=== PATIENT | male | born 1990 | race African-American/Black ===

== ENCOUNTER → 2016-11-13 | Outpatient (CLI) | payer BC ==
[2016-11-13 18:01] LABS: Basophils % (A) 1 %; CH 30.9; CHCM 34.8; Eosinophils # (A) 0.1 k/uL (0-0.7); Eosinophils % (A) 1 %; HCT 47.9 % (39.0-53.0); HGB 16.4 gm/dL (13.0-17.5); Luc # (Auto) 0.19; Luc % (Auto) 2; Lymphocytes # (A) 2.6 k/uL (1.0-4.8); Lymphocytes % (A) 30 %; MCH 30.6 pg (25.0-35.0); MCHC 34.3 g/dL (31.0-37.0); MCV 89.2 fL (80.0-100.0); Mean Platelet Volume 7.1; Monocytes # (A) 0.4 k/uL (0-1.0); Monocytes % (A) 5 %; Neutrophils # (A) 5.1 k/uL (1.3-7.7); Neutrophils % (A) 61 %; RBC 5.36 m/uL (4.30-5.90); RDW 12.5 % (11.5-15.5); WBC 8.5 k/uL (3.8-10.6); WBC (Perox) 8.38
[2016-11-13 18:18] LABS: ALT 34 U/L (21-72); AST 38 U/L (17-59); Alkaline Phosphatase 70 U/L (38-126); Anion Gap 11 mmol/L; Blood Urea Nitrogen 10 mg/dL (9-20); Calcium 9.3 mg/dL (8.4-10.2); Carbon Dioxide 28 mmol/L (22-30); Chloride 101 mmol/L (98-107); Cholesterol 130 mg/dL (<200); Glucose 80 mg/dL (74-99); HDL Cholesterol 38 mg/dL (40-60); Non-African American GFR(MDRD) >60 (>60 ml/min/1.73 sqM); Potassium 3.8 mmol/L (3.5-5.1); Sodium 140 mmol/L (137-145); Total Bilirubin 0.8 mg/dL (0.2-1.3); Total Protein 7.7 g/dL (6.3-8.2); Triglycerides 105 mg/dL (<150)
== END ==
LOC: MMGSC 16:30
PROVIDERS: ATTEND Family Medicine
DX: Z00.00 Encounter for general adult medical examination without abnormal findings (principal)
CPT/HCPCS: 36415; 80053; 80061; 84439; 84443; 85025

== ENCOUNTER → 2017-07-16 | Outpatient (CLI) | payer BC ==
[2017-07-18 14:59] LABS: C. trachomatis,PCR Negative (Neg,Equiv); Chlamydia trachomatis Source Urine; N. gonorrhoeae,PCR Negative (Neg,Equiv); Neisseria Source Urine
== END | disposition home or self-care (01) ==
LOC: MMGSC 16:55
PROVIDERS: ATTEND Family Medicine
DX: Z20.2 Contact with and (suspected) exposure to infections with a predominantly sexual mode of transmission (principal)
CPT/HCPCS: 87491; 87591

== ENCOUNTER 2023-11-05 08:30 | Observation (INO) | payer BC ==
[2023-11-05 09:20] LABS: ALT 22 U/L (4-49); AST 27 U/L (17-59); African American GFR (CKD) >90 (>60 ml/min/1.73 sqM); Albumin 3.4 g/dL (3.5-5.0); Alkaline Phosphatase 76 U/L (38-126); Anion Gap 6 mmol/L; Blood Urea Nitrogen 10 mg/dL (9-20); Calcium 8.7 mg/dL (8.4-10.2); Carbon Dioxide 29 mmol/L (22-30); Chloride 103 mmol/L (98-107); Glucose 96 mg/dL (74-99); Lipase 1704 U/L (23-300); Non-African American GFR(CKD) >90 (>60 ml/min/1.73 sqM); Potassium 3.8 mmol/L (3.5-5.1); Sodium 138 mmol/L (137-145); Total Bilirubin 0.4 mg/dL (0.2-1.3); Total Protein 6.2 g/dL (6.3-8.2)
[2023-11-05 09:26] LABS: Basophils # (A) 0.1 k/uL (0-0.2); Basophils % (A) 1 %; Eosinophils # (A) 1.6 k/uL (0-0.7); Eosinophils % (A) 13 %; HCT 40.2 % (39.0-53.0); HGB 13.3 gm/dL (13.0-17.5); Lymphocytes # (A) 2.2 k/uL (1.0-4.8); Lymphocytes % (A) 17 %; MCH 29.6 pg (25.0-35.0); MCHC 33.2 g/dL (31.0-37.0); MCV 89.1 fL (80.0-100.0); Mean Platelet Volume 7.1; Monocytes # (A) 0.9 k/uL (0-1.0); Monocytes % (A) 7 %; Neutrophils # (A) 7.7 k/uL (1.3-7.7); Neutrophils % (A) 61 %; Platelet Count 351 k/uL (150-450); RBC 4.51 m/uL (4.30-5.90); RDW 13.6 % (11.5-15.5); WBC 12.6 k/uL (3.8-10.6)
[2023-11-05] MEDS: SODIUM CHLORIDE 0.9% 1,000 ML IV STA (09:27)
[2023-11-05 09:50] VITALS: RESP 18; TEMP 98.1
--- NOTE | 2023-11-05 10:01 | US ---
EXAMINATION TYPE: US gallbladder DATE OF EXAM: 11/05/2023 COMPARISON: NONE CLINICAL INDICATION: Male, 33 years old with history of pain; RUQ pain, denies n/v TECHNIQUE: Multiple sonographic images of the right upper quadrant are obtained. FINDINGS: EXAM MEASUREMENTS: Liver Length: 14.8 cm Gallbladder Wall: 0.21 cm CBD: 0.33 cm Right Kidney: 10.2 x 4.8 x 4.4 cm INFUSION RN NOTES: Pancreas: Obscured by bowel gas Liver: wnl Gallbladder: Contracted; no stones seen Evidence for sonographic Rashid's sign: No CBD: wnl Right Kidney: wnl IMPRESSION: Contracted gallbladder without evidence for gallstones. No acute process.
--- NOTE | 2023-11-05 11:28 | CT ---
EXAMINATION TYPE: CT abdomen pelvis w con DATE OF EXAM: 11/05/2023 COMPARISON: None INDICATION: Abdominal pain, new pancreatitis DLP: 1731.80 mGycm, Automated exposure control for dose reduction was used. CONTRAST: 100 ml mL of Isovue 300. Study performed without Oral Contrast TECHNIQUE: Axial images were obtained from above the diaphragm to the pubic rami in the axial plane a t 5 mm thick sections. Reconstructed images are reviewed on the computer in the coronal plane. FINDINGS: Limited CT sections are obtained the lung bases. The lung bases are clear. CT ABDOMEN: Liver: Normal Spleen: Normal Pancreas: There is minimal inflammatory change adjacent to the pancreas. Findings could be compatible with diffuse mild pancreatitis. No pseudocyst formation or abscess formation is identified. Adrenal glands: The adrenal glands are normal. Gallbladder: Normal Kidneys: No masses are evident. No hydronephrosis is present. No cysts are present. Delayed images were obtained through the kidneys, which remain unremarkable. Aorta: Normal Inferior vena cava: Normal. CT PELVIS: Loops of bowel within the abdomen and pelvis are normal. Studies without oral contrast limiting b owel evaluation. Fecal debris is within the distal colon. Appendix: Normal as visualized. Urinary bladder: Normal. Genitourinary structures: Prostate appears normal Osseous structures: No suspicious lytic or sclerotic lesions. IMPRESSION: 1. Mild diffuse pancreatitis.
[2023-11-05] MEDS ORDERED: NALOXONE 0.4 MG/ML 1 ML VIAL IV PRN (11:53)
[2023-11-05] MEDS ORDERED: KETOROLAC 15 MG/ML 1 ML VIAL IVP PRN (11:53)
[2023-11-05] MEDS ORDERED: ONDANSETRON 4 MG/2 ML VIAL IVP PRN (11:53)
[2023-11-05] MEDS ORDERED: HYDROmorphone 0.5 MG/0.5 ML SYRINGE IVP PRN (11:53)
[2023-11-05] MEDS: KETOROLAC 15 MG/ML 1 ML VIAL IVP STA (11:53)
[2023-11-05] MEDS: SODIUM CHLORIDE 0.9% 1,000 ML IV ONE (11:54)
--- NOTE | 2023-11-05 11:54 | ED ---
Abdominal Pain HPI - General Chief Complaint: Abdominal Pain Stated Complaint: Abdominal Pain Time Seen by Provider: 11/05/23 08:37 Source: patient, RN notes reviewed Mode of arrival: ambulatory Limitations: no limitations - History of Present Illness Initial Comments: 33-year-old male presents emergency department chief complaint of abdominal pain. Patient states she has had increased abdominal pain for few days states that symptoms right upper quadrant epigastric region. States it does radiate to his back some. Patient states certain foods make it worse or just eating in general. Patient notes nausea without vomiting denies any change in bowel habits no prior abdominal surgeries no chest pain. - Related Data Home Medications Medication Instructions Recorded Confirmed Baclofen [Lioresal] 10 mg PO DAILY PRN 11/05/23 11/05/23 Dextroamphetamine/Amphetamine 30 mg PO DAILY 11/05/23 11/05/23 [Adderall Xr 30 mg Capsule] Metoprolol Succinate (ER) [Toprol 100 mg PO DAILY@1700 11/05/23 11/05/23 XL] Previous Rx's Medication Instructions Recorded HYDROcodone/APAP 10-325MG [[place] 1 tab PO Q6HR PRN 3 Days #12 tab 11/05/23 10-325] Allergies Allergy/AdvReac Type Severity Reaction Status Date / Time No Known Allergies Allergy Verified 11/05/23 11:56 Review of Systems ROS Statement: Those systems with pertinent positive or pertinent negative responses have been documented in the HPI. ROS Other: All systems not noted in ROS Statement are negative. Past Medical History Past Medical History: Hyperlipidemia, Hypertension History of Any Multi-Drug Resistant Organisms: None Reported Past Surgical History: Adenoidectomy, Ear Surgery, Tonsillectomy Past Psychological History: No Psychological Hx Reported Smoking Status: Never smoker Past Alcohol Use History: Occasional Past Drug Use History: None Reported General Exam Limitations: no limitations General appearance: alert, in no apparent distress Head exam: Present: atraumatic, normocephalic, normal inspection Eye exam: Present: normal appearance, PERRL, EOMI. Absent: scleral icterus, conjunctival injection, periorbital swelling Respiratory exam: Present: normal lung sounds bilaterally. Absent: respiratory distress, wheezes, rales, rhonchi, stridor Cardiovascular Exam: Present: regular rate, normal rhythm, normal heart sounds. Absent: systolic murmur, diastolic murmur, rubs, gallop, clicks GI/Abdominal exam: Present: soft, tenderness, normal bowel sounds. Absent: distended, guarding, rebound, rigid Back exam: Absent: CVA tenderness (R), CVA tenderness (L) Course Vital Signs 11/05/23 11/05/23 11/05/23 08:34 09:28 11:00 Temperature 98.1 F Pulse Rate 93 89 81 Respiratory 20 18 18 Rate Blood Pressure 126/82 134/84 141/82 O2 Sat by Pulse 98 97 95 Oximetry 11/05/23 11/05/23 13:00 14:50 Temperature Pulse Rate 80 82 Respiratory 18 18 Rate Blood Pressure 140/86 137/84 O2 Sat by Pulse 99 97 Oximetry Medical Decision Making - Medical Decision Making Was pt. sent in by a medical professional or institution (, PA, [employer], urgent ca re, hospital, or [place] health care facility...) When possible be specific @ -No Did you speak to anyone other than the patient for history (EMS, parent, family, police, friend...)? What history was obtained from this source @ -No Did you review nursing and triage notes (agree or disagree)? Why? @ -I reviewed and agree with nursing and triage notes Were old charts reviewed (outside hosp., previous admission, EMS record, old EKG, old radiological studies, urgent care reports/EKG's, [place] health care facility records)? Report findings @ -No old charts were reviewed Differential Diagnosis (chest pain, altered mental status, abdominal pain women, abdominal pain men, vaginal bleeding, weakness, fever, dyspnea, syncope, he adache, dizziness, GI bleed, back pain, seizure, CVA, palpatations, mental health, musculoskeletal)? @ -Differential Abdominal Pain Men: Appendicitis, cholecystitis, diverticulosis, ischemic bowel, pancreatitis, hepatitis, UTI, gastroenteritis, AAA, incarcerated hernia, bowel obstruction, constipation, inflammatory bowel, hepatitis, peptic ulcer disease, splenic infarction, perforated viscus, testicular torsion, this is not meant to be an all-inclusive list EKG interpreted by me (3pts min.). @ -None X-rays interpreted by me (1pt min.). @ -None done CT interpreted by me (1pt min.). @ -CT abdomen pelvis showing diffuse pancreatitis U/S interpreted by me (1pt. min.). @ -Ultrasound gall bladder showing no evidence of cholecystitis or gallstones What testing was considered but not performed or refused? (CT, X-rays, U/S, labs)? Why? @ -None What meds were considered but not given or refused? Why? @ -None Did you discuss the management of the patient with other professionals (professionals i.e. , PA, [employer], lab, RT, psych nurse, social media sr strategy manager, air quality manager, teacher, fire information officer, pillowcase folder)? Give summary @ -Discussed with Dr. Bah for admission for acute pancreatitis, GI consult Was smoking cessation discussed for >3mins.? @ -No Was critical care preformed (if so, how long)? @ -No Were there social determinants of health that impacted care today? How? (Homelessness, low income, unemployed, alcoholism, drug addiction, transportation, low edu. Level, literacy, decrease access to med. care, halfway, rehab)? @ -No Was there de-escalation of care discussed even if they declined (Discuss DNR or withdrawal of care, Hospice)? DNR status @ -No What co-morbidities impacted this encounter? (DM, HTN, Smoking, COPD, CAD, Cancer, CVA, ARF, Chemo, Hep., AIDS, mental health diagnosis, sleep apnea, morbid obesity)? @ -None Was patient admitted / discharged? Hospital course, mention meds given and route, prescriptions, significant lab abnormalities, going to OR and other pertinent info. @ -Admitted patient has acute pancreatitis, idiopathic pancreatitis will be admitted for IV fluids, GI Undiagnosed new problem with uncertain prognosis? @ -No Drug Therapy requiring intensive monitoring for toxicity (Heparin, Nitro, Insulin, Cardizem)? @ -No Were any procedures done? @ -No Diagnosis/symptom? @ -Pancreatitis Acute, or Chronic, or Acute on Chronic? @ -Acute Uncomplicated (without systemic symptoms) or Complicated (systemic symptoms)? @ -Complicated Side effects of treatment? @ -No Exacerbation, Progression, or Severe Exacerbation? @ -No Poses a threat to life or bodily function? How? (Chest pain, [place], [place], pneumonia, PE, COPD, DKA, ARF, appy, cholecystitis, CVA, Diverticulitis, Homicidal, Suicidal, threat to staff... and all critical care pts) @ -No - Lab Data Result diagrams: 11/05/23 08:59 11/05/23 08:59 Lab Results 11/05/23 11/05/23 11/05/23 Range/Units 08:59 08:59 08:59 WBC 12.6 H (3.8-10.6) k/uL RBC 4.51 (4.30-5.90) m/uL Hgb 13.3 (13.0-17.5) gm/dL Hct 40.2 (39.0-53.0) % MCV 89.1 (80.0-100.0) fL MCH 29.6 (25.0-35.0) pg MCHC 33.2 (31.0-37.0) g/dL RDW 13.6 (11.5-15.5) % Plt Count 351 (150-450) k/uL MPV 7.1 Neutrophils % 61 % Lymphocytes % 17 % Monocytes % 7 % Eosinophils % 13 % Basophils % 1 % Neutrophils # 7.7 (1.3-7.7) k/uL Lymphocytes # 2.2 (1.0-4.8) k/uL Monocytes # 0.9 (0-1.0) k/uL Eosinophils # 1.6 H (0-0.7) k/uL Basophils # 0.1 (0-0.2) k/uL Sodium 138 (137-145) mmol/L Potassium 3.8 (3.5-5.1) mmol/L Chloride 103 (98-107) mmol/L Carbon Dioxide 29 (22-30) mmol/L Anion Gap 6 mmol/L BUN 10 (9-20) mg/dL Creatinine 0.85 (0.66-1.25) mg/dL Est GFR (CKD-EPI)AfAm >90 (>60 ml/min/1.73 sqM) Est GFR (CKD-EPI)NonAf >90 (>60 ml/min/1.73 sqM) Glucose 96 (74-99) mg/dL Plasma Lactic Acid Allan 0.6 L (0.7-2.0) mmol/L Calcium 8.7 (8.4-10.2) mg/dL Total Bilirubin 0.4 (0.2-1.3) mg/dL AST 27 (17-59) U/L ALT 22 (4-49) U/L Alkaline Phosphatase 76 (38-126) U/L Total Protein 6.2 L (6.3-8.2) g/dL Albumin 3.4 L (3.5-5.0) g/dL Lipase 1704 H (23-300) U/L Disposition Clinical Impression: Acute pancreatitis Disposition: ADMITTED IP TO THIS HOSP Condition: Fair Time of Disposition: 11:53
[2023-11-05] MEDS: SODIUM CHLORIDE 0.9% 1,000 ML IV SCH (11:55)
--- NOTE | 2023-11-05 14:39 | P.HPIM ---
History of Present Illness H&P Date: 11/05/23 This note will serve as the H&P along with discharge summary. 33-year-old male with PMH of ADHD, hypertension presents the ED for abdominal pain. Abdominal pain started on Friday. Pain is located in the right upper quadrant. Patient describes the pain as a stomach ache, cramping in nature. Pain is intermittent and worsened with meals. Pain is 6 out of 10 in severity. He reports no nausea or vomiting. He reports watery diarrhea, 4-5 bowel movements daily since Friday. He reports social drinking. His last drink was on Friday and Friday. He denies any illicit drug use or smoking cigarettes. In the ED, he underwent extensive evaluation. BP 126/82, HR 93, T 98.1F, 98% on RA. CBC and CMP performed significant for WBC 12.6, albumin 3.4, total protein 6.2. Lactic acid 0.6. Lipase 1704. Gallbladder ultrasound negative for gallstones or CBD dilation. CTAP showed minimal inflammatory changes adjacent to the pancreas compatible with diffuse mild pancreatitis. Patient was accepted for admission for treatment of pancreatitis. He received 15 mg of IV Toradol. He is currently tolerating diet. His pain is manageable. He reports feeling like he can manage his pain and symptoms at home. He is encouraged to drink plenty of water. We will prescribe [place] PRN for the patient. Patient verbalized understanding of the plan. General: non toxic, no distress, appears at stated age Derm: warm, dry Head: atraumatic, normocephalic, symmetric Eyes: EOMI, no lid lag, anicteric sclera Mouth: no lip lesion, mucus membranes moist Cardiovascular: S1S2 reg, no murmur Lungs: CTA bilateral, no rhonchi, no rales , no accessory muscle use Abdominal: soft, nontender to palpation, no guarding, no appreciable organomegaly Ext: no gross muscle atrophy, no edema, no contractures Neuro: no focal neuro deficits Psych: Alert, oriented, appropriate affect Discharge Diagnosis: Mild pancreatitis DIarrhea likely related to above SIRS likely related to above Past Medical History Past Medical History: Hyperlipidemia, Hypertension History of Any Multi-Drug Resistant Organisms: None Reported Past Surgical History: Adenoidectomy, Ear Surgery, Tonsillectomy Past Psychological History: No Psychological Hx Reported Smoking Status: Never smoker Past Alcohol Use History: Occasional Past Drug Use History: None Reported Medications and Allergies Home Medications Medication Instructions Recorded Confirmed Type Baclofen [Lioresal] 10 mg PO DAILY PRN 11/05/23 11/05/23 History Dextroamphetamine/Amphetamine 30 mg PO DAILY 11/05/23 11/05/23 History [Adderall Xr 30 mg Capsule] HYDROcodone/APAP 10-325MG [[place] 1 tab PO Q6HR PRN 3 Days #12 tab 11/05/23 Rx 10-325] Metoprolol Succinate (ER) [Toprol 100 mg PO DAILY@1700 11/05/23 11/05/23 History XL] Allergies Allergy/AdvReac Type Severity Reaction Status Date / Time No Known Allergies Allergy Verified 11/05/23 11:56 Physical Exam Vitals: Vital Signs Temp Pulse Resp BP Pulse Ox 11/05/23 13:00 80 18 140/86 99 11/05/23 11:00 81 18 141/82 95 11/05/23 09:28 89 18 134/84 97 11/05/23 08:34 98.1 F 93 20 126/82 98 Intake and Output 11/04/23 11/05/23 11/05/23 22:59 06:59 14:59 Other: Weight 117.934 kg Results CBC & Chem 7: 11/05/23 08:59 11/05/23 08:59 Labs: Abnormal Lab Results - Last 24 Hours (Table) 11/05/23 11/05/23 11/05/23 Range/Units 08:59 08:59 08:59 WBC 12.6 H (3.8-10.6) k/uL Eosinophils # 1.6 H (0-0.7) k/uL Plasma Lactic Acid Allan 0.6 L (0.7-2.0) mmol/L Total Protein 6.2 L (6.3-8.2) g/dL Albumin 3.4 L (3.5-5.0) g/dL Lipase 1704 H (23-300) U/L
[2023-11-05 15:12] VITALS: BP 137/84; PULSE 82
== END 2023-11-05 14:50 | disposition home or self-care (01) ==
LOC: EC 08:30 → 6NMEDSUR 12:10
PROVIDERS: ADMIT Internal Medicine; ATTEND Internal Medicine
DX: K85.00 Idiopathic acute pancreatitis without necrosis or infection (principal); R65.10 Systemic inflammatory response syndrome (SIRS) of non-infectious origin without acute organ dysfunction; I10 Essential (primary) hypertension; F90.9 Attention-deficit hyperactivity disorder, unspecified type; R19.7 Diarrhea, unspecified; Z79.899 Other long term (current) drug therapy
CPT/HCPCS: 96361; 96374; 99285; 36415; 80053; 83605; 83690; 85025; 76705; 74177; G0378; J1885; Q9967

== ENCOUNTER 2023-12-25 19:24 | Inpatient (IN) | payer BC ==
--- NOTE | 2023-12-25 19:38 | ED ---
Abdominal Pain HPI - General Chief Complaint: Abdominal Pain Stated Complaint: Pancreatitis Time Seen by Provider: 12/25/23 19:36 Source: patient, family, RN notes reviewed Mode of arrival: ambulatory Limitations: no limitations - History of Present Illness Initial Comments: 33-year-old male presented to ER with a chief complaint of abdominal pain. [place] ent states he has a past medical history significant of pancreatitis and this feels similar. States he has been experiencing a sharp left-sided abdominal pain since last night. He reports he has had a decreased appetite and has been unable to keep any food or liquids down since then. He denies any fevers, chills, nausea, constipation/diarrhea or urinary complaints. He states he has been trying [id number] Excedrin without relief. Family, at bedside, report patient has lost weight since his last ER visit here in November. Patient denies any chest pain, shortness of breath or peripheral edema. - Related Data Home Medications Medication Instructions Recorded Confirmed Baclofen [Lioresal] 10 mg PO DAILY PRN 11/05/23 11/05/23 Dextroamphetamine/Amphetamine 30 mg PO DAILY 11/05/23 11/05/23 [Adderall Xr 30 mg Capsule] Metoprolol Succinate (ER) [Toprol 100 mg PO DAILY@1700 11/05/23 11/05/23 XL] Previous Rx's Medication Instructions Recorded HYDROcodone/APAP 10-325MG [[place] 1 tab PO Q6HR PRN 3 Days #12 tab 11/05/23 10-325] Allergies Allergy/AdvReac Type Severity Reaction Status Date / Time No Known Allergies Allergy Verified 12/25/23 19:27 Review of Systems ROS Statement: Those systems with pertinent positive or pertinent negative responses have been documented in the HPI. ROS Other: All systems not noted in ROS Statement are negative. Past Medical History Past Medical History: Hyperlipidemia, Hypertension Additional Past Medical History / Comment(s): pancrentitis History of Any Multi-Drug Resistant Organisms: None Reported Past Surgical History: Adenoidectomy, Ear Surgery, Tonsillectomy Past Psychological History: No Psychological Hx Reported Smoking Status: Never smoker Past Alcohol Use History: Occasional Past Drug Use History: None Reported General Exam Limitations: no limitations General appearance: alert, in no apparent distress Respiratory exam: Present: normal lung sounds bilaterally. Absent: respiratory distress, wheezes, rales, rhonchi, stridor Cardiovascular Exam: Present: normal rhythm, tachycardia, normal heart sounds GI/Abdominal exam: Present: soft, tenderness (Left-sided. Left upper quadrant), normal bowel sounds Neurological exam: Present: alert, oriented X3, CN II-XII intact Skin exam: Present: warm, dry, intact, pallor (mild). Absent: rash Course Vital Signs 12/25/23 12/25/23 19:26 21:30 Temperature 98.2 F Pulse Rate 116 H 111 H Respiratory 20 18 Rate Blood Pressure 116/73 125/72 O2 Sat by Pulse 99 99 Oximetry - Reevaluation(s) Reevaluation #1: 12/26/23 01:32 Case discussed with [facility] physician, Dr. Saunders, who accepts medical admission. Medical Decision Making - Medical Decision Making Was pt. sent in by a medical professional or institution (, PA, BULB ASSEMBLER, urgent care, hospital, or group home...) When possible be specific @ -No Did you speak to anyone other than the patient for history (EMS, parent, family, police, friend...)? What history was obtained from this source @ -No Did you review nursing and triage notes (agree or disagree)? Why? @ -I reviewed and agree with nursing and triage notes Were old charts reviewed (outside hosp., previous admission, EMS record, old EKG, old radiological studies, urgent care reports/EKG's, group home records)? Report findings @ -Yes, I reviewed ER visit and hospital admission on 11-05-2023. Patient admitted for pancreatitis. Differential Diagnosis (chest pain, altered mental status, abdominal pain women, abdominal pain men, vaginal bleeding, weakness, fever, dyspnea, syncope, headache, dizziness, GI bleed, back pain, seizure, CVA, palpatations, mental health, musculoskeletal)? @-Differential Abdominal Pain Men: Appendicitis, cholecystitis, diverticulosis, ischemic bowel, pancreatitis, hepatitis, UTI, gastroenteritis, AAA, incarcerated hernia, bowel obstruction, constipation, inflammatory bowel, hepatitis, peptic ulcer disease, splenic infarction, perforated viscus, testicular torsion, this is not meant to be an all-inclusive list EKG interpreted by me (3pts min.). @ -As above X-rays interpreted by me (1pt min.). @ -Chest x-ray interpreted by me negative for acute cardiopulmonary process. CT interpreted by me (1pt min.). @ - CT abdomen pelvis remarkable for moderate wall thickening of the transve rse, descending and sigmoid colon consistent with colitis. Hepatic steatosis. U/S interpreted by me (1pt. min.). @ -None done What testing was considered but not performed or refused? (CT, X-rays, U/S, labs)? Why? @ -None What meds were considered but not given or refused? Why? @ -None Did you discuss the management of the patient with other professionals (professionals i.e. , PA, BULB ASSEMBLER, lab, RT, psych nurse, social media coordinator, landscape architecture teacher, teacher, sba business development officer, registered nurse hh case manager)? Give summary @ -Yes, case discussed with Dr. Saunders, [facility] physicians, who accepts medical admission. Was smoking cessation discussed for >3mins.? @ -No Was critical care preformed (if so, how long)? @ -No Were there social determinants of health that impacted care today? How? (Homelessness, low income, unemployed, alcoholism, drug addiction, transportation, low edu. Level, literacy, decrease access to med. care, senior living, rehab)? @ -No Was there de-escalation of care discussed even if they declined (Discuss DNR or withdrawal of care, Hospice)? DNR status @ -No What co-morbidities impacted this encounter? (DM, HTN, Smoking, COPD, CAD, Cancer, CVA, ARF, Chemo, Hep., AIDS, mental health diagnosis, sleep apnea, mor bid obesity)? @ -None Was patient admitted / discharged? Hospital course, mention meds given and ro brenna, prescriptions, significant lab abnormalities, going to OR and other pertinent info. @ -Admitted. 33-year-old male presented to the ER with a chief complaint of abdominal pain. History and physical exam completed. Vitals upon arrival significant for a temperature 98.2, heart rate 116, respiratory rate 20, blood pressure 116/73, oxygen saturation 99% on room air. No signs of acute distress but does appear mildly pale on exam. Abdominal tenderness to left upper and lower quadrant with normal bowel sounds. No rebound tenderness or guarding. Laboratory studies obtained remarkable for cytosis with WBC 20.7 with a left shift. Normocytic normochromic anemia at 11.7. Hyponatremic at 133, hypokalemic 2.8, chloride 92, carbon dioxide is 36. Urinalysis remarkable for trace protein which is likely related to dehydration. CT abdomen pelvis performed due to leukocytosis and focal abdominal tenderness. CT abdomen pelvis remarkable for moderate wall thickening of the transverse, descending and sigmoid colon consistent with colitis. Patient received 2 L IV fluids, morphine, Zofran for symptom control in the ER, with improvement. Patient did receive IV Zosyn in the ER due to ovidio kocytosis while awaiting CT abdomen pelvis results. Blood cultures obtained prior to antibiotic administration. Due to leukocytosis and CT findings admission was considered. Case discussed with sound physician, Dr. Saunders,who accepts medical admission. GI consulted. Patient started on IV Levaquin and Flagyl for colitis. Results discussed with patient, all questions answered. Patient agreeable for admission. Patient admitted in stable condition. Case discussed with ED attending, Dr. Keller. Undiagnosed new problem with uncertain prognosis? @ -No Drug Therapy requiring intensive monitoring for toxicity (Heparin, Nitro, Insulin, Cardizem)? @ -No Were any procedures done? @ -No Diagnosis/symptom? @ -Colitis/metabolic acidosis Acute, or Chronic, or Acute on Chronic? @ -Acute Uncomplicated (without systemic symptoms) or Complicated (systemic symptoms)? @ -Complicated Side effects of treatment? @ -No Exacerbation, Progression, or Severe Exacerbation? @ -No Poses a threat to life or bodily function? How? (Chest pain, [place], [place], pneumonia, PE, COPD, DKA, ARF, appy, cholecystitis, CVA, Diverticulitis, Homicidal, Suicidal, threat to staff... and all critical care pts) @ -Possibly - Lab Data Result diagrams: 12/25/23 20:10 12/25/23 20:10 Lab Results 12/25/23 12/25/23 12/25/23 Range/Units 20:10 20:10 20:10 WBC 20.7 H (3.8-10.6) k/uL RBC 3.98 L (4.30-5.90) m/uL Hgb 11.7 L (13.0-17.5) gm/dL Hct 36.6 L (39.0-53.0) % MCV 92.0 (80.0-100.0) fL MCH 29.3 (25.0-35.0) pg MCHC 31.9 (31.0-37.0) g/dL RDW 13.6 (11.5-15.5) % Plt Count 572 H (150-450) k/uL MPV 8.1 Neutrophils % 84 % Lymphocytes % 5 % Monocytes % 7 % Eosinophils % 1 % Basophils % 0 % Neutrophils # 17.4 H (1.3-7.7) k/uL Lymphocytes # 1.1 (1.0-4.8) k/uL Monocytes # 1.5 H (0-1.0) k/uL Eosinophils # 0.2 (0-0.7) k/uL Basophils # 0.1 (0-0.2) k/uL Manual Slide Review Performed Sodium 133 L (137-145) mmol/L Potassium 2.8 L (3.5-5.1) mmol/L Chloride 92 L (98-107) mmol/L Carbon Dioxide 36 H (22-30) mmol/L Anion Gap 5 mmol/L BUN 10 (9-20) mg/dL Creatinine 0.82 (0.66-1.25) mg/dL Est GFR (CKD-EPI)AfAm >90 (>60 ml/min/1.73 sqM) Est GFR (CKD-EPI)NonAf >90 (>60 ml/min/1.73 sqM) Glucose 100 H (74-99) mg/dL Plasma Lactic Acid Allan 1.8 (0.7-2.0) mmol/L Calcium 7.7 L (8.4-10.2) mg/dL Total Bilirubin 0.4 (0.2-1.3) mg/dL AST 17 (17-59) U/L ALT 15 (4-49) U/L Alkaline Phosphatase 93 (38-126) U/L Total Protein 5.2 L (6.3-8.2) g/dL Albumin 2.3 L (3.5-5.0) g/dL Amylase 34 (30-110) U/L Lipase 35 (23-300) U/L Urine Color Urine Appearance (Clear) Urine pH (5.0-8.0) Ur Specific [place] (1.001-1.035) Urine Protein (Negative) Urine Glucose (UA) (Negative) Urine Ketones (Negative) Urine Blood (Negative) Urine Nitrite (Negative) Urine Bilirubin (Negative) Urine Urobilinogen (<2.0) mg/dL Ur Leukocyte Esterase (Negative) 12/25/23 Range/Units 22:32 WBC (3.8-10.6) k/uL RBC (4.30-5.90) m/uL Hgb (13.0-17.5) gm/dL Hct (39.0-53.0) % MCV (80.0-100.0) fL MCH (25.0-35.0) pg MCHC (31.0-37.0) g/dL RDW (11.5-15.5) % Plt Count (150-450) k/uL MPV Neutrophils % % Lymphocytes % % Monocytes % % Eosinophils % % Basophils % % Neutrophils # (1.3-7.7) k/uL Lymphocytes # (1.0-4.8) k/uL Monocytes # (0-1.0) k/uL Eosinophils # (0-0.7) k/uL Basophils # (0-0.2) k/uL Manual Slide Review Sodium (137-145) mmol/L Potassium (3.5-5.1) mmol/L Chloride (98-107) mmol/L Carbon Dioxide (22-30) mmol/L Anion Gap mmol/L BUN (9-20) mg/dL Creatinine (0.66-1.25) mg/dL Est GFR (CKD-EPI)AfAm (>60 ml/min/1.73 sqM) Est GFR (CKD-EPI)NonAf (>60 ml/min/1.73 sqM) Glucose (74-99) mg/dL Plasma Lactic Acid Allan (0.7-2.0) mmol/L Calcium (8.4-10.2) mg/dL Total Bilirubin (0.2-1.3) mg/dL AST (17-59) U/L ALT (4-49) U/L Alkaline Phosphatase (38-126) U/L Total Protein (6.3-8.2) g/dL Albumin (3.5-5.0) g/dL Amylase (30-110) U/L Lipase (23-300) U/L Urine Color Colorless Urine Appearance Clear (Clear) Urine pH 7.0 (5.0-8.0) Ur Specific [place] 1.038 H (1.001-1.035) Urine Protein Trace H (Negative) Urine Glucose (UA) Negative (Negative) Urine Ketones Negative (Negative) Urine Blood Negative (Negative) Urine Nitrite Negative (Negative) Urine Bilirubin Negative (Negative) Urine Urobilinogen <2.0 (<2.0) mg/dL Ur Leukocyte Esterase Negative (Negative) - EKG Data -: EKG Interpreted by Me EKG Comments: EKG taken at 21: 47 showing a sinus tachycardia with no acute ST segment or T wave abnormalities. Normal axis. Ventricular rate 103, IN interval 146, QRS duration 102, QT/QTc 284/344. - Radiology Data Radiology results: report reviewed, image reviewed Disposition Clinical Impression: Colitis, Metabolic acidosis Disposition: ADMITTED IP TO THIS HOSP Condition: Stable Time of Disposition: 00:49
[2023-12-25 20:43] LABS: ALT 15 U/L (4-49); AST 17 U/L (17-59); African American GFR (CKD) >90 (>60 ml/min/1.73 sqM); Albumin 2.3 g/dL (3.5-5.0); Alkaline Phosphatase 93 U/L (38-126); Amylase 34 U/L (30-110); Anion Gap 5 mmol/L; Blood Urea Nitrogen 10 mg/dL (9-20); Calcium 7.7 mg/dL (8.4-10.2); Carbon Dioxide 36 mmol/L (22-30); Chloride 92 mmol/L (98-107); Glucose 100 mg/dL (74-99); Lipase 35 U/L (23-300); Non-African American GFR(CKD) >90 (>60 ml/min/1.73 sqM); Potassium 2.8 mmol/L (3.5-5.1); Sodium 133 mmol/L (137-145); Total Bilirubin 0.4 mg/dL (0.2-1.3); Total Protein 5.2 g/dL (6.3-8.2)
[2023-12-25 20:59] LABS: Basophils # (A) 0.1 k/uL (0-0.2); Basophils % (A) 0 %; Eosinophils # (A) 0.2 k/uL (0-0.7); Eosinophils % (A) 1 %; HCT 36.6 % (39.0-53.0); HGB 11.7 gm/dL (13.0-17.5); Lymphocytes # (A) 1.1 k/uL (1.0-4.8); Lymphocytes % (A) 5 %; MCH 29.3 pg (25.0-35.0); MCHC 31.9 g/dL (31.0-37.0); Mean Platelet Volume 8.1; Monocytes # (A) 1.5 k/uL (0-1.0); Monocytes % (A) 7 %; Neutrophils # (A) 17.4 k/uL (1.3-7.7); Neutrophils % (A) 84 %; Platelet Count 572 k/uL (150-450); RBC 3.98 m/uL (4.30-5.90); RDW 13.6 % (11.5-15.5); WBC 20.7 k/uL (3.8-10.6)
[2023-12-25] MEDS: SODIUM CHLORIDE 0.9% 1,000 ML IV STA ×2 (21:37→21:38)
[2023-12-25] MEDS: ONDANSETRON 4 MG/2 ML VIAL IVP STA (21:37)
[2023-12-25] MEDS: KETOROLAC 15 MG/ML 1 ML VIAL IVP STA (21:38)
[2023-12-25] MEDS: MORPHINE SULFATE 2 MG/ML SYRINGE IVP ONE (21:39)
[2023-12-25 22:40] LABS: Appearance,Urine Clear (Clear); Bilirubin,Urine Negative (Negative); Blood,Urine Negative (Negative); Color,Urine Colorless; Glucose,Urine (UA) Negative (Negative); Ketones,Urine Negative (Negative); Leukocyte Esterase,Urine Negative (Negative); Nitrite,Urine Negative (Negative); Protein,Urine Trace (Negative); Specific Gravity,Urine 1.038 (1.001-1.035); Urobilinogen,Urine <2.0 mg/dL (<2.0)
--- NOTE | 2023-12-26 00:08 | CT ---
EXAM: CT Abdomen and Pelvis With Intravenous Contrast CLINICAL HISTORY: ITS.REASON CT Reason: abd pain leukocytosis TECHNIQUE: Axial computed tomography images of the abdomen and pelvis with intravenous contrast. CTDI is 22.0 mGy and DLP is 1122.2 mGy-cm. This CT exam was performed using one or more of the following dose reduction techniques: automated exposure control, adjustment of the mA and/or kV according to patient size, and/or use of iterative reconstruction technique. COMPARISON: No relevant prior studies available. FINDINGS: Lung bases: Unremarkable. No mass. No consolidation. ABDOMEN: Liver: Hepatic steatosis. Gallbladder and bile ducts: Unremarkable. No calcified stones. No ductal dilation. Pancreas: Unremarkable. No mass. No ductal dilation. Spleen: Unremarkable. No splenomegaly. Adrenals: Unremarkable. No mass. Kidneys and ureters: Unremarkable. No solid mass. No hydronephrosis. Stomach and bowel: Moderate wall thickening of the transverse, descending, and sigmoid colon, consistent with colitis. Associated, diarrheal disease. No obstruction. PELVIS: Appendix: No findings to suggest acute appendicitis. Bladder: Unremarkable. No mass. Reproductive: Unremarkable as visualized. ABDOMEN and PELVIS: Intraperitoneal space: Unremarkable. No free air. No significant fluid collection. Bones/joints: No acute fracture. No dislocation. Soft tissues: Unremarkable. Vasculature: Unremarkable. No abdominal aortic aneurysm. Lymph nodes: Unremarkable. No enlarged lymph nodes. IMPRESSION: 1. Moderate wall thickening of the transverse, descending, and sigmoid colon, consistent with colitis. Associated, diarrheal disease. 2. Hepatic steatosis.
[2023-12-26] MEDS ORDERED: NALOXONE 0.4 MG/ML 1 ML VIAL IV PRN (00:39)
--- NOTE | 2023-12-26 00:39 | XR ---
EXAM: XR Chest, 2 Views CLINICAL HISTORY: ITS.REASON XR Reason: fatigue TECHNIQUE: Frontal and lateral views of the chest. COMPARISON: No relevant prior studies available. FINDINGS: Lungs: Unremarkable. No consolidation. Pleural space: Unremarkable. No pneumothorax. Heart: Unremarkable. No cardiomegaly. Mediastinum: Unremarkable. Normal mediastinal contour. Bones/joints: Unremarkable. No acute fracture. IMPRESSION: No pneumonia.
[2023-12-26] MEDS: PIPERACILLIN-TAZOBACTAM 3.375 GM in SODIUM CHLORIDE 0.9% 100 ML IVPB STA (00:41)
[2023-12-26] MEDS ORDERED: ACETAMINOPHEN TAB 325 MG TAB PO PRN (00:58)
[2023-12-26] MEDS: MORPHINE SULFATE 2 MG/ML SYRINGE IV PRN (01:16)
[2023-12-26] MEDS: metroNIDAZOLE-NS PMX 500 MG in SALINE 1 100ML.BAG IVPB STA (04:13)
--- NOTE | 2023-12-26 04:13 | P.HPIM ---
History of Present Illness H&P Date: 12/26/23 Patient is a 33-year-old male with PMH of hypertension and ADHD who presents to the emergency room with complaints of abdominal pain, diarrhea, and weight loss. Patient notes that over the past 2 months since his most recent admission of pancreatitis, he has lost roughly 40 pounds and has had intermittent diffuse abdominal discomfort with associated diarrhea. He has noticed blood in his stools on numerous occasions, bright red, without mucus. Notes that the pain has no clear inciting triggers but often occurs after food consumption. Reports that the pain is usually associated with diarrhea, and lasts for several days at a time. Denies nausea, vomiting, fever, chills, cough. Of note, the patient was admitted on 11/04 for mild acute pancreatitis. He does report having seen a belt line feeder as an outpatient and is currently awaiting the results of his workup and is also scheduled for an EGD. Reports however that his pain had become unbearable which prompted him to come to the emergency room. CT abdomen and pelvis in the emergency room revealed findings of colitis involving the transverse, descending, and sigmoid colon's with hepatic steatosis. Chest x-ray was unremarkable with EKG showing sinus tachycardia at 103 bpm with diffuse T wave flattening as reviewed by me. Laboratory evaluation was remarkable for leukocytosis of 20.7, and hemoglobin 11.7, sodium 133, potassium 2.8, CO2 36, BUN 10, creatinine 0.82, calcium 7.7, with an unremarkable UA. ED documentation reviewed and case discussed with ED provider. Review of systems: Pertinent positives and negatives as discussed in HPI, a complete review of systems was performed and all other systems are negative. Physical examination: Vital signs reviewed General: non toxic, no distress, appears at stated age, normal weight Derm: no unusual rashes/lesions, warm Head: atraumatic, normocephalic, symmetric Eyes: EOMI, no lid lag, anicteric sclera, pupils equal round reactive to light ENT: Nose and ears atraumatic Neck: No cervical lymphadenopathy, trachea midline, supple Mouth: no lip lesion, mucus membranes moist Cardiovascular: S1S2 reg, no murmur, positive dorsalis pedis pulse bilateral, no edema Lungs: CTA bilateral, no rhonchi, no rales, no accessory muscle use Abdominal: soft, mild diffuse tenderness, no guarding Ext: muscle strength 5 out of 5 in all 4 extremities grossly, no gross muscle atrophy, no contractures, Neuro: CN II-XI grossly intact, no gross focal neuro deficits Psych: Alert, oriented, appropriate affect Assessment: Colitis, concerning for autoimmune etiology Hypokalemia, likely secondary to persistent diarrhea Hypochloremic hyponatremia Alkalosis, likely secondary to diarrhea Imaging: CT abdomen and pelvis in the emergency room revealed findings of colitis involving the transverse, descending, and sigmoid colon's with hepatic steatosis. Chest x-ray was unremarkable with EKG showing sinus tachycardia at 103 bpm with diffuse T wave flattening as reviewed by me. Data Review: Laboratory evaluation was remarkable for leukocytosis of 20.7, and hemoglobin 11.7, sodium 133, potassium 2.8, CO2 36, BUN 10, creatinine 0.82, calcium 7.7, with an unremarkable UA. Plan: GI consulted C/w IVFs with normal saline 100 cc/h Continue with antibiotics Levaquin and Flagyl for now Follow-up blood cultures Order CRP and ESR testing along with C diff and Stool Lactoferrin Replace potassium DVT prophylaxis: lovenox subq The patient is admitted with an anticipated less than 2 midnight stay for evaluation of colitis CODE STATUS: Full Code Discussed with: Patient Anticipated discharge place: Home Past Medical History Past Medical History: Hyperlipidemia, Hypertension Additional Past Medical History / Comment(s): pancrentitis History of Any Multi-Drug Resistant Organisms: None Reported Past Surgical History: Adenoidectomy, Ear Surgery, Tonsillectomy Past Psychological History: No Psychological Hx Reported Smoking Status: Never smoker Past Alcohol Use History: Occasional Past Drug Use History: None Reported Medications and Allergies Home Medications Medication Instructions Recorded Confirmed Type Baclofen [Lioresal] 10 mg PO DAILY PRN 11/05/23 11/05/23 History Dextroamphetamine/Amphetamine 30 mg PO DAILY 11/05/23 11/05/23 History [Adderall Xr 30 mg Capsule] HYDROcodone/APAP 10-325MG [[place] 1 tab PO Q6HR PRN 3 Days #12 tab 11/05/23 Rx 10-325] Metoprolol Succinate (ER) [Toprol 100 mg PO DAILY@1700 11/05/23 11/05/23 History XL] Allergies Allergy/AdvReac Type Severity Reaction Status Date / Time No Known Allergies Allergy Verified 12/25/23 19:27 Physical Exam Vitals: Vital Signs Temp Pulse Resp BP Pulse Ox 12/26/23 04:00 97 16 121/67 98 12/25/23 22:00 20 112/76 98 12/25/23 21:30 111 H 18 125/72 99 12/25/23 19:26 98.2 F 116 H 20 116/73 99 Intake and Output 12/25/23 12/25/23 12/26/23 14:59 22:59 06:59 Other: Weight 97.522 kg Results CBC & Chem 7: 12/25/23 20:10 12/25/23 20:10 Labs: Abnormal Lab Results - Last 24 Hours (Table) 12/25/23 12/25/23 12/25/23 Range/Units 20:10 20:10 22:32 WBC 20.7 H (3.8-10.6) k/uL RBC 3.98 L (4.30-5.90) m/uL Hgb 11.7 L (13.0-17.5) gm/dL Hct 36.6 L (39.0-53.0) % Plt Count 572 H (150-450) k/uL Neutrophils # 17.4 H (1.3-7.7) k/uL Monocytes # 1.5 H (0-1.0) k/uL Sodium 133 L (137-145) mmol/L Potassium 2.8 L (3.5-5.1) mmol/L Chloride 92 L (98-107) mmol/L Carbon Dioxide 36 H (22-30) mmol/L Glucose 100 H (74-99) mg/dL Calcium 7.7 L (8.4-10.2) mg/dL Total Protein 5.2 L (6.3-8.2) g/dL Albumin 2.3 L (3.5-5.0) g/dL Ur Specific [place] 1.038 H (1.001-1.035) Urine Protein Trace H (Negative)
[2023-12-26] MEDS: LEVOFLOXACIN 500MG-D5W PMX 500 MG in DEXTROSE/WATER 1 100ML.BAG IVPB STA ×2 (04:14→05:00)
[2023-12-26] MEDS: POTASSIUM CHLORIDE ER 20 MEQ TAB.ER PO SCH (04:45)
[2023-12-26] MEDS: POTASSIUM CHLORIDE 10 MEQ in WATER FOR INJECTION 1 100ML.BAG IVPB SCH (04:46)
[2023-12-26] MEDS: LEVOFLOXACIN 500MG-D5W PMX 500 MG in DEXTROSE/WATER 1 100ML.BAG IVPB SCH (04:47)
[2023-12-26] MEDS: SODIUM CHLORIDE 0.9% 1,000 ML IV SCH (04:47)
[2023-12-26] MEDS: ACETAMINOPHEN TAB 325 MG TAB PO STA (05:00)
[2023-12-26 08:11] LABS: HCT 30.6 % (39.0-53.0); HGB 10.3 gm/dL (13.0-17.5); MCH 30.9 pg (25.0-35.0); MCHC 33.6 g/dL (31.0-37.0); Mean Platelet Volume 8.2; Platelet Count 542 k/uL (150-450); RBC 3.33 m/uL (4.30-5.90); RDW 13.7 % (11.5-15.5); WBC 21.2 k/uL (3.8-10.6)
[2023-12-26 08:20] LABS: ALT 12 U/L (4-49); AST 15 U/L (17-59); African American GFR (CKD) >90 (>60 ml/min/1.73 sqM); Albumin 1.9 g/dL (3.5-5.0); Albumin/Globulin Ratio 0.7; Alkaline Phosphatase 85 U/L (38-126); Anion Gap 3 mmol/L; Blood Urea Nitrogen 10 mg/dL (9-20); Calcium 7.1 mg/dL (8.4-10.2); Carbon Dioxide 32 mmol/L (22-30); Chloride 99 mmol/L (98-107); Globulin 2.6 g/dL; Glucose 73 mg/dL (74-99); Non-African American GFR(CKD) >90 (>60 ml/min/1.73 sqM); Potassium 3.1 mmol/L (3.5-5.1); Sodium 134 mmol/L (137-145); Total Bilirubin 0.4 mg/dL (0.2-1.3); Total Protein 4.5 g/dL (6.3-8.2)
--- NOTE | 2023-12-26 08:45 | P.CONS ---
History of Present Illness - Reason for Consult Consult date: 12/26/23 Colitis Requesting physician: Teresa Handley - Chief Complaint Aminal pain, diarrhea - History of Present Illness This is a pleasant 33-year-old -[place]ong[place] male who presented to the emergency department with complaints of abdominal pain and diarrhea. He states he has a history of pancreatitis and thought the pain was associated to that also has history of hypertension and hyperlipidemia. He had a CT of the abdomen pelvis with moderate wall thickening of the transverse, descending and sigmoid colon consistent with colitis. Associated diarrheal disease. Hepatic steatosis. He states this has been ongoing for the last 2 months with diarrhea. 5-6 episodes a day sometimes with blood in his stool. He denies any fevers or chills. Leukocytosis on admission was started on IV Levaquin and Flagyl. Denies any nausea or vomiting. No reported history of inflammatory bowel disease. Review of Systems REVIEW OF SYSTEMS: CARDIOPULMONARY: No chest pain or shortness of breath. Gastrointestinal: Diffuse abdominal pain. No nausea or vomiting. No hematemesis, coffee-ground emesis. Diarrhea, 5 to 6/day, occasional blood. GENITOURINARY: No dysuria or hematuria. MUSCULOSKELETAL: Reports normal range of motion. SKIN: No rashes. No jaundice. ENDOCRINE: No chills, fevers. No excessive weight gain or loss. No polydipsia or polyuria. PSYCHIATRIC: Unremarkable. NEUROLOGY: No change in mental status. Denies dizziness, headache. ENT: Vision unremarkable. CONSTITUTIONAL: No recent weight loss. No fever, chills, night sweats. Past Medical History Past Medical History: Hyperlipidemia, Hypertension Additional Past Medical History / Comment(s): pancrentitis History of Any Multi-Drug Resistant Organisms: None Reported Past Surgical History: Adenoidectomy, Ear Surgery, Tonsillectomy Past Psychological History: No Psychological Hx Reported Smoking Status: Never smoker Past Alcohol Use History: Occasional Past Drug Use History: None Reported Medications and Allergies Home Medications Medication Instructions Recorded Confirmed Type Dextroamphetamine/Amphetamine 30 mg PO DAILY 11/05/23 12/26/23 History [Adderall Xr 30 mg Capsule] Metoprolol Succinate (ER) [Toprol 100 mg PO DAILY 11/05/23 12/26/23 History XL] Dicyclomine [Bentyl] 10 mg PO AC-TID PRN 12/26/23 12/26/23 History Allergies Allergy/AdvReac Type Severity Reaction Status Date / Time No Known Allergies Allergy Verified 12/26/23 07:50 Physical Exam Vitals: Vital Signs Temp Pulse Resp BP Pulse Ox 12/26/23 06:00 109 H 18 122/81 98 12/26/23 05:00 106 H 16 120/71 97 12/26/23 04:00 97 16 121/67 98 12/25/23 22:00 20 112/76 98 12/25/23 21:30 111 H 18 125/72 99 12/25/23 19:26 98.2 F 116 H 20 116/73 99 Intake and Output 12/25/23 12/26/23 12/26/23 22:59 06:59 14:59 Other: Weight 97.522 kg General appearance: The patient is alert, oriented, appears in no acute distress. HET: Head is normocephalic and atraumatic. Conjunctiva pink. Sclera anicteric. Neck: Supple without lymphadenopathy. Trachea midline. Heart: Regular. Lungs: Equal expansion, normal respiratory effort. Abdomen: Soft, diffuse tenderness to palpation, nondistended. Skin: No rashes. No jaundice. Extremities: Normal skin color and turgor. No pedal edema. Neurological: No focal deficits. Alert and oriented x3. Results CBC & Chem 7: 12/26/23 07:58 12/26/23 07:58 Labs: Abnormal Lab Results - Last 24 Hours (Table) 12/25/23 12/25/23 12/25/23 Range/Units 20:10 20:10 22:32 WBC 20.7 H (3.8-10.6) k/uL RBC 3.98 L (4.30-5.90) m/uL Hgb 11.7 L (13.0-17.5) gm/dL Hct 36.6 L (39.0-53.0) % Plt Count 572 H (150-450) k/uL Neutrophils # 17.4 H (1.3-7.7) k/uL Monocytes # 1.5 H (0-1.0) k/uL Sodium 133 L (137-145) mmol/L Potassium 2.8 L (3.5-5.1) mmol/L Chloride 92 L (98-107) mmol/L Carbon Dioxide 36 H (22-30) mmol/L Glucose 100 H (74-99) mg/dL Calcium 7.7 L (8.4-10.2) mg/dL AST (17-59) U/L Total Protein 5.2 L (6.3-8.2) g/dL Albumin 2.3 L (3.5-5.0) g/dL Ur Specific [place] 1.038 H (1.001-1.035) Urine Protein Trace H (Negative) 12/26/23 12/26/23 Range/Units 07:58 07:58 WBC 21.2 H (3.8-10.6) k/uL RBC 3.33 L (4.30-5.90) m/uL Hgb 10.3 L (13.0-17.5) gm/dL Hct 30.6 L (39.0-53.0) % Plt Count 542 H (150-450) k/uL Neutrophils # (1.3-7.7) k/uL Monocytes # (0-1.0) k/uL Sodium 134 L (137-145) mmol/L Potassium 3.1 L (3.5-5.1) mmol/L Chloride (98-107) mmol/L Carbon Dioxide 32 H (22-30) mmol/L Glucose 73 L (74-99) mg/dL Calcium 7.1 L (8.4-10.2) mg/dL AST 15 L (17-59) U/L Total Protein 4.5 L (6.3-8.2) g/dL Albumin 1.9 L (3.5-5.0) g/dL Ur Specific [place] (1.001-1.035) Urine Protein (Negative) Comments: CT of the abdomen and pelvis with contrast reports moderate wall thickening of the transverse, descending and sigmoid colon consistent with colitis. Associated diarrheal disease. Hepatic steatosis. Assessment and Plan (1) Colitis Narrative/Plan: 33-year-old presents with abdominal pain and diarrhea with CT evidence of moder ate thickening of the colon. Also presenting with leukocytosis. Complaints of diarrhea for the last 2 months duration 5-6 loose bowel movements a day with occasional blood. Likely dealing with infectious colitis. Treat symptomatically with IV antibiotics, pain medication, clear liquid diet and a dvance as tolerated. Patient has no previous history of colonoscopy but would recommend holding off at this time and can do as an outpatient in 4 to 6 weeks. Current Visit: Yes Status: Acute Code(s): K52.9 - NONINFECTIVE GASTROENTERITIS AND COLITIS, UNSPECIFIED SNOMED Code(s): 84467314 (2) Abdominal pain Current Visit: Yes Status: Acute Code(s): R10.9 - UNSPECIFIED ABDOMINAL PAIN SNOMED Code(s): 95034036 Plan: 1. Continue symptomatic and supportive care 2. Clear liquid diet, advance as tolerated 3. Continue Levaquin and Flagyl 4. Daily CBC 5. Continue pain medication as needed 6. Collect stool for C. difficile and stool cultures 7. No plans on endoscopic evaluation at this time. Recommend outpatient colonoscopy with follow-up in 4 to 6 weeks. Thank you for allowing us to participate in the care of the patient, the GI service will sign off, gastroenterology will not be available at the hospital this weekend and through next week. If further evaluation by gastroenterology is required the patient will need transfer as per the primary team's discretion. Dr. Elvira Martínez I agree with the dictator's note, documented as a scribe by Rain Miranda.
[2023-12-26] MEDS: metroNIDAZOLE-NS PMX 500 MG in SALINE 1 100ML.BAG IVPB SCH ×2 (08:46→14:03)
[2023-12-26] MEDS: ENOXAPARIN 40 MG/0.4 ML SYRINGE SQ SCH (08:53)
[2023-12-27] MEDS: SODIUM CHLORIDE 0.9% 1,000 ML IV ONE (05:06)
[2023-12-27] MEDS: LEVOFLOXACIN 500MG-D5W PMX 500 MG in DEXTROSE/WATER 1 100ML.BAG IVPB SCH (08:24)
[2023-12-27 11:37] LABS: HCT 31.9 % (39.0-53.0); Hypochromasia Slight; MCH 29.7 pg (25.0-35.0); MCHC 31.4 g/dL (31.0-37.0); MCV 94.6 fL (80.0-100.0); Mean Platelet Volume 7.6; Platelet Count 573 k/uL (150-450); RBC 3.37 m/uL (4.30-5.90); RDW 13.8 % (11.5-15.5); WBC 18.5 k/uL (3.8-10.6)
[2023-12-27 11:46] LABS: African American GFR (CKD) >90 (>60 ml/min/1.73 sqM); Anion Gap 5 mmol/L; Blood Urea Nitrogen 11 mg/dL (9-20); Calcium 7.4 mg/dL (8.4-10.2); Carbon Dioxide 28 mmol/L (22-30); Chloride 98 mmol/L (98-107); Glucose 128 mg/dL (74-99); Non-African American GFR(CKD) >90 (>60 ml/min/1.73 sqM); Potassium 3.2 mmol/L (3.5-5.1); Sodium 131 mmol/L (137-145)
--- NOTE | 2023-12-27 12:56 | P.PN ---
Subjective Progress Note Date: 12/27/23 33 year old M with PMH of hypertension and ADHD who presents to the emergency room with complaints of abdominal pain, diarrhea, and weight loss. Patient notes that over the past 2 months since his most recent admission of pancreatitis, he has lost roughly 40 pounds and has had intermittent diffuse abdominal discomfort with associated diarrhea. He has noticed blood in his stools on numerous occasions, bright red, without mucus. Notes that the pain has no clear inciting triggers but often occurs after food consumption. Reports that the pain is usually associated with diarrhea, and lasts for several days at a time. Denies nausea, vomiting, fever, chills, cough. Of note, the patient was admitted on 11/04 for mild acute pancreatitis. He does report having seen a ordinary seaman as an outpatient and is currently awaiting the results of his workup and is also scheduled for an EGD. Reports however that his pain had become unbearable which prompted him to come to the emergency room. CT abdomen and pelvis in the emergency room revealed findings of colitis involving the transverse, descending, and sigmoid colon's with hepatic steatosis. Chest x-ray was unremarkable with EKG showing sinus tachycardia at 103 bpm with diffuse T wave flattening. Laboratory evaluation was remarkable for leukocytosis of 20.7, and hemoglobin 11.7, sodium 133, potassium 2.8, CO2 36, BUN 10, creatinine 0.82, calcium 7.7, with an unremarkable UA. Patient was started on Levaquin and Flagyl and admitted for treatment of colitis. GI consulted recommended outpatient C-scope in 4-6 weeks. 12/26 Patient was seen and examined. He reports moderate pain, generalized abdomen, 6/10 severity. Nausea but no vomiting. HR in the 110-120s on telemetry. CBC WBC 18.5, Hg 10, Hct 31.9, Plt 573. BMP Na 131, K 3.2, glu 128, Ca 7.4. General: no distress, appears at stated age Derm: warm, dry Head: atraumatic, normocephalic, symmetric Eyes: EOMI, no lid lag, anicteric sclera Mouth: no lip lesion, mucus membranes moist Cardiovascular: S1S2 tahy, no murmur Lungs: CTA BS bilateral, no rhonchi, no rales , no accessory muscle use Abdominal: distended, TTP in all 4 quadrants without rebound, sluggish BS Ext: no gross muscle atrophy, no edema, no contractures Neuro: generalized tremors with no focal neuro deficits Psych: Alert and oriented Based on my assessment of this patient, this patient meets a high complexity level of care. Sepsis due to colitis: Leukocytosis, tachycardia, + source of infection. C. diff pending. Levaquin 500 mg IV QD and Flagyl 500 mg IV TID. NS at 100 cc/hr. Telemetry monitoring. Blood culture collected. Stool culture ordered. Hypokalemia: KCl 40 meq IV x 1. Normocytic anemia: Stable. No signs of active bleeding. Monitor. Sinus tachycardia: Restart home medication of Metoprolol at a lower dose of 50 mg PO QD. Hypertension: Metoprolol as above. CODE STATUS: FULL CODE DVT Prophylaxis: Lovenox GI Prophylaxis: Designated medical POA if patient is not able to make medical decisions for themselves: I have reviewed the following oracle security consultant notes: GI note. I have reviewed the results of the following tests: CBC, BMP I have ordered the following tests: CBC, BMP I have discussed the care of this patient with the following independent historian: RN regarding tachycardia. I have independently interpreted the following test below: I have discussed the management of this patient with the following physician: Objective - Vital Signs Vital signs: Vital Signs Temp 98.3 F 12/27/23 07:00 Pulse 118 H 12/27/23 08:00 Resp 16 12/27/23 08:00 BP 123/82 12/27/23 07:00 Pulse Ox 96 12/27/23 07:00 FiO2 Intake & Output 12/26/23 12/27/23 12/27/23 18:59 06:59 18:59 Intake Total 1100 860 Output Total 375 Balance 725 860 Weight 97.522 kg Intake: Oral 1100 860 Output: Urine 375 Other: # Voids 1 - Labs CBC & Chem 7: 12/27/23 10:50 12/27/23 10:50 Labs: Abnormal Lab Results - Last 24 Hours (Table) 12/26/23 12/27/23 12/27/23 Range/Units 07:58 10:50 10:50 WBC 18.5 H (3.8-10.6) k/uL RBC 3.37 L (4.30-5.90) m/uL Hgb 10.0 L (13.0-17.5) gm/dL Hct 31.9 L (39.0-53.0) % Plt Count 573 H (150-450) k/uL ESR 54 H (0-15) mm/Hr Sodium 131 L (137-145) mmol/L Potassium 3.2 L (3.5-5.1) mmol/L Glucose 128 H (74-99) mg/dL Calcium 7.4 L (8.4-10.2) mg/dL
[2023-12-27] MEDS: METOPROLOL SUCCINATE (ER) 50 MG TAB.ER.24H PO SCH (14:22)
[2023-12-27] MEDS: POTASSIUM CHLORIDE 10 MEQ in WATER FOR INJECTION 1 100ML.BAG IVPB SCH (15:45)
[2023-12-28 05:04] LABS: HCT 33.6 % (39.0-53.0); HGB 10.5 gm/dL (13.0-17.5); MCH 29.3 pg (25.0-35.0); MCHC 31.2 g/dL (31.0-37.0); MCV 93.9 fL (80.0-100.0); Mean Platelet Volume 6.8; Platelet Count 639 k/uL (150-450); RBC 3.58 m/uL (4.30-5.90); RDW 13.5 % (11.5-15.5); WBC 19.6 k/uL (3.8-10.6)
[2023-12-28 05:22] LABS: African American GFR (CKD) >90 (>60 ml/min/1.73 sqM); Anion Gap 6 mmol/L; Blood Urea Nitrogen 13 mg/dL (9-20); Calcium 7.4 mg/dL (8.4-10.2); Carbon Dioxide 23 mmol/L (22-30); Chloride 98 mmol/L (98-107); Glucose 101 mg/dL (74-99); Non-African American GFR(CKD) >90 (>60 ml/min/1.73 sqM); Potassium 3.5 mmol/L (3.5-5.1); Sodium 127 mmol/L (137-145)
[2023-12-28] MEDS: POTASSIUM CHLORIDE ER 20 MEQ TAB.ER PO STA (09:25)
[2023-12-28] MEDS: ONDANSETRON 4 MG/2 ML VIAL IVP PRN (14:16)
[2023-12-28] MEDS: PIPERACILLIN-TAZOBACTAM 3.375 GM in SODIUM CHLORIDE 0.9% 100 ML IVPB SCH (16:09)
--- NOTE | 2023-12-28 16:16 | P.PN ---
Subjective Progress Note Date: 12/28/23 Principal diagnosis: Colitis Hailee was seen and examined. Abdominal pain and diarrhea unchanged from previous day. Plan of care discussed with him. Objective - Vital Signs Vital signs: Vital Signs Temp 97.5 F L 12/28/23 13:28 Pulse 118 H 12/28/23 14:00 Resp 18 12/28/23 14:00 BP 116/81 12/28/23 13:28 Pulse Ox 98 12/28/23 13:28 FiO2 Intake & Output 12/27/23 12/28/23 12/28/23 18:59 06:59 18:59 Intake Total 860 59 Balance 860 59 Intake: Oral 860 59 Other: # Voids 3 1 2 # Bowel Movements 0 1 - Exam Vitals: Reviewed General: No acute distress Cardiovascular: RRR, S1-S2 Lungs: Breath sounds equal and clear to auscultation bilaterally. No wheezing, rhonchi or rales Extremities: No lower extremity edema - Labs CBC & Chem 7: 12/28/23 04:50 12/28/23 04:50 Labs: Abnormal Lab Results - Last 24 Hours (Table) 12/28/23 12/28/23 Range/Units 04:50 04:50 WBC 19.6 H (3.8-10.6) k/uL RBC 3.58 L (4.30-5.90) m/uL Hgb 10.5 L (13.0-17.5) gm/dL Hct 33.6 L (39.0-53.0) % Plt Count 639 H (150-450) k/uL Sodium 127 L (137-145) mmol/L Glucose 101 H (74-99) mg/dL Calcium 7.4 L (8.4-10.2) mg/dL Microbiology - Last 24 Hours (Table) 12/25/23 23:20 Blood Culture - Preliminary Blood 12/25/23 23:05 Blood Culture - Preliminary Blood Assessment and Plan Plan: # Sepsis # Colitis C. difficile negative. On Levaquin and Flagyl previously but white count and platelets trending up therefore switched to Zosyn. On clear liquid diet, advance as tolerated. If does not improve may add steroids. # Hypertension, sinus tachycardia Resume home metoprolol # Hyponatremia Likely secondary to GI losses. On IV fluids. Repeat BMP next a.m.
[2023-12-28] MEDS ORDERED: CALCIUM CARBONATE 500 MG CHEWABLE PO PRN (23:13)
[2023-12-29] MEDS: FAMOTIDINE 20 MG TAB PO SCH (10:38)
[2023-12-29] MEDS: CALCIUM CARBONATE 500 MG CHEWABLE PO PRN (10:38)
[2023-12-29 10:48] LABS: HCT 34.9 % (39.6-50.0); HGB 10.8 g/dL (13.0-17.0); MCH 28.8 pg (27.0-32.0); MCHC 30.9 g/dL (32.0-37.0); MCV 93.1 FL (80.0-97.0); Mean Platelet Volume 8.9 FL (9.5-12.2); NRBC Per 100 WBC 0 X 10*3/uL (0.00-0.01); Platelet Count 749 X 10*3/uL (140-440); RBC 3.75 X 10*6/uL (4.40-5.60); RDW 13.9 % (11.5-14.5); WBC 26.75 X 10*3/uL (4.50-10.00)
[2023-12-29 11:02] LABS: BUN/Creat Ratio 16.27 Ratio (12.00-20.00); Blood Urea Nitrogen 17.9 mg/dL (9.0-27.0); Calcium 7.9 mg/dL (8.7-10.3); Carbon Dioxide 21.3 mmol/L (21.6-31.8); Chloride 95 mmol/L (96-109); Glucose 104 mg/dL (70-110); Sodium 131 mmol/L (135-145)
[2023-12-29 11:24] LABS: Basophils # (A) 0.08 X 10*3/uL (0.00-0.10); Basophils % (A) 0.3 %; Eosinophils # (A) 0.03 X 10*3/uL (0.04-0.35); Eosinophils % (A) 0.1 %; Lymphocytes % (A) 3.7 %; Monocytes # (A) 2.51 X 10*3/uL (0.20-1.00); Monocytes % (A) 9.4 %; Neutrophils # (A) 22.86 X 10*3/uL (1.80-7.70); Neutrophils % (A) 85.5 %
[2023-12-29 11:32] LABS: Erythrocyte Sedimentation Rate 88 mm/Hr (0-15)
[2023-12-29] MEDS: IOPAMIDOL CONTRAST (ORAL USE) VIAL PO PRN (12:21)
--- NOTE | 2023-12-29 14:48 | CT ---
EXAMINATION TYPE: CT abdomen pelvis wo con DATE OF EXAM: 12/29/2023 COMPARISON: 12/25/2023 HISTORY: 33-year-old male Abdominal pain CT DLP: 1326 mGycm. Automated exposure control for dose reduction was used. TECHNIQUE: Contiguous axial scanning of the abdomen and pelvis without IV contrast. Coronal and sagit elsa reconstructions performed. FINDINGS: Moderate bilateral gynecomastia. Normal heart size. Trace pericardial effusion measuring 5 cm thick. Small left greater than right pleural effusions and adjacent patchy opacity, likely atelectasis. Mild septal lines in the lower lungs. The Generalized anasarca change which has increased in the interval. Hepatomegaly at 20.2 cm with marked diminished attenuation parenchyma. Contrast material collected within the gallbladder suggesting vicarious excretion of contrast. No dilated small bowel. There is moderate which has developed in the interval. Ongoing moderate pancolonic wall thickening. There is no dilatation of the ascending colon up to 10.2 cm and transverse colon up to 8.9 cm. New foci of air along the periphery of the cecum and ascending colon suspicious for colonic wall pneumatosis. Bladder partially distended. No pelvic lymphadenopathy seen. Moderate pelvic ascites. Bones: No osseous destructive process. IMPRESSION: 1. Worsening anasarca and fluid overload state along with developing small pleural effusions. New mo derate pelvic ascites. 2. Worsening moderate to severe pancolitis now with colonic dilatation up to 10.2 cm. Consider devel opment of toxic megacolon. There are findings concerning for colonic wall pneumatosis on the right. C orrelate with lactic acid levels and surgical evaluation for possible ischemic change. 3. Severe hepatic steatosis. Floor staff contacting physician's group MANAGER FRONT OFFICE at 2:40pm. Awaiting call back in order to relay critical findings.
--- NOTE | 2023-12-29 15:36 | P.GSCN ---
History of Present Illness Consult date: 12/29/23 Reason for Consult: colitis History of present illness: this is a 33-year-old male who was admitted to the medical service for treatment of colitis. Patient's colitis has worsened. Patient was seen by the internal medicine service. They felt that his overall condition worsened. CAT scan today shows progression of the colitis to pancolitis. The right colon is dilated with a diameter of 10 cm. The patient does not appear to be toxic. Patient has complaints of some mild general pain. He states his diarrhea has improved. Past Medical History Past Medical History: Hyperlipidemia, Hypertension Additional Past Medical History / Comment(s): pancreatitis History of Any Multi-Drug Resistant Organisms: None Reported Past Surgical History: Adenoidectomy, Ear Surgery, Tonsillectomy Past Psychological History: No Psychological Hx Reported Smoking Status: Never smoker Past Alcohol Use History: Occasional Past Drug Use History: None Reported Medications and Allergies Home Medications Medication Instructions Recorded Confirmed Type Dextroamphetamine/Amphetamine 30 mg PO DAILY 11/05/23 12/26/23 History [Adderall Xr 30 mg Capsule] Metoprolol Succinate (ER) [Toprol 100 mg PO DAILY 11/05/23 12/26/23 History XL] Dicyclomine [Bentyl] 10 mg PO AC-TID PRN 12/26/23 12/26/23 History Allergies Allergy/AdvReac Type Severity Reaction Status Date / Time No Known Allergies Allergy Verified 12/26/23 07:50 Surgical - Exam Vital Signs Temp Pulse Resp BP Pulse Ox 98.2 F 116 H 20 116/73 99 12/25/23 19:26 12/25/23 19:26 12/25/23 19:26 12/25/23 19:26 12/25/23 19:26 - General well developed, well nourished - Eyes PERRL - ENT normal pinna - Neck no masses - Respiratory normal expansion - Cardiovascular Rhythm: regular - Abdomen abdomen is distended. There is some mild tenderness throughout. There is no rebound or guarding. Abdomen: soft Results - Labs 12/29/23 06:26 12/29/23 06:26 Abnormal Lab Results - Last 24 Hours (Table) 12/29/23 12/29/23 Range/Units 06: 06: WBC 26.75 H (4.50-10.00) X 10*3/uL RBC 3.75 L (4.40-5.60) X 10*6/uL Hgb 10.8 L (13.0-17.0) g/dL Hct 34.9 L (39.6-50.0) % MCHC 30.9 L (32.0-37.0) g/dL Plt Count 749 H (140-440) X 10*3/uL MPV 8.9 L (9.5-12.2) FL Immature Gran # 0.27 H (0.00-0.04) X 10*3/uL Neutrophils # 22.86 H (1.80-7.70) X 10*3/uL Monocytes # 2.51 H (0.20-1.00) X 10*3/uL Eosinophils # 0.03 L (0.04-0.35) X 10*3/uL ESR 88 H (0-15) mm/Hr Sodium 131 L (135-145) mmol/L Chloride 95 L (96-109) mmol/L Carbon Dioxide 21.3 L (21.6-31.8) mmol/L Anion Gap 14.70 H (4.00-12.00) mmol/L Calcium 7.9 L (8.7-10.3) mg/dL C-Reactive Protein 10.40 H (0.00-0.80) mg/dL Microbiology - Last 24 Hours (Table) 12/25/23 23:20 Blood Culture - Preliminary Blood 12/25/23 23:05 Blood Culture - Preliminary Blood 12/27/23 12:41 Stool Culture - Preliminary Stool Diabetes panel 12/29/23 Range/Units 06:26 Sodium 131 L (135-145) mmol/L Potassium 4.0 (3.5-5.5) mmol/L Chloride 95 L (96-109) mmol/L Carbon Dioxide 21.3 L (21.6-31.8) mmol/L BUN 17.9 (9.0-27.0) mg/dL Creatinine 1.1 (0.6-1.5) mg/dL Glucose 104 (70-110) mg/dL Calcium 7.9 L (8.7-10.3) mg/dL Calcium panel 12/29/23 Range/Units 06:26 Calcium 7.9 L (8.7-10.3) mg/dL Pituitary panel 12/29/23 Range/Units 06:26 Sodium 131 L (135-145) mmol/L Potassium 4.0 (3.5-5.5) mmol/L Chloride 95 L (96-109) mmol/L Carbon Dioxide 21.3 L (21.6-31.8) mmol/L BUN 17.9 (9.0-27.0) mg/dL Creatinine 1.1 (0.6-1.5) mg/dL Glucose 104 (70-110) mg/dL Calcium 7.9 L (8.7-10.3) mg/dL Adrenal panel 12/29/23 Range/Units 06:26 Sodium 131 L (135-145) mmol/L Potassium 4.0 (3.5-5.5) mmol/L Chloride 95 L (96-109) mmol/L Carbon Dioxide 21.3 L (21.6-31.8) mmol/L BUN 17.9 (9.0-27.0) mg/dL Creatinine 1.1 (0.6-1.5) mg/dL Glucose 104 (70-110) mg/dL Calcium 7.9 L (8.7-10.3) mg/dL - Imaging CT scan - abdomen: report reviewed (there is pancolitis. The right colon was dilated to a diameter of 10.2 cm. There is possibility of some mild pneumat osis.) Assessment and Plan Plan: worsening colitis. The patient may require exposure laparotomy with subtotal colectomy if his colitis does not improve. The patient will be closely observed. Lactic levels are pending.
[2023-12-29] MEDS: SODIUM CHLORIDE 0.9% 1,000 ML IV ONE (15:40)
[2023-12-29] MEDS: ONDANSETRON 4 MG/2 ML VIAL IVP PRN (15:42)
[2023-12-29] MEDS: HYDROmorphone 1 MG/ML 1 ML SYRINGE IVP PRN (15:48)
--- NOTE | 2023-12-29 15:59 | P.PN ---
Subjective Progress Note Date: 12/29/23 Principal diagnosis: Colitis Hailee was seen and examined. Endorses heartburn today. Does have increased abdominal bloating today from yesterday. Says his diarrhea has resolved. CT abdomen/pelvis reordered for distention, now shows pancolitis with pneumatosis in the right side and findings concerning for megacolon. Surgery consulted stat. Lactate ordered and pending. Discussed case with general surgery, they wish to observe for now with potential colectomy if his condition worsens. Objective - Vital Signs Vital signs: Vital Signs Temp 98.1 F 12/29/23 14:00 Pulse 101 H 12/29/23 14:00 Resp 16 12/29/23 14:00 BP 127/88 12/29/23 14:00 Pulse Ox 97 12/29/23 14:00 FiO2 Intake & Output 12/28/23 12/29/23 12/29/23 18:59 06:59 18:59 Intake Total 59 Balance 59 Intake: Oral 59 Other: Voiding Method Toilet # Voids 2 2 # Bowel Movements 1 - Exam Vitals: Reviewed General: No acute distress Cardiovascular: RRR, S1-S2 Lungs: Breath sounds equal and clear to auscultation bilaterally. No wheezing, rhonchi or rales Abdomen: Abdomen distended, mild diffuse tenderness without rebound or guarding Extremities: No lower extremity edema - Labs CBC & Chem 7: 12/29/23 06:26 12/29/23 06:26 Labs: Abnormal Lab Results - Last 24 Hours (Table) 12/29/23 12/29/23 Range/Units 06:26 06:26 WBC 26.75 H (4.50-10.00) X 10*3/uL RBC 3.75 L (4.40-5.60) X 10*6/uL Hgb 10.8 L (13.0-17.0) g/dL Hct 34.9 L (39.6-50.0) % MCHC 30.9 L (32.0-37.0) g/dL Plt Count 749 H (140-440) X 10*3/uL MPV 8.9 L (9.5-12.2) FL Immature Gran # 0.27 H (0.00-0.04) X 10*3/uL Neutrophils # 22.86 H (1.80-7.70) X 10*3/uL Monocytes # 2.51 H (0.20-1.00) X 10*3/uL Eosinophils # 0.03 L (0.04-0.35) X 10*3/uL ESR 88 H (0-15) mm/Hr Sodium 131 L (135-145) mmol/L Chloride 95 L (96-109) mmol/L Carbon Dioxide 21.3 L (21.6-31.8) mmol/L Anion Gap 14.70 H (4.00-12.00) mmol/L Calcium 7.9 L (8.7-10.3) mg/dL C-Reactive Protein 10.40 H (0.00-0.80) mg/dL Microbiology - Last 24 Hours (Table) 12/25/23 23:20 Blood Culture - Preliminary Blood 12/25/23 23:05 Blood Culture - Preliminary Blood 12/27/23 12:41 Stool Culture - Preliminary Stool Assessment and Plan Plan: # Sepsis # Colitis C. difficile negative. On Zosyn, antibiotics changed to cefepime and Flagyl as Flagyl will cover potential C. difficile. Initial C. difficile was negative but will repeat today as he does have findings concerning for C. difficile. Also added oral vancomycin. Repeat C. difficile EIA and PCR. General surgery consulted his repeat CT scan with pancolitis, pneumatosis on the right side and findings concerning for toxic megacolon as he did have colonic dilation. Lactate level pending. # Hypertension, sinus tachycardia Resume home metoprolol # Hyponatremia Likely secondary to GI losses. On IV fluids. Repeat BMP next a.m. Leukocytosis, thrombocytosis Reactive secondary to colitis
[2023-12-29] MEDS: metroNIDAZOLE-NS PMX 500 MG in SALINE 1 100ML.BAG IVPB SCH (16:05)
[2023-12-29] MEDS: VANCOMYCIN 125 MG CAPSULE PO SCH (16:05)
[2023-12-29] MEDS: CEFEPIME 2 GM in SODIUM CHLORIDE 0.9% 100 ML IVPB SCH (17:27)
[2023-12-29] MEDS: MORPHINE SULFATE 2 MG/ML SYRINGE IVP STA (22:19)
--- NOTE | 2023-12-30 10:21 | P.PN ---
Subjective Progress Note Date: 12/30/23 Principal diagnosis: Colitis Hailee was seen and examined. Overall, feels better. He is having some blood in his stool. General surgery was notified of this. Most labs are pending but his CRP is coming down. Lactate levels are normal. Objective - Vital Signs Vital signs: Vital Signs Temp 98.9 F 12/30/23 07:39 Pulse 94 12/30/23 07:39 Resp 16 12/30/23 07:39 BP 121/86 12/30/23 07:39 Pulse Ox 94 L 12/30/23 07:39 FiO2 Intake & Output 12/29/23 12/30/23 12/30/23 18:59 06:59 18:59 Intake Total 120 Balance 120 Intake: Oral 120 Other: Voiding Method Toilet Toilet # Voids 2 - Exam Vitals: Reviewed General: No acute distress Cardiovascular: RRR, S1-S2 Lungs: Breath sounds equal and clear to auscultation bilaterally. No wheezing, rhonchi or rales Abdomen: Abdomen distended, mild diffuse tenderness without rebound or guarding Extremities: 1+ lower extremity edema - Labs CBC & Chem 7: 12/29/23 06:26 12/29/23 06:26 Labs: Abnormal Lab Results - Last 24 Hours (Table) 12/29/23 12/29/23 12/30/23 Range/Units 06:26 06:26 09:12 WBC 26.75 H (4.50-10.00) X 10*3/uL RBC 3.75 L (4.40-5.60) X 10*6/uL Hgb 10.8 L (13.0-17.0) g/dL Hct 34.9 L (39.6-50.0) % MCHC 30.9 L (32.0-37.0) g/dL Plt Count 749 H (140-440) X 10*3/uL MPV 8.9 L (9.5-12.2) FL Immature Gran # 0.27 H (0.00-0.04) X 10*3/uL Neutrophils # 22.86 H (1.80-7.70) X 10*3/uL Monocytes # 2.51 H (0.20-1.00) X 10*3/uL Eosinophils # 0.03 L (0.04-0.35) X 10*3/uL ESR 88 H (0-15) mm/Hr Sodium 131 L (135-145) mmol/L Chloride 95 L (96-109) mmol/L Carbon Dioxide 21.3 L (21.6-31.8) mmol/L Anion Gap 14.70 H (4.00-12.00) mmol/L Calcium 7.9 L (8.7-10.3) mg/dL C-Reactive Protein 10.40 H 7.8 H (0.00-0.80) mg/dL Microbiology - Last 24 Hours (Table) 12/27/23 12:41 Stool Culture - Preliminary Stool 12/25/23 23:20 Blood Culture - Preliminary Blood 12/25/23 23:05 Blood Culture - Preliminary Blood Assessment and Plan Plan: # Sepsis # Colitis C. difficile negative. On Zosyn, antibiotics changed to cefepime and Flagyl as Flagyl will cover potential C. difficile. Initial C. difficile was negative but repeated as he does have findings concerning for C. difficile. Also added oral vancomycin. Repeat C. difficile EIA and PCR. General surgery consulted his repeat CT scan with pancolitis, pneumatosis on the right side and findings concerning for toxic megacolon as he did have colonic dilation. Lactate levels normal. # Hypertension, sinus tachycardia Resume home metoprolol # Hyponatremia Likely secondary to GI losses. On IV fluids. Repeat BMP next a.m. decrease IV fluid rate as he is becoming edematous. Leukocytosis, thrombocytosis Reactive secondary to colitis VTE prophylaxis: Hold Lovenox today as he has some rectal bleeding, SCDs
[2023-12-30 10:45] LABS: BUN/Creat Ratio 19.08 Ratio (12.00-20.00); Blood Urea Nitrogen 22.9 mg/dL (9.0-27.0); Calcium 7.6 mg/dL (8.7-10.3); Carbon Dioxide 17.6 mmol/L (21.6-31.8); Chloride 93 mmol/L (96-109); Glucose 84 mg/dL (70-110); Potassium 3.9 mmol/L (3.5-5.5); Sodium 126 mmol/L (135-145)
[2023-12-30] MEDS: SODIUM CHLORIDE 0.9% 1,000 ML IV SCH (10:47)
[2023-12-30 11:19] LABS: Basophils % (A) 0.3 %; Eosinophils # (A) 0.01 X 10*3/uL (0.04-0.35); Eosinophils % (A) 0 %; HCT 33.6 % (39.6-50.0); HGB 10.1 g/dL (13.0-17.0); Lymphocytes # (A) 0.88 X 10*3/uL (0.90-5.00); MCH 28.3 pg (27.0-32.0); MCHC 30.1 g/dL (32.0-37.0); MCV 94.1 FL (80.0-97.0); Mean Platelet Volume 8.9 FL (9.5-12.2); Monocytes # (A) 2.42 X 10*3/uL (0.20-1.00); Monocytes % (A) 8.3 %; NRBC Per 100 WBC 0 X 10*3/uL (0.00-0.01); Neutrophils # (A) 25.44 X 10*3/uL (1.80-7.70); Platelet Count 775 X 10*3/uL (140-440); RBC 3.57 X 10*6/uL (4.40-5.60); RBC Morphology Normal (Normal); RDW 13.7 % (11.5-14.5); WBC 29.25 X 10*3/uL (4.50-10.00)
--- NOTE | 2023-12-30 14:48 | P.PN ---
Subjective Progress Note Date: 12/30/23 CHIEF COMPLAINT: Colitis HISTORY OF PRESENT ILLNESS: Patient continues to have the same abdominal pain. He is rating his pain about a 5 out of 10. Pain is better controlled today after pain medication adjusted. He is bloated. He feels more distended. He did have a bloody bowel movement early this morning. Denies any nausea or vomiting. Afebrile. WBC is up from 26.7-29.25 sodium 126 stool for C. difficile negative lactic acid 1.2 PHYSICAL EXAM: VITAL SIGNS: Reviewed. GENERAL: Well-developed in no acute distress. ABDOMEN: Soft. Distended. Diffuse tenderness but more tender in the left u pper abdomen NEUROLOGIC: Alert and oriented. Cranial nerves II through XII grossly intact. ASSESSMENT: 1. Colitis. Pancolitis and possibility of mild pneumatosis noted on CT scan 2. Hyponatremia PLAN: -Repeat CT scan abdomen pelvis with oral and IV contrast this evening -Continue to monitor patient closely -Downgrade diet to n.p.o. -The patient may require exploratory laparotomy with subtotal colectomy if he does not show improvement. -Continue medical management of hyponatremia Physician Hotel Service Manager note has been reviewed by physician. Signing provider agrees with the documented findings, assessment, and plan of care. Objective - Vital Signs Vital signs: Vital Signs Temp 98.9 F 12/30/23 07:39 Pulse 94 12/30/23 07:39 Resp 16 12/30/23 07:39 BP 121/86 12/30/23 07:39 Pulse Ox 94 L 12/30/23 07:39 FiO2 Intake & Output 12/29/23 12/30/23 12/30/23 18:59 06:59 18:59 Intake Total 120 Balance 120 Intake: Oral 120 Other: Voiding Method Toilet Toilet # Voids 2 - Labs CBC & Chem 7: 12/30/23 06:24 12/30/23 06:24 Labs: Abnormal Lab Results - Last 24 Hours (Table) 12/30/23 12/30/23 12/30/23 Range/Units 06:24 06:24 09:12 WBC 29.25 H (4.50-10.00) X 10*3/uL RBC 3.57 L (4.40-5.60) X 10*6/uL Hgb 10.1 L (13.0-17.0) g/dL Hct 33.6 L (39.6-50.0) % MCHC 30.1 L (32.0-37.0) g/dL Plt Count 775 H (140-440) X 10*3/uL MPV 8.9 L (9.5-12.2) FL Immature Gran # 0.40 H (0.00-0.04) X 10*3/uL Neutrophils # 25.44 H (1.80-7.70) X 10*3/uL Lymphocytes # 0.88 L (0.90-5.00) X 10*3/uL Monocytes # 2.42 H (0.20-1.00) X 10*3/uL Eosinophils # 0.01 L (0.04-0.35) X 10*3/uL Sodium 126 L (135-145) mmol/L Chloride 93 L (96-109) mmol/L Carbon Dioxide 17.6 L (21.6-31.8) mmol/L Anion Gap 15.40 H (4.00-12.00) mmol/L Calcium 7.6 L (8.7-10.3) mg/dL C-Reactive Protein 7.8 H (<1.0) mg/dL Microbiology - Last 24 Hours (Table) 12/27/23 12:41 Stool Culture - Preliminary Stool 12/25/23 23:20 Blood Culture - Preliminary Blood 12/25/23 23:05 Blood Culture - Preliminary Blood
[2023-12-30] MEDS: IOPAMIDOL CONTRAST (ORAL USE) VIAL PO PRN (15:02)
[2023-12-30 17:22] LABS: African American GFR (CKD) >90 (>60 ml/min/1.73 sqM); Anion Gap 7 mmol/L; Blood Urea Nitrogen 25 mg/dL (9-20); Calcium 7.5 mg/dL (8.4-10.2); Carbon Dioxide 17 mmol/L (22-30); Chloride 100 mmol/L (98-107); Glucose 105 mg/dL (74-99); Non-African American GFR(CKD) 79 (>60 ml/min/1.73 sqM); Potassium 3.6 mmol/L (3.5-5.1); Sodium 124 mmol/L (137-145)
--- NOTE | 2023-12-30 19:21 | CT ---
EXAMINATION TYPE: CT abdomen pelvis w con CT DLP: 1776.1 mGycm, Automated exposure control for dose reduction was used. DATE OF EXAM: 12/30/2023 4:49 PM COMPARISON: 12/29/2023 CLINICAL INDICATION:Male, 33 years old with history of abdominal pain; admitted 5 days ago for abdomi nal pain TECHNIQUE: Axial CT abdomen pelvis w con;Sagittal and coronal reformats were created on a separate w orkstation. Contrast used:100 mL of Isovue 300 with IV Contrast, (none if empty) Oral contrast used: with Oral Contrast (none if empty) FINDINGS: LOWER CHEST: Small bilateral pleural effusions. ABDOMEN LIVER: Diffusely hypoattenuating parenchyma. GALLBLADDER AND BILE DUCTS: Vicarious excretion of contrast within the gallbladder lumen. PANCREAS: Unremarkable. SPLEEN: Unremarkable. ADRENAL GLANDS: 10 mm right adrenal nodule. KIDNEYS AND URETERS: No evidence of hydronephrosis or renal calculus. The ureters are unremarkable. PELVIS BLADDER: Unremarkable REPRODUCTIVE: Unremarkable. ABDOMEN & PELVIS STOMACH AND BOWEL: Sequential wall thickening of the sigmoid colon and rectum with hyperemia of the m ucosa. The large bowel is distended. The small bowel digits multiple dilated loops of bowel with oral contrast measuring up to 4.0 cm. And distention of the terminal ileum however there is no definitive transition point identified. PERITONEUM/RETROPERITONEUM: No evidence of pneumoperitoneum. Trace amount of free fluid in the pelvis . VASCULATURE: No evidence of aortic aneurysm. MUSCULOSKELETAL: No acute osseous abnormalities LYMPH NODES: No gross evidence for lymphadenopathy. SOFT TISSUE/ABDOMINAL WALL: Diffuse anasarca of the soft tissues. IMPRESSION: Hyperemia and wall thickening of the sigmoid colon and rectum as well as areas of the transverse colo n. Likely representing colitis/proctitis. There is upstream dilation of large bowel. Small bowel loop s are dilated with relative nondistention of the terminal ileum. No transition point definitively vis ualized. Correlate for ileus. Attention abdominal radiographs in 12 hours to ensure oral contrast ext ends to the large bowel to exclude obstruction. Gaseous distention is also noted anteriorly along the anterior abdomen throughout the large and small bowel partially contributing to distention. Fluid overload with small bilateral pleural effusions and trace ascites and anasarca.
[2023-12-30] MEDS: FUROSEMIDE 10 MG/ML 2 ML VIAL IV ONE (19:35)
--- NOTE | 2023-12-30 19:40 | XR ---
EXAMINATION TYPE: XR chest 1V confirm line plcmt DATE OF EXAM: 12/30/2023 7:06 PM CLINICAL INDICATION:Male, 33 years old with history of ng tube placement; [facility] COMPARISON: None TECHNIQUE: XR chest 1V confirm line plcmt Frontal view of the chest. FINDINGS: Lungs/Pleura: Elevated left diaphragm with atelectasis. There is no evidence of pleural effusion, foc al consolidation, or pneumothorax. Pulmonary vascularity: Unremarkable. Heart/mediastinum: Cardiomediastinal silhouette is unremarkable. Musculoskeletal: No acute osseous pathology. Other findings: None Lines/Tubes: Nasogastric tube with its distal tip and side-port projecting under the diaphragm. IMPRESSION: 1. Nasogastric tube with its distal tip and side-port projecting under the diaphragm. 2. Elevated left diaphragm with atelectasis changes.
[2023-12-30] MEDS: FAMOTIDINE 20 MG/2 ML VIAL IV SCH (20:51)
--- NOTE | 2023-12-30 22:13 | P.CONS ---
History of Present Illness - Reason for Consult Consult date: 12/30/23 Pancolitis, possibly antibiotics Requesting physician: Chavez Mathis - Chief Complaint Abdominal pain and diarrhea x 1 month - History of Present Illness Patient is a 33-year-old -L[place] male with a past medical history negative for hypertension hyperlipidemia and pancreatitis that was diagnosed about 2 months ago on 11/05/2023 however the patient mention he was not admitted for it patient presented back to [facility] ER 5 days ago on 12/25/2023 for evaluation of abdominal pain patient apparently was complaining of pain that started the night before presentation to the hospital mostly in the epigastric area describing it to be sharp severe in intensity without radiation he did have decreased appetite and was unable to keep food or liquids down since then. Denies having any fever or any chills and apparently was complaining of some diarrhea patient on presentation to the hospital was afebrile and the patient except for a low-grade fever of 99.6 no high-grade fever during this hospital stay patient was not tachycardic hypotensive or hypoxic patient did have a white count of 20,000 on admission patient did have a CT of abdominal pelvis on adm ission that did report moderate wall thickening of the transverse descending and sigmoid colon consistent with colitis associated diarrheal disease patient did have a stool for C. difficile that was reported negative and was seen by GI services since then patient noticed to have worsening of his white count with a white count of 29.25 today and the patient did have a repeat CAT scan yesterday afternoon with evidence of worsening anasarca worsening moderate to severe pancolitis now with colonic dilatation up to 10.2 cm consider development of toxic megacolon patient has already been evaluated by general surgery and infectious disease was consulted this evening for further management of antibi otic therapy patient antibiotics were adjusted to cefepime Flagyl and vancomycin as of yesterday repeat stool for C. difficile PCR has been requested unfortunately not collected, when asked specifically patient denies having any worsening pain compared to yesterday or any worsening stool output and no vomiting Review of Systems Positive point and negatives has been mentioned in the HPI, complete review of systems was performed and all other systems are negative Past Medical History Past Medical History: Hyperlipidemia, Hypertension Additional Past Medical History / Comment(s): pancreatitis History of Any Multi-Drug Resistant Organisms: None Reported Past Surgical History: Adenoidectomy, Ear Surgery, Tonsillectomy Past Psychological History: No Psychological Hx Reported Smoking Status: Never smoker Past Alcohol Use History: Occasional Past Drug Use History: None Reported Medications and Allergies Allergies Allergy/AdvReac Type Severity Reaction Status Date / Time No Known Allergies Allergy Verified 12/26/23 07:50 Physical Exam Vitals: Vital Signs Temp Pulse Resp BP BP Pulse Ox 12/30/23 14:00 97.9 F 121 H 16 127/85 94 L 12/30/23 07:39 98.9 F 94 16 121/86 94 L 12/30/23 02:13 98.5 F 99 15 131/89 98 12/29/23 19:13 98.4 F 76 15 131/85 94 L Intake and Output 12/30/23 12/30/23 12/30/23 06:59 14:59 22:59 Other: # Voids 2 GENERAL DESCRIPTION: Middle-aged male lying in bed, no distress. No tachypnea or accessory muscle of respiration use. HEENT: Shows Pallor , no scleral icterus. Oral mucous membrane is dry. No pharyngeal erythema or thrush NECK: Trachea central, no thyromegaly. LUNGS: Unlabored breathing. Clear to auscultation anteriorly. No wheeze or tobacco scrap sifter ckle. HEART: S1, S2, regular rate and rhythm. No loud murmur ABDOMEN: Mild distention and tenderness no guarding or rigidity EXTREMITIES: No edema of feet. SKIN: No rash, no masses palpable. NEUROLOGICAL: The patient is awake, alert, oriented x3, mood and affect normal. Results CBC & Chem 7: 01/08/24 03:05 01/08/24 17:33 Labs: Abnormal Lab Results - Last 24 Hours (Table) 12/30/23 12/30/23 12/30/23 Range/Units : 06: 09:12 WBC 29.25 H (4.50-10.00) X 10*3/uL RBC 3.57 L (4.40-5.60) X 10*6/uL Hgb 10.1 L (13.0-17.0) g/dL Hct 33.6 L (39.6-50.0) % MCHC 30.1 L (32.0-37.0) g/dL Plt Count 775 H (140-440) X 10*3/uL MPV 8.9 L (9.5-12.2) FL Immature Gran # 0.40 H (0.00-0.04) X 10*3/uL Neutrophils # 25.44 H (1.80-7.70) X 10*3/uL Lymphocytes # 0.88 L (0.90-5.00) X 10*3/uL Monocytes # 2.42 H (0.20-1.00) X 10*3/uL Eosinophils # 0.01 L (0.04-0.35) X 10*3/uL Sodium 126 L (135-145) mmol/L Chloride 93 L (96-109) mmol/L Carbon Dioxide 17.6 L (21.6-31.8) mmol/L Anion Gap 15.40 H (4.00-12.00) mmol/L Calcium 7.6 L (8.7-10.3) mg/dL C-Reactive Protein 7.8 H (<1.0) mg/dL Microbiology - Last 24 Hours (Table) 12/27/23 12:41 Stool Culture - Preliminary Stool 12/25/23 23:20 Blood Culture - Preliminary Blood 12/25/23 23:05 Blood Culture - Preliminary Blood Assessment and Plan (1) Leukocytosis Status: Acute Code(s): D72.829 - ELEVATED WHITE BLOOD CELL COUNT, UNSPECIFIED SNOMED Code(s): 991969078 (2) Pancolitis Status: Acute Code(s): K51.00 - ULCERATIVE (CHRONIC) PANCOLITIS WITHOUT COMPLICATIONS SNOMED Code(s): 465529807 Plan: 1patient with a complicated history with evidence of severe pancolitis on the CT that was completed yesterday and also have worsening of the white count patient apparently was diagnosed with pancreatitis on 11/05/2023 however the patient was not admitted and mention has not received an antibiotic therapy features are highly suspicious for pseudomembranous colitis though initial silvana ting was negative other infectious etiology need to be ruled out as well 2-stool for C. difficile PCR has been requested as that will help clarify underlying etiology stool culture are currently pending 3-we will continue patient on current broad-spectrum therapy to cover with the cefepime Flagyl as well as oral vancomycin 4-need to monitor closely for any worsening symptoms of abdominal distention or pain that may need emergent surgery this has been discussed with the surgeon on the phone keeping in mind patient overall nontoxic and not complaining of any worsening pain comparing to yesterday patient be monitored closely and will wait for the repeat CAT scan to be completed this evening Care has been discussed in detail with the admitting physician as well including option of transfer to tertiary care. We will follow on clinical condition and cultures to further adjust medication if needed Thank you for this consultation we will follow the patient along with you Dictation was produced using [employer] dictation software. please excuse any grammatical, word or spelling errors. Time with Patient: Greater than 30
[2023-12-30] MEDS: LACTATED RINGERS 1,000 ML IV SCH (22:30)
[2023-12-30 23:02] LABS: VBG PH 7.38 (7.31-7.41)
[2023-12-30 23:18] LABS: African American GFR (CKD) >90 (>60 ml/min/1.73 sqM); Anion Gap 11 mmol/L; Blood Urea Nitrogen 27 mg/dL (9-20); Calcium 7.8 mg/dL (8.4-10.2); Carbon Dioxide 16 mmol/L (22-30); Chloride 98 mmol/L (98-107); Glucose 87 mg/dL (74-99); Non-African American GFR(CKD) 82 (>60 ml/min/1.73 sqM); Potassium 3.8 mmol/L (3.5-5.1); Sodium 125 mmol/L (137-145)
[2023-12-31] MEDS: VANCOMYCIN 125 MG CAPSULE PO SCH (00:57)
[2023-12-31] MEDS: VANCOMYCIN RECTAL SCH (01:31)
[2023-12-31] MEDS: LACTATED RINGERS 1,000 ML IV ONE ×6 (04:19→22:10)
--- NOTE | 2023-12-31 06:13 | P.EN ---
per family request , I called warehouse logistics coordinator to initiate a transfer per family request. I also talked to the patient surgeon over the phone to discuss the patient condition I spent 60 minutes in the care of this patient . as family decided at 4:30 in the morning on December 31 2023 that they want to be trasferred to different facility to see a specific GI specialist. patient is Boarded for Exp Lap at 6 am at our facility. I reviewed the case , and discussed the case with patient Surgeon Dr Saleh, who stressed the critical condition of the patient and the importance to proceed with surgery. I went to bedside to have a discussion with the family , patient father and patient significant other were at bedside, the rest of the family were over the phone. family felt they have poor understanding of the plan and puzzled how things escalated quickly to the point of surgery and do not understand their options fully. I did a full chart review at bedside going over the sequence of events from Nov 05 2023 where he had the initial encounter with the ED for abd pain , we reviewed multiple CT scans , blood tests , and reports that were done from Nov 05 2023 till now, and tried to explain to them the findings on each. family seem to be unaware of the results of some of the critical tests that lead to the final decision making regarding surgery , therefore they were requesting a transfer to a facility with GI coverage to get a second opinion as they did not understand how critical the condition is right now. patient will have a final discussion with the Surgery team to make the final decision regarding the planned surgery.
[2023-12-31 06:37] LABS: Glucose,Whole Blood 93 mg/dL (70-110)
[2023-12-31] MEDS: IV FLUID CONTINUATION 1,000 ML IV ONE ×2 (06:43→09:53)
[2023-12-31] MEDS ORDERED: ROCURONIUM 10 MG/ML (5 ML VIAL) IV ONE (07:00)
[2023-12-31] MEDS ORDERED: HYDROmorphone (PF) 1 MG/ML ONE (07:00)
[2023-12-31] MEDS ORDERED: ALBUMIN HUMAN 5% (25gm) 500 ML VIAL IVPB ONE (07:00)
[2023-12-31] MEDS ORDERED: KETAMINE HCL IN 0.9 % NACL 50 MG/5 ML SYRINGE ONE (07:00)
[2023-12-31] MEDS ORDERED: CALCIUM CHLORIDE 100 MG/ML 10 ML SYRINGE ONE (07:00)
[2023-12-31] MEDS ORDERED: PHENYLEPHRINE-0.9% NACL SYG 1,000 MCG/10 ML SYRINGE ONE (07:00)
[2023-12-31] MEDS ORDERED: SUCCINYLCHOLINE CHLORIDE 200 MG/10 ML VIAL IV ONE (07:00)
[2023-12-31] MEDS ORDERED: fentaNYL (PF) 50 MCG/ML 2 ML AMP ONE (07:00)
[2023-12-31] MEDS ORDERED: MIDAZOLAM 2 MG/2 ML VIAL ONE (07:00)
[2023-12-31] MEDS ORDERED: SODIUM BICARB 8.4% 50 ML SYR (1 MEQ/ML) ONE (07:00)
[2023-12-31] MEDS ORDERED: GLYCOPYRROLATE 0.2 MG/ML 2 ML VIAL ONE (07:00)
[2023-12-31] MEDS ORDERED: LIDOCAINE 1% INJ 10MG/ML (20 ML MDV) ONE (07:00)
[2023-12-31] MEDS ORDERED: SUGAMMADEX SODIUM 200 MG/2 ML SDV IV ONE (07:00)
[2023-12-31] MEDS ORDERED: NEOSTIGMINE 1 MG/ML 10 ML VIAL ONE (07:00)
[2023-12-31] MEDS ORDERED: PROPOFOL 10 MG/ML 20 ML VIAL IV ONE (07:00)
--- NOTE | 2023-12-31 07:04 | P.PN ---
Progress Note - Text Progress Note Date: 12/31/23 I was called at approximately 3:30 this morning. The patient had been transferred to [address] [place] [address] due to persistent tachycardia. The patient's nurse stated that he had had for 5 more bloody bowel movements. At this point I discussed with the patient and the nurse I think that he would benefit from a subtotal colectomy due to worsening colitis. The patient was scheduled for emergent laparotomy and subtotal colectomy. However the patient's family winitially wish to transfer him to a GI specialist. The patient's family had discussion with myself and the sound physician. I explained to them that the colon is becoming toxic. And that his best chance for survival would be to perform a subtotal colectomy with ileostomy. The patient agreed to surgery at 7 AM. The patient will be taken to surgery for subtotal colectomy with ileostomy.
[2023-12-31 08:41] LABS: HCT 30.6 % (39.6-50.0); MCH 29.9 pg (27.0-32.0); MCHC 32.7 g/dL (32.0-37.0); MCV 91.3 FL (80.0-97.0); Mean Platelet Volume 8.6 FL (9.5-12.2); NRBC Per 100 WBC 0 X 10*3/uL (0.00-0.01); Platelet Count 744 X 10*3/uL (140-440); RBC 3.35 X 10*6/uL (4.40-5.60); WBC 28.88 X 10*3/uL (4.50-10.00)
[2023-12-31 09:10] LABS: BUN/Creat Ratio 24.18 Ratio (12.00-20.00); Blood Urea Nitrogen 26.6 mg/dL (9.0-27.0); Calcium 7.4 mg/dL (8.7-10.3); Chloride 100 mmol/L (96-109); Glucose 87 mg/dL (70-110); Potassium 3.9 mmol/L (3.5-5.5); Sodium 133 mmol/L (135-145)
[2023-12-31] MEDS: HYDROmorphone 0.5 MG/0.5 ML SYRINGE IVP ONE ×2 (09:35)
[2023-12-31 09:38] LABS: Basophils # (A) 0.17 X 10*3/uL (0.00-0.10); Basophils % (A) 0.6 %; Eosinophils # (A) 0 X 10*3/uL (0.04-0.35); Eosinophils % (A) 0 %; Lymphocytes # (A) 0.84 X 10*3/uL (0.90-5.00); Lymphocytes % (A) 2.9 %; Monocytes # (A) 1.92 X 10*3/uL (0.20-1.00); Monocytes % (A) 6.6 %; RBC Morphology Normal (Normal)
[2023-12-31 09:50] LABS: ABG Base Excess -5.3 mmol/L; ABG HCO3 20 mmol/L (21-25); ABG Oxygen Saturation 99.7 % (94-97); ABG PCO2 37 mmHg (35-45); ABG PH 7.34 (7.35-7.45); ABG PO2 331 mmHg (83-108); ABG TCO2 21 mmol/L (19-24); Allen Test Performed? Yes
--- NOTE | 2023-12-31 09:54 | P.OP ---
Date of Procedure: 12/31/23 Preoperative Diagnosis: pancolitis Postoperative Diagnosis: fulminant pancolitis Procedure(s) Performed: subtotal colectomy with ileostomy Anesthesia: RONALD Surgeon: Hubert Saleh Estimated Blood Loss (ml): 50 Pathology: other (subtotal colectomy) Condition: critical Disposition: ICU Operative Findings: fulminant pancolitis Description of Procedure: the patient's placed on the operative table in the supine position. He received general endotracheal tube anesthesia. His abdomen was prepped and draped in the usual sterile fashion. A standard midline skin incision was made and then using left cautery abdominal wall was divided. And then the Bookwalter retractors placed a wound. The abdomen was explored. There was some ascites. The colon was obviously inflamed. The inflammation was seen in the right transverse descending and sigmoid colon. There appeared to be worsened colitis near the area of the hepatic flexure. At this point the right colon was mobilized by dividing the white line of Toldt's was left cautery. The hepatic flexure was taken down with left cautery. And then the terminal ileum was transected with the JOSELYN stapler. Following this the transverse colon was mobilized by dividing the omentum off the transverse colon. Then the splenic flexure was taken down with sharp and blunt dissection and electrocautery. The left colon was mobilized without by dividing the white line of Toldt with electrocautery. The sigmoid colon was reflected medially. Next using the LigaSure device the mesentery the bowel was divided. The right colic artery was ligated with 0 silk ties. The transverse colon artery was transected and divided and ligated with 0 silk ties. LigaSure device was then used to divide the mesentery down to the level of the rectum. The rectum was then was divided using the JOSELYN stapler. The specimens of pathology. The abdomen was then irrigated with 6 L of normal saline. During the mobilization of the colon. The splenic flexure area of the colon was perforated during dissection. This area was washed out carefully. At this point the ileostomy brought up through the right abdominal wall. The fascia was closed with looped #1 PDS suture. Skin was closed sander. The ileostomy then matured with 3-0 Vicryl suture. Sterile dressing applied. Patient initially was extubated in the operating room. However the patient was reintubated when he arrived to recovery room. Patient was then sent to the ICU.
[2023-12-31] MEDS: SODIUM BICARB 8.4% 50 ML VIAL (1 MEQ/ML) IVPB ONE ×2 (10:00→10:10)
[2023-12-31] MEDS: METOPROLOL TARTRATE 5 MG/5 ML VIAL IVP ONE (10:00)
[2023-12-31] MEDS: ALBUMIN HUMAN 25% (12.5gm) 50 ML VIAL IVPB ONE (10:05)
[2023-12-31] MEDS: LORazepam 2 MG/ML INJ IV ONE (10:10)
--- NOTE | 2023-12-31 10:34 | XR ---
EXAMINATION TYPE: XR chest 1V portable DATE OF EXAM: 12/31/2023 Comparison: 12/30/2023 Clinical History: 33-year-old male POST INTUBATION Findings: ET tube tip along the lower margin of the medial clavicular heads. NG tube courses below the diaphrag m. Heart upper limits of normal in size. Diffuse interstitial density persists possibly with slight w orsening. No sizable pleural effusion. Sliver of air projecting below the right hemidiaphragm. Impression: 1. Possible slight interval worsening in bilateral interstitial changes/mild pulmonary vascular conge stion. 2. There may be trace free air below the right hemidiaphragm. We note anterior skin sander overlying the abdomen indicating recent surgery. Probably postsurgical in etiology. Clinically correlate.
[2023-12-31] MEDS ORDERED: Phosphorus Replacement Protoco 1 EACH MISC MISCELLANE PRN (10:47)
[2023-12-31] MEDS ORDERED: Magnesium Replacement Protocol 1 EACH MISC MISCELLANE PRN ×2 (10:47→16:22)
[2023-12-31] MEDS ORDERED: Potassium Replacement Protocol 1 EACH MISC MISCELLANE PRN (10:47)
[2023-12-31] MEDS: CISATRACURIUM 2 MG/ML 5 ML VIAL IV ONE (10:49)
[2023-12-31] MEDS: LACTATED RINGERS 1,000 ML IV SCH (10:49)
[2023-12-31 10:58] LABS: Glucose,Whole Blood 96 mg/dL (70-110)
--- NOTE | 2023-12-31 11:08 | XR ---
EXAMINATION TYPE: XR chest 1V portable DATE OF EXAM: 12/31/2023 Comparison: 12/31/2023 Clinical History: 33-year-old male central line placement Findings: ET tube tip at the level of the medial clavicular heads. NG tube courses below the diaphragm. Left cevallos bclavian CVC tip in the upper right atrium. Heart normal size. Interstitial densities persist. Some b lunting of the left costophrenic angle suggests a trace effusion. Previous questioned free air below the right hemidiaphragm no longer seen. Impression: 1. Left subclavian CVC tip in the upper right atrium. 2. Consider ongoing mild pulmonary vascular congestion. Trace left effusion suggested.
--- NOTE | 2023-12-31 11:10 | P.CNPUL ---
History of Present Illness Consult date: 12/31/23 Requesting physician: Maya Mendez Reason for consult: other Chief complaint: ICU management. History of present illness: Pulmonary/critical care consult dated December 31, 2023. 33-year-old male who presented to the emergency department, on December 24 with severe abdominal pain. The patient apparently has a history of pancreatitis, and apparently told the ER physician that the pain seemed similar. He had sharp left-sided abdominal pain, from the night before. He had poor appetite, and has been unable to keep any food or liquids down. The patient was admitted to the hospital, for the abdominal pain. He denies any fever, chills, nausea, constipation, or diarrhea. There is no urinary complaints. The patient apparently has a history of hyperlipidemia, hypertension, and pancreatitis. He is a lifelong non-smoker. He only drinks occasionally. It was told to me this morning, both from the charge nurse in the ICU, and the surgeon, but the patient was in the operating room, for fulminant pancolitis, and was having a colectomy. The patient had a subtotal colectomy with ileostomy performed by one of the surgeons, and the patient was extubated initially in the operating room, but was reintubated minutes later. The patient came to the ICU, on the ventilator. I gave Vent settings of volume assist-control, rate 20, tidal volume 450, FiO2 100%, PEEP of 5. Blood gases will be done in about an hour. We also placed a left subclavian triple-lumen catheter. An arterial line was placed by anesthesia. The most recent labs include a white count of 28.9, hemoglobin 10, hematocrit 31, and platelet count which was 744,000. Most recent blood gas showed a pO2 of 331, pCO2 of 37, pH is 7.34. That was on 100%. Repeat blood gas will be done in about 60 minutes. Sodium 133, potassium 3.9, chlorides 100, CO2 17, anion gap 16, BUN 27, creatinine 1.1. Glucose was 96. C-reactive protein was 9.90. Calcium 7.4. Stool and blood cultures have been negative. The postintubation x-ray shows the endotracheal tube to be in good position. In addition, there is a left subclavian triple-lumen catheter in good position. A repeat CT scan of the abdomen and pelvis, yesterday, showed hyperemia and wall thickening of the sigmoid colon and rectum as well as areas of transverse colon. The radiologist thought it was consistent with colitis/proctitis. There was upstream dilatation of the large bowel. Small bowel loops are dilated with relative nondistention. No transition point is noted. Other findings are noted on the CT scan. Review of Systems REVIEW OF SYSTEMS: CONSTITUTIONAL: [Negative.] NEUROLOGIC: [ Negative.] HEENT: [ Negative.] CARDIAC: [Negative.] PULMONARY: [Negative.] GI: Abdominal pain, poor appetite. : [Negative.] RHEUMATOLOGIC: [ Negative.] IMMUNOLOGIC: [ Negative.] ENDOCRINE: [Negative. ] DERMATOLOGIC: [Negative.] Past Medical History Past Medical History: Hyperlipidemia, Hypertension Additional Past Medical History / Comment(s): pancreatitis History of Any Multi-Drug Resistant Organisms: None Reported Past Surgical History: Adenoidectomy, Ear Surgery, Tonsillectomy Past Psychological History: No Psychological Hx Reported Smoking Status: Never smoker Past Alcohol Use History: Occasional Past Drug Use History: None Reported Medications and Allergies Home Medications Medication Instructions Recorded Confirmed Type Dextroamphetamine/Amphetamine 30 mg PO DAILY 11/05/23 12/26/23 History [Adderall Xr 30 mg Capsule] Metoprolol Succinate (ER) [Toprol 100 mg PO DAILY 11/05/23 12/26/23 History XL] Dicyclomine [Bentyl] 10 mg PO AC-TID PRN 12/26/23 12/26/23 History Allergies Allergy/AdvReac Type Severity Reaction Status Date / Time No Known Allergies Allergy Verified 12/26/23 07:50 Physical Exam Osteopathic Statement: *. No significant issues noted on an osteopathic structural exam other than those noted in the History and Physical/Consult. Vitals: Vital Signs Temp Pulse Resp BP BP Pulse Ox FiO2 12/31/23 09:45 100 12/31/23 09:44 100 12/31/23 06:23 98.6 F 126 H 26 H 137/79 95 12/31/23 04:00 98.4 F 124 H 18 129/87 95 12/31/23 02:00 125 H 16 12/31/23 00:00 99.1 F 125 H 16 119/84 95 12/30/23 22:14 122 H 18 12/30/23 22:00 99.6 F 122 H 18 125/86 95 06/25/24 19:13 98.6 F 109 H 16 133/85 96 12/30/23 14:00 97.9 F 121 H 16 127/85 94 L Intake and Output 12/30/23 12/31/23 12/31/23 22:59 06:59 14:59 Intake Total 3200 Output Total 0 1100 400 Balance 0 -1100 2800 Intake: IV 3200 Output: Gastric Drainage 350 Urine 750 350 Straight 500 Post Void Residual 0 Estimated Blood Loss 50 Other: Voiding Method Toilet Toilet # Bowel Movements 1 Weight 97.522 kg No acute distress, sedated and intubated with an NG tube in place. HEENT examination is grossly unremarkable. Neck supple. Full range of motion. No adenopathy thyromegaly or neck vein distention. Cardiovascular examination reveals regular rhythm rate. S1-S2 normal. No S3 or S4. No discernible murmur noted. Heart rate is 126 bpm. Lungs reveal clear breath sounds. Breath sounds are equal bilaterally. No adventitious lung sounds including wheezes rhonchi or crackles. Saturations are 100%. Abdomen soft without bowel sounds. Ileostomy is noted. Extremities are intact. No cyanosis clubbing or edema. Skin is without rash or lesion. Neurologic examination cannot be assessed at this time. Results - Laboratory Findings CBC and BMP: 12/31/23 05:33 12/31/23 05:33 ABG ABG pH 7.34 (7.35-7.45) L 12/31/23 09:43 ABG pCO2 37 mmHg (35-45) 12/31/23 09:43 ABG pO2 331 mmHg (83-108) H 12/31/23 09:43 ABG O2 Saturation 99.7 % (94-97) H 12/31/23 09:43 Abnormal lab findings: Abnormal Labs 12/25/23 12/25/23 12/25/23 20:10 20:10 22:32 WBC 20.7 H RBC 3.98 L Hgb 11.7 L Hct 36.6 L MCHC Plt Count 572 H MPV Immature Gran # Neutrophils # 17.4 H Lymphocytes # Monocytes # 1.5 H Eosinophils # Basophils # ESR ABG pH ABG pO2 ABG HCO3 ABG O2 Saturation VBG pCO2 VBG HCO3 Sodium 133 L Potassium 2.8 L Chloride 92 L Carbon Dioxide 36 H Anion Gap BUN BUN/Creatinine Ratio Glucose 100 H Calcium 7.7 L AST C-Reactive Protein Total Protein 5.2 L Albumin 2.3 L Ur Specific [place] 1.038 H Urine Protein Trace H Urine Osmolality Ur Random Sodium 12/26/23 12/26/23 12/26/23 07:58 07:58 07:58 WBC 21.2 H RBC 3.33 L Hgb 10.3 L Hct 30.6 L MCHC Plt Count 542 H MPV Immature Gran # Neutrophils # Lymphocytes # Monocytes # Eosinophils # Basophils # ESR 54 H ABG pH ABG pO2 ABG HCO3 ABG O2 Saturation VBG pCO2 VBG HCO3 Sodium Potassium Chloride Carbon Dioxide Anion Gap BUN BUN/Creatinine Ratio Glucose Calcium AST C-Reactive Protein 14.0 H Total Protein Albumin Ur Specific [place] Urine Protein Urine Osmolality Ur Random Sodium 12/26/23 12/27/23 12/27/23 07:58 10:50 10:50 WBC 18.5 H RBC 3.37 L Hgb 10.0 L Hct 31.9 L MCHC Plt Count 573 H MPV Immature Gran # Neutrophils # Lymphocytes # Monocytes # Eosinophils # Basophils # ESR ABG pH ABG pO2 ABG HCO3 ABG O2 Saturation VBG pCO2 VBG HCO3 Sodium 134 L 131 L Potassium 3.1 L 3.2 L Chloride Carbon Dioxide 32 H Anion Gap BUN BUN/Creatinine Ratio Glucose 73 L 128 H Calcium 7.1 L 7.4 L AST 15 L C-Reactive Protein Total Protein 4.5 L Albumin 1.9 L Ur Specific [place] Urine Protein Urine Osmolality Ur Random Sodium 12/28/23 12/28/23 12/29/23 04:50 04:50 06:26 WBC 19.6 H 26.75 H RBC 3.58 L 3.75 L Hgb 10.5 L 10.8 L Hct 33.6 L 34.9 L MCHC 30.9 L Plt Count 639 H 749 H MPV 8.9 L Immature Gran # 0.27 H Neutrophils # 22.86 H Lymphocytes # Monocytes # 2.51 H Eosinophils # 0.03 L Basophils # ESR 88 H ABG pH ABG pO2 ABG HCO3 ABG O2 Saturation VBG pCO2 VBG HCO3 Sodium 127 L Potassium Chloride Carbon Dioxide Anion Gap BUN BUN/Creatinine Ratio Glucose 101 H Calcium 7.4 L AST C-Reactive Protein Total Protein Albumin Ur Specific [place] Urine Protein Urine Osmolality Ur Random Sodium 12/29/23 12/30/23 12/30/23 06:26 06:24 06:24 WBC 29.25 H RBC 3.57 L Hgb 10.1 L Hct 33.6 L MCHC 30.1 L Plt Count 775 H MPV 8.9 L Immature Gran # 0.40 H Neutrophils # 25.44 H Lymphocytes # 0.88 L Monocytes # 2.42 H Eosinophils # 0.01 L Basophils # ESR ABG pH ABG pO2 ABG HCO3 ABG O2 Saturation VBG pCO2 VBG HCO3 Sodium 131 L 126 L Potassium Chloride 95 L 93 L Carbon Dioxide 21.3 L 17.6 L Anion Gap 14.70 H 15.40 H BUN BUN/Creatinine Ratio Glucose Calcium 7.9 L 7.6 L AST C-Reactive Protein 10.40 H Total Protein Albumin Ur Specific [place] Urine Protein Urine Osmolality Ur Random Sodium 12/30/23 12/30/23 12/30/23 09:12 09:12 16:58 WBC RBC Hgb Hct MCHC Plt Count MPV Immature Gran # Neutrophils # Lymphocytes # Monocytes # Eosinophils # Basophils # ESR 93 H ABG pH ABG pO2 ABG HCO3 ABG O2 Saturation VBG pCO2 VBG HCO3 Sodium 124 L Potassium Chloride Carbon Dioxide 17 L Anion Gap BUN 25 H BUN/Creatinine Ratio Glucose 105 H Calcium 7.5 L AST C-Reactive Protein 7.8 H Total Protein Albumin Ur Specific [place] Urine Protein Urine Osmolality Ur Random Sodium 12/30/23 12/30/23 12/30/23 22:26 22:26 23:37 WBC RBC Hgb Hct MCHC Plt Count MPV Immature Gran # Neutrophils # Lymphocytes # Monocytes # Eosinophils # Basophils # ESR ABG pH ABG pO2 ABG HCO3 ABG O2 Saturation VBG pCO2 33 L VBG HCO3 20 L Sodium 125 L Potassium Chloride Carbon Dioxide 16 L Anion Gap BUN 27 H BUN/Creatinine Ratio Glucose Calcium 7.8 L AST C-Reactive Protein Total Protein Albumin Ur Specific [place] Urine Protein Urine Osmolality 299 L Ur Random Sodium 12/30/23 12/31/23 12/31/23 23:37 05:33 05:33 WBC 28.88 H RBC 3.35 L Hgb 10.0 L Hct 30.6 L MCHC Plt Count 744 H MPV 8.6 L Immature Gran # 0.25 H Neutrophils # 25.70 H Lymphocytes # 0.84 L Monocytes # 1.92 H Eosinophils # 0 L Basophils # 0.17 H ESR ABG pH ABG pO2 ABG HCO3 ABG O2 Saturation VBG pCO2 VBG HCO3 Sodium 133 L Potassium Chloride Carbon Dioxide 17.0 L Anion Gap 16.00 H BUN BUN/Creatinine Ratio 24.18 H Glucose Calcium 7.4 L AST C-Reactive Protein 9.90 H Total Protein Albumin Ur Specific [place] Urine Protein Urine Osmolality Ur Random Sodium <20 L 12/31/23 09:43 WBC RBC Hgb Hct MCHC Plt Count MPV Immature Gran # Neutrophils # Lymphocytes # Monocytes # Eosinophils # Basophils # ESR ABG pH 7.34 L ABG pO2 331 H ABG HCO3 20 L ABG O2 Saturation 99.7 H VBG pCO2 VBG HCO3 Sodium Potassium Chloride Carbon Dioxide Anion Gap BUN BUN/Creatinine Ratio Glucose Calcium AST C-Reactive Protein Total Protein Albumin Ur Specific [place] Urine Protein Urine Osmolality Ur Random Sodium - Diagnostic Findings Chest x-ray: image reviewed Assessment and Plan Assessment: Postoperative day #1, S/P subtotal colectomy with ileostomy, for fulminant pancolitis. Routine postoperative ventilator management. Anion gap metabolic acidosis. Previous history of pancreatitis. History of hypertension. History of hyperlipidemia. Plan: Plan dated December 30, 2026. The patient is seen today in the intensive care unit, room 264. The patient was extubated in the operating room, and reintubated in minutes, in the recovery area. The patient remains intubated. An arterial line was placed by anesthesia. I placed a left subclavian triple-lumen catheter. The patient is receiving lactated Ringer's at 150 cc an hour. The patient is on propofol at 15 mcg/kg/min. Will add DuoNebs, every 4 [id number]. In addition, the patient will have a repeat blood gas. The patient is running on vancomycin, cefepime, and Flagyl. We will continue to follow make recommendations. Prognosis is guarded. We will use 1 port of the central venous catheter for central venous pressure measurements. Time with Patient: Greater than 30
--- NOTE | 2023-12-31 11:38 | P.PN ---
Subjective Progress Note Date: 12/31/23 Principal diagnosis: Colitis Hailee was seen and examined. Status post subtotal colectomy this morning. He was seen in the ICU. He is intubated. He is vitally stable. Family was seen in the waiting room. Objective - Vital Signs Vital signs: Vital Signs Temp 98.6 F 12/31/23 09:13 Pulse 105 H 12/31/23 10:30 Resp 14 12/31/23 10:30 BP 135/71 12/31/23 10:30 Pulse Ox 100 12/31/23 10:30 FiO2 100 12/31/23 10:00 Intake & Output 12/30/23 12/31/23 12/31/23 18:59 06:59 18:59 Intake Total 3200 Output Total 0 1100 400 Balance 0 -1100 2800 Weight 97.522 kg Intake: IV 3200 Output: Gastric Drainage 350 Urine 750 350 Straight 500 Post Void Residual 0 Estimated Blood Loss 50 Other: Voiding Method Toilet # Bowel Movements 1 - Exam Vitals: Reviewed General: Intubated and vitally stable Cardiovascular: Regular and tachycardic S1-S2 Lungs: Breath sounds equal, transmitted vent sounds Extremities: 1+ lower extremity edema - Labs CBC & Chem 7: 12/31/23 05:33 12/31/23 05:33 Labs: Abnormal Lab Results - Last 24 Hours (Table) 12/30/23 12/30/23 12/30/23 Range/Units 09:12 16:58 22:26 WBC (4.50-10.00) X 10*3/uL RBC (4.40-5.60) X 10*6/uL Hgb (13.0-17.0) g/dL Hct (39.6-50.0) % Plt Count (140-440) X 10*3/uL MPV (9.5-12.2) FL Immature Gran # (0.00-0.04) X 10*3/uL Neutrophils # (1.80-7.70) X 10*3/uL Lymphocytes # (0.90-5.00) X 10*3/uL Monocytes # (0.20-1.00) X 10*3/uL Eosinophils # (0.04-0.35) X 10*3/uL Basophils # (0.00-0.10) X 10*3/uL ESR 93 H (0-15) mm/Hr ABG pH (7.35-7.45) ABG pO2 (83-108) mmHg ABG HCO3 (21-25) mmol/L ABG O2 Saturation (94-97) % VBG pCO2 33 L (37-51) mmHg VBG HCO3 20 L (24-28) mmol/L Sodium 124 L (137-145) mmol/L Carbon Dioxide 17 L (22-30) mmol/L Anion Gap (4.00-12.00) mmol/L BUN 25 H (9-20) mg/dL BUN/Creatinine Ratio (12.00-20.00) Ratio Glucose 105 H (74-99) mg/dL Calcium 7.5 L (8.4-10.2) mg/dL C-Reactive Protein (0.00-0.80) mg/dL Urine Osmolality (400-1100) mOsm/kg Ur Random Sodium (40-220) mmol/L 12/30/23 12/30/23 12/30/23 Range/Units 22:26 23:37 23:37 WBC (4.50-10.00) X 10*3/uL RBC (4.40-5.60) X 10*6/uL Hgb (13.0-17.0) g/dL Hct (39.6-50.0) % Plt Count (140-440) X 10*3/uL MPV (9.5-12.2) FL Immature Gran # (0.00-0.04) X 10*3/uL Neutrophils # (1.80-7.70) X 10*3/uL Lymphocytes # (0.90-5.00) X 10*3/uL Monocytes # (0.20-1.00) X 10*3/uL Eosinophils # (0.04-0.35) X 10*3/uL Basophils # (0.00-0.10) X 10*3/uL ESR (0-15) mm/Hr ABG pH (7.35-7.45) ABG pO2 (83-108) mmHg ABG HCO3 (21-25) mmol/L ABG O2 Saturation (94-97) % VBG pCO2 (37-51) mmHg VBG HCO3 (24-28) mmol/L Sodium 125 L (137-145) mmol/L Carbon Dioxide 16 L (22-30) mmol/L Anion Gap (4.00-12.00) mmol/L BUN 27 H (9-20) mg/dL BUN/Creatinine Ratio (12.00-20.00) Ratio Glucose (74-99) mg/dL Calcium 7.8 L (8.4-10.2) mg/dL C-Reactive Protein (0.00-0.80) mg/dL Urine Osmolality 299 L (400-1100) mOsm/kg Ur Random Sodium <20 L (40-220) mmol/L 12/31/23 12/31/23 12/31/23 Range/Units 05:33 05:33 09:43 WBC 28.88 H (4.50-10.00) X 10*3/uL RBC 3.35 L (4.40-5.60) X 10*6/uL Hgb 10.0 L (13.0-17.0) g/dL Hct 30.6 L (39.6-50.0) % Plt Count 744 H (140-440) X 10*3/uL MPV 8.6 L (9.5-12.2) FL Immature Gran # 0.25 H (0.00-0.04) X 10*3/uL Neutrophils # 25.70 H (1.80-7.70) X 10*3/uL Lymphocytes # 0.84 L (0.90-5.00) X 10*3/uL Monocytes # 1.92 H (0.20-1.00) X 10*3/uL Eosinophils # 0 L (0.04-0.35) X 10*3/uL Basophils # 0.17 H (0.00-0.10) X 10*3/uL ESR (0-15) mm/Hr ABG pH 7.34 L (7.35-7.45) ABG pO2 331 H (83-108) mmHg ABG HCO3 20 L (21-25) mmol/L ABG O2 Saturation 99.7 H (94-97) % VBG pCO2 (37-51) mmHg VBG HCO3 (24-28) mmol/L Sodium 133 L (137-145) mmol/L Carbon Dioxide 17.0 L (22-30) mmol/L Anion Gap 16.00 H (4.00-12.00) mmol/L BUN (9-20) mg/dL BUN/Creatinine Ratio 24.18 H (12.00-20.00) Ratio Glucose (74-99) mg/dL Calcium 7.4 L (8.4-10.2) mg/dL C-Reactive Protein 9.90 H (0.00-0.80) mg/dL Urine Osmolality (400-1100) mOsm/kg Ur Random Sodium (40-220) mmol/L Microbiology - Last 24 Hours (Table) 12/27/23 12:41 Stool Culture - Final Stool Assessment and Plan Plan: # Sepsis # Colitis C. difficile negative. On Zosyn, antibiotics changed to cefepime and Flagyl as Flagyl will cover potential C. difficile. Initial C. difficile was negative but repeated as he does have findings concerning for C. difficile. Also added oral vancomycin. Repeat C. difficile EIA and PCR. General surgery consulted his repeat CT scan with pancolitis, pneumatosis on the right side and findings concerning for toxic megacolon as he did have colonic dilation. Lactate levels normal. Underwent subtotal colectomy today. He will be managed in the ICU postop. # Hypertension, sinus tachycardia home metoprolol # Hyponatremia Likely multifactorial secondary to GI losses and fluid overload. Sodium improving. Avoid correcting more than 8 mEq in 24 hours. Nephrology following. Given Lasix by nephrology. VTE prophylaxis: SCDs
[2023-12-31 11:50] LABS: ABG Base Excess -3.1 mmol/L; ABG HCO3 22 mmol/L (21-25); ABG Oxygen Saturation 99.7 % (94-97); ABG PCO2 38 mmHg (35-45); ABG PH 7.37 (7.35-7.45); ABG PO2 335 mmHg (83-108); ABG TCO2 23 mmol/L (19-24); Allen Test Performed? Yes
[2023-12-31] MEDS: IPRATROPIUM-ALBUTEROL 3 ML NEB INHALATION SCH (11:54)
--- NOTE | 2023-12-31 12:02 | P.NPCON ---
History of Present Illness - Reason for Consult hyponatremia - History of Present Illness patient is a 33-year-old male who was admitted to the hospital with abdominal pain and diarrhea. CT of the abdomen showed significant pancolitis with significant: Distention and patient was eventually taken to the OR today, ex 2023 and is status post subtotal colectomy with ileostomy. Patient has been maintained on IV fluids since admission. Serum sodium had dropped to 127 from 131 and subsequently continue to decrease to 124 yesterday. Patient was also noted to have significant edema and third spacing. IV fluids were discontinued yesterday and patient received a dose of IV Lasix. serum sodium improved to 133 today from 125 last night. Patient is currently maintained on LR at 150 mL an hour since he came out of the OR. Patient is currently intubated. no pressors noted. C. diff toxin is negative. Review of Systems as per HPI Past Medical History Past Medical History: Hyperlipidemia, Hypertension Additional Past Medical History / Comment(s): pancreatitis History of Any Multi-Drug Resistant Organisms: None Reported Past Surgical History: Adenoidectomy, Ear Surgery, Tonsillectomy Past Psychological History: No Psychological Hx Reported Smoking Status: Never smoker Past Alcohol Use History: Occasional Past Drug Use History: None Reported Medications and Allergies Home Medications Medication Instructions Recorded Confirmed Type Dextroamphetamine/Amphetamine 30 mg PO DAILY 11/05/23 12/26/23 History [Adderall Xr 30 mg Capsule] Metoprolol Succinate (ER) [Toprol 100 mg PO DAILY 11/05/23 12/26/23 History XL] Dicyclomine [Bentyl] 10 mg PO AC-TID PRN 12/26/23 12/26/23 History Allergies Allergy/AdvReac Type Severity Reaction Status Date / Time No Known Allergies Allergy Verified 12/26/23 07:50 Physical Exam Vitals: Vital Signs Temp Pulse Resp BP BP Pulse Ox FiO2 12/31/23 10:30 105 H 14 135/71 100 12/31/23 10:15 115 H 14 138/75 100 12/31/23 10:00 120 H 14 146/87 100 100 12/31/23 09:45 100 12/31/23 09:44 100 12/31/23 09:25 130 H 10 L 135/73 100 12/31/23 09:21 126 H 10 L 137/74 75 L 12/31/23 09:18 10 L 85 L 06/26/24 09:13 98.6 F 118 H 10 L 135/73 75 L 12/31/23 06:23 98.6 F 126 H 26 H 137/79 95 12/31/23 04:00 98.4 F 124 H 18 129/87 95 12/31/23 02:00 125 H 16 12/31/23 00:00 99.1 F 125 H 16 119/84 95 12/30/23 22:14 122 H 18 12/30/23 22:00 99.6 F 122 H 18 125/86 95 12/30/23 19:13 98.6 F 109 H 16 133/85 96 12/30/23 14:00 97.9 F 121 H 16 127/85 94 L Intake and Output 12/30/23 12/31/23 12/31/23 22:59 06:59 14:59 Intake Total 3200 Output Total 0 1100 400 Balance 0 -1100 2800 Intake: IV 3200 Output: Gastric Drainage 350 Urine 750 350 Straight 500 Post Void Residual 0 Estimated Blood Loss 50 Other: Voiding Method Toilet Toilet # Bowel Movements 1 Weight 97.522 kg patient is currently sedated and on the vent. Examination of the heart S1 and S2 Examination of the lungs bilateral breath sounds are heard Abdominal incision is dressed, ileostomy noted. Examination of lower extremities shows 2-3+ edema bilaterally [employer] exam cannot be performed Results - Lab Results Most recent lab results ABG pH 7.34 (7.35-7.45) L 12/31/23 09:43 ABG pCO2 37 mmHg (35-45) 12/31/23 09:43 ABG pO2 331 mmHg (83-108) H 12/31/23 09:43 ABG HCO3 20 mmol/L (21-25) L 12/31/23 09:43 ABG O2 Saturation 99.7 % (94-97) H 12/31/23 09:43 Calcium 7.4 mg/dL (8.7-10.3) L 12/31/23 05:33 12/31/23 05:33 12/31/23 05:33 Assessment and Plan Assessment: 1. Hyponatremia associated with significant third spacing and interstitial edema. Serum sodium improved with one dose of IV Lasix. Urine osmolality was 299 and random urine sodium was less than 20. Patient is started back on IV fluids when he came out of the OR. A repeat sodium is ordered for later this afternoon. Patient is currently not hypotensive. He has likely has significant amount of GI fluid loss associated with fulminant pancolitis and colectomy this morning. 2. Fulminant been colitis status post subtotal colectomy and ileostomy on 12/31/2023.. C. diff toxin is negative 3. Metabolic acidosis associated with GI fluid loss Plan: May continue with LR for now. Repeat sodium in 3 hours. Consider switching to IV bicarb based on repeat labs this afternoon.
--- NOTE | 2023-12-31 14:22 | PCN ---
PROCEDURE NOTE PULMONARY/CRITICAL CARE PROCEDURE NOTE: PROCEDURE PERFORMED: Left subclavian triple-lumen catheter. PREOPERATIVE DIAGNOSIS: Administration of fluids and pressors. POSTOPERATIVE DIAGNOSIS: Administration of fluids and pressors. There was informed consent, there was universal timeout. The patient's procedure took place in room #264. We used the left subclavian site. DESCRIPTION OF PROCEDURE: The patient was placed in a dependent position appropriate for triple lumen catheter placement based on the vein to be cannulated. The patient's left shoulder was prepped and draped in sterile fashion. 1% Lidocaine was used to anesthetize the surrounding skin area. A triple lumen 9F Cordis catheter was introduced into the left subclavian vein using Seldinger technique. The catheter was threaded smoothly over the guide wire and appropriate blood return was obtained. Each lumen of the catheter was evacuated of air and flushed with sterile saline. The catheter was then sutured in place to the skin and a sterile dressing applied. Perfusion to the extremity distal to the point of catheter insertion was checked and found to be adequate. There was no immediate complication. There was good blood return from all 3 ports. The catheter was sutured in place. Sterile dressing was applied by the nurse. The tip of the catheter was seen in the junction of the superior vena cava and right atrium. A chest x-ray was ordered. There was no immediate complication. MMODL / IJN: [id number] /
[2023-12-31] MEDS: VANCOMYCIN ORAL SOLUTION 250 MG/5 ML BOTTLE PO SCH (14:43)
[2023-12-31] MEDS: NOREPINEPHRINE 8 MG in SODIUM CHLORIDE 0.9% 250 ML IV SCH (14:58)
[2023-12-31] MEDS: VASOPRESSIN 20 UNIT in SODIUM CHLORIDE 0.9% 50 ML IV SCH (15:15)
[2023-12-31 15:42] LABS: African American GFR (CKD) >90 (>60 ml/min/1.73 sqM); Anion Gap 5 mmol/L; Blood Urea Nitrogen 14 mg/dL (9-20); Chloride 124 mmol/L (98-107); Glucose 52 mg/dL (74-99); Non-African American GFR(CKD) >90 (>60 ml/min/1.73 sqM); Sodium 138 mmol/L (137-145)
[2023-12-31] MEDS: NOREPINEPHRINE 32 MG in SODIUM CHLORIDE 0.9% 218 ML IV SCH (15:48)
[2023-12-31 16:02] LABS: HCT 33.9 % (39.0-53.0); HGB 10.5 gm/dL (13.0-17.5); MCH 29.3 pg (25.0-35.0); MCHC 31.1 g/dL (31.0-37.0); MCV 94.2 fL (80.0-100.0); Mean Platelet Volume 7.1; Platelet Count 765 k/uL (150-450); WBC 26.8 k/uL (3.8-10.6)
[2023-12-31 16:12] LABS: Carbon Dioxide 9 mmol/L (22-30); Potassium 2.1 mmol/L (3.5-5.1)
[2023-12-31 16:13] LABS: Calcium 3.6 mg/dL (8.4-10.2)
[2023-12-31 16:35] LABS: ABG HCO3 20 mmol/L (21-25); ABG Oxygen Saturation 97.7 % (94-97); ABG PCO2 28 mmHg (35-45); ABG PH 7.46 (7.35-7.45); ABG PO2 97 mmHg (83-108); ABG TCO2 21 mmol/L (19-24); Allen Test Performed? Yes
[2023-12-31] MEDS: POTASSIUM CHLORIDE 20 MEQ in WATER FOR INJECTION 1 100ML.BAG IVPB SCH (16:45)
[2023-12-31] MEDS: POTASSIUM BICARBONATE/CIT AC 20 MEQ TABLET.EFF PO SCH (16:51)
--- NOTE | 2023-12-31 17:42 | P.PN ---
Subjective Progress Note Date: 12/31/23 Principal diagnosis: Reason for follow-up is pancolitis and leukocytosis Patient is a 33-year-old -F[place] male with a past medical history negative for hypertension hyperlipidemia and pancreatitis that was diagnosed about 2 months ago on 11/05/2023 however the patient mention he was not admitted for it patient presented back to [facility] ER on 12/25/2023 for дмитрий luation of abdominal pain diarrhea patient did have evidence of worsening pancolitis on the CT prompting this consultation. 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 On today's evaluation that is 12/31/2023 the patient continues to be afebrile patient has received some fluid boluses postsurgery however did not require any pressor support until now patient is on the vent FiO2 is currently stable at 40% no significant purulent secretions through the ET or any other changes reported by the nursing staff. Patient white count is down to 26.8 creatinine 0.53 potassium was low 2.1 nephrology consulted Objective - Vital Signs Vital signs: Vital Signs Temp 98.6 F 12/31/23 09:13 Pulse 115 H 12/31/23 10:15 Resp 14 12/31/23 10:15 BP 138/75 12/31/23 10:15 Pulse Ox 100 12/31/23 10:15 FiO2 100 12/31/23 10:00 Intake & Output 12/30/23 12/31/23 12/31/23 18:59 06:59 18:59 Intake Total 3200 Output Total 0 1100 400 Balance 0 -1100 2800 Weight 97.522 kg Intake: IV 3200 Output: Gastric Drainage 350 Urine 750 350 Straight 500 Post Void Residual 0 Estimated Blood Loss 50 Other: Voiding Method Toilet # Bowel Movements 1 - Exam GENERAL DESCRIPTION: Middle-age male intubated on the vent RESPIRATORY SYSTEM: Unlabored breathing , decreased breath sounds at bases HEART: S1 S2 regular rate and rhythm , ABDOMEN: Soft , no tenderness EXTREMITIES: No edema feet - Labs CBC & Chem 7: 12/31/23 15:52 12/31/23 14:51 Labs: Abnormal Lab Results - Last 24 Hours (Table) 12/30/23 12/30/23 12/30/23 Range/Units : 09:12 16:58 WBC 29.25 H (4.50-10.00) X 10*3/uL RBC 3.57 L (4.40-5.60) X 10*6/uL Hgb 10.1 L (13.0-17.0) g/dL Hct 33.6 L (39.6-50.0) % MCHC 30.1 L (32.0-37.0) g/dL Plt Count 775 H (140-440) X 10*3/uL MPV 8.9 L (9.5-12.2) FL Immature Gran # 0.40 H (0.00-0.04) X 10*3/uL Neutrophils # 25.44 H (1.80-7.70) X 10*3/uL Lymphocytes # 0.88 L (0.90-5.00) X 10*3/uL Monocytes # 2.42 H (0.20-1.00) X 10*3/uL Eosinophils # 0.01 L (0.04-0.35) X 10*3/uL Basophils # (0.00-0.10) X 10*3/uL ESR 93 H (0-15) mm/Hr ABG pH (7.35-7.45) ABG pO2 (83-108) mmHg ABG HCO3 (21-25) mmol/L ABG O2 Saturation (94-97) % VBG pCO2 (37-51) mmHg VBG HCO3 (24-28) mmol/L Sodium 124 L (137-145) mmol/L Carbon Dioxide 17 L (22-30) mmol/L Anion Gap (4.00-12.00) mmol/L BUN 25 H (9-20) mg/dL BUN/Creatinine Ratio (12.00-20.00) Ratio Glucose 105 H (74-99) mg/dL Calcium 7.5 L (8.4-10.2) mg/dL C-Reactive Protein (0.00-0.80) mg/dL Urine Osmolality (400-1100) mOsm/kg Ur Random Sodium (40-220) mmol/L 12/30/23 12/30/23 12/30/23 Range/Units 22:26 22:26 23:37 WBC (4.50-10.00) X 10*3/uL RBC (4.40-5.60) X 10*6/uL Hgb (13.0-17.0) g/dL Hct (39.6-50.0) % MCHC (32.0-37.0) g/dL Plt Count (140-440) X 10*3/uL MPV (9.5-12.2) FL Immature Gran # (0.00-0.04) X 10*3/uL Neutrophils # (1.80-7.70) X 10*3/uL Lymphocytes # (0.90-5.00) X 10*3/uL Monocytes # (0.20-1.00) X 10*3/uL Eosinophils # (0.04-0.35) X 10*3/uL Basophils # (0.00-0.10) X 10*3/uL ESR (0-15) mm/Hr ABG pH (7.35-7.45) ABG pO2 (83-108) mmHg ABG HCO3 (21-25) mmol/L ABG O2 Saturation (94-97) % VBG pCO2 33 L (37-51) mmHg VBG HCO3 20 L (24-28) mmol/L Sodium 125 L (137-145) mmol/L Carbon Dioxide 16 L (22-30) mmol/L Anion Gap (4.00-12.00) mmol/L BUN 27 H (9-20) mg/dL BUN/Creatinine Ratio (12.00-20.00) Ratio Glucose (74-99) mg/dL Calcium 7.8 L (8.4-10.2) mg/dL C-Reactive Protein (0.00-0.80) mg/dL Urine Osmolality 299 L (400-1100) mOsm/kg Ur Random Sodium (40-220) mmol/L 12/30/23 12/31/23 12/31/23 Range/Units 23:37 05:33 05:33 WBC 28.88 H (4.50-10.00) X 10*3/uL RBC 3.35 L (4.40-5.60) X 10*6/uL Hgb 10.0 L (13.0-17.0) g/dL Hct 30.6 L (39.6-50.0) % MCHC (32.0-37.0) g/dL Plt Count 744 H (140-440) X 10*3/uL MPV 8.6 L (9.5-12.2) FL Immature Gran # 0.25 H (0.00-0.04) X 10*3/uL Neutrophils # 25.70 H (1.80-7.70) X 10*3/uL Lymphocytes # 0.84 L (0.90-5.00) X 10*3/uL Monocytes # 1.92 H (0.20-1.00) X 10*3/uL Eosinophils # 0 L (0.04-0.35) X 10*3/uL Basophils # 0.17 H (0.00-0.10) X 10*3/uL ESR (0-15) mm/Hr ABG pH (7.35-7.45) ABG pO2 (83-108) mmHg ABG HCO3 (21-25) mmol/L ABG O2 Saturation (94-97) % VBG pCO2 (37-51) mmHg VBG HCO3 (24-28) mmol/L Sodium 133 L (137-145) mmol/L Carbon Dioxide 17.0 L (22-30) mmol/L Anion Gap 16.00 H (4.00-12.00) mmol/L BUN (9-20) mg/dL BUN/Creatinine Ratio 24.18 H (12.00-20.00) Ratio Glucose (74-99) mg/dL Calcium 7.4 L (8.4-10.2) mg/dL C-Reactive Protein 9.90 H (0.00-0.80) mg/dL Urine Osmolality (400-1100) mOsm/kg Ur Random Sodium <20 L (40-220) mmol/L 12/31/23 Range/Units 09:43 WBC (4.50-10.00) X 10*3/uL RBC (4.40-5.60) X 10*6/uL Hgb (13.0-17.0) g/dL Hct (39.6-50.0) % MCHC (32.0-37.0) g/dL Plt Count (140-440) X 10*3/uL MPV (9.5-12.2) FL Immature Gran # (0.00-0.04) X 10*3/uL Neutrophils # (1.80-7.70) X 10*3/uL Lymphocytes # (0.90-5.00) X 10*3/uL Monocytes # (0.20-1.00) X 10*3/uL Eosinophils # (0.04-0.35) X 10*3/uL Basophils # (0.00-0.10) X 10*3/uL ESR (0-15) mm/Hr ABG pH 7.34 L (7.35-7.45) ABG pO2 331 H (83-108) mmHg ABG HCO3 20 L (21-25) mmol/L ABG O2 Saturation 99.7 H (94-97) % VBG pCO2 (37-51) mmHg VBG HCO3 (24-28) mmol/L Sodium (137-145) mmol/L Carbon Dioxide (22-30) mmol/L Anion Gap (4.00-12.00) mmol/L BUN (9-20) mg/dL BUN/Creatinine Ratio (12.00-20.00) Ratio Glucose (74-99) mg/dL Calcium (8.4-10.2) mg/dL C-Reactive Protein (0.00-0.80) mg/dL Urine Osmolality (400-1100) mOsm/kg Ur Random Sodium (40-220) mmol/L Microbiology - Last 24 Hours (Table) 12/27/23 12:41 Stool Culture - Final Stool Assessment and Plan (1) Leukocytosis Current Visit: Yes Status: Acute Code(s): D72.829 - ELEVATED WHITE BLOOD CELL COUNT, UNSPECIFIED SNOMED Code(s): 028117910 (2) Pancolitis Current Visit: Yes Status: Acute Code(s): K51.00 - ULCERATIVE (CHRONIC) PANCOLITIS WITHOUT COMPLICATIONS SNOMED Code(s): 132722157 Plan: 1patient with a complicated history as for as evidence of severe pancolitis on the CT that was completed 12/29/2023 and also have worsening of the white count patient apparently was diagnosed with pancreatitis on 11/05/2023 however the patient was not admitted and mention has not received an antibiotic therapy features are highly suspicious for pseudomembranous colitis though initial testing was negative other infectious etiology need to be ruled out as well 2-stool for C. difficile PCR has been requested unfortunately not collected and the patient is status post subtotal colectomy completed morning of 12/31/2023 biopsy results will be followed 3-patient to continue with the current broad-spectrum therapy with the cefepime Flagyl as well as oral vancomycin Family at the bedside multiple question concern has been answered Dictation was produced using TYFFONation software. please excuse any grammatical, word or spelling errors. Time with Patient: Greater than 30
[2023-12-31] MEDS: CHLORHEXIDINE GLUCONATE 15 ML CUP MUCOUS MEM SCH (21:38)
[2023-12-31] MEDS ORDERED: LACTATED RINGERS 1,000 ML BAG IV STA (21:44)
[2023-12-31 22:20] LABS: Potassium 4.6 mmol/L (3.5-5.1)
[2023-12-31] MEDS: HYDROCORTISONE SUCCINATE 100 MG/2 ML VIAL IV STA (22:32)
[2024-01-01 00:32] LABS: Glucose,Whole Blood 104 mg/dL (70-110)
[2024-01-01 01:20] LABS: ABG Base Excess -4.8 mmol/L; ABG HCO3 19 mmol/L (21-25); ABG Oxygen Saturation 98.2 % (94-97); ABG PCO2 31 mmHg (35-45); ABG PO2 116 mmHg (83-108); ABG TCO2 20 mmol/L (19-24); Allen Test Performed? Yes
[2024-01-01 02:23] LABS: Ionized Calcium 4.2 mg/dL (4.5-5.3)
[2024-01-01 02:30] LABS: African American GFR (CKD) 60 (>60 ml/min/1.73 sqM); Anion Gap 10 mmol/L; Blood Urea Nitrogen 26 mg/dL (9-20); Carbon Dioxide 16 mmol/L (22-30); Chloride 104 mmol/L (98-107); Glucose 92 mg/dL (74-99); Non-African American GFR(CKD) 52 (>60 ml/min/1.73 sqM); Potassium 4.3 mmol/L (3.5-5.1); Sodium 130 mmol/L (137-145)
[2024-01-01 02:33] LABS: HCT 32.1 % (39.0-53.0); HGB 9.9 gm/dL (13.0-17.5); Hypochromasia Slight; MCH 29.5 pg (25.0-35.0); MCHC 30.9 g/dL (31.0-37.0); MCV 95.5 fL (80.0-100.0); Mean Platelet Volume 8.1; Platelet Count 741 k/uL (150-450); RBC 3.36 m/uL (4.30-5.90); RDW 14.3 % (11.5-15.5); WBC 45.4 k/uL (3.8-10.6)
[2024-01-01 03:50] LABS: Band Neutrophils % 8 %; Basophils # (M) 0.45 k/uL (0-0.2); Lymphocytes # (M) 0.91 k/uL (1.0-4.8); Metamyelocytes # (M) 2.27 k/uL (0); Metamyelocytes % 5 %; Monocytes # (M) 0.45 k/uL (0-1.0); Neutrophils % (M) 85 %; Nucleated Red Blood Cells 0 /100 WBC (0-0); Total Cells Counted 200
[2024-01-01] MEDS: CALCIUM GLUCONATE IN NACL 1 GM in SALINE 1 100ML.BAG IVPB ONE (03:52)
[2024-01-01] MEDS: HYDROCORTISONE SUCCINATE 100 MG/2 ML VIAL IV SCH (04:13)
[2024-01-01 04:22] LABS: Crenated RBC Present; Tear Drop Cells Present
[2024-01-01 06:43] LABS: Glucose,Whole Blood 117 mg/dL (70-110)
--- NOTE | 2024-01-01 07:47 | XR ---
EXAMINATION TYPE: XR chest 1V DATE OF EXAM: 01/01/2024 COMPARISON: 12/31/2023 HISTORY: SOB, Follow Up FINDINGS: Indwelling tubes and catheters are unchanged. No change in left basilar infiltrate and layering effusion. Stable appearance of the cardio-mediastinal structures at this time. IMPRESSION: 1. Stable portable chest. Clinical correlation and follow up until resolution is recommended.
[2024-01-01] MEDS: VANCOMYCIN ORAL SOLUTION 250 MG/5 ML BOTTLE PO SCH (08:37)
[2024-01-01] MEDS ORDERED: VANCOMYCIN 125 MG CAPSULE PO SCH (09:00)
[2024-01-01] MEDS ORDERED: ANIDULAFUNGIN 100 MG in SODIUM CHLORIDE 0.9% 100 ML IVPB SCH (09:00)
--- NOTE | 2024-01-01 10:44 | P.PN ---
Subjective Progress Note Date: 01/01/24 33 year old M with PMH of hypertension and ADHD who presents to the emergency room with complaints of abdominal pain, diarrhea, and weight loss. Patient notes that over the past 2 months since his most recent admission of pancreatitis, he has lost roughly 40 pounds and has had intermittent diffuse abdominal discomfort with associated diarrhea. He has noticed blood in his stools on numerous occasions, bright red, without mucus. Notes that the pain has no clear inciting triggers but often occurs after food consumption. Reports that the pain is usually associated with diarrhea, and lasts for several days at a time. Denies nausea, vomiting, fever, chills, cough. Of note, the patient was admitted on 11/04 for mild acute pancreatitis. He does report having seen a roper operator as an outpatient and is currently awaiting the results of his workup and is also scheduled for an EGD. Reports however that his pain had become unbearable which prompted him to come to the emergency room. CT abdomen and pelvis in the emergency room revealed findings of colitis involving the transverse, descending, and sigmoid colon's with hepatic steatosis. Chest x-ray was unremarkable with EKG showing sinus tachycardia at 103 bpm with diffuse T wave flattening. Laboratory evaluation was remarkable for leukocytosis of 20.7, and hemoglobin 11.7, sodium 133, potassium 2.8, CO2 36, BUN 10, creatinine 0.82, calcium 7.7, with an unremarkable UA. Patient was started on Levaquin and Flagyl and admitted for treatment of colitis. GI consulted recommended outpatient C-scope in 4-6 weeks. His symptoms worsened. CT AP repeated 12/28 showed worsening anasarca, moderate to severe pancolitis with dilation up to 10.2 cm. ID was consulted, C. diff was negative, C. diff PCR ordered, Levaquin replaced with Cefepime and continued of Flagyl and added PO Vancomycin. Surgery consulted, patient underwent subtotal colectomy with ileostomy with Dr. Saleh on 12/30 and transferred to ICU post op. Nephrology consulted for hyponatremia as low as 124, given a dose of Lasix IV, now improving. 12/31 Patient was seen and examined. Intubated. He is on Levophed drip at 0.3 mcg/kg/min, Vasopressin at 0.03 units/min and Solu-Cortef 50 mg IV Q6H. IVF include LR running at 150 cc/hr and NS at 10 cc/hr. Currently on Propofol at 40 mcg/kg/min. Antibiotics include Cefepime 1g IV TID (D4), Vancomycin 500 mg PO QID (D2) and Flagyl 500 mg IV TID (D4). CXR done today shows pulmonary vascular congestion with small effusion. CBC WBC 45.4, Hg 9.9, Hct 32.1, Plt 741. ABG pH 7.4, pCO2 21. BMP Na 130, bicarb 16, BUN 26, Cr 1.71, Ca 7.0. Ionized Ca 4.2. General: Intubated and sedated Derm: warm, dry Head: atraumatic, normocephalic, symmetric Eyes: EOMI, no lid lag, anicteric sclera Mouth: no lip lesion, mucus membranes moist Cardiovascular: S1S2 tachy, no murmur Lungs: Coarse BS bilateral, no rhonchi, no rales , no accessory muscle use Abdominal: distended, ileostomy noted, sluggish BS Ext: no gross muscle atrophy, 2+ pitting edema bilateral LE, no contractures Neuro: Intubated and sedated Psych: Intubated and sedated Based on my assessment of this patient, this patient meets a high complexity level of care. Ventilator dependent respiratory failure: Post operatively. Vent management per [facility]. Septic shock due to colitis: Status post subtotal colectomy with ileostomy with Dr. Saleh on 12/30. Cefepime 1g IV TID (D4), Vancomycin 500 mg PO QID (D2) and Flagyl 500 mg IV TID (D4). LR at 150 cc/hr. Titrate Levophed and Vasopressing to maintain MAP > 65. Telemetry monitoring. Blood and Stool culture negative on admission. C. diff negative on admission. ID on board. Acute on chronic blood loss anemia: Daily CBC. Transfuse if Hg < 7. Hyponatremia: UOsm 299, Maxx < 20. Hypervolemic. Improved with Lasix. Nephrology on board. Acute kidney injury with metabolic acidosis: Likely prerenal from shock. IV hydration as above. Hypocalcemia: Status post Ca gluconate 1g IV 12/31. CODE STATUS: FULL CODE DVT Prophylaxis: SCD GI Prophylaxis: Pepcid 20 mg IV BID. Designated medical POA if patient is not able to make medical decisions for themselves: I have reviewed the following real estate listing consultant notes: I have reviewed the results of the following tests: CBC, BMP, ABG I have ordered the following tests: CBC, BMP I have discussed the care of this patient with the following independent historian: KATHIA. I have independently interpreted the following test below: CXR I have discussed the management of this patient with the following physician: Objective - Vital Signs Vital signs: Vital Signs Temp 100.5 F H 01/01/24 08:00 Pulse 140 H 01/01/24 10:00 Resp 27 H 01/01/24 10:00 BP 121/76 01/01/24 10:00 Pulse Ox 100 01/01/24 10:00 FiO2 40 01/01/24 08:05 Intake & Output 12/31/23 01/01/24 01/01/24 18:59 06:59 18:59 Intake Total 5724.812 3841.854 620.044 Output Total 645 865 230 Balance 5079.812 2976.854 390.044 Weight 97.522 kg 118.6 kg Intake: IV 4550 3243 549 Calcium Gluconate in NaCl 100 1 gm In Saline 1 100ml. bag @ 100 mls/hr IVPB ONCE ONE Rx#:[id number] Cefepime 2 gm In Sodium 100 100 100 Chloride 0.9% 100 ml @ 25 mls/hr IVPB Q8HR [facility] Rx# :[id number] KVO 160 40 Lactated Ringers 1,000 ml 1050 1650 300 @ 150 mls/hr IV .Q6H40M [facility] Rx#:[id number] Lactated Ringers 1,000 ml 1000 @ 999 mls/hr IV .Q1H1M [facility] Rx#:[id number] Potassium Chloride 20 meq 100 100 In Water For Injection 1 100ml.bag @ 50 mls/hr IVPB Q2H [facility] Rx#: [id number] metroNIDAZOLE-NS PMX 500 100 100 100 mg In Saline 1 100ml.bag @ 100 mls/hr IVPB Q8HR [facility] Rx#:[id number] pressure bag 33 9 Intake, IV Titration 1154.812 598.854 71.044 Amount Lactated Ringers 1,000 ml 1000 @ 999 mls/hr IV .Q1H1M ONE Rx#:[id number] Norepinephrine 32 mg In 0 316.201 7.756 Sodium Chloride 0.9% 218 ml @ 0.03 MCG/KG/MIN 1. 371 mls/hr IV .Q24H [facility] Rx#:[id number] Norepinephrine 8 mg In 4.812 Sodium Chloride 0.9% 250 ml @ 0.03 MCG/KG/MIN 5. 661 mls/hr IV .Q24H [facility] Rx#:[id number] Potassium Chloride 20 meq 50 In Water For Injection 1 100ml.bag @ 50 mls/hr IVPB Q2H [facility] Rx#: [id number] Vasopressin 20 unit In 22.568 51 Sodium Chloride 0.9% 50 ml @ 0.04 UNITS/MIN 6.12 mls/hr IV .Q8H20M [facility] Rx# :[id number] propofoL 1,000 mg In 100 260.085 12.288 Empty Bag 1 bag @ 15 MCG/ KG/MIN 8.777 mls/hr IV . [id number] [facility] Rx#:[id number] Oral 20 Output: Gastric Drainage 700 150 Urine 595 165 80 Estimated Blood Loss 50 Other: Voiding Method Indwelling Catheter Indwelling Catheter Indwelling Catheter ABP, PAP, CO, CI - Last Documented Arterial Blood Pressure 103/60 - Labs CBC & Chem 7: 01/01/24 01:30 01/01/24 01:30 Labs: Abnormal Lab Results - Last 24 Hours (Table) 12/31/23 12/31/23 12/31/23 Range/Units 11:40 14:51 15:52 WBC 26.8 H (3.8-10.6) k/uL RBC 3.60 L (4.30-5.90) m/uL Hgb 10.5 L (13.0-17.5) gm/dL Hct 33.9 L (39.0-53.0) % MCHC (31.0-37.0) g/dL Plt Count 765 H (150-450) k/uL Neutrophils # (Manual) (1.3-7.7) k/uL Lymphocytes # (Manual) (1.0-4.8) k/uL Basophils # (Manual) (0-0.2) k/uL Metamyelocytes # (Man) (0) k/uL ABG pH (7.35-7.45) ABG pCO2 (35-45) mmHg ABG pO2 335 H (83-108) mmHg ABG HCO3 (21-25) mmol/L ABG O2 Saturation 99.7 H (94-97) % Sodium (137-145) mmol/L Potassium 2.1 L* (3.5-5.1) mmol/L Chloride 124 H (98-107) mmol/L Carbon Dioxide 9 L* (22-30) mmol/L BUN (9-20) mg/dL Creatinine 0.53 L (0.66-1.25) mg/dL Glucose 52 L (74-99) mg/dL POC Glucose (mg/dL) (70-110) mg/dL Calcium 3.6 L* (8.4-10.2) mg/dL Ionized Calcium Megan (4.5-5.3) mg/dL 12/31/23 01/01/24 01/01/24 Range/Units 16:28 01:15 01:30 WBC 45.4 H (3.8-10.6) k/uL RBC 3.36 L (4.30-5.90) m/uL Hgb 9.9 L (13.0-17.5) gm/dL Hct 32.1 L (39.0-53.0) % MCHC 30.9 L (31.0-37.0) g/dL Plt Count 741 H (150-450) k/uL Neutrophils # (Manual) 42.20 H (1.3-7.7) k/uL Lymphocytes # (Manual) 0.91 L (1.0-4.8) k/uL Basophils # (Manual) 0.45 H (0-0.2) k/uL Metamyelocytes # (Man) 2.27 H (0) k/uL ABG pH 7.46 H (7.35-7.45) ABG pCO2 28 L 31 L (35-45) mmHg ABG pO2 116 H (83-108) mmHg ABG HCO3 20 L 19 L (21-25) mmol/L ABG O2 Saturation 97.7 H 98.2 H (94-97) % Sodium (137-145) mmol/L Potassium (3.5-5.1) mmol/L Chloride (98-107) mmol/L Carbon Dioxide (22-30) mmol/L BUN (9-20) mg/dL Creatinine (0.66-1.25) mg/dL Glucose (74-99) mg/dL POC Glucose (mg/dL) (70-110) mg/dL Calcium (8.4-10.2) mg/dL Ionized Calcium Megan (4.5-5.3) mg/dL 01/01/24 01/01/24 Range/Units 01:30 06:42 WBC (3.8-10.6) k/uL RBC (4.30-5.90) m/uL Hgb (13.0-17.5) gm/dL Hct (39.0-53.0) % MCHC (31.0-37.0) g/dL Plt Count (150-450) k/uL Neutrophils # (Manual) (1.3-7.7) k/uL Lymphocytes # (Manual) (1.0-4.8) k/uL Basophils # (Manual) (0-0.2) k/uL Metamyelocytes # (Man) (0) k/uL ABG pH (7.35-7.45) ABG pCO2 (35-45) mmHg ABG pO2 (83-108) mmHg ABG HCO3 (21-25) mmol/L ABG O2 Saturation (94-97) % Sodium 130 L (137-145) mmol/L Potassium (3.5-5.1) mmol/L Chloride (98-107) mmol/L Carbon Dioxide 16 L (22-30) mmol/L BUN 26 H (9-20) mg/dL Creatinine 1.71 H (0.66-1.25) mg/dL Glucose (74-99) mg/dL POC Glucose (mg/dL) 117 H (70-110) mg/dL Calcium 7.0 L (8.4-10.2) mg/dL Ionized Calcium Megan 4.2 L (4.5-5.3) mg/dL Microbiology - Last 24 Hours (Table) 12/25/23 23:20 Blood Culture - Final Blood 12/25/23 23:05 Blood Culture - Final Blood 12/27/23 12:41 Stool Culture - Final Stool
[2024-01-01] MEDS: LACTATED RINGERS 1,000 ML IV SCH (11:16)
--- NOTE | 2024-01-01 11:31 | P.PN ---
Subjective Progress Note Date: 01/01/24 Principal diagnosis: Colitis. Pulmonary/critical care consult dated December 31, 2023. 33-year-old male who presented to the emergency department, on December 24 with severe abdominal pain. The patient apparently has a history of pancreatitis, and apparently told the ER physician that the pain seemed similar. He had sharp left-sided abdominal pain, from the night before. He had poor appetite, and has been unable to keep any food or liquids down. The patient was admitted to the hospital, for the abdominal pain. He denies any fever, chills, nausea, constipation, or diarrhea. There is no urinary complaints. The patient apparently has a history of hyperlipidemia, hypertension, and pancreatitis. He is a lifelong non-smoker. He only drinks occasionally. It was told to me this morning, both from the charge nurse in the ICU, and the surgeon, but the patient was in the operating room, for fulminant pancolitis, and was having a colectomy. The patient had a subtotal colectomy with ileostomy performed by one of the surgeons, and the patient was extubated initially in the operating room, but was reintubated minutes later. The patient came to the ICU, on the ventilator. I gave Vent settings of volume assist-control, rate 20, tidal volume 450, FiO2 100%, PEEP of 5. Blood gases will be done in about an hour. We also placed a left subclavian triple-lumen catheter. An arterial line was placed by anesthesia. The most recent labs include a white count of 28.9, hemoglobin 10, hematocrit 31, and platelet count which was 744,000. Most recent blood gas showed a pO2 of 331, pCO2 of 37, pH is 7.34. That was on 100%. Repeat blood gas will be done in about 60 minutes. Sodium 133, potassium 3.9, chlorides 100, CO2 17, anion gap 16, BUN 27, creatinine 1.1. Glucose was 96. C-reactive protein was 9.90. Calcium 7.4. Stool and blood cultures have been negative. The postintubation x-ray shows the endotracheal tube to be in good position. In addition, there is a left subclavian triple-lumen catheter in good position. A repeat CT scan of the abdomen and pelvis, yesterday, showed hyperemia and wall thickening of the sigmoid colon and rectum as well as areas of transverse colon. The radiologist thought it was consistent with colitis/proctitis. There was u pstream dilatation of the large bowel. Small bowel loops are dilated with relative nondistention. No transition point is noted. Other findings are noted on the CT scan. Progress note dated January 01, 2024. This is a 33-year-old male seen yesterday in consultation. Please see my extensive note above. The patient remains in the intensive care unit, on the ventilator. He is on volume assist-control, rate 20, tidal volume 450, FiO2 40%, PEEP of 5. Blood gases are excellent with a pO2 116, pCO2 31, and pH of 7.40. Blood gases are consistent with a mixed acid-base disturbance, including a respiratory alkalosis, and mild metabolic acidosis. The patient remains on propofol at 40 mcg/kg/min, norepinephrine at 23 mcg/min, vasopressin at 0.03 units/min, and lactated Ringer's at 150 cc an hour. The patient continues on cefepime, and Flagyl. The patient is also on oral vancomycin. I have asked the nurse, to talk to dietary about a possible TPN preparation. Current labs include a white count 45.4, hemoglobin 9.9, hematocrit 32.1, and a platelet count of 741,000. Sodium 130, potassium 4.3, chlorides 104, CO2 16, anion gap 10, BUN and creatinine were 26 and 1.71. Glucose is 117. Ionized calcium was low at 4.2. Cortisol was 83. Blood cultures, and stool sampling, has thus far been negative. Chest x-ray shows no major changes. There may be some left basilar atelectasis, or infiltrate. Objective - Vital Signs Vital signs: Vital Signs Temp 100.5 F H 01/01/24 08:00 Pulse 140 H 01/01/24 10:00 Resp 27 H 01/01/24 10:00 BP 121/76 01/01/24 10:00 Pulse Ox 100 01/01/24 10:00 FiO2 40 01/01/24 11:15 Intake & Output 12/31/23 01/01/24 01/01/24 18:59 06:59 18:59 Intake Total 5724.812 3841.854 620.044 Output Total 645 865 230 Balance 5079.812 2976.854 390.044 Weight 97.522 kg 118.6 kg 118.6 kg Intake: IV 4550 3243 549 Calcium Gluconate in NaCl 100 1 gm In Saline 1 100ml. bag @ 100 mls/hr IVPB ONCE ONE Rx#:[id number] Cefepime 2 gm In Sodium 100 100 100 Chloride 0.9% 100 ml @ 25 mls/hr IVPB Q8HR [facility] Rx# :[id number] KVO 160 40 Lactated Ringers 1,000 ml 1050 1650 300 @ 150 mls/hr IV .Q6H40M [facility] Rx#:[id number] Lactated Ringers 1,000 ml 1000 @ 999 mls/hr IV .Q1H1M [facility] Rx#:[id number] Potassium Chloride 20 meq 100 100 In Water For Injection 1 100ml.bag @ 50 mls/hr IVPB Q2H [facility] Rx#: [id number] metroNIDAZOLE-NS PMX 500 100 100 100 mg In Saline 1 100ml.bag @ 100 mls/hr IVPB Q8HR [facility] Rx#:[id number] pressure bag 33 9 Intake, IV Titration 1154.812 598.854 71.044 Amount Lactated Ringers 1,000 ml 1000 @ 999 mls/hr IV .Q1H1M [facility] Rx#:[id number] Norepinephrine 32 mg In 0 316.201 7.756 Sodium Chloride 0.9% 218 ml @ 0.03 MCG/KG/MIN 1. 371 mls/hr IV .Q24H [facility] Rx#:[id number] Norepinephrine 8 mg In 4.812 Sodium Chloride 0.9% 250 ml @ 0.03 MCG/KG/MIN 5. 661 mls/hr IV .Q24H [facility] Rx#:[id number] Potassium Chloride 20 meq 50 In Water For Injection 1 100ml.bag @ 50 mls/hr IVPB Q2H [facility] Rx#: [id number] Vasopressin 20 unit In 22.568 51 Sodium Chloride 0.9% 50 ml @ 0.04 UNITS/MIN 6.12 mls/hr IV .Q8H20M [facility] Rx# :[id number] propofoL 1,000 mg In 100 260.085 12.288 Empty Bag 1 bag @ 15 MCG/ KG/MIN 8.777 mls/hr IV . [id number] [facility] Rx#:[id number] Oral 20 Output: Gastric Drainage 700 150 Urine 595 165 80 Estimated Blood Loss 50 Other: Voiding Method Indwelling Catheter Indwelling Catheter Indwelling Catheter ABP, PAP, CO, CI - Last Documented Arterial Blood Pressure 103/60 - Exam No acute distress, sedated and intubated with an NG tube in place. HEENT examination is grossly unremarkable. Neck supple. Full range of motion. No adenopathy thyromegaly or neck vein distention. Cardiovascular examination reveals regular rhythm rate. S1-S2 normal. No S3 or S4. No discernible murmur noted. Heart rate is 130 bpm. Lungs reveal clear breath sounds. Breath sounds are equal bilaterally. No adventitious lung sounds including wheezes rhonchi or crackles. Saturations are 100%. Abdomen soft without bowel sounds. Ileostomy is noted. Extremities are intact. No cyanosis clubbing or edema. Skin is without rash or lesion. Neurologic examination cannot be assessed at this time. - Labs CBC & Chem 7: 01/01/24 01:30 01/01/24 01:30 Labs: Abnormal Lab Results - Last 24 Hours (Table) 12/31/23 12/31/23 12/31/23 Range/Units 11:40 14:51 15:52 WBC 26.8 H (3.8-10.6) k/uL RBC 3.60 L (4.30-5.90) m/uL Hgb 10.5 L (13.0-17.5) gm/dL Hct 33.9 L (39.0-53.0) % MCHC (31.0-37.0) g/dL Plt Count 765 H (150-450) k/uL Neutrophils # (Manual) (1.3-7.7) k/uL Lymphocytes # (Manual) (1.0-4.8) k/uL Basophils # (Manual) (0-0.2) k/uL Metamyelocytes # (Man) (0) k/uL ABG pH (7.35-7.45) ABG pCO2 (35-45) mmHg ABG pO2 335 H (83-108) mmHg ABG HCO3 (21-25) mmol/L ABG O2 Saturation 99.7 H (94-97) % Sodium (137-145) mmol/L Potassium 2.1 L* (3.5-5.1) mmol/L Chloride 124 H (98-107) mmol/L Carbon Dioxide 9 L* (22-30) mmol/L BUN (9-20) mg/dL Creatinine 0.53 L (0.66-1.25) mg/dL Glucose 52 L (74-99) mg/dL POC Glucose (mg/dL) (70-110) mg/dL Calcium 3.6 L* (8.4-10.2) mg/dL Ionized Calcium Megan (4.5-5.3) mg/dL Cortisol (3.1-22.4) UG/DL 12/31/23 12/31/23 01/01/24 Range/Units 16:28 22:00 01:15 WBC (3.8-10.6) k/uL RBC (4.30-5.90) m/uL Hgb (13.0-17.5) gm/dL Hct (39.0-53.0) % MCHC (31.0-37.0) g/dL Plt Count (150-450) k/uL Neutrophils # (Manual) (1.3-7.7) k/uL Lymphocytes # (Manual) (1.0-4.8) k/uL Basophils # (Manual) (0-0.2) k/uL Metamyelocytes # (Man) (0) k/uL ABG pH 7.46 H (7.35-7.45) ABG pCO2 28 L 31 L (35-45) mmHg ABG pO2 116 H (83-108) mmHg ABG HCO3 20 L 19 L (21-25) mmol/L ABG O2 Saturation 97.7 H 98.2 H (94-97) % Sodium (137-145) mmol/L Potassium (3.5-5.1) mmol/L Chloride (98-107) mmol/L Carbon Dioxide (22-30) mmol/L BUN (9-20) mg/dL Creatinine (0.66-1.25) mg/dL Glucose (74-99) mg/dL POC Glucose (mg/dL) (70-110) mg/dL Calcium (8.4-10.2) mg/dL Ionized Calcium Megan (4.5-5.3) mg/dL Cortisol 83.0 H (3.1-22.4) UG/DL 01/01/24 01/01/24 01/01/24 Range/Units 01:30 01:30 06:42 WBC 45.4 H (3.8-10.6) k/uL RBC 3.36 L (4.30-5.90) m/uL Hgb 9.9 L (13.0-17.5) gm/dL Hct 32.1 L (39.0-53.0) % MCHC 30.9 L (31.0-37.0) g/dL Plt Count 741 H (150-450) k/uL Neutrophils # (Manual) 42.20 H (1.3-7.7) k/uL Lymphocytes # (Manual) 0.91 L (1.0-4.8) k/uL Basophils # (Manual) 0.45 H (0-0.2) k/uL Metamyelocytes # (Man) 2.27 H (0) k/uL ABG pH (7.35-7.45) ABG pCO2 (35-45) mmHg ABG pO2 (83-108) mmHg ABG HCO3 (21-25) mmol/L ABG O2 Saturation (94-97) % Sodium 130 L (137-145) mmol/L Potassium (3.5-5.1) mmol/L Chloride (98-107) mmol/L Carbon Dioxide 16 L (22-30) mmol/L BUN 26 H (9-20) mg/dL Creatinine 1.71 H (0.66-1.25) mg/dL Glucose (74-99) mg/dL POC Glucose (mg/dL) 117 H (70-110) mg/dL Calcium 7.0 L (8.4-10.2) mg/dL Ionized Calcium Megan 4.2 L (4.5-5.3) mg/dL Cortisol (3.1-22.4) UG/DL Microbiology - Last 24 Hours (Table) 12/25/23 23:20 Blood Culture - Final Blood 12/25/23 23:05 Blood Culture - Final Blood 12/27/23 12:41 Stool Culture - Final Stool Assessment and Plan Assessment: Postoperative day #2, S/P subtotal colectomy with ileostomy, for fulminant pancolitis. Routine postoperative ventilator management. Possible relative adrenal insufficiency. Non-anion gap metabolic acidosis. Previous history of pancreatitis. History of hypertension. History of hyperlipidemia. Plan: Plan dated December 30, 2026. The patient is seen today in the intensive care unit, room 264. The patient was extubated in the operating room, and reintubated in minutes, in the recovery area. The patient remains intubated. An arterial line was placed by anesthesia. I placed a left subclavian triple-lumen catheter. The patient is receiving lactated Ringer's at 150 cc an hour. The patient is on propofol at 15 mcg/kg/min. Will add DuoNebs, every 4 [id number]. In addition, the patient will have a repeat blood gas. The patient is running on vancomycin, cefepime, and Flagyl. We will continue to follow make recommendations. Prognosis is guarded. We will use 1 port of the central venous catheter for central venous pressure measurements. Plan dated January 01, 2024. The patient is seen again in the intensive care unit, room 264. He remains on the ventilator. Blood gases are adequate, with a pO2 116, pCO2 31, pH is 7.4. The patient remains on propofol at 40 mcg/kg/min, norepinephrine 23 mcg/min, and vasopressin at 0.03 units/min. The patient is also receiving lactated Ringer's at 150 cc an hour. The patient continues on cefepime and Flagyl. Also, the patient is on oral vancomycin. Yesterday, we gave the patient 100 mg of hydrocortisone IV push, and started the patient on hydrocortisone 50 mg every 6 hours. The patient seems to have responded to it, as his pressor requirements have gone down. We will continue to follow make recommendations along the way. Labs, x-rays, and medications are reviewed. Prognosis is guarded. Time with Patient: Greater than 30
--- NOTE | 2024-01-01 11:47 | P.PN ---
Subjective Patient is seen for follow-up for hyponatremia. Patient has now developed acute kidney injury as well. Status post subtotal colectomy end ileostomy for pancolitis on 12/31/2023. C. difficile toxin is negative. Patient remains on the vent. He is currently hypotensive and started on Levophed as well as vasopressin last night. Also maintained on Ringer lactate at 150 cc an hour. Urine output has decreased to about 20 cc an hour. FiO2 at 40%. Serum creatinine increased to 1.7 from 0.53 yesterday. Objective - Vital Signs Vital signs: Vital Signs Temp 100.5 F H 01/01/24 08:00 Pulse 140 H 01/01/24 10:00 Resp 27 H 01/01/24 10:00 BP 121/76 01/01/24 10:00 Pulse Ox 100 01/01/24 10:00 FiO2 40 01/01/24 11:15 Intake & Output 12/31/23 01/01/24 01/01/24 18:59 06:59 18:59 Intake Total 5724.812 3841.854 620.044 Output Total 645 865 230 Balance 5079.812 2976.854 390.044 Weight 97.522 kg 118.6 kg 118.6 kg Intake: IV 4550 3243 549 Calcium Gluconate in NaCl 100 1 gm In Saline 1 100ml. bag @ 100 mls/hr IVPB ONCE ONE Rx#:[id number] Cefepime 2 gm In Sodium 100 100 100 Chloride 0.9% 100 ml @ 25 mls/hr IVPB Q8HR [facility] Rx# :[id number] KVO 160 40 Lactated Ringers 1,000 ml 1050 1650 300 @ 150 mls/hr IV .Q6H40M [facility] Rx#:[id number] Lactated Ringers 1,000 ml 1000 @ 999 mls/hr IV .Q1H1M [facility] Rx#:[id number] Potassium Chloride 20 meq 100 100 In Water For Injection 1 100ml.bag @ 50 mls/hr IVPB Q2H [facility] Rx#: [id number] metroNIDAZOLE-NS PMX 500 100 100 100 mg In Saline 1 100ml.bag @ 100 mls/hr IVPB Q8HR [facility] Rx#:[id number] pressure bag 33 9 Intake, IV Titration 1154.812 598.854 71.044 Amount Lactated Ringers 1,000 ml 1000 @ 999 mls/hr IV .Q1H1M [facility] Rx#:[id number] Norepinephrine 32 mg In 0 316.201 7.756 Sodium Chloride 0.9% 218 ml @ 0.03 MCG/KG/MIN 1. 371 mls/hr IV .Q24H [facility] Rx#:[id number] Norepinephrine 8 mg In 4.812 Sodium Chloride 0.9% 250 ml @ 0.03 MCG/KG/MIN 5. 661 mls/hr IV .Q24H [facility] Rx#:[id number] Potassium Chloride 20 meq 50 In Water For Injection 1 100ml.bag @ 50 mls/hr IVPB Q2H [facility] Rx#: [id number] Vasopressin 20 unit In 22.568 51 Sodium Chloride 0.9% 50 ml @ 0.04 UNITS/MIN 6.12 mls/hr IV .Q8H20M [facility] Rx# :[id number] propofoL 1,000 mg In 100 260.085 12.288 Empty Bag 1 bag @ 15 MCG/ KG/MIN 8.777 mls/hr IV . [id number] [facility] Rx#:[id number] Oral 20 Output: Gastric Drainage 700 150 Urine 595 165 80 Estimated Blood Loss 50 Other: Voiding Method Indwelling Catheter Indwelling Catheter Indwelling Catheter ABP, PAP, CO, CI - Last Documented Arterial Blood Pressure 103/60 - Exam Patient is sedated and on the vent. Examination of the heart S1 and S2 Examination of the lungs bilateral breath sounds are heard Examination of the abdomen reveals it to be distended, incision is dressed Examination of lower extremities shows significant edema bilaterally - Labs CBC & Chem 7: 01/01/24 01:30 01/01/24 01:30 Labs: Abnormal Lab Results - Last 24 Hours (Table) 12/31/23 12/31/23 12/31/23 Range/Units 11:40 14:51 15:52 WBC 26.8 H (3.8-10.6) k/uL RBC 3.60 L (4.30-5.90) m/uL Hgb 10.5 L (13.0-17.5) gm/dL Hct 33.9 L (39.0-53.0) % MCHC (31.0-37.0) g/dL Plt Count 765 H (150-450) k/uL Neutrophils # (Manual) (1.3-7.7) k/uL Lymphocytes # (Manual) (1.0-4.8) k/uL Basophils # (Manual) (0-0.2) k/uL Metamyelocytes # (Man) (0) k/uL ABG pH (7.35-7.45) ABG pCO2 (35-45) mmHg ABG pO2 335 H (83-108) mmHg ABG HCO3 (21-25) mmol/L ABG O2 Saturation 99.7 H (94-97) % Sodium (137-145) mmol/L Potassium 2.1 L* (3.5-5.1) mmol/L Chloride 124 H (98-107) mmol/L Carbon Dioxide 9 L* (22-30) mmol/L BUN (9-20) mg/dL Creatinine 0.53 L (0.66-1.25) mg/dL Glucose 52 L (74-99) mg/dL POC Glucose (mg/dL) (70-110) mg/dL Calcium 3.6 L* (8.4-10.2) mg/dL Ionized Calcium Megan (4.5-5.3) mg/dL Cortisol (3.1-22.4) UG/DL 12/31/23 12/31/23 01/01/24 Range/Units 16:28 22:00 01:15 WBC (3.8-10.6) k/uL RBC (4.30-5.90) m/uL Hgb (13.0-17.5) gm/dL Hct (39.0-53.0) % MCHC (31.0-37.0) g/dL Plt Count (150-450) k/uL Neutrophils # (Manual) (1.3-7.7) k/uL Lymphocytes # (Manual) (1.0-4.8) k/uL Basophils # (Manual) (0-0.2) k/uL Metamyelocytes # (Man) (0) k/uL ABG pH 7.46 H (7.35-7.45) ABG pCO2 28 L 31 L (35-45) mmHg ABG pO2 116 H (83-108) mmHg ABG HCO3 20 L 19 L (21-25) mmol/L ABG O2 Saturation 97.7 H 98.2 H (94-97) % Sodium (137-145) mmol/L Potassium (3.5-5.1) mmol/L Chloride (98-107) mmol/L Carbon Dioxide (22-30) mmol/L BUN (9-20) mg/dL Creatinine (0.66-1.25) mg/dL Glucose (74-99) mg/dL POC Glucose (mg/dL) (70-110) mg/dL Calcium (8.4-10.2) mg/dL Ionized Calcium Megan (4.5-5.3) mg/dL Cortisol 83.0 H (3.1-22.4) UG/DL 01/01/24 01/01/24 01/01/24 Range/Units 01:30 01:30 06:42 WBC 45.4 H (3.8-10.6) k/uL RBC 3.36 L (4.30-5.90) m/uL Hgb 9.9 L (13.0-17.5) gm/dL Hct 32.1 L (39.0-53.0) % MCHC 30.9 L (31.0-37.0) g/dL Plt Count 741 H (150-450) k/uL Neutrophils # (Manual) 42.20 H (1.3-7.7) k/uL Lymphocytes # (Manual) 0.91 L (1.0-4.8) k/uL Basophils # (Manual) 0.45 H (0-0.2) k/uL Metamyelocytes # (Man) 2.27 H (0) k/uL ABG pH (7.35-7.45) ABG pCO2 (35-45) mmHg ABG pO2 (83-108) mmHg ABG HCO3 (21-25) mmol/L ABG O2 Saturation (94-97) % Sodium 130 L (137-145) mmol/L Potassium (3.5-5.1) mmol/L Chloride (98-107) mmol/L Carbon Dioxide 16 L (22-30) mmol/L BUN 26 H (9-20) mg/dL Creatinine 1.71 H (0.66-1.25) mg/dL Glucose (74-99) mg/dL POC Glucose (mg/dL) 117 H (70-110) mg/dL Calcium 7.0 L (8.4-10.2) mg/dL Ionized Calcium Megan 4.2 L (4.5-5.3) mg/dL Cortisol (3.1-22.4) UG/DL Microbiology - Last 24 Hours (Table) 12/25/23 23:20 Blood Culture - Final Blood 12/25/23 23:05 Blood Culture - Final Blood 12/27/23 12:41 Stool Culture - Final Stool Assessment and Plan Assessment: 1. Hyponatremia associated with severe pancolitis along with significant third spacing and interstitial edema. Serum sodium improved with one dose of IV Lasix. Urine osmolality was 299 and random urine sodium was less than 20. Patient is started back on IV fluids postoperatively. Patient is currently hypotensive and maintained on pressors along with IV fluids.. He has likely has significant amount of GI fluid loss associated with fulminant pancolitis and colectomy. 2. Fulminant pancolitis status post subtotal colectomy and ileostomy on 12/31/2023.. C. diff toxin is negative 3. Metabolic acidosis associated with GI fluid loss 4. Acute kidney injury ATN associated with hypotension and sepsis Plan: Switch IV fluids to IV bicarb based in half-normal saline Add one-time dose of IV Lasix if urine output drops further. Repeat sodium this evening Repeat labs in a.m.
[2024-01-01 12:22] LABS: Magnesium 1.7 mg/dL (1.6-2.3); Phosphorus 4.4 mg/dL (2.5-4.5)
[2024-01-01] MEDS: SODIUM CHLORIDE 0.45% 1,000 ML with SODIUM BICARB (1 MEQ/ML) 100 ML IV SCH (12:41)
[2024-01-01 12:52] LABS: Glucose,Whole Blood 140 mg/dL (70-110)
[2024-01-01] MEDS ORDERED: DEXTROSE 50% SYRINGE 50 ML IVP PRN ×2 (12:52)
[2024-01-01] MEDS: INSULIN ASPART (NovoLOG) 100 UNIT/ML VIAL SQ SCH (14:13)
[2024-01-01] MEDS: MVI, ADULT NO.4 WITH VIT K 10 ML, TRACE (CONC-1ML/DOSE) 1 ML, SODIUM ACETATE 40 MEQ, PO... IV ONE (14:21)
[2024-01-01] MEDS: HEPARIN SODIUM,PORCINE 5,000 UNIT/ML 1 ML VIAL SQ SCH (16:11)
--- NOTE | 2024-01-01 16:50 | P.PN ---
Subjective Progress Note Date: 01/01/24 Principal diagnosis: Reason for follow-up is pancolitis and leukocytosis Patient is a 33-year-old -[place]iqu[place] male with a past medical history negative for hypertension hyperlipidemia and pancreatitis that was diagnosed about 2 months ago on 11/05/2023 however the patient mention he was not admitted for it patient presented back to [facility] ER on 12/25/2023 for дмитрий luation of abdominal pain diarrhea patient did have evidence of worsening pancolitis on the CT prompting this consultation. 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 On today's evaluation that is 01/01/2024,the patient continues to be debated on the vent patient FiO2 is stable at 40% no significant purulent secretions through the ET patient requiring low-dose pressor support and nursing staff mention there slowly going down on the amount of pressor support. Patient white count is 45.4 creatinine is 1.71 Objective - Vital Signs Vital signs: Vital Signs Temp 100.0 F H 01/01/24 12:00 Pulse 128 H 01/01/24 15:23 Resp 21 01/01/24 15:00 BP 89/63 01/01/24 15:00 Pulse Ox 100 01/01/24 15:00 FiO2 40 01/01/24 15:09 Intake & Output 12/31/23 01/01/24 01/01/24 18:59 06:59 18:59 Intake Total 5724.812 3841.854 1249.756 Output Total 645 865 395 Balance 5079.812 2976.854 854.756 Weight 97.522 kg 118.6 kg 118.6 kg Intake: IV 4550 3243 1091 Calcium Gluconate in NaCl 100 1 gm In Saline 1 100ml. bag @ 100 mls/hr IVPB ONCE ONE Rx#:[id number] Cefepime 2 gm In Sodium 100 100 100 Chloride 0.9% 100 ml @ 25 mls/hr IVPB Q8HR [facility] Rx# :[id number] KVO 160 80 Lactated Ringers 1,000 ml 1050 1650 690 @ 150 mls/hr IV .Q6H40M [facility] Rx#:[id number] Lactated Ringers 1,000 ml 1000 @ 999 mls/hr IV .Q1H1M ONE Rx#:[id number] Potassium Chloride 20 meq 100 100 In Water For Injection 1 100ml.bag @ 50 mls/hr IVPB Q2H [facility] Rx#: [id number] Sodium Chloride 0.45% 1, 100 000 ml @ 100 mls/hr IV . Q11H DAFNE with Sodium Bicarb (1 Meq/ml) 100 ml Rx#:[id number] metroNIDAZOLE-NS PMX 500 100 100 100 mg In Saline 1 100ml.bag @ 100 mls/hr IVPB Q8HR [facility] Rx#:[id number] pressure bag 33 21 Intake, IV Titration 1154.812 598.854 158.756 Amount Lactated Ringers 1,000 ml 1000 @ 999 mls/hr IV .Q1H1M ONE Rx#:[id number] Norepinephrine 32 mg In 0 316.201 7.756 Sodium Chloride 0.9% 218 ml @ 0.03 MCG/KG/MIN 1. 371 mls/hr IV .Q24H [facility] Rx#:[id number] Norepinephrine 8 mg In 4.812 Sodium Chloride 0.9% 250 ml @ 0.03 MCG/KG/MIN 5. 661 mls/hr IV .Q24H [facility] Rx#:[id number] Potassium Chloride 20 meq 50 In Water For Injection 1 100ml.bag @ 50 mls/hr IVPB Q2H [facility] Rx#: [id number] Vasopressin 20 unit In 22.568 51 Sodium Chloride 0.9% 50 ml @ 0.04 UNITS/MIN 6.12 mls/hr IV .Q8H20M [facility] Rx# :[id number] propofoL 1,000 mg In 100 260.085 100.000 Empty Bag 1 bag @ 15 MCG/ KG/MIN 8.777 mls/hr IV . [id number] [facility] Rx#:[id number] Oral 20 Output: Gastric Drainage 700 225 Urine 595 165 170 Estimated Blood Loss 50 Other: Voiding Method Indwelling Catheter Indwelling Catheter Indwelling Catheter ABP, PAP, CO, CI - Last Documented Arterial Blood Pressure 101/56 - Exam GENERAL DESCRIPTION: Middle-age male intubated on the vent RESPIRATORY SYSTEM: Unlabored breathing , decreased breath sounds at bases HEART: S1 S2 regular rate and rhythm , ABDOMEN: Soft , no tenderness EXTREMITIES: No edema feet - Labs CBC & Chem 7: 01/01/24 01:30 01/01/24 01:30 Labs: Abnormal Lab Results - Last 24 Hours (Table) 12/31/23 12/31/23 12/31/23 Range/Units 14:51 15:52 16:28 WBC 26.8 H (3.8-10.6) k/uL RBC 3.60 L (4.30-5.90) m/uL Hgb 10.5 L (13.0-17.5) gm/dL Hct 33.9 L (39.0-53.0) % MCHC (31.0-37.0) g/dL Plt Count 765 H (150-450) k/uL Neutrophils # (Manual) (1.3-7.7) k/uL Lymphocytes # (Manual) (1.0-4.8) k/uL Basophils # (Manual) (0-0.2) k/uL Metamyelocytes # (Man) (0) k/uL ABG pH 7.46 H (7.35-7.45) ABG pCO2 28 L (35-45) mmHg ABG pO2 (83-108) mmHg ABG HCO3 20 L (21-25) mmol/L ABG O2 Saturation 97.7 H (94-97) % Sodium (137-145) mmol/L Potassium 2.1 L* (3.5-5.1) mmol/L Chloride 124 H (98-107) mmol/L Carbon Dioxide 9 L* (22-30) mmol/L BUN (9-20) mg/dL Creatinine 0.53 L (0.66-1.25) mg/dL Glucose 52 L (74-99) mg/dL POC Glucose (mg/dL) (70-110) mg/dL Calcium 3.6 L* (8.4-10.2) mg/dL Ionized Calcium Megan (4.5-5.3) mg/dL Cortisol (3.1-22.4) UG/DL 12/31/23 01/01/24 01/01/24 Range/Units 22:00 01:15 01:30 WBC 45.4 H (3.8-10.6) k/uL RBC 3.36 L (4.30-5.90) m/uL Hgb 9.9 L (13.0-17.5) gm/dL Hct 32.1 L (39.0-53.0) % MCHC 30.9 L (31.0-37.0) g/dL Plt Count 741 H (150-450) k/uL Neutrophils # (Manual) 42.20 H (1.3-7.7) k/uL Lymphocytes # (Manual) 0.91 L (1.0-4.8) k/uL Basophils # (Manual) 0.45 H (0-0.2) k/uL Metamyelocytes # (Man) 2.27 H (0) k/uL ABG pH (7.35-7.45) ABG pCO2 31 L (35-45) mmHg ABG pO2 116 H (83-108) mmHg ABG HCO3 19 L (21-25) mmol/L ABG O2 Saturation 98.2 H (94-97) % Sodium (137-145) mmol/L Potassium (3.5-5.1) mmol/L Chloride (98-107) mmol/L Carbon Dioxide (22-30) mmol/L BUN (9-20) mg/dL Creatinine (0.66-1.25) mg/dL Glucose (74-99) mg/dL POC Glucose (mg/dL) (70-110) mg/dL Calcium (8.4-10.2) mg/dL Ionized Calcium Megan (4.5-5.3) mg/dL Cortisol 83.0 H (3.1-22.4) UG/DL 01/01/24 01/01/24 01/01/24 Range/Units 01:30 06:42 12:50 WBC (3.8-10.6) k/uL RBC (4.30-5.90) m/uL Hgb (13.0-17.5) gm/dL Hct (39.0-53.0) % MCHC (31.0-37.0) g/dL Plt Count (150-450) k/uL Neutrophils # (Manual) (1.3-7.7) k/uL Lymphocytes # (Manual) (1.0-4.8) k/uL Basophils # (Manual) (0-0.2) k/uL Metamyelocytes # (Man) (0) k/uL ABG pH (7.35-7.45) ABG pCO2 (35-45) mmHg ABG pO2 (83-108) mmHg ABG HCO3 (21-25) mmol/L ABG O2 Saturation (94-97) % Sodium 130 L (137-145) mmol/L Potassium (3.5-5.1) mmol/L Chloride (98-107) mmol/L Carbon Dioxide 16 L (22-30) mmol/L BUN 26 H (9-20) mg/dL Creatinine 1.71 H (0.66-1.25) mg/dL Glucose (74-99) mg/dL POC Glucose (mg/dL) 117 H 140 H (70-110) mg/dL Calcium 7.0 L (8.4-10.2) mg/dL Ionized Calcium Megan 4.2 L (4.5-5.3) mg/dL Cortisol (3.1-22.4) UG/DL Microbiology - Last 24 Hours (Table) 12/25/23 23:20 Blood Culture - Final Blood 12/25/23 23:05 Blood Culture - Final Blood Assessment and Plan (1) Leukocytosis Current Visit: Yes Status: Acute Code(s): D72.829 - ELEVATED WHITE BLOOD CELL COUNT, UNSPECIFIED SNOMED Code(s): 376486283 (2) Pancolitis Current Visit: Yes Status: Acute Code(s): K51.00 - ULCERATIVE (CHRONIC) PANCOLITIS WITHOUT COMPLICATIONS SNOMED Code(s): 086972293 Plan: 1patient with a complicated history as for as evidence of severe pancolitis on the CT that was completed 12/29/2023 and also have worsening of the white count patient apparently was diagnosed with pancreatitis on 11/05/2023 however the patient was not admitted and mention has not received an antibiotic therapy features are highly suspicious for pseudomembranous colitis though initial testing was negative other infectious etiology need to be ruled out as well 2-stool for C. difficile PCR has been requested unfortunately not collected and the patient is status post subtotal colectomy completed morning of 12/31/2023 bio psy results will be followed 3-patient is on hydrocortisone more likely contributing some of the elevated white count patient is broadly covered with the cefepime Flagyl and vancomycin if the patient have any stool output through the rectum nursing staff has been advised to send for stool for C. difficile Family the bedside multiple questions were answered Dictation was produced using [employer] software. please excuse any grammatical, word or spelling errors. Time with Patient: Less than 30
[2024-01-01 18:33] LABS: Glucose,Whole Blood 192 mg/dL (70-110)
[2024-01-01] MEDS: FUROSEMIDE 10 MG/ML 4 ML VIAL IV STA (22:46)
[2024-01-01 22:58] LABS: Glucose,Whole Blood 207 mg/dL (70-110)
[2024-01-01 23:32] LABS: Glucose,Whole Blood 197 mg/dL (70-110)
[2024-01-02] MEDS: INSULIN ASPART (NovoLOG) 100 UNIT/ML VIAL SQ SCH (00:19)
--- NOTE | 2024-01-02 03:37 | PN ---
PROGRESS NOTE DATE OF SERVICE: 01/01/2024 CHIEF COMPLAINT: Fulminant pancolitis. HISTORY OF PRESENT ILLNESS: The patient is postop day #1, status post subtotal colectomy with ileostomy. The patient has been febrile and tachycardic. White count has gone up from 26.8 to 45.4. The patient is intubated and on mechanical ventilation. They have come down on his pressor support, there were concerns for a possible adrenal insufficiency. Critical Care Service did give Solu-Cortef. PHYSICAL EXAMINATION: ABDOMEN: Mildly distended. Surgical dressing intact. Ostomy on the right. Stoma pink. No stool present. ASSESSMENT: Pancolitis, status post subtotal colectomy with ileostomy. PLAN: Continue ICU management. Continue supportive care. Continue antibiotics. TPN started for nutrition support and for severe protein-calorie malnutrition. DVT prophylaxis. Subcu heparin added. MMODL / IJN: [id number] /
[2024-01-02 05:09] LABS: HCT 22.3 % (39.0-53.0); Hypochromasia Slight; MCH 30.9 pg (25.0-35.0); MCHC 32.2 g/dL (31.0-37.0); MCV 95.9 fL (80.0-100.0); Mean Platelet Volume 7.3; Platelet Count 422 k/uL (150-450); RBC 2.33 m/uL (4.30-5.90); WBC 49.4 k/uL (3.8-10.6)
[2024-01-02 05:11] LABS: HGB 7.2 gm/dL (13.0-17.5)
[2024-01-02 05:40] LABS: ALT 13 U/L (4-49); AST 26 U/L (17-59); African American GFR (CKD) 59 (>60 ml/min/1.73 sqM); Albumin 1.7 g/dL (3.5-5.0); Alkaline Phosphatase 87 U/L (38-126); Anion Gap 6 mmol/L; Blood Urea Nitrogen 34 mg/dL (9-20); Calcium 6.8 mg/dL (8.4-10.2); Carbon Dioxide 23 mmol/L (22-30); Chloride 102 mmol/L (98-107); Glucose 171 mg/dL (74-99); Non-African American GFR(CKD) 51 (>60 ml/min/1.73 sqM); Phosphorus 3.3 mg/dL (2.5-4.5); Potassium 3.6 mmol/L (3.5-5.1); Sodium 131 mmol/L (137-145); Total Bilirubin 0.7 mg/dL (0.2-1.3); Total Protein 3.6 g/dL (6.3-8.2)
[2024-01-02 06:12] LABS: Band Neutrophils % 24 %; Lymphocytes # (M) 0.49 k/uL (1.0-4.8); Metamyelocytes # (M) 0.49 k/uL (0); Metamyelocytes % 1 %; Monocytes # (M) 0.49 k/uL (0-1.0); Myelocytes # (M) 0.49 k/uL (0); Myelocytes % 1 %; Neutrophils % (M) 73 %; Nucleated Red Blood Cells 0 /100 WBC (0-0); Total Cells Counted 200
[2024-01-02 06:40] LABS: ABG Base Excess 1.3 mmol/L; ABG HCO3 26 mmol/L (21-25); ABG PCO2 39 mmHg (35-45); ABG PH 7.43 (7.35-7.45); ABG PO2 126 mmHg (83-108); ABG TCO2 27 mmol/L (19-24); Allen Test Performed? Yes
[2024-01-02] MEDS ORDERED: Potassium Replacement Protocol 1 EACH MISC MISCELLANE PRN (06:50)
[2024-01-02 06:54] LABS: Glucose,Whole Blood 205 mg/dL (70-110)
--- NOTE | 2024-01-02 08:45 | XR ---
EXAMINATION TYPE: XR chest 1V DATE OF EXAM: 01/02/2024 COMPARISON: 01/01/2024 HISTORY: 33-year-old male mechanical ventilator TECHNIQUE: Single frontal view of the chest is obtained. FINDINGS: ET tube tip slightly high just above the level of the medial clavicular heads. NG tube cou rses below the diaphragm. Left subclavian CVC tip at the cavoatrial junction. Heart or lungs are mild ly enlarged. Interstitial density. Small left pleural effusion and left basilar opacity persists. IMPRESSION: 1. ET tube tip is slightly high. Advance by 2 cm and reassess at follow-up. 2. Continued small left pleural effusion with adjacent atelectasis and/or consolidation.
[2024-01-02] MEDS ORDERED: HYDROmorphone 1 MG/ML 1 ML SYRINGE IVP SCH (09:15)
[2024-01-02] MEDS: POTASSIUM BICARBONATE/CIT AC 20 MEQ TABLET.EFF NG-TUBE SCH (09:45)
[2024-01-02] MEDS: HYDROmorphone 1 MG/ML 1 ML SYRINGE IVP PRN (09:51)
[2024-01-02] MEDS: METOPROLOL TARTRATE 25 MG TAB PO SCH (10:40)
--- NOTE | 2024-01-02 11:04 | P.PN ---
Subjective Patient is seen for follow-up for hyponatremia. Patient has now developed acute kidney injury as well. Status post subtotal colectomy end ileostomy for pancolitis on 12/31/2023. C. difficile toxin is negative. Patient remains on the vent. He remains hypotensive and is maintained on levo fed and vasopressin. Also maintained on Ringer lactate at 100 cc an hour. Urine output at 30-60 cc an hour. FiO2 at 40%. Serum creatinine staying at 1.7 mg/dL. Patient been started on TPN Objective - Vital Signs Vital signs: Vital Signs Temp 98.1 F 01/02/24 08:00 Pulse 112 H 01/02/24 09:12 Resp 22 01/02/24 08:15 BP 111/60 01/02/24 00:00 Pulse Ox 98 01/02/24 08:15 FiO2 30 01/02/24 09:05 Intake & Output 01/01/24 01/02/24 01/02/24 18:59 06:59 18:59 Intake Total 2426.822 2305.081 318.19 Output Total 1165 1690 155 Balance 1261.822 615.081 163.19 Weight 118.6 kg 121.6 kg Intake: IV 1856 1316 206 Cefepime 2 gm In Sodium 200 Chloride 0.9% 100 ml @ 25 mls/hr IVPB Q8HR [facility] Rx# :[id number] KVO 130 80 Lactated Ringers 1,000 ml 690 @ 150 mls/hr IV .Q6H40M [facility], [facility] Rx#:[id number] Sodium Chloride 0.45% 1, 600 1200 200 000 ml @ 100 mls/hr IV . Q11H DAFNE with Sodium Bicarb (1 Meq/ml) 100 ml Rx#:[id number] metroNIDAZOLE-NS PMX 500 200 mg In Saline 1 100ml.bag @ 100 mls/hr IVPB Q8HR [facility] Rx#:[id number] pressure bag 36 36 6 Intake, IV Titration 420.822 429.081 112.19 Amount Norepinephrine 32 mg In 138.954 102.256 Sodium Chloride 0.9% 218 ml @ 0.03 MCG/KG/MIN 1. 371 mls/hr IV .Q24H [facility] Rx#:[id number] Vasopressin 20 unit In 84.737 51 Sodium Chloride 0.9% 50 ml @ 0.04 UNITS/MIN 6.12 mls/hr IV .Q8H20M [facility] Rx# :[id number] propofoL 1,000 mg In 197.131 275.825 112.19 Empty Bag 1 bag @ 15 MCG/ KG/MIN 8.777 mls/hr IV . [id number] [facility] Rx#:[id number] TPN/PPN 150 560 Cefepime 2 gm In Sodium 100 Chloride 0.9% 100 ml @ 25 mls/hr IVPB Q8HR [facility] Rx# :[id number] Mvi, Adult No.4 with Vit 150 360 K 10 ml Trace (Conc-1Ml/ Dose) 1 ml Sodium Acetate 40 meq Potassium Chloride 20 meq Calcium Gluconate 1 gm Magnesium Sulfate gm 1.5 gm In Amino Acids 5 %/Dextrose 20 % 1,000 ml @ 30 mls/hr IV .Q24H [facility] Rx#: [id number] metroNIDAZOLE-NS PMX 500 100 mg In Saline 1 100ml.bag @ 100 mls/hr IVPB Q8HR [facility] Rx#:[id number] Output: Gastric Drainage 800 Urine 365 1690 155 Other: Voiding Method Indwelling Catheter Indwelling Catheter ABP, PAP, CO, CI - Last Documented Arterial Blood Pressure 106/56 - Exam Patient is sedated and on the vent. Examination of the heart S1 and S2 Examination of the lungs bilateral breath sounds are heard Examination of the abdomen reveals it to be distended, incision is dressed Examination of lower extremities shows significant edema bilaterally - Labs CBC & Chem 7: 01/02/24 04:45 01/02/24 04:45 Labs: Abnormal Lab Results - Last 24 Hours (Table) 12/31/23 01/01/24 01/01/24 Range/Units 22:00 01:30 12:50 WBC (3.8-10.6) k/uL RBC (4.30-5.90) m/uL Hgb (13.0-17.5) gm/dL Hct (39.0-53.0) % Neutrophils # (Manual) (1.3-7.7) k/uL Lymphocytes # (Manual) (1.0-4.8) k/uL Metamyelocytes # (Man) (0) k/uL Myelocytes # (Manual) (0) k/uL ABG pO2 (83-108) mmHg ABG HCO3 (21-25) mmol/L ABG Total CO2 (19-24) mmol/L ABG O2 Saturation (94-97) % Sodium (137-145) mmol/L BUN (9-20) mg/dL Creatinine (0.66-1.25) mg/dL Glucose (74-99) mg/dL POC Glucose (mg/dL) 140 H (70-110) mg/dL Calcium (8.4-10.2) mg/dL Total Protein (6.3-8.2) g/dL Albumin (3.5-5.0) g/dL Triglycerides 209.00 H (0.00-149.00) mg/dL Cortisol 83.0 H (3.1-22.4) UG/DL 01/01/24 01/01/24 01/01/24 Range/Units 17:36 18:30 22:50 WBC (3.8-10.6) k/uL RBC (4.30-5.90) m/uL Hgb (13.0-17.5) gm/dL Hct (39.0-53.0) % Neutrophils # (Manual) (1.3-7.7) k/uL Lymphocytes # (Manual) (1.0-4.8) k/uL Metamyelocytes # (Man) (0) k/uL Myelocytes # (Manual) (0) k/uL ABG pO2 (83-108) mmHg ABG HCO3 (21-25) mmol/L ABG Total CO2 (19-24) mmol/L ABG O2 Saturation (94-97) % Sodium 129 L 130 L (137-145) mmol/L BUN (9-20) mg/dL Creatinine (0.66-1.25) mg/dL Glucose (74-99) mg/dL POC Glucose (mg/dL) 192 H (70-110) mg/dL Calcium (8.4-10.2) mg/dL Total Protein (6.3-8.2) g/dL Albumin (3.5-5.0) g/dL Triglycerides (0.00-149.00) mg/dL Cortisol (3.1-22.4) UG/DL 01/01/24 01/01/24 01/02/24 Range/Units 22:56 23:29 04:45 WBC 49.4 H (3.8-10.6) k/uL RBC 2.33 L (4.30-5.90) m/uL Hgb 7.2 L D (13.0-17.5) gm/dL Hct 22.3 L (39.0-53.0) % Neutrophils # (Manual) 47.90 H (1.3-7.7) k/uL Lymphocytes # (Manual) 0.49 L (1.0-4.8) k/uL Metamyelocytes # (Man) 0.49 H (0) k/uL Myelocytes # (Manual) 0.49 H (0) k/uL ABG pO2 (83-108) mmHg ABG HCO3 (21-25) mmol/L ABG Total CO2 (19-24) mmol/L ABG O2 Saturation (94-97) % Sodium (137-145) mmol/L BUN (9-20) mg/dL Creatinine (0.66-1.25) mg/dL Glucose (74-99) mg/dL POC Glucose (mg/dL) 207 H 197 H (70-110) mg/dL Calcium (8.4-10.2) mg/dL Total Protein (6.3-8.2) g/dL Albumin (3.5-5.0) g/dL Triglycerides (0.00-149.00) mg/dL Cortisol (3.1-22.4) UG/DL 01/02/24 01/02/24 01/02/24 Range/Units 04:45 06:36 06:53 WBC (3.8-10.6) k/uL RBC (4.30-5.90) m/uL Hgb (13.0-17.5) gm/dL Hct (39.0-53.0) % Neutrophils # (Manual) (1.3-7.7) k/uL Lymphocytes # (Manual) (1.0-4.8) k/uL Metamyelocytes # (Man) (0) k/uL Myelocytes # (Manual) (0) k/uL ABG pO2 126 H (83-108) mmHg ABG HCO3 26 H (21-25) mmol/L ABG Total CO2 27 H (19-24) mmol/L ABG O2 Saturation 99.0 H (94-97) % Sodium 131 L (137-145) mmol/L BUN 34 H (9-20) mg/dL Creatinine 1.74 H (0.66-1.25) mg/dL Glucose 171 H (74-99) mg/dL POC Glucose (mg/dL) 205 H (70-110) mg/dL Calcium 6.8 L (8.4-10.2) mg/dL Total Protein 3.6 L (6.3-8.2) g/dL Albumin 1.7 L (3.5-5.0) g/dL Triglycerides (0.00-149.00) mg/dL Cortisol (3.1-22.4) UG/DL Assessment and Plan Assessment: 1. Hyponatremia associated with severe pancolitis along with significant third spacing and interstitial edema. Serum sodium improved with one dose of IV Lasix. Urine osmolality was 299 and random urine sodium was less than 20. Patient is started back on IV fluids postoperatively. Patient is currently hypotensive and maintained on pressors along with IV fluids.. He has likely has significant amount of GI fluid loss associated with fulminant pancolitis and colectomy. 2. Fulminant pancolitis status post subtotal colectomy and ileostomy on 12/31/2023.. C. diff toxin is negative 3. Metabolic acidosis associated with GI fluid loss 4. Acute kidney injury ATN associated with hypotension and sepsis Plan: can discontinue bicarb drip once TPN is further increased. We will continue to use Lasix as needed based on serum sodium levels. Repeat labs in a.m.
--- NOTE | 2024-01-02 11:35 | P.PN ---
Subjective Progress Note Date: 01/02/24 33 year old M with PMH of hypertension and ADHD who presents to the emergency room with complaints of abdominal pain, diarrhea, and weight loss. Patient notes that over the past 2 months since his most recent admission of pancreatitis, he has lost roughly 40 pounds and has had intermittent diffuse abdominal discomfort with associated diarrhea. He has noticed blood in his stools on numerous occasions, bright red, without mucus. Notes that the pain has no clear inciting triggers but often occurs after food consumption. Reports that the pain is usually associated with diarrhea, and lasts for several days at a time. Denies nausea, vomiting, fever, chills, cough. Of note, the patient was admitted on 11/04 for mild acute pancreatitis. He does report having seen a operator control room as an outpatient and is currently awaiting the results of his workup and is also scheduled for an EGD. Reports however that his pain had become unbearable which prompted him to come to the emergency room. CT abdomen and pelvis in the emergency room revealed findings of colitis involving the transverse, descending, and sigmoid colon's with hepatic steatosis. Chest x-ray was unremarkable with EKG showing sinus tachycardia at 103 bpm with diffuse T wave flattening. Laboratory evaluation was remarkable for leukocytosis of 20.7, and hemoglobin 11.7, sodium 133, potassium 2.8, CO2 36, BUN 10, creatinine 0.82, calcium 7.7, with an unremarkable UA. Patient was started on Levaquin and Flagyl and admitted for treatment of colitis. GI consulted recommended outpatient C-scope in 4-6 weeks. His symptoms worsened. CT AP repeated 12/28 showed worsening anasarca, moderate to severe pancolitis with dilation up to 10.2 cm. ID was consulted, C. diff was negative, C. diff PCR ordered, Levaquin replaced with Cefepime and continued of Flagyl and added PO Vancomycin. Surgery consulted, patient underwent subtotal colectomy with ileostomy with Dr. Saleh on 12/30 and transferred to ICU post op. Nephrology consulted for hyponatremia as low as 124, given a dose of Lasix IV, now improving. Started on TPN 12/31. 01/01 Patient was seen and examined. Intubated. Started on TPN yesterday. He is on Levophed drip at 0.11 mcg/kg/min, Vasopressin at 0.03 units/min and Solu- Cortef 50 mg IV Q6H. IVF switched to NS with sodium bicarb at 100 cc/hr. Currently on Propofol at 50 mcg/kg/min. Antibiotics include Cefepime 1g IV TID (D5), Vancomycin 500 mg PO QID (D3) and Flagyl 500 mg IV TID (D5). CXR done today shows pulmonary vascular congestion with small effusion. CBC WBC 49.4, Hg 7.2, Hct 22.3. ABG pH 7.43, pCO2 39. BMP Na 131, BUN 34, Cr 1.74, Ca 6.8, alb 1.7. Mag 2. General: Intubated and sedated Derm: warm, dry Head: atraumatic, normocephalic, symmetric Eyes: EOMI, no lid lag, anicteric sclera Mouth: no lip lesion, mucus membranes moist Cardiovascular: S1S2 tachy, no murmur Lungs: Coarse BS bilateral, no rhonchi, no rales , no accessory muscle use Abdominal: distended, ileostomy noted, sluggish BS Ext: no gross muscle atrophy, 2+ pitting edema bilateral LE, no contractures Neuro: Intubated and sedated Psych: Intubated and sedated Based on my assessment of this patient, this patient meets a high complexity level of care. Ventilator dependent respiratory failure: Post operatively. Vent management per Pulmonary/Gym Attendant. Septic shock due to colitis: Status post subtotal colectomy with ileostomy with Dr. Saleh on 12/30. Cefepime 1g IV TID (D5), Vancomycin 500 mg PO QID (D3) and Flagyl 500 mg IV TID (D5). NS with sodium bicarb at 100 cc/hr. Titrate Levophed and Vasopressin to maintain MAP > 65. Telemetry monitoring. Blood and Stool culture negative on admission. C. diff negative on admission. ID on board. Acute on chronic blood loss anemia: Daily CBC. Repeat CBC at 12 PM. Transfuse if Hg < 7. Hyperglycemia: POC glucose ranging from 117-205 over the past 24H. Started on ISS Q6H. Accuchecks Q6H. Hyponatremia: UOsm 299, Maxx < 20. Hypervolemic. Improved with Lasix. Nephrology on board. Acute kidney injury with metabolic acidosis: Likely prerenal from shock. IV hydration as above. Hypocalcemia: Status post Ca gluconate 1g IV 12/31. CODE STATUS: FULL CODE DVT Prophylaxis: SCD GI Prophylaxis: Pepcid 20 mg IV BID. Designated medical POA if patient is not able to make medical decisions for themselves: I have reviewed the following loans consultant notes: Pulmonary, Surgery, Nephrology. I have reviewed the results of the following tests: CBC, CMP, ABG, Mag I have ordered the following tests: CBC, BMP I have discussed the care of this patient with the following independent historian: I have independently interpreted the following test below: CXR I have discussed the management of this patient with the following physician: Objective - Vital Signs Vital signs: Vital Signs Temp 98.1 F 01/02/24 08:00 Pulse 100 01/02/24 08:15 Resp 22 01/02/24 08:15 BP 111/60 01/02/24 00:00 Pulse Ox 98 01/02/24 08:15 FiO2 40 01/02/24 08:21 Intake & Output 01/01/24 01/02/24 01/02/24 18:59 06:59 18:59 Intake Total 2426.822 2305.081 203 Output Total 1165 1690 125 Balance 1261.822 615.081 78 Weight 118.6 kg 121.6 kg Intake: IV 1856 1316 103 Cefepime 2 gm In Sodium 200 Chloride 0.9% 100 ml @ 25 mls/hr IVPB Q8HR [facility] Rx# :[id number] KVO 130 80 Lactated Ringers 1,000 ml 690 @ 150 mls/hr IV .Q6H40M [facility] Rx#:[id number] Sodium Chloride 0.45% 1, 600 1200 100 000 ml @ 100 mls/hr IV . Q11H [facility] with Sodium Bicarb (1 Meq/ml) 100 ml Rx#:[id number] metroNIDAZOLE-NS PMX 500 200 mg In Saline 1 100ml.bag @ 100 mls/hr IVPB Q8HR [facility] Rx#:[id number] pressure bag 36 36 3 Intake, IV Titration 420.822 429.081 100 Amount Norepinephrine 32 mg In 138.954 102.256 Sodium Chloride 0.9% 218 ml @ 0.03 MCG/KG/MIN 1. 371 mls/hr IV .Q24H [facility] Rx#:[id number] Vasopressin 20 unit In 84.737 51 Sodium Chloride 0.9% 50 ml @ 0.04 UNITS/MIN 6.12 mls/hr IV .Q8H20M [facility] Rx# :[id number] propofoL 1,000 mg In 197.131 275.825 100 Empty Bag 1 bag @ 15 MCG/ KG/MIN 8.777 mls/hr IV . [id number] [facility] Rx#:[id number] TPN/PPN 150 560 Cefepime 2 gm In Sodium 100 Chloride 0.9% 100 ml @ 25 mls/hr IVPB Q8HR [facility] Rx# :[id number] Mvi, Adult No.4 with Vit 150 360 K 10 ml Trace (Conc-1Ml/ Dose) 1 ml Sodium Acetate 40 meq Potassium Chloride 20 meq Calcium Gluconate 1 gm Magnesium Sulfate gm 1.5 gm In Amino Acids 5 %/Dextrose 20 % 1,000 ml @ 30 mls/hr IV .Q24H [facility] Rx#: [id number] metroNIDAZOLE-NS PMX 500 100 mg In Saline 1 100ml.bag @ 100 mls/hr IVPB Q8HR [facility] Rx#:[id number] Output: Gastric Drainage 800 Urine 365 1690 125 Other: Voiding Method Indwelling Catheter Indwelling Catheter ABP, PAP, CO, CI - Last Documented Arterial Blood Pressure 106/56 - Labs CBC & Chem 7: 01/02/24 04:45 01/02/24 04:45 Labs: Abnormal Lab Results - Last 24 Hours (Table) 12/31/23 01/01/24 01/01/24 Range/Units 22:00 01:30 12:50 WBC (3.8-10.6) k/uL RBC (4.30-5.90) m/uL Hgb (13.0-17.5) gm/dL Hct (39.0-53.0) % Neutrophils # (Manual) (1.3-7.7) k/uL Lymphocytes # (Manual) (1.0-4.8) k/uL Metamyelocytes # (Man) (0) k/uL Myelocytes # (Manual) (0) k/uL ABG pO2 (83-108) mmHg ABG HCO3 (21-25) mmol/L ABG Total CO2 (19-24) mmol/L ABG O2 Saturation (94-97) % Sodium (137-145) mmol/L BUN (9-20) mg/dL Creatinine (0.66-1.25) mg/dL Glucose (74-99) mg/dL POC Glucose (mg/dL) 140 H (70-110) mg/dL Calcium (8.4-10.2) mg/dL Total Protein (6.3-8.2) g/dL Albumin (3.5-5.0) g/dL Triglycerides 209.00 H (0.00-149.00) mg/dL Cortisol 83.0 H (3.1-22.4) UG/DL 01/01/24 01/01/24 01/01/24 Range/Units 17:36 18:30 22:50 WBC (3.8-10.6) k/uL RBC (4.30-5.90) m/uL Hgb (13.0-17.5) gm/dL Hct (39.0-53.0) % Neutrophils # (Manual) (1.3-7.7) k/uL Lymphocytes # (Manual) (1.0-4.8) k/uL Metamyelocytes # (Man) (0) k/uL Myelocytes # (Manual) (0) k/uL ABG pO2 (83-108) mmHg ABG HCO3 (21-25) mmol/L ABG Total CO2 (19-24) mmol/L ABG O2 Saturation (94-97) % Sodium 129 L 130 L (137-145) mmol/L BUN (9-20) mg/dL Creatinine (0.66-1.25) mg/dL Glucose (74-99) mg/dL POC Glucose (mg/dL) 192 H (70-110) mg/dL Calcium (8.4-10.2) mg/dL Total Protein (6.3-8.2) g/dL Albumin (3.5-5.0) g/dL Triglycerides (0.00-149.00) mg/dL Cortisol (3.1-22.4) UG/DL 01/01/24 01/01/24 01/02/24 Range/Units 22:56 23:29 04:45 WBC 49.4 H (3.8-10.6) k/uL RBC 2.33 L (4.30-5.90) m/uL Hgb 7.2 L D (13.0-17.5) gm/dL Hct 22.3 L (39.0-53.0) % Neutrophils # (Manual) 47.90 H (1.3-7.7) k/uL Lymphocytes # (Manual) 0.49 L (1.0-4.8) k/uL Metamyelocytes # (Man) 0.49 H (0) k/uL Myelocytes # (Manual) 0.49 H (0) k/uL ABG pO2 (83-108) mmHg ABG HCO3 (21-25) mmol/L ABG Total CO2 (19-24) mmol/L ABG O2 Saturation (94-97) % Sodium (137-145) mmol/L BUN (9-20) mg/dL Creatinine (0.66-1.25) mg/dL Glucose (74-99) mg/dL POC Glucose (mg/dL) 207 H 197 H (70-110) mg/dL Calcium (8.4-10.2) mg/dL Total Protein (6.3-8.2) g/dL Albumin (3.5-5.0) g/dL Triglycerides (0.00-149.00) mg/dL Cortisol (3.1-22.4) UG/DL 01/02/24 01/02/24 01/02/24 Range/Units 04:45 06:36 06:53 WBC (3.8-10.6) k/uL RBC (4.30-5.90) m/uL Hgb (13.0-17.5) gm/dL Hct (39.0-53.0) % Neutrophils # (Manual) (1.3-7.7) k/uL Lymphocytes # (Manual) (1.0-4.8) k/uL Metamyelocytes # (Man) (0) k/uL Myelocytes # (Manual) (0) k/uL ABG pO2 126 H (83-108) mmHg ABG HCO3 26 H (21-25) mmol/L ABG Total CO2 27 H (19-24) mmol/L ABG O2 Saturation 99.0 H (94-97) % Sodium 131 L (137-145) mmol/L BUN 34 H (9-20) mg/dL Creatinine 1.74 H (0.66-1.25) mg/dL Glucose 171 H (74-99) mg/dL POC Glucose (mg/dL) 205 H (70-110) mg/dL Calcium 6.8 L (8.4-10.2) mg/dL Total Protein 3.6 L (6.3-8.2) g/dL Albumin 1.7 L (3.5-5.0) g/dL Triglycerides (0.00-149.00) mg/dL Cortisol (3.1-22.4) UG/DL
[2024-01-02 11:54] LABS: Glucose,Whole Blood 180 mg/dL (70-110)
--- NOTE | 2024-01-02 12:24 | P.PN ---
Subjective Progress Note Date: 01/02/24 Principal diagnosis: Colitis. Pulmonary/critical care consult dated December 31, 2023. 33-year-old male who presented to the emergency department, on December 24 with severe abdominal pain. The patient apparently has a history of pancreatitis, and apparently told the ER physician that the pain seemed similar. He had sharp left-sided abdominal pain, from the night before. He had poor appetite, and has been unable to keep any food or liquids down. The patient was admitted to the hospital, for the abdominal pain. He denies any fever, chills, nausea, constipation, or diarrhea. There is no urinary complaints. The patient apparently has a history of hyperlipidemia, hypertension, and pancreatitis. He is a lifelong non-smoker. He only drinks occasionally. It was told to me this morning, both from the charge nurse in the ICU, and the surgeon, but the patient was in the operating room, for fulminant pancolitis, and was having a colectomy. The patient had a subtotal colectomy with ileostomy performed by one of the surgeons, and the patient was extubated initially in the operating room, but was reintubated minutes later. The patient came to the ICU, on the ventilator. I gave Vent settings of volume assist-control, rate 20, tidal volume 450, FiO2 100%, PEEP of 5. Blood gases will be done in about an hour. We also placed a left subclavian triple-lumen catheter. An arterial line was placed by anesthesia. The most recent labs include a white count of 28.9, hemoglobin 10, hematocrit 31, and platelet count which was 744,000. Most recent blood gas showed a pO2 of 331, pCO2 of 37, pH is 7.34. That was on 100%. Repeat blood gas will be done in about 60 minutes. Sodium 133, potassium 3.9, chlorides 100, CO2 17, anion gap 16, BUN 27, creatinine 1.1. Glucose was 96. C-reactive protein was 9.90. Calcium 7.4. Stool and blood cultures have been negative. The postintubation x-ray shows the endotracheal tube to be in good position. In addition, there is a left subclavian triple-lumen catheter in good position. A repeat CT scan of the abdomen and pelvis, yesterday, showed hyperemia and wall thickening of the sigmoid colon and rectum as well as areas of transverse colon. The radiologist thought it was consistent with colitis/proctitis. There was u pstream dilatation of the large bowel. Small bowel loops are dilated with relative nondistention. No transition point is noted. Other findings are noted on the CT scan. Progress note dated January 01, 2024. This is a 33-year-old male seen yesterday in consultation. Please see my extensive note above. The patient remains in the intensive care unit, on the ventilator. He is on volume assist-control, rate 20, tidal volume 450, FiO2 40%, PEEP of 5. Blood gases are excellent with a pO2 116, pCO2 31, and pH of 7.40. Blood gases are consistent with a mixed acid-base disturbance, including a respiratory alkalosis, and mild metabolic acidosis. The patient remains on propofol at 40 mcg/kg/min, norepinephrine at 23 mcg/min, vasopressin at 0.03 units/min, and lactated Ringer's at 150 cc an hour. The patient continues on cefepime, and Flagyl. The patient is also on oral vancomycin. I have asked the nurse, to talk to dietary about a possible TPN preparation. Current labs include a white count 45.4, hemoglobin 9.9, hematocrit 32.1, and a platelet count of 741,000. Sodium 130, potassium 4.3, chlorides 104, CO2 16, anion gap 10, BUN and creatinine were 26 and 1.71. Glucose is 117. Ionized calcium was low at 4.2. Cortisol was 83. Blood cultures, and stool sampling, has thus far been negative. Chest x-ray shows no major changes. There may be some left basilar atelectasis, or infiltrate. Progress note dated January 02, 2024. 33-year-old male who is seen today in the intensive care unit, room 264. The patient remains on mechanical ventilator. He is on volume assist-control, rate 20, tidal volume 450, FiO2 40%, to be reduced down to 30%, with a PEEP of 5. Blood gases show pO2 126, pCO2 39, and pH is 7.43. The patient is on half- normal saline with 2 ampoules of sodium bicarb and at 100 cc an hour. The patient is also on norepinephrine at 13 mcg/min, and vasopressin at 0.03 units/min. Additionally, the patient is on propofol at 50 mcg/kg/min, and TPN at 30 cc an hour. The patient continues on cefepime, vancomycin, and Flagyl. Current labs include a white count of 49.4, hemoglobin 7.2, hematocrit 22.3, and a platelet count of 422,000. Sodium 131, potassium 3.6, chlorides 102, CO2 23, BUN 34, and creatinine 1.74. Albumin is 1.7. All culture material is negative. Chest x-ray shows the endotracheal tube, high in the trachea. There is also a left-sided pleural effusion, with atelectasis. Objective - Vital Signs Vital signs: Vital Signs Temp 98.1 F 01/02/24 08:00 Pulse 90 01/02/24 11:53 Resp 22 01/02/24 08:15 BP 111/60 01/02/24 00:00 Pulse Ox 98 01/02/24 08:15 FiO2 30 01/02/24 11:10 Intake & Output 01/01/24 01/02/24 01/02/24 18:59 06:59 18:59 Intake Total 2426.822 2305.081 318.19 Output Total 1165 1690 155 Balance 1261.822 615.081 163.19 Weight 118.6 kg 121.6 kg Intake: IV 1856 1316 206 Cefepime 2 gm In Sodium 200 Chloride 0.9% 100 ml @ 25 mls/hr IVPB Q8HR [facility] Rx# :[id number] KVO 130 80 Lactated Ringers 1,000 ml 690 @ 150 mls/hr IV .Q6H40M [facility] Rx#:[id number] Sodium Chloride 0.45% 1, 600 1200 200 000 ml @ 100 mls/hr IV . Q11H [facility] with Sodium Bicarb (1 Meq/ml) 100 ml Rx#:[id number] metroNIDAZOLE-NS PMX 500 200 mg In Saline 1 100ml.bag @ 100 mls/hr IVPB Q8HR [facility] Rx#:[id number] pressure bag 36 36 6 Intake, IV Titration 420.822 429.081 112.19 Amount Norepinephrine 32 mg In 138.954 102.256 Sodium Chloride 0.9% 218 ml @ 0.03 MCG/KG/MIN 1. 371 mls/hr IV .Q24H [facility] Rx#:[id number] Vasopressin 20 unit In 84.737 51 Sodium Chloride 0.9% 50 ml @ 0.04 UNITS/MIN 6.12 mls/hr IV .Q8H20M [facility] Rx# :[id number] propofoL 1,000 mg In 197.131 275.825 112.19 Empty Bag 1 bag @ 15 MCG/ KG/MIN 8.777 mls/hr IV . [id number] [facility] Rx#:[id number] TPN/PPN 150 560 Cefepime 2 gm In Sodium 100 Chloride 0.9% 100 ml @ 25 mls/hr IVPB Q8HR [facility] Rx# :[id number] Mvi, Adult No.4 with Vit 150 360 K 10 ml Trace (Conc-1Ml/ Dose) 1 ml Sodium Acetate 40 meq Potassium Chloride 20 meq Calcium Gluconate 1 gm Magnesium Sulfate gm 1.5 gm In Amino Acids 5 %/Dextrose 20 % 1,000 ml @ 30 mls/hr IV .Q24H [facility] Rx#: [id number] metroNIDAZOLE-NS PMX 500 100 mg In Saline 1 100ml.bag @ 100 mls/hr IVPB Q8HR [facility] Rx#:[id number] Output: Gastric Drainage 800 Urine 365 1690 155 Other: Voiding Method Indwelling Catheter Indwelling Catheter ABP, PAP, CO, CI - Last Documented Arterial Blood Pressure 106/56 - Exam No acute distress, sedated and intubated with an NG tube in place. HEENT examination is grossly unremarkable. Neck supple. Full range of motion. No adenopathy thyromegaly or neck vein distention. Cardiovascular examination reveals regular rhythm rate. S1-S2 normal. No S3 or S4. No discernible murmur noted. Heart rate is 90 bpm. Lungs reveal clear breath sounds. Breath sounds are equal bilaterally. No adventitious lung sounds including wheezes rhonchi or crackles. Saturations are 98 %. Abdomen soft without bowel sounds. Ileostomy is noted. Extremities are intact. No cyanosis clubbing or edema. Skin is without rash or lesion. Neurologic examination cannot be assessed at this time. - Labs CBC & Chem 7: 01/02/24 04:45 01/02/24 04:45 Labs: Abnormal Lab Results - Last 24 Hours (Table) 01/01/24 01/01/24 01/01/24 Range/Units 01:30 12:50 17:36 WBC (3.8-10.6) k/uL RBC (4.30-5.90) m/uL Hgb (13.0-17.5) gm/dL Hct (39.0-53.0) % Neutrophils # (Manual) (1.3-7.7) k/uL Lymphocytes # (Manual) (1.0-4.8) k/uL Metamyelocytes # (Man) (0) k/uL Myelocytes # (Manual) (0) k/uL ABG pO2 (83-108) mmHg ABG HCO3 (21-25) mmol/L ABG Total CO2 (19-24) mmol/L ABG O2 Saturation (94-97) % Sodium 129 L (137-145) mmol/L BUN (9-20) mg/dL Creatinine (0.66-1.25) mg/dL Glucose (74-99) mg/dL POC Glucose (mg/dL) 140 H (70-110) mg/dL Calcium (8.4-10.2) mg/dL Total Protein (6.3-8.2) g/dL Albumin (3.5-5.0) g/dL Triglycerides 209.00 H (0.00-149.00) mg/dL 01/01/24 01/01/24 01/01/24 Range/Units 18:30 22:50 22:56 WBC (3.8-10.6) k/uL RBC (4.30-5.90) m/uL Hgb (13.0-17.5) gm/dL Hct (39.0-53.0) % Neutrophils # (Manual) (1.3-7.7) k/uL Lymphocytes # (Manual) (1.0-4.8) k/uL Metamyelocytes # (Man) (0) k/uL Myelocytes # (Manual) (0) k/uL ABG pO2 (83-108) mmHg ABG HCO3 (21-25) mmol/L ABG Total CO2 (19-24) mmol/L ABG O2 Saturation (94-97) % Sodium 130 L (137-145) mmol/L BUN (9-20) mg/dL Creatinine (0.66-1.25) mg/dL Glucose (74-99) mg/dL POC Glucose (mg/dL) 192 H 207 H (70-110) mg/dL Calcium (8.4-10.2) mg/dL Total Protein (6.3-8.2) g/dL Albumin (3.5-5.0) g/dL Triglycerides (0.00-149.00) mg/dL 01/01/24 01/02/24 01/02/24 Range/Units 23:29 04:45 04:45 WBC 49.4 H (3.8-10.6) k/uL RBC 2.33 L (4.30-5.90) m/uL Hgb 7.2 L D (13.0-17.5) gm/dL Hct 22.3 L (39.0-53.0) % Neutrophils # (Manual) 47.90 H (1.3-7.7) k/uL Lymphocytes # (Manual) 0.49 L (1.0-4.8) k/uL Metamyelocytes # (Man) 0.49 H (0) k/uL Myelocytes # (Manual) 0.49 H (0) k/uL ABG pO2 (83-108) mmHg ABG HCO3 (21-25) mmol/L ABG Total CO2 (19-24) mmol/L ABG O2 Saturation (94-97) % Sodium 131 L (137-145) mmol/L BUN 34 H (9-20) mg/dL Creatinine 1.74 H (0.66-1.25) mg/dL Glucose 171 H (74-99) mg/dL POC Glucose (mg/dL) 197 H (70-110) mg/dL Calcium 6.8 L (8.4-10.2) mg/dL Total Protein 3.6 L (6.3-8.2) g/dL Albumin 1.7 L (3.5-5.0) g/dL Triglycerides (0.00-149.00) mg/dL 01/02/24 01/02/24 01/02/24 Range/Units 06:36 06:53 11:51 WBC (3.8-10.6) k/uL RBC (4.30-5.90) m/uL Hgb (13.0-17.5) gm/dL Hct (39.0-53.0) % Neutrophils # (Manual) (1.3-7.7) k/uL Lymphocytes # (Manual) (1.0-4.8) k/uL Metamyelocytes # (Man) (0) k/uL Myelocytes # (Manual) (0) k/uL ABG pO2 126 H (83-108) mmHg ABG HCO3 26 H (21-25) mmol/L ABG Total CO2 27 H (19-24) mmol/L ABG O2 Saturation 99.0 H (94-97) % Sodium (137-145) mmol/L BUN (9-20) mg/dL Creatinine (0.66-1.25) mg/dL Glucose (74-99) mg/dL POC Glucose (mg/dL) 205 H 180 H (70-110) mg/dL Calcium (8.4-10.2) mg/dL Total Protein (6.3-8.2) g/dL Albumin (3.5-5.0) g/dL Triglycerides (0.00-149.00) mg/dL Microbiology - Last 24 Hours (Table) 12/31/23 15:53 Gram Stain - Preliminary Sputum Assessment and Plan Assessment: Postoperative day #3, S/P subtotal colectomy with ileostomy, for fulminant pancolitis. Routine postoperative ventilator management. Possible relative adrenal insufficiency. Non-anion gap metabolic acidosis. Previous history of pancreatitis. History of hypertension. History of hyperlipidemia. Plan: Plan dated December 30, 2026. The patient is seen today in the intensive care unit, room 264. The patient was extubated in the operating room, and reintubated in minutes, in the recovery area. The patient remains intubated. An arterial line was placed by anesthesia. I placed a left subclavian triple-lumen catheter. The patient is receiving lactated Ringer's at 150 cc an hour. The patient is on propofol at 15 mcg/kg/min. Will add DuoNebs, every 4 [id number]. In addition, the patient will have a repeat blood gas. The patient is running on vancomycin, cefepime, and Flagyl. We will continue to follow make recommendations. Prognosis is guarded. We will use 1 port of the central venous catheter for central venous pressure measurements. Plan dated January 01, 2024. The patient is seen again in the intensive care unit, room 264. He remains on the ventilator. Blood gases are adequate, with a pO2 116, pCO2 31, pH is 7.4. The patient remains on propofol at 40 mcg/kg/min, norepinephrine 23 mcg/min, and vasopressin at 0.03 units/min. The patient is also receiving lactated Ringer's at 150 cc an hour. The patient continues on cefepime and Flagyl. Also, the patient is on oral vancomycin. Yesterday, we gave the patient 100 mg of hydrocortisone IV push, and started the patient on hydrocortisone 50 mg every 6 hours. The patient seems to have responded to it, as his pressor requirements have gone down. We will continue to follow make recommendations along the way. Labs, x-rays, and medications are reviewed. Prognosis is guarded. Plan dated January 02, 2024. The patient is critically ill but stable. He remains on norepinephrine at 13 mcg/min, and vasopressin at 0.03 units/min. The patient is getting TPN at 30 cc an hour. He continues on cefepime, vancomycin, and Flagyl. For sedation he is getting propofol at 50 mcg/kg/min. Blood gases show pO2 126, pCO2 of 39, pH of 7.43. We will continue to follow the patient, make recommendations along the way. The patient's overall prognosis remains very guarded. All culture data is thus far negative. Time with Patient: Greater than 30
[2024-01-02] MEDS ORDERED: 1: MVI, ADULT NO.4 WITH VIT K 10 ML, TRACE (CONC-1ML/DOSE) 1 ML, SODIUM ACETATE 30 MEQ, IV SCH (14:00)
--- NOTE | 2024-01-02 14:42 | P.PN ---
Subjective Progress Note Date: 01/02/24 Principal diagnosis: patient remains on the ventilator in the ICU. He has decreased his pressor support. He is still intubated. There is been no significant output through the cileostomy. Objective - Vital Signs Vital signs: Vital Signs Temp 97.9 F 01/02/24 12:00 Pulse 86 01/02/24 14:15 Resp 1 L 01/02/24 14:15 BP 111/60 01/02/24 00:00 Pulse Ox 97 01/02/24 14:15 FiO2 30 01/02/24 12:00 Intake & Output 01/01/24 01/02/24 01/02/24 18:59 06:59 18:59 Intake Total 2426.822 2305.081 1069.234 Output Total 1165 1690 402 Balance 1261.822 615.081 667.234 Weight 118.6 kg 121.6 kg 121.6 kg Intake: IV 1856 1316 571 Cefepime 2 gm In Sodium 200 100 Chloride 0.9% 100 ml @ 25 mls/hr IVPB Q8HR [facility] Rx# :[id number] KVO 130 80 Lactated Ringers 1,000 ml 690 @ 150 mls/hr IV .Q6H40M [facility] Rx#:[id number] Mvi, Adult No.4 with Vit 150 K 10 ml Trace (Conc-1Ml/ Dose) 1 ml Sodium Acetate 40 meq Potassium Chloride 20 meq Calcium Gluconate 1 gm Magnesium Sulfate gm 1.5 gm In Amino Acids 5 %/Dextrose 20 % 1,000 ml @ 30 mls/hr IV .Q24H [facility] Rx#: [id number] Sodium Chloride 0.45% 1, 600 1200 200 000 ml @ 100 mls/hr IV . Q11H [facility] with Sodium Bicarb (1 Meq/ml) 100 ml Rx#:[id number] metroNIDAZOLE-NS PMX 500 200 100 mg In Saline 1 100ml.bag @ 100 mls/hr IVPB Q8HR [facility] Rx#:[id number] pressure bag 36 36 21 Intake, IV Titration 420.822 429.081 498.234 Amount Norepinephrine 32 mg In 138.954 102.256 Sodium Chloride 0.9% 218 ml @ 0.03 MCG/KG/MIN 1. 371 mls/hr IV .Q24H [facility] Rx#:[id number] Sodium Chloride 0.45% 1, 250 000 ml @ 100 mls/hr IV . Q11H [facility] with Sodium Bicarb (1 Meq/ml) 100 ml Rx#:[id number] Vasopressin 20 unit In 84.737 51 Sodium Chloride 0.9% 50 ml @ 0.04 UNITS/MIN 6.12 mls/hr IV .Q8H20M [facility] Rx# :[id number] propofoL 1,000 mg In 197.131 275.825 248.234 Empty Bag 1 bag @ 15 MCG/ KG/MIN 8.777 mls/hr IV . [id number] [facility] Rx#:[id number] TPN/PPN 150 560 Cefepime 2 gm In Sodium 100 Chloride 0.9% 100 ml @ 25 mls/hr IVPB Q8HR [facility] Rx# :[id number] Mvi, Adult No.4 with Vit 150 360 K 10 ml Trace (Conc-1Ml/ Dose) 1 ml Sodium Acetate 40 meq Potassium Chloride 20 meq Calcium Gluconate 1 gm Magnesium Sulfate gm 1.5 gm In Amino Acids 5 %/Dextrose 20 % 1,000 ml @ 30 mls/hr IV .Q24H [facility] Rx#: [id number] metroNIDAZOLE-NS PMX 500 100 mg In Saline 1 100ml.bag @ 100 mls/hr IVPB Q8HR [facility] Rx#:[id number] Output: Gastric Drainage 800 Urine 365 1690 402 Other: Voiding Method Indwelling Catheter Indwelling Catheter Indwelling Catheter ABP, PAP, CO, CI - Last Documented Arterial Blood Pressure 97/62 - Gastrointestinal Gastrointestinal Comment(s): abdomen soft. Incision is clean dry intact. Ileostomy is pink. - Labs CBC & Chem 7: 01/02/24 04:45 01/02/24 04:45 Labs: Abnormal Lab Results - Last 24 Hours (Table) 01/01/24 01/01/24 01/01/24 Range/Units 01:30 17:36 18:30 WBC (3.8-10.6) k/uL RBC (4.30-5.90) m/uL Hgb (13.0-17.5) gm/dL Hct (39.0-53.0) % Neutrophils # (Manual) (1.3-7.7) k/uL Lymphocytes # (Manual) (1.0-4.8) k/uL Metamyelocytes # (Man) (0) k/uL Myelocytes # (Manual) (0) k/uL ABG pO2 (83-108) mmHg ABG HCO3 (21-25) mmol/L ABG Total CO2 (19-24) mmol/L ABG O2 Saturation (94-97) % Sodium 129 L (137-145) mmol/L BUN (9-20) mg/dL Creatinine (0.66-1.25) mg/dL Glucose (74-99) mg/dL POC Glucose (mg/dL) 192 H (70-110) mg/dL Calcium (8.4-10.2) mg/dL Total Protein (6.3-8.2) g/dL Albumin (3.5-5.0) g/dL Triglycerides 209.00 H (0.00-149.00) mg/dL 01/01/24 01/01/24 01/01/24 Range/Units 22:50 22:56 23:29 WBC (3.8-10.6) k/uL RBC (4.30-5.90) m/uL Hgb (13.0-17.5) gm/dL Hct (39.0-53.0) % Neutrophils # (Manual) (1.3-7.7) k/uL Lymphocytes # (Manual) (1.0-4.8) k/uL Metamyelocytes # (Man) (0) k/uL Myelocytes # (Manual) (0) k/uL ABG pO2 (83-108) mmHg ABG HCO3 (21-25) mmol/L ABG Total CO2 (19-24) mmol/L ABG O2 Saturation (94-97) % Sodium 130 L (137-145) mmol/L BUN (9-20) mg/dL Creatinine (0.66-1.25) mg/dL Glucose (74-99) mg/dL POC Glucose (mg/dL) 207 H 197 H (70-110) mg/dL Calcium (8.4-10.2) mg/dL Total Protein (6.3-8.2) g/dL Albumin (3.5-5.0) g/dL Triglycerides (0.00-149.00) mg/dL 01/02/24 01/02/24 01/02/24 Range/Units 04:45 04:45 06:36 WBC 49.4 H (3.8-10.6) k/uL RBC 2.33 L (4.30-5.90) m/uL Hgb 7.2 L D (13.0-17.5) gm/dL Hct 22.3 L (39.0-53.0) % Neutrophils # (Manual) 47.90 H (1.3-7.7) k/uL Lymphocytes # (Manual) 0.49 L (1.0-4.8) k/uL Metamyelocytes # (Man) 0.49 H (0) k/uL Myelocytes # (Manual) 0.49 H (0) k/uL ABG pO2 126 H (83-108) mmHg ABG HCO3 26 H (21-25) mmol/L ABG Total CO2 27 H (19-24) mmol/L ABG O2 Saturation 99.0 H (94-97) % Sodium 131 L (137-145) mmol/L BUN 34 H (9-20) mg/dL Creatinine 1.74 H (0.66-1.25) mg/dL Glucose 171 H (74-99) mg/dL POC Glucose (mg/dL) (70-110) mg/dL Calcium 6.8 L (8.4-10.2) mg/dL Total Protein 3.6 L (6.3-8.2) g/dL Albumin 1.7 L (3.5-5.0) g/dL Triglycerides (0.00-149.00) mg/dL 01/02/24 01/02/24 Range/Units 06:53 11:51 WBC (3.8-10.6) k/uL RBC (4.30-5.90) m/uL Hgb (13.0-17.5) gm/dL Hct (39.0-53.0) % Neutrophils # (Manual) (1.3-7.7) k/uL Lymphocytes # (Manual) (1.0-4.8) k/uL Metamyelocytes # (Man) (0) k/uL Myelocytes # (Manual) (0) k/uL ABG pO2 (83-108) mmHg ABG HCO3 (21-25) mmol/L ABG Total CO2 (19-24) mmol/L ABG O2 Saturation (94-97) % Sodium (137-145) mmol/L BUN (9-20) mg/dL Creatinine (0.66-1.25) mg/dL Glucose (74-99) mg/dL POC Glucose (mg/dL) 205 H 180 H (70-110) mg/dL Calcium (8.4-10.2) mg/dL Total Protein (6.3-8.2) g/dL Albumin (3.5-5.0) g/dL Triglycerides (0.00-149.00) mg/dL Microbiology - Last 24 Hours (Table) 12/31/23 15:53 Gram Stain - Preliminary Sputum Assessment and Plan Assessment: status post subtotal colectomy for fulminant pancolitis. Patient is still extremely sick. He'll K receive supportive care.
[2024-01-02 15:32] LABS: HCT 21.2 % (39.0-53.0); Hypochromasia Slight; MCH 30.1 pg (25.0-35.0); MCHC 31.3 g/dL (31.0-37.0); MCV 96.2 fL (80.0-100.0); Mean Platelet Volume 7.7; Platelet Count 375 k/uL (150-450); RDW 14.3 % (11.5-15.5)
[2024-01-02 15:36] LABS: HGB 6.6 gm/dL (13.0-17.5)
--- NOTE | 2024-01-02 15:57 | P.PN ---
Subjective Progress Note Date: 01/02/24 Principal diagnosis: Reason for follow-up is pancolitis and leukocytosis Patient is a 33-year-old -Turkish male with a past medical history negative for hypertension hyperlipidemia and pancreatitis that was diagnosed about 2 months ago on 11/05/2023 however the patient mention he was not admitted for it patient presented back to [facility] ER on 12/25/2023 for дмитрий luation of abdominal pain diarrhea patient did have evidence of worsening pancolitis on the CT prompting this consultation. 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 On today's evaluation that is 01/02/2024,the patient remains to be afebrile, patient is on ventilator FiO2 is down to 30% patient requiring less pressor support compared to yesterday no output in the ileostomy or through the rectum while the change reported by the nursing staff. Patient white count is 49.4 creatinine is 1.74 blood culture has been negative Objective - Vital Signs Vital signs: Vital Signs Temp 98.1 F 01/02/24 08:00 Pulse 90 01/02/24 11:53 Resp 22 01/02/24 08:15 BP 111/60 01/02/24 00:00 Pulse Ox 98 01/02/24 08:15 FiO2 30 01/02/24 12:00 Intake & Output 01/01/24 01/02/24 01/02/24 18:59 06:59 18:59 Intake Total 2426.822 2305.081 404.205 Output Total 1165 1690 155 Balance 1261.822 615.081 249.205 Weight 118.6 kg 121.6 kg 121.6 kg Intake: IV 1856 1316 206 Cefepime 2 gm In Sodium 200 Chloride 0.9% 100 ml @ 25 mls/hr IVPB Q8HR [facility] Rx# :[id number] KVO 130 80 Lactated Ringers 1,000 ml 690 @ 150 mls/hr IV .Q6H40M [facility] Rx#:[id number] Sodium Chloride 0.45% 1, 600 1200 200 000 ml @ 100 mls/hr IV . Q11H [facility] with Sodium Bicarb (1 Meq/ml) 100 ml Rx#:[id number] metroNIDAZOLE-NS PMX 500 200 mg In Saline 1 100ml.bag @ 100 mls/hr IVPB Q8HR [facility] Rx#:[id number] pressure bag 36 36 6 Intake, IV Titration 420.822 429.081 198.205 Amount Norepinephrine 32 mg In 138.954 102.256 Sodium Chloride 0.9% 218 ml @ 0.03 MCG/KG/MIN 1. 371 mls/hr IV .Q24H [facility] Rx#:[id number] Vasopressin 20 unit In 84.737 51 Sodium Chloride 0.9% 50 ml @ 0.04 UNITS/MIN 6.12 mls/hr IV .Q8H20M [facility] Rx# :[id number] propofoL 1,000 mg In 197.131 275.825 198.205 Empty Bag 1 bag @ 15 MCG/ KG/MIN 8.777 mls/hr IV . [id number] [facility] Rx#:[id number] TPN/PPN 150 560 Cefepime 2 gm In Sodium 100 Chloride 0.9% 100 ml @ 25 mls/hr IVPB Q8HR [facility] Rx# :[id number] Mvi, Adult No.4 with Vit 150 360 K 10 ml Trace (Conc-1Ml/ Dose) 1 ml Sodium Acetate 40 meq Potassium Chloride 20 meq Calcium Gluconate 1 gm Magnesium Sulfate gm 1.5 gm In Amino Acids 5 %/Dextrose 20 % 1,000 ml @ 30 mls/hr IV .Q24H [facility] Rx#: [id number] metroNIDAZOLE-NS PMX 500 100 mg In Saline 1 100ml.bag @ 100 mls/hr IVPB Q8HR [facility] Rx#:[id number] Output: Gastric Drainage 800 Urine 365 1690 155 Other: Voiding Method Indwelling Catheter Indwelling Catheter ABP, PAP, CO, CI - Last Documented Arterial Blood Pressure 106/56 - Exam GENERAL DESCRIPTION: Middle-age male intubated on the vent RESPIRATORY SYSTEM: Unlabored breathing , decreased breath sounds at bases HEART: S1 S2 regular rate and rhythm , ABDOMEN: Soft , no tenderness EXTREMITIES: No edema feet - Labs CBC & Chem 7: 01/02/24 15:15 01/02/24 04:45 Labs: Abnormal Lab Results - Last 24 Hours (Table) 01/01/24 01/01/24 01/01/24 Range/Units 01:30 17:36 18:30 WBC (3.8-10.6) k/uL RBC (4.30-5.90) m/uL Hgb (13.0-17.5) gm/dL Hct (39.0-53.0) % Neutrophils # (Manual) (1.3-7.7) k/uL Lymphocytes # (Manual) (1.0-4.8) k/uL Metamyelocytes # (Man) (0) k/uL Myelocytes # (Manual) (0) k/uL ABG pO2 (83-108) mmHg ABG HCO3 (21-25) mmol/L ABG Total CO2 (19-24) mmol/L ABG O2 Saturation (94-97) % Sodium 129 L (137-145) mmol/L BUN (9-20) mg/dL Creatinine (0.66-1.25) mg/dL Glucose (74-99) mg/dL POC Glucose (mg/dL) 192 H (70-110) mg/dL Calcium (8.4-10.2) mg/dL Total Protein (6.3-8.2) g/dL Albumin (3.5-5.0) g/dL Triglycerides 209.00 H (0.00-149.00) mg/dL 01/01/24 01/01/24 01/01/24 Range/Units 22:50 22:56 23:29 WBC (3.8-10.6) k/uL RBC (4.30-5.90) m/uL Hgb (13.0-17.5) gm/dL Hct (39.0-53.0) % Neutrophils # (Manual) (1.3-7.7) k/uL Lymphocytes # (Manual) (1.0-4.8) k/uL Metamyelocytes # (Man) (0) k/uL Myelocytes # (Manual) (0) k/uL ABG pO2 (83-108) mmHg ABG HCO3 (21-25) mmol/L ABG Total CO2 (19-24) mmol/L ABG O2 Saturation (94-97) % Sodium 130 L (137-145) mmol/L BUN (9-20) mg/dL Creatinine (0.66-1.25) mg/dL Glucose (74-99) mg/dL POC Glucose (mg/dL) 207 H 197 H (70-110) mg/dL Calcium (8.4-10.2) mg/dL Total Protein (6.3-8.2) g/dL Albumin (3.5-5.0) g/dL Triglycerides (0.00-149.00) mg/dL 01/02/24 01/02/24 01/02/24 Range/Units 04:45 04:45 06:36 WBC 49.4 H (3.8-10.6) k/uL RBC 2.33 L (4.30-5.90) m/uL Hgb 7.2 L D (13.0-17.5) gm/dL Hct 22.3 L (39.0-53.0) % Neutrophils # (Manual) 47.90 H (1.3-7.7) k/uL Lymphocytes # (Manual) 0.49 L (1.0-4.8) k/uL Metamyelocytes # (Man) 0.49 H (0) k/uL Myelocytes # (Manual) 0.49 H (0) k/uL ABG pO2 126 H (83-108) mmHg ABG HCO3 26 H (21-25) mmol/L ABG Total CO2 27 H (19-24) mmol/L ABG O2 Saturation 99.0 H (94-97) % Sodium 131 L (137-145) mmol/L BUN 34 H (9-20) mg/dL Creatinine 1.74 H (0.66-1.25) mg/dL Glucose 171 H (74-99) mg/dL POC Glucose (mg/dL) (70-110) mg/dL Calcium 6.8 L (8.4-10.2) mg/dL Total Protein 3.6 L (6.3-8.2) g/dL Albumin 1.7 L (3.5-5.0) g/dL Triglycerides (0.00-149.00) mg/dL 01/02/24 01/02/24 Range/Units 06:53 11:51 WBC (3.8-10.6) k/uL RBC (4.30-5.90) m/uL Hgb (13.0-17.5) gm/dL Hct (39.0-53.0) % Neutrophils # (Manual) (1.3-7.7) k/uL Lymphocytes # (Manual) (1.0-4.8) k/uL Metamyelocytes # (Man) (0) k/uL Myelocytes # (Manual) (0) k/uL ABG pO2 (83-108) mmHg ABG HCO3 (21-25) mmol/L ABG Total CO2 (19-24) mmol/L ABG O2 Saturation (94-97) % Sodium (137-145) mmol/L BUN (9-20) mg/dL Creatinine (0.66-1.25) mg/dL Glucose (74-99) mg/dL POC Glucose (mg/dL) 205 H 180 H (70-110) mg/dL Calcium (8.4-10.2) mg/dL Total Protein (6.3-8.2) g/dL Albumin (3.5-5.0) g/dL Triglycerides (0.00-149.00) mg/dL Microbiology - Last 24 Hours (Table) 12/31/23 15:53 Gram Stain - Preliminary Sputum Assessment and Plan (1) Leukocytosis Current Visit: Yes Status: Acute Code(s): D72.829 - ELEVATED WHITE BLOOD CELL COUNT, UNSPECIFIED SNOMED Code(s): 226816088 (2) Pancolitis Current Visit: Yes Status: Acute Code(s): K51.00 - ULCERATIVE (CHRONIC) PANCOLITIS WITHOUT COMPLICATIONS SNOMED Code(s): 364157469 Plan: 1patient with a complicated history as for as evidence of severe pancolitis on the CT that was completed 12/29/2023 and also have worsening of the white count patient apparently was diagnosed with pancreatitis on 11/05/2023 however the patient was not admitted and mention has not received an antibiotic therapy f eatures are highly suspicious for pseudomembranous colitis though initial testing was negative other infectious etiology need to be ruled out as well 2-stool for C. difficile PCR has been requested unfortunately not collected and the patient is status post subtotal colectomy completed morning of 12/31/2023 biopsy results currently pending 3-patient did have worsening leukocytosis, hydrocortisone more likely contributing some of the elevated white count patient is requiring less pressor support and is afebrile we will continue patient on cefepime Flagyl and vancomycin Care discussed with the surgeon as well as the family at the bedside Dictation was produced using [employer] software. please excuse any grammatical, word or spelling errors. Time with Patient: Greater than 30
[2024-01-02] MEDS: MVI, ADULT NO.4 WITH VIT K 10 ML, TRACE (CONC-1ML/DOSE) 1 ML, SODIUM ACETATE 30 MEQ, PO... IV SCH (16:11)
[2024-01-02 18:00] LABS: Glucose,Whole Blood 183 mg/dL (70-110)
[2024-01-02 20:07] LABS: Glucose,Whole Blood 180 mg/dL (70-110)
[2024-01-03 00:49] LABS: Glucose,Whole Blood 196 mg/dL (70-110)
[2024-01-03 05:18] LABS: Glucose,Whole Blood 197 mg/dL (70-110)
[2024-01-03 05:42] LABS: ALT 12 U/L (4-49); AST 25 U/L (17-59); African American GFR (CKD) >90 (>60 ml/min/1.73 sqM); Albumin 1.9 g/dL (3.5-5.0); Alkaline Phosphatase 111 U/L (38-126); Anion Gap 6 mmol/L; Blood Urea Nitrogen 36 mg/dL (9-20); Calcium 7.1 mg/dL (8.4-10.2); Carbon Dioxide 23 mmol/L (22-30); Chloride 103 mmol/L (98-107); Glucose 164 mg/dL (74-99); Magnesium 2.2 mg/dL (1.6-2.3); Non-African American GFR(CKD) 88 (>60 ml/min/1.73 sqM); Phosphorus 2.1 mg/dL (2.5-4.5); Potassium 3.7 mmol/L (3.5-5.1); Sodium 132 mmol/L (137-145); Total Bilirubin 0.8 mg/dL (0.2-1.3); Total Protein 4.1 g/dL (6.3-8.2)
[2024-01-03] MEDS ORDERED: Potassium Replacement Protocol 1 EACH MISC MISCELLANE PRN (05:48)
[2024-01-03 06:08] LABS: HCT 22.9 % (39.0-53.0); HGB 7.5 gm/dL (13.0-17.5); Hypochromasia Moderate; MCH 30.7 pg (25.0-35.0); MCHC 32.6 g/dL (31.0-37.0); MCV 94.2 fL (80.0-100.0); Mean Platelet Volume 8.3; Platelet Count 344 k/uL (150-450); Poikilocytosis Slight; RBC 2.43 m/uL (4.30-5.90); RDW 15.3 % (11.5-15.5)
[2024-01-03 06:20] LABS: ABG Base Excess 2.5 mmol/L; ABG HCO3 27 mmol/L (21-25); ABG Oxygen Saturation 98.5 % (94-97); ABG PCO2 39 mmHg (35-45); ABG PH 7.44 (7.35-7.45); ABG PO2 100 mmHg (83-108); ABG TCO2 28 mmol/L (19-24); Allen Test Performed? Yes
[2024-01-03] MEDS: POTASSIUM CHLORIDE 20 MEQ in WATER FOR INJECTION 1 100ML.BAG IVPB ONE (06:23)
[2024-01-03 07:34] LABS: Band Neutrophils % 4 %; Metamyelocytes % 3 %; Monocytes # (M) 0.44 k/uL (0-1.0); Myelocytes # (M) 0.44 k/uL (0); Myelocytes % 1 %; Neutrophils % (M) 85 %; Nucleated Red Blood Cells 1 /100 WBC (0-0); Total Cells Counted 200
[2024-01-03 07:35] LABS: Metamyelocytes # (M) 1.31 k/uL (0); WBC 43.7 k/uL (3.8-10.6)
[2024-01-03] MEDS: SODIUM PHOSPHATE 15 MMOL in DEXTROSE 5% IN WATER 250 ML IVPB ONE (08:16)
--- NOTE | 2024-01-03 09:08 | P.PN ---
Subjective Patient is seen in follow-up for acute kidney injury. Renal function better today. Intubated. On Levophed and vasopressin. Receiving TPN. Also received a unit of blood yesterday. Hemoglobin better today. Vital signs are stable. On vasopressor support. General: Resting in bed. HEENT: Head exam is unremarkable. Intubated. NG tube noted. LUNGS: Scattered rhonchi. HEART: Rate and Rhythm are regular. ABDOMEN: No distention. EXTREMITITES: 2+ edema. Objective - Vital Signs Vital signs: Vital Signs Temp 97.6 F 01/03/24 08:00 Pulse 90 01/03/24 08:40 Resp 26 H 01/03/24 08:00 BP 135/68 01/02/24 20:00 Pulse Ox 97 01/03/24 08:00 FiO2 30 01/03/24 08:28 Intake & Output 01/02/24 01/03/24 01/03/24 18:59 06:59 18:59 Intake Total 1685.411 901.020 71 Output Total 595 757 75 Balance 1090.411 144.020 -4 Weight 121.6 kg 122.2 kg Intake: IV 813 36 71 Cefepime 2 gm In Sodium 200 Chloride 0.9% 100 ml @ 25 mls/hr IVPB Q8HR [facility] Rx# :[id number] KVO 10 Mvi, Adult No.4 with Vit 180 55 K 10 ml Trace (Conc-1Ml/ Dose) 1 ml Sodium Acetate 40 meq Potassium Chloride 20 meq Calcium Gluconate 1 gm Magnesium Sulfate gm 1.5 gm In Amino Acids 5 %/Dextrose 20 % 1,000 ml @ 30 mls/hr IV .Q24H [facility] Rx#: [id number] Sodium Chloride 0.45% 1, 200 000 ml @ 100 mls/hr IV . Q11H [facility] with Sodium Bicarb (1 Meq/ml) 100 ml Rx#:[id number] metroNIDAZOLE-NS PMX 500 200 mg In Saline 1 100ml.bag @ 100 mls/hr IVPB Q8HR [facility] Rx#:[id number] pressure bag 33 36 6 Intake, IV Titration 762.411 580.020 Amount Mvi, Adult No.4 with Vit 110 385 K 10 ml Trace (Conc-1Ml/ Dose) 1 ml Sodium Acetate 30 meq Potassium Chloride 20 meq Calcium Gluconate 1 gm Magnesium Sulfate gm 1 gm In Amino Acid 5%-D15w 1,000 ml @ 55 mls/hr IV .Q19H4M [facility] Rx#:[id number] Norepinephrine 32 mg In 56.733 44.020 Sodium Chloride 0.9% 218 ml @ 0.03 MCG/KG/MIN 1. 371 mls/hr IV .Q24H [facility] Rx#:[id number] Sodium Chloride 0.45% 1, 300 000 ml @ 100 mls/hr IV . Q11H [facility] with Sodium Bicarb (1 Meq/ml) 100 ml Rx#:[id number] Vasopressin 20 unit In 51 Sodium Chloride 0.9% 50 ml @ 0.04 UNITS/MIN 6.12 mls/hr IV .Q8H20M [facility] Rx# :[id number] propofoL 1,000 mg In 295.678 100 Empty Bag 1 bag @ 15 MCG/ KG/MIN 8.777 mls/hr IV . [id number] [facility] Rx#:[id number] Blood Product 0 285 Rc Pheresis 2 As3 Unit 0 285 [id number] Other 110 Output: Gastric Drainage 200 Urine 595 557 75 Other: Voiding Method Indwelling Catheter Indwelling Catheter Indwelling Catheter ABP, PAP, CO, CI - Last Documented Arterial Blood Pressure 156/86 - Labs CBC & Chem 7: 01/03/24 05:15 01/03/24 05:15 Labs: Abnormal Lab Results - Last 24 Hours (Table) 12/31/23 01/02/24 01/02/24 Range/Units 05:38 11:51 15:15 WBC 53.0 H* (3.8-10.6) k/uL RBC 2.20 L (4.30-5.90) m/uL Hgb 6.6 L* (13.0-17.5) gm/dL Hct 21.2 L (39.0-53.0) % Neutrophils # (Manual) (1.3-7.7) k/uL Metamyelocytes # (Man) (0) k/uL Myelocytes # (Manual) (0) k/uL Nucleated RBCs (0-0) /100 WBC ABG HCO3 (21-25) mmol/L ABG Total CO2 (19-24) mmol/L ABG O2 Saturation (94-97) % Sodium (137-145) mmol/L BUN (9-20) mg/dL Glucose (74-99) mg/dL POC Glucose (mg/dL) 180 H (70-110) mg/dL Calcium (8.4-10.2) mg/dL Phosphorus (2.5-4.5) mg/dL Total Protein (6.3-8.2) g/dL Albumin (3.5-5.0) g/dL Crossmatch See Detail 01/02/24 01/02/24 01/03/24 Range/Units 17:59 20:05 00:47 WBC (3.8-10.6) k/uL RBC (4.30-5.90) m/uL Hgb (13.0-17.5) gm/dL Hct (39.0-53.0) % Neutrophils # (Manual) (1.3-7.7) k/uL Metamyelocytes # (Man) (0) k/uL Myelocytes # (Manual) (0) k/uL Nucleated RBCs (0-0) /100 WBC ABG HCO3 (21-25) mmol/L ABG Total CO2 (19-24) mmol/L ABG O2 Saturation (94-97) % Sodium (137-145) mmol/L BUN (9-20) mg/dL Glucose (74-99) mg/dL POC Glucose (mg/dL) 183 H 180 H 196 H (70-110) mg/dL Calcium (8.4-10.2) mg/dL Phosphorus (2.5-4.5) mg/dL Total Protein (6.3-8.2) g/dL Albumin (3.5-5.0) g/dL Crossmatch 01/03/24 01/03/24 01/03/24 Range/Units 05:15 05:15 05:16 WBC 43.7 H (3.8-10.6) k/uL RBC 2.43 L (4.30-5.90) m/uL Hgb 7.5 L (13.0-17.5) gm/dL Hct 22.9 L (39.0-53.0) % Neutrophils # (Manual) 38.80 H (1.3-7.7) k/uL Metamyelocytes # (Man) 1.31 H (0) k/uL Myelocytes # (Manual) 0.44 H (0) k/uL Nucleated RBCs 1 H (0-0) /100 WBC ABG HCO3 (21-25) mmol/L ABG Total CO2 (19-24) mmol/L ABG O2 Saturation (94-97) % Sodium 132 L (137-145) mmol/L BUN 36 H (9-20) mg/dL Glucose 164 H (74-99) mg/dL POC Glucose (mg/dL) 197 H (70-110) mg/dL Calcium 7.1 L (8.4-10.2) mg/dL Phosphorus 2.1 L (2.5-4.5) mg/dL Total Protein 4.1 L (6.3-8.2) g/dL Albumin 1.9 L (3.5-5.0) g/dL Crossmatch 01/03/24 Range/Units 06:04 WBC (3.8-10.6) k/uL RBC (4.30-5.90) m/uL Hgb (13.0-17.5) gm/dL Hct (39.0-53.0) % Neutrophils # (Manual) (1.3-7.7) k/uL Metamyelocytes # (Man) (0) k/uL Myelocytes # (Manual) (0) k/uL Nucleated RBCs (0-0) /100 WBC ABG HCO3 27 H (21-25) mmol/L ABG Total CO2 28 H (19-24) mmol/L ABG O2 Saturation 98.5 H (94-97) % Sodium (137-145) mmol/L BUN (9-20) mg/dL Glucose (74-99) mg/dL POC Glucose (mg/dL) (70-110) mg/dL Calcium (8.4-10.2) mg/dL Phosphorus (2.5-4.5) mg/dL Total Protein (6.3-8.2) g/dL Albumin (3.5-5.0) g/dL Crossmatch Microbiology - Last 24 Hours (Table) 12/31/23 15:53 Gram Stain - Preliminary Sputum Sputum Culture - Preliminary Zeina lusitaniae Assessment and Plan Plan: Assessment: 1. Acute kidney injury secondary to ATN secondary to septic shock. Also received IV contrast on December 24 and December 30, 2023. Renal function better. Creatinine 1.11 today. No hydronephrosis noted on CAT scan. 2. 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 3. Volume overload. 4. Acute blood loss anemia status post blood transfusion December 25, 2023. Hemoglobin improved. 5. Hyponatremia secondary to acute kidney injury. Hypervolemic. Plan: Maintain TPN per surgery. Lasix 40 mg IV once today. Continue to monitor renal function and urine output. Wean FiO2 and vasopressors. Avoid nephrotoxins.
--- NOTE | 2024-01-03 09:52 | XR ---
EXAMINATION TYPE: XR chest 1V DATE OF EXAM: 01/03/2024 CLINICAL HISTORY: Hypoxemia. TECHNIQUE: Single AP portable frontal view of the chest is obtained. COMPARISON: Chest x-ray from one day earlier FINDINGS: Stable endotracheal and orogastric tubes. Stable left-sided subclavian central venous cath eter. Persistent low lung volumes with small left pleural effusion. Persistent mild cardiomegaly and mild c entral vascular congestion. Osseous structures are intact. IMPRESSION: Low lung volumes and mild cardiomegaly with small left pleural effusion mild central vasc ular congestion are all redemonstrated. No significant change from most recent prior.
--- NOTE | 2024-01-03 10:03 | P.PN ---
Subjective Progress Note Date: 01/03/24 33 year old M with PMH of hypertension and ADHD who presents to the emergency room with complaints of abdominal pain, diarrhea, and weight loss. Patient notes that over the past 2 months since his most recent admission of pancreatitis, he has lost roughly 40 pounds and has had intermittent diffuse abdominal discomfort with associated diarrhea. He has noticed blood in his stools on numerous occasions, bright red, without mucus. Notes that the pain has no clear inciting triggers but often occurs after food consumption. Reports that the pain is usually associated with diarrhea, and lasts for several days at a time. Denies nausea, vomiting, fever, chills, cough. Of note, the patient was admitted on 11/04 for mild acute pancreatitis. He does report having seen a conveyor belt operator as an outpatient and is currently awaiting the results of his workup and is also scheduled for an EGD. Reports however that his pain had become unbearable which prompted him to come to the emergency room. CT abdomen and pelvis in the emergency room revealed findings of colitis involving the transverse, descending, and sigmoid colon's with hepatic steatosis. Chest x-ray was unremarkable with EKG showing sinus tachycardia at 103 bpm with diffuse T wave flattening. Laboratory evaluation was remarkable for leukocytosis of 20.7, and hemoglobin 11.7, sodium 133, potassium 2.8, CO2 36, BUN 10, creatinine 0.82, calcium 7.7, with an unremarkable UA. Patient was started on Levaquin and Flagyl and admitted for treatment of colitis. GI consulted recommended outpatient C-scope in 4-6 weeks. His symptoms worsened. CT AP repeated 12/28 showed worsening anasarca, moderate to severe pancolitis with dilation up to 10.2 cm. ID was consulted, C. diff was negative, C. diff PCR ordered, Levaquin replaced with Cefepime and continued of Flagyl and added PO Vancomycin. Surgery consulted, patient underwent subtotal colectomy with ileostomy with Dr. Saleh on 12/30 and transferred to ICU post op. He has required multiple pressors since his ICU transfer including Levophed, Vasopressin and Solu-Cortef. Nephrology consulted for hyponatremia and metabolic acidosis, sodium as low as 124, given intermittent Lasix IV and bicarb infusion, now improving. Started on TPN 12/31. Required 1 unit PRBC on 01/01. 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 01/02 Patient was seen and examined. Intubated. He is on Levophed drip at 0.05 mcg/kg/min, Vasopressin at 0.03 units/min and Solu-Cortef 50 mg IV Q6H. Currently on Propofol at 50 mcg/kg/min. Antibiotics include Cefepime 1g IV TID (D6), Vancomycin 500 mg PO QID (D4) and Flagyl 500 mg IV TID (D6). CBC done yesterday afternoon showed WBC 53, Hg 6.6 Hct 21.2 and 1 unit PRBC was ordered and transfused. Case was discussed with Dr. Saleh yesterday, likely inflammatory response, unlikely to be peritonitis, no need to OR for washout. Nephrology has ordered one dose of Lasix 40 mg IV today. CBC WBC 43.7, Hg 7.5, Hct 22.9. ABG pH 7.44, pCO2 39, HCO3 23, O2 sat 98.5 on FiO2 30%. CMP Na 132, BUN 36, glu 164, Ca 7.1, alb 1.9. Mag 2.2. POC glucose 180-205 over the past 24H requiring 12 units Novolog over the sliding scale. CXR done today shows pulmonary vascular congestion with small pleural effusion. General: Intubated and sedated Derm: warm, dry, anasarca Head: atraumatic, normocephalic, symmetric Eyes: EOMI, no lid lag, anicteric sclera Mouth: no lip lesion, mucus membranes moist Cardiovascular: S1S2 tachy, no murmur Lungs: Coarse BS bilateral, no rhonchi, no rales , no accessory muscle use Abdominal: distended, ileostomy noted, sluggish BS Ext: no gross muscle atrophy, 2+ pitting edema bilateral LE, no contractures Neuro: Intubated and sedated Psych: Intubated and sedated Based on my assessment of this patient, this patient meets a high complexity level of care. Ventilator dependent respiratory failure: Post operatively. Vent management per Pulmonary/Stationary Plant Operators. Septic shock due to colitis: Status post subtotal colectomy with ileostomy with Dr. Saleh on 12/30. Cefepime 1g IV TID (D6), Vancomycin 500 mg PO QID (D4) and Flagyl 500 mg IV TID (D6). Titrate Levophed and Vasopressin to maintain MAP > 65. Telemetry monitoring. Blood and Stool culture negative on admission. C. diff negative on admission. ID on board. Acute on chronic blood loss anemia: Status post 1 unit PRBC 01/01. Daily CBC. Transfuse if Hg < 7. Check iron studies. Hyperglycemia: POC glucose ranging from 180-205 over the past 24H. Started on ISS Q6H. Accuchecks Q6H. Check A1c. Hyponatremia: UOsm 299, Maxx < 20. Hypervolemic. Improved with Lasix. Lasix 40 mg IV per Nephrology today. Nephrology on board. Acute kidney injury: Likely prerenal from shock. IV hydration as above. Anasarca due to hypoalbuminemia: Albumin 25g x 1 ordered today prior to Lasix. Hypocalcemia: Status post Ca gluconate 1g IV 12/31. Severe protein calorie malnutrition: TPA managed by Dietary. Daily CMP, Mag and Phos. Resolved: Metabolic acidosis CODE STATUS: FULL CODE DVT Prophylaxis: SCD GI Prophylaxis: Pepcid 20 mg IV BID. Designated medical POA if patient is not able to make medical decisions for themselves: I have reviewed the following [facility]sm consultant notes: Pulmonary, Surgery, Nephrology. I have reviewed the results of the following tests: CBC, CMP, ABG, Mag, POC glucose I have ordered the following tests: CBC, CMP, A1c, Iron studies I have discussed the care of this patient with the following independent historian: KATHIA. I have independently interpreted the following test below: CXR I have discussed the management of this patient with the following physician: Dr. Saleh 01/01 Objective - Vital Signs Vital signs: Vital Signs Temp 97.8 F 01/03/24 04:00 Pulse 75 01/03/24 06:00 Resp 21 01/03/24 06:00 BP 135/68 01/02/24 20:00 Pulse Ox 96 01/03/24 06:00 FiO2 30 01/03/24 06:00 Intake & Output 01/02/24 01/03/24 01/03/24 18:59 06:59 18:59 Intake Total 1685.411 801.020 Output Total 595 757 Balance 1090.411 44.020 Weight 121.6 kg Intake: IV 813 36 Cefepime 2 gm In Sodium 200 Chloride 0.9% 100 ml @ 25 mls/hr IVPB Q8HR [facility] Rx# :[id number] Mvi, Adult No.4 with Vit 180 K 10 ml Trace (Conc-1Ml/ Dose) 1 ml Sodium Acetate 40 meq Potassium Chloride 20 meq Calcium Gluconate 1 gm Magnesium Sulfate gm 1.5 gm In Amino Acids 5 %/Dextrose 20 % 1,000 ml @ 30 mls/hr IV .Q24H [facility] Rx#: [id number] Sodium Chloride 0.45% 1, 200 000 ml @ 100 mls/hr IV . Q11H [facility] with Sodium Bicarb (1 Meq/ml) 100 ml Rx#:[id number] metroNIDAZOLE-NS PMX 500 200 mg In Saline 1 100ml.bag @ 100 mls/hr IVPB Q8HR [facility] Rx#:[id number] pressure bag 33 36 Intake, IV Titration 762.411 480.020 Amount Mvi, Adult No.4 with Vit 110 385 K 10 ml Trace (Conc-1Ml/ Dose) 1 ml Sodium Acetate 30 meq Potassium Chloride 20 meq Calcium Gluconate 1 gm Magnesium Sulfate gm 1 gm In Amino Acid 5%-D15w 1,000 ml @ 55 mls/hr IV .Q19H4M [facility] Rx#:[id number] Norepinephrine 32 mg In 56.733 44.020 Sodium Chloride 0.9% 218 ml @ 0.03 MCG/KG/MIN 1. 371 mls/hr IV .Q24H [facility] Rx#:[id number] Sodium Chloride 0.45% 1, 300 000 ml @ 100 mls/hr IV . Q11H [facility]AF[facility] with Sodium Bicarb (1 Meq/ml) 100 ml Rx#:[id number] Vasopressin 20 unit In 51 Sodium Chloride 0.9% 50 ml @ 0.04 UNITS/MIN 6.12 mls/hr IV .Q8H20M [facility] Rx# :[id number] propofoL 1,000 mg In 295.678 Empty Bag 1 bag @ 15 MCG/ KG/MIN 8.777 mls/hr IV . [id number] [facility] Rx#:[id number] Blood Product 0 285 Rc Pheresis 2 As3 Unit 0 285 [id number] Other 110 Output: Gastric Drainage 200 Urine 595 557 Other: Voiding Method Indwelling Catheter Indwelling Catheter ABP, PAP, CO, CI - Last Documented Arterial Blood Pressure 130/73 - Labs CBC & Chem 7: 01/03/24 05:15 01/03/24 05:15 Labs: Abnormal Lab Results - Last 24 Hours (Table) 12/31/23 01/02/24 01/02/24 Range/Units 05:38 11:51 15:15 WBC 53.0 H* (3.8-10.6) k/uL RBC 2.20 L (4.30-5.90) m/uL Hgb 6.6 L* (13.0-17.5) gm/dL Hct 21.2 L (39.0-53.0) % ABG HCO3 (21-25) mmol/L ABG Total CO2 (19-24) mmol/L ABG O2 Saturation (94-97) % Sodium (137-145) mmol/L BUN (9-20) mg/dL Glucose (74-99) mg/dL POC Glucose (mg/dL) 180 H (70-110) mg/dL Calcium (8.4-10.2) mg/dL Phosphorus (2.5-4.5) mg/dL Total Protein (6.3-8.2) g/dL Albumin (3.5-5.0) g/dL Crossmatch See Detail 01/02/24 01/02/24 01/03/24 Range/Units 17:59 20:05 00:47 WBC (3.8-10.6) k/uL RBC (4.30-5.90) m/uL Hgb (13.0-17.5) gm/dL Hct (39.0-53.0) % ABG HCO3 (21-25) mmol/L ABG Total CO2 (19-24) mmol/L ABG O2 Saturation (94-97) % Sodium (137-145) mmol/L BUN (9-20) mg/dL Glucose (74-99) mg/dL POC Glucose (mg/dL) 183 H 180 H 196 H (70-110) mg/dL Calcium (8.4-10.2) mg/dL Phosphorus (2.5-4.5) mg/dL Total Protein (6.3-8.2) g/dL Albumin (3.5-5.0) g/dL Crossmatch 01/03/24 01/03/24 01/03/24 Range/Units 05:15 05:15 05:16 WBC 44.1 H (3.8-10.6) k/uL RBC 2.43 L (4.30-5.90) m/uL Hgb 7.5 L (13.0-17.5) gm/dL Hct 22.9 L (39.0-53.0) % ABG HCO3 (21-25) mmol/L ABG Total CO2 (19-24) mmol/L ABG O2 Saturation (94-97) % Sodium 132 L (137-145) mmol/L BUN 36 H (9-20) mg/dL Glucose 164 H (74-99) mg/dL POC Glucose (mg/dL) 197 H (70-110) mg/dL Calcium 7.1 L (8.4-10.2) mg/dL Phosphorus 2.1 L (2.5-4.5) mg/dL Total Protein 4.1 L (6.3-8.2) g/dL Albumin 1.9 L (3.5-5.0) g/dL Crossmatch 01/03/24 Range/Units 06:04 WBC (3.8-10.6) k/uL RBC (4.30-5.90) m/uL Hgb (13.0-17.5) gm/dL Hct (39.0-53.0) % ABG HCO3 27 H (21-25) mmol/L ABG Total CO2 28 H (19-24) mmol/L ABG O2 Saturation 98.5 H (94-97) % Sodium (137-145) mmol/L BUN (9-20) mg/dL Glucose (74-99) mg/dL POC Glucose (mg/dL) (70-110) mg/dL Calcium (8.4-10.2) mg/dL Phosphorus (2.5-4.5) mg/dL Total Protein (6.3-8.2) g/dL Albumin (3.5-5.0) g/dL Crossmatch Microbiology - Last 24 Hours (Table) 12/31/23 15:53 Gram Stain - Preliminary Sputum Sputum Culture - Preliminary Zeina lusitaniae
[2024-01-03] MEDS: FUROSEMIDE 10 MG/ML 4 ML VIAL IV STA (10:48)
[2024-01-03] MEDS ORDERED: ALBUMIN HUMAN 25% 50 ML in EMPTY BAG 1 BAG IVPB SCH (11:00)
[2024-01-03] MEDS: MVI, ADULT NO.4 WITH VIT K 10 ML, TRACE (CONC-1ML/DOSE) 1 ML, POTASSIUM CHLORIDE 20 MEQ... IV SCH (11:17)
--- NOTE | 2024-01-03 11:24 | P.PN ---
Subjective Progress Note Date: 01/03/24 Principal diagnosis: Colitis. Pulmonary/critical care consult dated December 31, 2023. 33-year-old male who presented to the emergency department, on December 24 with severe abdominal pain. The patient apparently has a history of pancreatitis, and apparently told the ER physician that the pain seemed similar. He had sharp left-sided abdominal pain, from the night before. He had poor appetite, and has been unable to keep any food or liquids down. The patient was admitted to the hospital, for the abdominal pain. He denies any fever, chills, nausea, constipation, or diarrhea. There is no urinary complaints. The patient apparently has a history of hyperlipidemia, hypertension, and pancreatitis. He is a lifelong non-smoker. He only drinks occasionally. It was told to me this morning, both from the charge nurse in the ICU, and the surgeon, but the patient was in the operating room, for fulminant pancolitis, and was having a colectomy. The patient had a subtotal colectomy with ileostomy performed by one of the surgeons, and the patient was extubated initially in the operating room, but was reintubated minutes later. The patient came to the ICU, on the ventilator. I gave Vent settings of volume assist-control, rate 20, tidal volume 450, FiO2 100%, PEEP of 5. Blood gases will be done in about an hour. We also placed a left subclavian triple-lumen catheter. An arterial line was placed by anesthesia. The most recent labs include a white count of 28.9, hemoglobin 10, hematocrit 31, and platelet count which was 744,000. Most recent blood gas showed a pO2 of 331, pCO2 of 37, pH is 7.34. That was on 100%. Repeat blood gas will be done in about 60 minutes. Sodium 133, potassium 3.9, chlorides 100, CO2 17, anion gap 16, BUN 27, creatinine 1.1. Glucose was 96. C-reactive protein was 9.90. Calcium 7.4. Stool and blood cultures have been negative. The postintubation x-ray shows the endotracheal tube to be in good position. In addition, there is a left subclavian triple-lumen catheter in good position. A repeat CT scan of the abdomen and pelvis, yesterday, showed hyperemia and wall thickening of the sigmoid colon and rectum as well as areas of transverse colon. The radiologist thought it was consistent with colitis/proctitis. There was u pstream dilatation of the large bowel. Small bowel loops are dilated with relative nondistention. No transition point is noted. Other findings are noted on the CT scan. Progress note dated January 01, 2024. This is a 33-year-old male seen yesterday in consultation. Please see my extensive note above. The patient remains in the intensive care unit, on the ventilator. He is on volume assist-control, rate 20, tidal volume 450, FiO2 40%, PEEP of 5. Blood gases are excellent with a pO2 116, pCO2 31, and pH of 7.40. Blood gases are consistent with a mixed acid-base disturbance, including a respiratory alkalosis, and mild metabolic acidosis. The patient remains on propofol at 40 mcg/kg/min, norepinephrine at 23 mcg/min, vasopressin at 0.03 units/min, and lactated Ringer's at 150 cc an hour. The patient continues on cefepime, and Flagyl. The patient is also on oral vancomycin. I have asked the nurse, to talk to dietary about a possible TPN preparation. Current labs include a white count 45.4, hemoglobin 9.9, hematocrit 32.1, and a platelet count of 741,000. Sodium 130, potassium 4.3, chlorides 104, CO2 16, anion gap 10, BUN and creatinine were 26 and 1.71. Glucose is 117. Ionized calcium was low at 4.2. Cortisol was 83. Blood cultures, and stool sampling, has thus far been negative. Chest x-ray shows no major changes. There may be some left basilar atelectasis, or infiltrate. Progress note dated January 02, 2024. 33-year-old male who is seen today in the intensive care unit, room 264. The patient remains on mechanical ventilator. He is on volume assist-control, rate 20, tidal volume 450, FiO2 40%, to be reduced down to 30%, with a PEEP of 5. Blood gases show pO2 126, pCO2 39, and pH is 7.43. The patient is on half- normal saline with 2 ampoules of sodium bicarb and at 100 cc an hour. The patient is also on norepinephrine at 13 mcg/min, and vasopressin at 0.03 units/min. Additionally, the patient is on propofol at 50 mcg/kg/min, and TPN at 30 cc an hour. The patient continues on cefepime, vancomycin, and Flagyl. Current labs include a white count of 49.4, hemoglobin 7.2, hematocrit 22.3, and a platelet count of 422,000. Sodium 131, potassium 3.6, chlorides 102, CO2 23, BUN 34, and creatinine 1.74. Albumin is 1.7. All culture material is negative. Chest x-ray shows the endotracheal tube, high in the trachea. There is also a left-sided pleural effusion, with atelectasis. Progress note dated January 03, 2024. 33-year-old male seen in the intensive care unit, room 264. The patient remains on mechanical ventilator. He is on volume assist-control, rate 20, tidal volume 450, FiO2 30%, PEEP of 5. Blood gases show pO2 100, pCO2 39, pH is 7.44. The patient remains on propofol at 50 mics per kilogram per minute, norepinephrine at 4 mcg/min, vasopressin at 0.03 units/min, and the patient is getting TPN at 55 cc an hour. The patient continues on cefepime and Flagyl. We will check a procalcitonin level. The patient had an uneventful night according to the nurses. Vasopressor requirements have been coming down. White count is 43.7, hemoglobin 7.5, hematocrit 22.9, with a normal platelet count. Sodium 132, potassium 3.7, chloride 103, CO2 23, BUN 36, and creatinine 1.11. Glucose is 164. Calcium 7.1, magnesium 2.2, and phosphorus 2.1. Albumin is 1.9. Cultures thus far are negative. Chest x-ray shows low lung volumes, cardiomegaly, and the left-sided effusion, which is small. Objective - Vital Signs Vital signs: Vital Signs Temp 97.6 F 01/03/24 08:00 Pulse 91 01/03/24 11:00 Resp 21 01/03/24 11:00 BP 135/68 01/02/24 20:00 Pulse Ox 98 01/03/24 11:00 FiO2 30 01/03/24 08:28 Intake & Output 01/02/24 01/03/24 01/03/24 18:59 06:59 18:59 Intake Total 1685.411 901.020 778.926 Output Total 595 757 250 Balance 1090.411 144.020 528.926 Weight 121.6 kg 122.2 kg Intake: IV 813 36 657 Cefepime 2 gm In Sodium 200 100 Chloride 0.9% 100 ml @ 25 mls/hr IVPB Q8HR [facility] Rx# :[id number] KVO 30 Mvi, Adult No.4 with Vit 180 165 K 10 ml Trace (Conc-1Ml/ Dose) 1 ml Sodium Acetate 40 meq Potassium Chloride 20 meq Calcium Gluconate 1 gm Magnesium Sulfate gm 1.5 gm In Amino Acids 5 %/Dextrose 20 % 1,000 ml @ 30 mls/hr IV .Q24H ONE Rx#: [id number] Sodium Chloride 0.45% 1, 200 000 ml @ 100 mls/hr IV . Q11H [facility] with Sodium Bicarb (1 Meq/ml) 100 ml Rx#:[id number] Sodium Phosphate 15 mmol 250 In Dextrose 5% in Water 250 ml @ 127.5 mls/hr IVPB ONCE ONE Rx#: [id number] metroNIDAZOLE-NS PMX 500 200 100 mg In Saline 1 100ml.bag @ 100 mls/hr IVPB Q8HR [facility] Rx#:[id number] pressure bag 33 36 12 Intake, IV Titration 762.411 580.020 121.926 Amount Mvi, Adult No.4 with Vit 110 385 K 10 ml Trace (Conc-1Ml/ Dose) 1 ml Sodium Acetate 30 meq Potassium Chloride 20 meq Calcium Gluconate 1 gm Magnesium Sulfate gm 1 gm In Amino Acid 5%-D15w 1,000 ml @ 55 mls/hr IV .Q19H4M [facility] Rx#:[id number] Norepinephrine 32 mg In 56.733 44.020 Sodium Chloride 0.9% 218 ml @ 0.03 MCG/KG/MIN 1. 371 mls/hr IV .Q24H [facility] Rx#:[id number] Sodium Chloride 0.45% 1, 300 000 ml @ 100 mls/hr IV . Q11H [facility] with Sodium Bicarb (1 Meq/ml) 100 ml Rx#:[id number] Vasopressin 20 unit In 51 41.616 Sodium Chloride 0.9% 50 ml @ 0.04 UNITS/MIN 6.12 mls/hr IV .Q8H20M [facility] Rx# :[id number] propofoL 1,000 mg In 295.678 100 80.31 Empty Bag 1 bag @ 15 MCG/ KG/MIN 8.777 mls/hr IV . [id number] [facility] Rx#:[id number] Blood Product 0 285 Rc Pheresis 2 As3 Unit 0 285 [id number] Other 110 Output: Gastric Drainage 200 Urine 595 557 250 Other: Voiding Method Indwelling Catheter Indwelling Catheter Indwelling Catheter ABP, PAP, CO, CI - Last Documented Arterial Blood Pressure 119/75 - Exam No acute distress, sedated and intubated with an NG tube in place. HEENT examination is grossly unremarkable. Neck supple. Full range of motion. No adenopathy thyromegaly or neck vein distention. Cardiovascular examination reveals regular rhythm rate. S1-S2 normal. No S3 or S4. No discernible murmur noted. Heart rate is 87 bpm. Lungs reveal clear breath sounds. Breath sounds are equal bilaterally. No adventitious lung sounds including wheezes rhonchi or crackles. Saturations are 98 %. Abdomen soft without bowel sounds. Ileostomy is noted. Extremities are intact. No cyanosis clubbing or edema. Skin is without rash or lesion. Neurologic examination cannot be assessed at this time. - Labs CBC & Chem 7: 01/03/24 05:15 01/03/24 05:15 Labs: Abnormal Lab Results - Last 24 Hours (Table) 12/31/23 01/02/24 01/02/24 Range/Units 05:38 11:51 15:15 WBC 53.0 H* (3.8-10.6) k/uL RBC 2.20 L (4.30-5.90) m/uL Hgb 6.6 L* (13.0-17.5) gm/dL Hct 21.2 L (39.0-53.0) % Neutrophils # (Manual) (1.3-7.7) k/uL Metamyelocytes # (Man) (0) k/uL Myelocytes # (Manual) (0) k/uL Nucleated RBCs (0-0) /100 WBC ABG HCO3 (21-25) mmol/L ABG Total CO2 (19-24) mmol/L ABG O2 Saturation (94-97) % Sodium (137-145) mmol/L BUN (9-20) mg/dL Glucose (74-99) mg/dL POC Glucose (mg/dL) 180 H (70-110) mg/dL Calcium (8.4-10.2) mg/dL Phosphorus (2.5-4.5) mg/dL Total Protein (6.3-8.2) g/dL Albumin (3.5-5.0) g/dL Crossmatch See Detail 01/02/24 01/02/24 01/03/24 Range/Units 17:59 20:05 00:47 WBC (3.8-10.6) k/uL RBC (4.30-5.90) m/uL Hgb (13.0-17.5) gm/dL Hct (39.0-53.0) % Neutrophils # (Manual) (1.3-7.7) k/uL Metamyelocytes # (Man) (0) k/uL Myelocytes # (Manual) (0) k/uL Nucleated RBCs (0-0) /100 WBC ABG HCO3 (21-25) mmol/L ABG Total CO2 (19-24) mmol/L ABG O2 Saturation (94-97) % Sodium (137-145) mmol/L BUN (9-20) mg/dL Glucose (74-99) mg/dL POC Glucose (mg/dL) 183 H 180 H 196 H (70-110) mg/dL Calcium (8.4-10.2) mg/dL Phosphorus (2.5-4.5) mg/dL Total Protein (6.3-8.2) g/dL Albumin (3.5-5.0) g/dL Crossmatch 01/03/24 01/03/24 01/03/24 Range/Units 05:15 05:15 05:16 WBC 43.7 H (3.8-10.6) k/uL RBC 2.43 L (4.30-5.90) m/uL Hgb 7.5 L (13.0-17.5) gm/dL Hct 22.9 L (39.0-53.0) % Neutrophils # (Manual) 38.80 H (1.3-7.7) k/uL Metamyelocytes # (Man) 1.31 H (0) k/uL Myelocytes # (Manual) 0.44 H (0) k/uL Nucleated RBCs 1 H (0-0) /100 WBC ABG HCO3 (21-25) mmol/L ABG Total CO2 (19-24) mmol/L ABG O2 Saturation (94-97) % Sodium 132 L (137-145) mmol/L BUN 36 H (9-20) mg/dL Glucose 164 H (74-99) mg/dL POC Glucose (mg/dL) 197 H (70-110) mg/dL Calcium 7.1 L (8.4-10.2) mg/dL Phosphorus 2.1 L (2.5-4.5) mg/dL Total Protein 4.1 L (6.3-8.2) g/dL Albumin 1.9 L (3.5-5.0) g/dL Crossmatch 01/03/24 Range/Units 06:04 WBC (3.8-10.6) k/uL RBC (4.30-5.90) m/uL Hgb (13.0-17.5) gm/dL Hct (39.0-53.0) % Neutrophils # (Manual) (1.3-7.7) k/uL Metamyelocytes # (Man) (0) k/uL Myelocytes # (Manual) (0) k/uL Nucleated RBCs (0-0) /100 WBC ABG HCO3 27 H (21-25) mmol/L ABG Total CO2 28 H (19-24) mmol/L ABG O2 Saturation 98.5 H (94-97) % Sodium (137-145) mmol/L BUN (9-20) mg/dL Glucose (74-99) mg/dL POC Glucose (mg/dL) (70-110) mg/dL Calcium (8.4-10.2) mg/dL Phosphorus (2.5-4.5) mg/dL Total Protein (6.3-8.2) g/dL Albumin (3.5-5.0) g/dL Crossmatch Microbiology - Last 24 Hours (Table) 12/31/23 15:53 Gram Stain - Preliminary Sputum Sputum Culture - Preliminary Zeina lusitaniae Assessment and Plan Assessment: Postoperative day #4, S/P subtotal colectomy with ileostomy, for fulminant pancolitis. Routine postoperative ventilator management. Possible relative adrenal insufficiency. Non-anion gap metabolic acidosis. Previous history of pancreatitis. History of hypertension. History of hyperlipidemia. Plan: Plan dated December 30, 2026. The patient is seen today in the intensive care unit, room 264. The patient was extubated in the operating room, and reintubated in minutes, in the recovery area. The patient remains intubated. An arterial line was placed by anesthesia. I placed a left subclavian triple-lumen catheter. The patient is receiving lactated Ringer's at 150 cc an hour. The patient is on propofol at 15 mcg/kg/min. Will add DuoNebs, every 4 [id number]. In addition, the [facility] ient will have a repeat blood gas. The patient is running on vancomycin, cefepime, and Flagyl. We will continue to follow make recommendations. Prognosis is guarded. We will use 1 port of the central venous catheter for central venous pressure measurements. Plan dated January 01, 2024. The patient is seen again in the intensive care unit, room 264. He remains on the ventilator. Blood gases are adequate, with a pO2 116, pCO2 31, pH is 7.4. The patient remains on propofol at 40 mcg/kg/min, norepinephrine 23 mcg/min, and vasopressin at 0.03 units/min. The patient is also receiving lactated Ringer's at 150 cc an hour. The patient continues on cefepime and Flagyl. Also, the patient is on oral vancomycin. Yesterday, we gave the patient 100 mg of hydrocortisone IV push, and started the patient on hydrocortisone 50 mg every 6 hours. The patient seems to have responded to it, as his pressor requirements have gone down. We will continue to follow make recommendations along the way. Labs, x-rays, and medications are reviewed. Prognosis is guarded. Plan dated January 02, 2024. The patient is critically ill but stable. He remains on norepinephrine at 13 mcg/min, and vasopressin at 0.03 units/min. The patient is getting TPN at 30 cc an hour. He continues on cefepime, vancomycin, and Flagyl. For sedation he is getting propofol at 50 mcg/kg/min. Blood gases show pO2 126, pCO2 of 39, pH of 7.43. We will continue to follow the patient, make recommendations along the way. The patient's overall prognosis remains very guarded. All culture data is thus far negative. Plan dated January 03, 2024. The patient is critically ill but relatively stable, and as mentioned above, vas opressor requirements have come down. Labs, x-rays, and medications are reviewed. The patient remains on propofol, norepinephrine, and vasopressin. I have asked the nurse to see if he can reduce the vasopressors to 1 medication rather than 2. The patient continues on TPN at 55 cc an hour. The patient also continues on cefepime and Flagyl. We will check a procalcitonin level. Labs, x-rays, and medications are reviewed. Prognosis is guarded. We will continue to follow the patient, make recommendations along the way. Time with Patient: Greater than 30
[2024-01-03 12:13] LABS: Glucose,Whole Blood 171 mg/dL (70-110)
--- NOTE | 2024-01-03 15:31 | P.PN ---
Subjective Progress Note Date: 01/03/24 Principal diagnosis: Reason for follow-up is pancolitis and leukocytosis Patient is a 33-year-old -English male with a past medical history negative for hypertension hyperlipidemia and pancreatitis that was diagnosed about 2 months ago on 11/05/2023 however the patient mention he was not admitted for it patient presented back to [facility] ER on 12/25/2023 for дмитрий luation of abdominal pain diarrhea patient did have evidence of worsening pancolitis on the CT prompting this consultation. 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 On today's evaluation that is 01/03/2024, the patient continues to be afebrile, the patient is on ventilator FiO2 is down to 30% no significant purulent secretions through the ET no diarrhea has been reported currently on a low-dose of vasopressin to maintain his blood pressure overall pressor support has decreased per the nursing staff. Patient white count is down to 43.7 creatinine is 1.11 blood culture negative stool culture negative Objective - Vital Signs Vital signs: Vital Signs Temp 98.2 F 01/03/24 12:00 Pulse 95 01/03/24 12:30 Resp 23 01/03/24 12:15 BP 121/75 01/03/24 11:29 Pulse Ox 99 01/03/24 12:15 FiO2 30 01/03/24 12:30 Intake & Output 01/02/24 01/03/24 01/03/24 18:59 06:59 18:59 Intake Total 1685.411 901.020 812.430 Output Total 595 757 750 Balance 1090.411 144.020 62.430 Weight 121.6 kg 122.2 kg Intake: IV 813 36 670 Cefepime 2 gm In Sodium 200 100 Chloride 0.9% 100 ml @ 25 mls/hr IVPB Q8HR [facility] Rx# :[id number] KVO 40 Mvi, Adult No.4 with Vit 180 165 K 10 ml Trace (Conc-1Ml/ Dose) 1 ml Sodium Acetate 40 meq Potassium Chloride 20 meq Calcium Gluconate 1 gm Magnesium Sulfate gm 1.5 gm In Amino Acids 5 %/Dextrose 20 % 1,000 ml @ 30 mls/hr IV .Q24H ONE Rx#: [id number] Sodium Chloride 0.45% 1, 200 000 ml @ 100 mls/hr IV . Q11H [facility] with Sodium Bicarb (1 Meq/ml) 100 ml Rx#:[id number] Sodium Phosphate 15 mmol 250 In Dextrose 5% in Water 250 ml @ 127.5 mls/hr IVPB ONCE [facility] Rx#: [id number] metroNIDAZOLE-NS PMX 500 200 100 mg In Saline 1 100ml.bag @ 100 mls/hr IVPB Q8HR [facility] Rx#:[id number] pressure bag 33 36 15 Intake, IV Titration 762.411 580.020 142.430 Amount Mvi, Adult No.4 with Vit 110 385 K 10 ml Trace (Conc-1Ml/ Dose) 1 ml Sodium Acetate 30 meq Potassium Chloride 20 meq Calcium Gluconate 1 gm Magnesium Sulfate gm 1 gm In Amino Acid 5%-D15w 1,000 ml @ 55 mls/hr IV .Q19H4M [facility] Rx#:[id number] Norepinephrine 32 mg In 56.733 44.020 20.504 Sodium Chloride 0.9% 218 ml @ 0.03 MCG/KG/MIN 1. 371 mls/hr IV .Q24H [facility] Rx#:[id number] Sodium Chloride 0.45% 1, 300 000 ml @ 100 mls/hr IV . Q11H [facility] with Sodium Bicarb (1 Meq/ml) 100 ml Rx#:[id number] Vasopressin 20 unit In 51 41.616 Sodium Chloride 0.9% 50 ml @ 0.04 UNITS/MIN 6.12 mls/hr IV .Q8H20M [facility] Rx# :[id number] propofoL 1,000 mg In 295.678 100 80.31 Empty Bag 1 bag @ 15 MCG/ KG/MIN 8.777 mls/hr IV . [id number] [facility] Rx#:[id number] Blood Product 0 285 Rc Pheresis 2 As3 Unit 0 285 [id number] Other 110 Output: Gastric Drainage 200 Urine 595 557 750 Other: Voiding Method Indwelling Catheter Indwelling Catheter Indwelling Catheter ABP, PAP, CO, CI - Last Documented Arterial Blood Pressure 123/77 - Exam GENERAL DESCRIPTION: Middle-age male intubated on the vent RESPIRATORY SYSTEM: Unlabored breathing , decreased breath sounds at bases HEART: S1 S2 regular rate and rhythm , ABDOMEN: Soft , no tenderness EXTREMITIES: No edema feet - Labs CBC & Chem 7: 01/03/24 05:15 01/03/24 05:15 Labs: Abnormal Lab Results - Last 24 Hours (Table) 12/31/23 01/02/24 01/02/24 Range/Units 05:38 15:15 17:59 WBC 53.0 H* (3.8-10.6) k/uL RBC 2.20 L (4.30-5.90) m/uL Hgb 6.6 L* (13.0-17.5) gm/dL Hct 21.2 L (39.0-53.0) % Neutrophils # (Manual) (1.3-7.7) k/uL Metamyelocytes # (Man) (0) k/uL Myelocytes # (Manual) (0) k/uL Nucleated RBCs (0-0) /100 WBC ABG HCO3 (21-25) mmol/L ABG Total CO2 (19-24) mmol/L ABG O2 Saturation (94-97) % Sodium (137-145) mmol/L BUN (9-20) mg/dL Glucose (74-99) mg/dL POC Glucose (mg/dL) 183 H (70-110) mg/dL Calcium (8.4-10.2) mg/dL Phosphorus (2.5-4.5) mg/dL Total Protein (6.3-8.2) g/dL Albumin (3.5-5.0) g/dL Crossmatch See Detail 01/02/24 01/03/24 01/03/24 Range/Units 20:05 00:47 05:15 WBC (3.8-10.6) k/uL RBC (4.30-5.90) m/uL Hgb (13.0-17.5) gm/dL Hct (39.0-53.0) % Neutrophils # (Manual) (1.3-7.7) k/uL Metamyelocytes # (Man) (0) k/uL Myelocytes # (Manual) (0) k/uL Nucleated RBCs (0-0) /100 WBC ABG HCO3 (21-25) mmol/L ABG Total CO2 (19-24) mmol/L ABG O2 Saturation (94-97) % Sodium 132 L (137-145) mmol/L BUN 36 H (9-20) mg/dL Glucose 164 H (74-99) mg/dL POC Glucose (mg/dL) 180 H 196 H (70-110) mg/dL Calcium 7.1 L (8.4-10.2) mg/dL Phosphorus 2.1 L (2.5-4.5) mg/dL Total Protein 4.1 L (6.3-8.2) g/dL Albumin 1.9 L (3.5-5.0) g/dL Crossmatch 01/03/24 01/03/24 01/03/24 Range/Units 05:15 05:16 06:04 WBC 43.7 H (3.8-10.6) k/uL RBC 2.43 L (4.30-5.90) m/uL Hgb 7.5 L (13.0-17.5) gm/dL Hct 22.9 L (39.0-53.0) % Neutrophils # (Manual) 38.80 H (1.3-7.7) k/uL Metamyelocytes # (Man) 1.31 H (0) k/uL Myelocytes # (Manual) 0.44 H (0) k/uL Nucleated RBCs 1 H (0-0) /100 WBC ABG HCO3 27 H (21-25) mmol/L ABG Total CO2 28 H (19-24) mmol/L ABG O2 Saturation 98.5 H (94-97) % Sodium (137-145) mmol/L BUN (9-20) mg/dL Glucose (74-99) mg/dL POC Glucose (mg/dL) 197 H (70-110) mg/dL Calcium (8.4-10.2) mg/dL Phosphorus (2.5-4.5) mg/dL Total Protein (6.3-8.2) g/dL Albumin (3.5-5.0) g/dL Crossmatch 01/03/24 Range/Units 12:11 WBC (3.8-10.6) k/uL RBC (4.30-5.90) m/uL Hgb (13.0-17.5) gm/dL Hct (39.0-53.0) % Neutrophils # (Manual) (1.3-7.7) k/uL Metamyelocytes # (Man) (0) k/uL Myelocytes # (Manual) (0) k/uL Nucleated RBCs (0-0) /100 WBC ABG HCO3 (21-25) mmol/L ABG Total CO2 (19-24) mmol/L ABG O2 Saturation (94-97) % Sodium (137-145) mmol/L BUN (9-20) mg/dL Glucose (74-99) mg/dL POC Glucose (mg/dL) 171 H (70-110) mg/dL Calcium (8.4-10.2) mg/dL Phosphorus (2.5-4.5) mg/dL Total Protein (6.3-8.2) g/dL Albumin (3.5-5.0) g/dL Crossmatch Microbiology - Last 24 Hours (Table) 12/31/23 15:53 Gram Stain - Preliminary Sputum Sputum Culture - Preliminary Zeina lusitaniae Assessment and Plan (1) Leukocytosis Current Visit: Yes Status: Acute Code(s): D72.829 - ELEVATED WHITE BLOOD CELL COUNT, UNSPECIFIED SNOMED Code(s): 262731029 (2) Pancolitis Current Visit: Yes Status: Acute Code(s): K51.00 - ULCERATIVE (CHRONIC) PANCOLITIS WITHOUT COMPLICATIONS SNOMED Code(s): 032827184 Plan: 1patient with a complicated history as for as evidence of severe pancolitis on the CT that was completed 12/29/2023 and also have worsening of the white count patient apparently was diagnosed with pancreatitis on 11/05/2023 however the patient was not admitted and mention has not received an antibiotic therapy features are highly suspicious for pseudomembranous colitis though initial testing was negative other infectious etiology need to be ruled out as well 2-stool for C. difficile PCR has been requested unfortunately not collected and the patient is status post subtotal colectomy completed morning of 12/31/2023 biopsy results currently pending 3-patient did have worsening leukocytosis, hydrocortisone more likely contributing some of the elevated white count patient is requiring less pressor support and is afebrile and the white count is slowly trending down, patient to continue with the current treatment of cefepime Flagyl and vancomycin, monitor clinical course closely family at the bedside they were updated about his care Dictation was produced using [employer] dictation software. please excuse any grammatical, word or spelling errors. Time with Patient: Less than 30
[2024-01-03 18:16] LABS: Glucose,Whole Blood 169 mg/dL (70-110)
--- NOTE | 2024-01-03 21:00 | P.PN ---
Subjective Patient seen and evaluated at bedside. no acute events overnight, decreasing levo requirements. had extensive discussion w/ family regarding prognosis and expected recovery. gen: nad cv: rrr pul: on ventilator abd; soft, min distention, ostomy pink patent, bowel sweat. Objective - Vital Signs Vital signs: Vital Signs Temp 98.2 F 01/03/24 12:00 Pulse 100 01/03/24 20:44 Resp 22 01/03/24 19:00 BP 121/75 01/03/24 11:29 Pulse Ox 97 01/03/24 19:00 FiO2 30 01/03/24 20:43 Intake & Output 01/03/24 01/03/24 01/04/24 06:59 18:59 06:59 Intake Total 749.245 1768.161 Output Total 757 2995 Balance 144.020 -1943.839 Weight 122.2 kg Intake: IV 36 774 Cefepime 2 gm In Sodium 100 Chloride 0.9% 100 ml @ 25 mls/hr IVPB Q8HR [facility] Rx# :[id number] KVO 120 Mvi, Adult No.4 with Vit 165 K 10 ml Trace (Conc-1Ml/ Dose) 1 ml Sodium Acetate 40 meq Potassium Chloride 20 meq Calcium Gluconate 1 gm Magnesium Sulfate gm 1.5 gm In Amino Acids 5 %/Dextrose 20 % 1,000 ml @ 30 mls/hr IV .Q24H [facility] Rx#: [id number] Sodium Phosphate 15 mmol 250 In Dextrose 5% in Water 250 ml @ 127.5 mls/hr IVPB ONCE ONE Rx#: [id number] metroNIDAZOLE-NS PMX 500 100 mg In Saline 1 100ml.bag @ 100 mls/hr IVPB Q8HR [facility] Rx#:[id number] pressure bag 36 39 Intake, IV Titration 580.020 277.161 Amount Mvi, Adult No.4 with Vit 385 K 10 ml Trace (Conc-1Ml/ Dose) 1 ml Sodium Acetate 30 meq Potassium Chloride 20 meq Calcium Gluconate 1 gm Magnesium Sulfate gm 1 gm In Amino Acid 5%-D15w 1,000 ml @ 55 mls/hr IV .Q19H4M [facility] Rx#:[id number] Norepinephrine 32 mg In 44.020 20.504 Sodium Chloride 0.9% 218 ml @ 0.03 MCG/KG/MIN 1. 371 mls/hr IV .Q24H [facility] Rx#:[id number] Vasopressin 20 unit In 51 76.347 Sodium Chloride 0.9% 50 ml @ 0.04 UNITS/MIN 6.12 mls/hr IV .Q8H20M [facility] Rx# :[id number] propofoL 1,000 mg In 100 180.31 Empty Bag 1 bag @ 15 MCG/ KG/MIN 8.777 mls/hr IV . [id number] [facility] Rx#:[id number] Blood Product 285 Rc Pheresis 2 As3 Unit 285 [id number] Output: Gastric Drainage 200 Urine 557 2995 Other: Voiding Method Indwelling Catheter Indwelling Catheter Indwelling Catheter ABP, PAP, CO, CI - Last Documented Arterial Blood Pressure 122/76 - Labs CBC & Chem 7: 01/03/24 05:15 01/03/24 05:15 Labs: Abnormal Lab Results - Last 24 Hours (Table) 12/31/23 01/03/24 01/03/24 Range/Units 05:38 00:47 05:15 WBC (3.8-10.6) k/uL RBC (4.30-5.90) m/uL Hgb (13.0-17.5) gm/dL Hct (39.0-53.0) % Neutrophils # (Manual) (1.3-7.7) k/uL Metamyelocytes # (Man) (0) k/uL Myelocytes # (Manual) (0) k/uL Nucleated RBCs (0-0) /100 WBC ABG HCO3 (21-25) mmol/L ABG Total CO2 (19-24) mmol/L ABG O2 Saturation (94-97) % Sodium 132 L (137-145) mmol/L BUN 36 H (9-20) mg/dL Glucose 164 H (74-99) mg/dL POC Glucose (mg/dL) 196 H (70-110) mg/dL Calcium 7.1 L (8.4-10.2) mg/dL Phosphorus 2.1 L (2.5-4.5) mg/dL Total Protein 4.1 L (6.3-8.2) g/dL Albumin 1.9 L (3.5-5.0) g/dL Crossmatch See Detail 01/03/24 01/03/24 01/03/24 Range/Units 05:15 05:16 06:04 WBC 43.7 H (3.8-10.6) k/uL RBC 2.43 L (4.30-5.90) m/uL Hgb 7.5 L (13.0-17.5) gm/dL Hct 22.9 L (39.0-53.0) % Neutrophils # (Manual) 38.80 H (1.3-7.7) k/uL Metamyelocytes # (Man) 1.31 H (0) k/uL Myelocytes # (Manual) 0.44 H (0) k/uL Nucleated RBCs 1 H (0-0) /100 WBC ABG HCO3 27 H (21-25) mmol/L ABG Total CO2 28 H (19-24) mmol/L ABG O2 Saturation 98.5 H (94-97) % Sodium (137-145) mmol/L BUN (9-20) mg/dL Glucose (74-99) mg/dL POC Glucose (mg/dL) 197 H (70-110) mg/dL Calcium (8.4-10.2) mg/dL Phosphorus (2.5-4.5) mg/dL Total Protein (6.3-8.2) g/dL Albumin (3.5-5.0) g/dL Crossmatch 01/03/24 01/03/24 Range/Units 12:11 18:14 WBC (3.8-10.6) k/uL RBC (4.30-5.90) m/uL Hgb (13.0-17.5) gm/dL Hct (39.0-53.0) % Neutrophils # (Manual) (1.3-7.7) k/uL Metamyelocytes # (Man) (0) k/uL Myelocytes # (Manual) (0) k/uL Nucleated RBCs (0-0) /100 WBC ABG HCO3 (21-25) mmol/L ABG Total CO2 (19-24) mmol/L ABG O2 Saturation (94-97) % Sodium (137-145) mmol/L BUN (9-20) mg/dL Glucose (74-99) mg/dL POC Glucose (mg/dL) 171 H 169 H (70-110) mg/dL Calcium (8.4-10.2) mg/dL Phosphorus (2.5-4.5) mg/dL Total Protein (6.3-8.2) g/dL Albumin (3.5-5.0) g/dL Crossmatch Microbiology - Last 24 Hours (Table) 12/31/23 15:53 Gram Stain - Final Sputum Sputum Culture - Final Zeina lusitaniae Assessment and Plan Assessment: 33 yo male s/p subtotal colectomy w/ diverting ileostomy -levo requirements decreasing -adequate urine output s/p lasix -continue care per icu -extubate when able Time with Patient: Greater than 30
[2024-01-03 23:47] LABS: Glucose,Whole Blood 163 mg/dL (70-110)
[2024-01-04 05:50] LABS: ALT 14 U/L (4-49); AST 28 U/L (17-59); African American GFR (CKD) >90 (>60 ml/min/1.73 sqM); Alkaline Phosphatase 110 U/L (38-126); Anion Gap 5 mmol/L; Blood Urea Nitrogen 37 mg/dL (9-20); Calcium 7.1 mg/dL (8.4-10.2); Carbon Dioxide 25 mmol/L (22-30); Chloride 101 mmol/L (98-107); Glucose 135 mg/dL (74-99); Non-African American GFR(CKD) >90 (>60 ml/min/1.73 sqM); Phosphorus 2.3 mg/dL (2.5-4.5); Potassium 3.8 mmol/L (3.5-5.1); Sodium 131 mmol/L (137-145); Total Bilirubin 0.9 mg/dL (0.2-1.3); Total Protein 4.3 g/dL (6.3-8.2)
[2024-01-04 06:52] LABS: ABG Base Excess 4.9 mmol/L; ABG HCO3 28 mmol/L (21-25); ABG Oxygen Saturation 98.5 % (94-97); ABG PCO2 36 mmHg (35-45); ABG PH 7.51 (7.35-7.45); ABG PO2 105 mmHg (83-108); ABG TCO2 29 mmol/L (19-24); Allen Test Performed? Yes
[2024-01-04] MEDS ORDERED: Potassium Replacement Protocol 1 EACH MISC MISCELLANE PRN (07:34)
[2024-01-04] MEDS: SODIUM PHOSPHATE 15 MMOL in DEXTROSE 5% IN WATER 250 ML IVPB ONE (08:53)
[2024-01-04] MEDS: POTASSIUM CHLORIDE 10 MEQ in WATER FOR INJECTION 1 100ML.BAG IVPB SCH (08:53)
[2024-01-04 09:00] LABS: Basophils # (A) 0.1 k/uL (0-0.2); Basophils % (A) 0 %; Eosinophils # (A) 0.2 k/uL (0-0.7); Eosinophils % (A) 0 %; HCT 24.7 % (39.0-53.0); HGB 7.7 gm/dL (13.0-17.5); Lymphocytes # (A) 0.6 k/uL (1.0-4.8); Lymphocytes % (A) 2 %; MCH 29.3 pg (25.0-35.0); MCHC 31.1 g/dL (31.0-37.0); MCV 94.2 fL (80.0-100.0); Mean Platelet Volume 7.9; Monocytes # (A) 0.9 k/uL (0-1.0); Monocytes % (A) 3 %; Neutrophils # (A) 33.8 k/uL (1.3-7.7); Neutrophils % (A) 94 %; Platelet Count 383 k/uL (150-450); RBC 2.62 m/uL (4.30-5.90)
--- NOTE | 2024-01-04 09:23 | P.PN ---
Subjective Progress Note Date: 01/04/24 Principal diagnosis: Colitis. Pulmonary/critical care consult dated December 31, 2023. 33-year-old male who presented to the emergency department, on December 24 with severe abdominal pain. The patient apparently has a history of pancreatitis, and apparently told the ER physician that the pain seemed similar. He had sharp left-sided abdominal pain, from the night before. He had poor appetite, and has been unable to keep any food or liquids down. The patient was admitted to the hospital, for the abdominal pain. He denies any fever, chills, nausea, constipation, or diarrhea. There is no urinary complaints. The patient apparently has a history of hyperlipidemia, hypertension, and pancreatitis. He is a lifelong non-smoker. He only drinks occasionally. It was told to me this morning, both from the charge nurse in the ICU, and the surgeon, but the patient was in the operating room, for fulminant pancolitis, and was having a colectomy. The patient had a subtotal colectomy with ileostomy performed by one of the surgeons, and the patient was extubated initially in the operating room, but was reintubated minutes later. The patient came to the ICU, on the ventilator. I gave Vent settings of volume assist-control, rate 20, tidal volume 450, FiO2 100%, PEEP of 5. Blood gases will be done in about an hour. We also placed a left subclavian triple-lumen catheter. An arterial line was placed by anesthesia. The most recent labs include a white count of 28.9, hemoglobin 10, hematocrit 31, and platelet count which was 744,000. Most recent blood gas showed a pO2 of 331, pCO2 of 37, pH is 7.34. That was on 100%. Repeat blood gas will be done in about 60 minutes. Sodium 133, potassium 3.9, chlorides 100, CO2 17, anion gap 16, BUN 27, creatinine 1.1. Glucose was 96. C-reactive protein was 9.90. Calcium 7.4. Stool and blood cultures have been negative. The postintubation x-ray shows the endotracheal tube to be in good position. In addition, there is a left subclavian triple-lumen catheter in good position. A repeat CT scan of the abdomen and pelvis, yesterday, showed hyperemia and wall thickening of the sigmoid colon and rectum as well as areas of transverse colon. The radiologist thought it was consistent with colitis/proctitis. There was u pstream dilatation of the large bowel. Small bowel loops are dilated with relative nondistention. No transition point is noted. Other findings are noted on the CT scan. Progress note dated January 01, 2024. This is a 33-year-old male seen yesterday in consultation. Please see my extensive note above. The patient remains in the intensive care unit, on the ventilator. He is on volume assist-control, rate 20, tidal volume 450, FiO2 40%, PEEP of 5. Blood gases are excellent with a pO2 116, pCO2 31, and pH of 7.40. Blood gases are consistent with a mixed acid-base disturbance, including a respiratory alkalosis, and mild metabolic acidosis. The patient remains on propofol at 40 mcg/kg/min, norepinephrine at 23 mcg/min, vasopressin at 0.03 units/min, and lactated Ringer's at 150 cc an hour. The patient continues on cefepime, and Flagyl. The patient is also on oral vancomycin. I have asked the nurse, to talk to dietary about a possible TPN preparation. Current labs include a white count 45.4, hemoglobin 9.9, hematocrit 32.1, and a platelet count of 741,000. Sodium 130, potassium 4.3, chlorides 104, CO2 16, anion gap 10, BUN and creatinine were 26 and 1.71. Glucose is 117. Ionized calcium was low at 4.2. Cortisol was 83. Blood cultures, and stool sampling, has thus far been negative. Chest x-ray shows no major changes. There may be some left basilar atelectasis, or infiltrate. Progress note dated January 02, 2024. 33-year-old male who is seen today in the intensive care unit, room 264. The patient remains on mechanical ventilator. He is on volume assist-control, rate 20, tidal volume 450, FiO2 40%, to be reduced down to 30%, with a PEEP of 5. Blood gases show pO2 126, pCO2 39, and pH is 7.43. The patient is on half- normal saline with 2 ampoules of sodium bicarb and at 100 cc an hour. The patient is also on norepinephrine at 13 mcg/min, and vasopressin at 0.03 units/min. Additionally, the patient is on propofol at 50 mcg/kg/min, and TPN at 30 cc an hour. The patient continues on cefepime, vancomycin, and Flagyl. Current labs include a white count of 49.4, hemoglobin 7.2, hematocrit 22.3, and a platelet count of 422,000. Sodium 131, potassium 3.6, chlorides 102, CO2 23, BUN 34, and creatinine 1.74. Albumin is 1.7. All culture material is negative. Chest x-ray shows the endotracheal tube, high in the trachea. There is also a left-sided pleural effusion, with atelectasis. Progress note dated January 03, 2024. 33-year-old male seen in the intensive care unit, room 264. The patient remains on mechanical ventilator. He is on volume assist-control, rate 20, tidal volume 450, FiO2 30%, PEEP of 5. Blood gases show pO2 100, pCO2 39, pH is 7.44. The patient remains on propofol at 50 mics per kilogram per minute, norepinephrine at 4 mcg/min, vasopressin at 0.03 units/min, and the patient is getting TPN at 55 cc an hour. The patient continues on cefepime and Flagyl. We will check a procalcitonin level. The patient had an uneventful night according to the nurses. Vasopressor requirements have been coming down. White count is 43.7, hemoglobin 7.5, hematocrit 22.9, with a normal platelet count. Sodium 132, potassium 3.7, chloride 103, CO2 23, BUN 36, and creatinine 1.11. Glucose is 164. Calcium 7.1, magnesium 2.2, and phosphorus 2.1. Albumin is 1.9. Cultures thus far are negative. Chest x-ray shows low lung volumes, cardiomegaly, and the left-sided effusion, which is small. Progress note dated January 04, 2024. 33-year-old male seen today in room 264. The patient remains on the mechanical ventilator. He is on volume assist-control, rate 20, tidal volume 450, FiO2 30%, PEEP of 5. Blood gases show pO2 105, CO2 36, and pH 7.51. This blood gases consistent with a mild metabolic alkalosis. In addition, the patient remains on propofol at 50 mcg/kg/min, TPN at 55 cc an hour, and saline at KVO. The patient is currently weaned off of norepinephrine, and vasopressin. He continues on cefepime, Flagyl, and oral vancomycin. Today, since he is off pressors, we will attempt a daily interruption of sedation, and spontaneous breathing trial. Currently, white count is 36,000, hemoglobin 7.7, hematocrit 24.7, and platelet count 383,000. Sodium 131, potassium 3.8, chlorides 101, CO2 25, BUN 37, creatinine 0.82. Glucose is 135. Calcium 7.1, phosphorus 2.3. Albumin is 2.0. Blood cultures are currently all negative still. Chest x-ray shows cardiomegaly, and small lung volumes. There may be infiltrate or a telectasis at the left lung base. Objective - Vital Signs Vital signs: Vital Signs Temp 97.6 F 01/04/24 04:00 Pulse 107 H 01/04/24 08:30 Resp 5 L 01/04/24 07:00 BP 121/75 01/03/24 11:29 Pulse Ox 100 01/04/24 07:00 FiO2 30 01/04/24 08:20 Intake & Output 01/03/24 01/04/24 01/04/24 18:59 06:59 18:59 Intake Total 7387.350 7708.748 13 Output Total 2995 600 50 Balance -1642.874 8672.748 -37 Weight 124.6 kg Intake: IV 774 143 13 Cefepime 2 gm In Sodium 100 Chloride 0.9% 100 ml @ 25 mls/hr IVPB Q8HR [facility] Rx# :[id number] KVO 120 110 10 Mvi, Adult No.4 with Vit 165 K 10 ml Trace (Conc-1Ml/ Dose) 1 ml Sodium Acetate 40 meq Potassium Chloride 20 meq Calcium Gluconate 1 gm Magnesium Sulfate gm 1.5 gm In Amino Acids 5 %/Dextrose 20 % 1,000 ml @ 30 mls/hr IV .Q24H [facility] Rx#: [id number] Sodium Phosphate 15 mmol 250 In Dextrose 5% in Water 250 ml @ 127.5 mls/hr IVPB ONCE [facility] Rx#: [id number] metroNIDAZOLE-NS PMX 500 100 mg In Saline 1 100ml.bag @ 100 mls/hr IVPB Q8HR [facility] Rx#:[id number] pressure bag 39 33 3 Intake, IV Titration 721.653 3574.748 Amount Mvi, Adult No.4 with Vit 1516 K 10 ml Trace (Conc-1Ml/ Dose) 1 ml Potassium Chloride 20 meq In Amino Acid 5%-D15w+Lytes*E* 1, 000 ml @ 55 mls/hr IV . [id number] [facility] Rx#:[id number] Norepinephrine 32 mg In 20.504 Sodium Chloride 0.9% 218 ml @ 0.03 MCG/KG/MIN 1. 371 mls/hr IV .Q24H [facility] Rx#:[id number] Vasopressin 20 unit In 76.347 49.878 Sodium Chloride 0.9% 50 ml @ 0.04 UNITS/MIN 6.12 mls/hr IV .Q8H20M [facility] Rx# :[id number] propofoL 1,000 mg In 180.31 183.87 Empty Bag 1 bag @ 15 MCG/ KG/MIN 8.777 mls/hr IV . [id number] [facility] Rx#:[id number] Output: Urine 2995 600 50 Other: Voiding Method Indwelling Catheter Indwelling Catheter ABP, PAP, CO, CI - Last Documented Arterial Blood Pressure 125/80 - Exam No acute distress, sedated and intubated with an NG tube in place. HEENT examination is grossly unremarkable. Neck supple. Full range of motion. No adenopathy thyromegaly or neck vein distention. Cardiovascular examination reveals regular rhythm rate. S1-S2 normal. No S3 or S4. No discernible murmur noted. Heart rate is 92 bpm. Lungs reveal clear breath sounds. Breath sounds are equal bilaterally. No adventitious lung sounds including wheezes rhonchi or crackles. Saturations are 98 %. Abdomen soft without bowel sounds. Ileostomy is noted. Extremities are intact. No cyanosis clubbing or edema. Skin is without rash or lesion. Neurologic examination cannot be assessed at this time. - Labs CBC & Chem 7: 01/04/24 08:55 01/04/24 05:00 Labs: Abnormal Lab Results - Last 24 Hours (Table) 01/03/24 01/03/24 01/03/24 Range/Units 12:11 18:14 23:46 WBC (3.8-10.6) k/uL RBC (4.30-5.90) m/uL Hgb (13.0-17.5) gm/dL Hct (39.0-53.0) % ABG pH (7.35-7.45) ABG HCO3 (21-25) mmol/L ABG Total CO2 (19-24) mmol/L ABG O2 Saturation (94-97) % Sodium (137-145) mmol/L BUN (9-20) mg/dL Glucose (74-99) mg/dL POC Glucose (mg/dL) 171 H 169 H 163 H (70-110) mg/dL Calcium (8.4-10.2) mg/dL Phosphorus (2.5-4.5) mg/dL Total Protein (6.3-8.2) g/dL Albumin (3.5-5.0) g/dL 01/04/24 01/04/24 01/04/24 Range/Units 05:00 06:49 08:55 WBC 36.0 H (3.8-10.6) k/uL RBC 2.62 L (4.30-5.90) m/uL Hgb 7.7 L (13.0-17.5) gm/dL Hct 24.7 L (39.0-53.0) % ABG pH 7.51 H (7.35-7.45) ABG HCO3 28 H (21-25) mmol/L ABG Total CO2 29 H (19-24) mmol/L ABG O2 Saturation 98.5 H (94-97) % Sodium 131 L (137-145) mmol/L BUN 37 H (9-20) mg/dL Glucose 135 H (74-99) mg/dL POC Glucose (mg/dL) (70-110) mg/dL Calcium 7.1 L (8.4-10.2) mg/dL Phosphorus 2.3 L (2.5-4.5) mg/dL Total Protein 4.3 L (6.3-8.2) g/dL Albumin 2.0 L (3.5-5.0) g/dL Microbiology - Last 24 Hours (Table) 12/31/23 15:53 Gram Stain - Final Sputum Sputum Culture - Final Zeina lusitaniae Assessment and Plan Assessment: Postoperative day #5, S/P subtotal colectomy with ileostomy, for fulminant pancolitis. Routine postoperative ventilator management. Possible relative adrenal insufficiency. Non-anion gap metabolic acidosis. Previous history of pancreatitis. History of hypertension. History of hyperlipidemia. Plan: Plan dated December 30, 2026. The patient is seen today in the intensive care unit, room 264. The patient was extubated in the operating room, and reintubated in minutes, in the recovery area. The patient remains intubated. An arterial line was placed by anesthesia. I placed a left subclavian triple-lumen catheter. The patient is receiving lactated Ringer's at 150 cc an hour. The patient is on propofol at 15 mcg/kg/min. Will add DuoNebs, every 4 [id number]. In addition, the patient will have a repeat blood gas. The patient is running on vancomycin, cefepime, and Flagyl. We will continue to follow make recommendations. Prognosis is guarded. We will use 1 port of the central venous catheter for ce ntral venous pressure measurements. Plan dated January 01, 2024. The patient is seen again in the intensive care unit, room 264. He remains on the ventilator. Blood gases are adequate, with a pO2 116, pCO2 31, pH is 7.4. The patient remains on propofol at 40 mcg/kg/min, norepinephrine 23 mcg/min, and vasopressin at 0.03 units/min. The patient is also receiving lactated Ringer's at 150 cc an hour. The patient continues on cefepime and Flagyl. Also, the patient is on oral vancomycin. Yesterday, we gave the patient 100 mg of hydrocortisone IV push, and started the patient on hydrocortisone 50 mg every 6 hours. The patient seems to have responded to it, as his pressor requirements have gone down. We will continue to follow make recommendations along the way. Labs, x-rays, and medications are reviewed. Prognosis is guarded. Plan dated January 02, 2024. The patient is critically ill but stable. He remains on norepinephrine at 13 mcg/min, and vasopressin at 0.03 units/min. The patient is getting TPN at 30 cc an hour. He continues on cefepime, vancomycin, and Flagyl. For sedation he is getting propofol at 50 mcg/kg/min. Blood gases show pO2 126, pCO2 of 39, pH of 7.43. We will continue to follow the patient, make recommendations along the way. The patient's overall prognosis remains very guarded. All culture data is thus far negative. Plan dated January 03, 2024. The patient is critically ill but relatively stable, and as mentioned above, vasopressor requirements have come down. Labs, x-rays, and medications are reviewed. The patient remains on propofol, norepinephrine, and vasopressin. I have asked the nurse to see if he can reduce the vasopressors to 1 medication rather than 2. The patient continues on TPN at 55 cc an hour. The patient also continues on cefepime and Flagyl. We will check a procalcitonin level. Labs, x-rays, and medications are reviewed. Prognosis is guarded. We will continue to follow the patient, make recommendations along the way. Plan dated January 04, 2024. I am happy to report, the patient has been weaned off of both norepinephrine, and vasopressin. This is a very positive thing. Labs, x-rays, and medications are reviewed. Blood gases show pO2 of 105, pCO2 36, pH is 7.51. He continues on TPN at 55 cc an hour, and propofol at 50 mcg/kg/min. In addition, he continues on cefepime, Flagyl, and oral vancomycin. Sometime this morning, we will attempt a daily interruption of sedation, spontaneous breathing trial. The patient can be placed on press with 4-5, CPAP of 5. Labs, x-rays, and medications are reviewed. We will continue to follow. Prognosis is guarded. Time with Patient: Greater than 30
[2024-01-04] MEDS: FUROSEMIDE 10 MG/ML 4 ML VIAL IV SCH (09:40)
--- NOTE | 2024-01-04 10:11 | P.PN ---
Subjective Patient is seen in follow-up for acute kidney injury. Renal function better today. Intubated. Off vasopressors. Receiving TPN. Vital signs are stable. General: Resting in bed. HEENT: Head exam is unremarkable. Intubated. LUNGS: Scattered rhonchi. HEART: Rate and Rhythm are regular. ABDOMEN: No distention. EXTREMITITES: 2+ edema. Objective - Vital Signs Vital signs: Vital Signs Temp 97.6 F 01/04/24 08:00 Pulse 101 H 01/04/24 09:30 Resp 21 01/04/24 09:30 BP 121/75 01/03/24 11:29 Pulse Ox 98 01/04/24 09:30 FiO2 30 01/04/24 08:20 Intake & Output 01/03/24 01/04/24 01/04/24 18:59 06:59 18:59 Intake Total 9715.284 0290.748 809 Output Total 2995 600 1305 Balance -5242.881 1938.748 -496 Weight 124.6 kg Intake: IV 774 143 709 Cefepime 2 gm In Sodium 100 100 Chloride 0.9% 100 ml @ 25 mls/hr IVPB Q8HR [facility] Rx# :[id number] KVO 120 110 50 Mvi, Adult No.4 with Vit 165 K 10 ml Trace (Conc-1Ml/ Dose) 1 ml Sodium Acetate 40 meq Potassium Chloride 20 meq Calcium Gluconate 1 gm Magnesium Sulfate gm 1.5 gm In Amino Acids 5 %/Dextrose 20 % 1,000 ml @ 30 mls/hr IV .Q24H [facility] Rx#: [id number] Potassium Chloride 20 meq 200 In Water For Injection 1 100ml.bag @ 50 mls/hr IVPB Q2H [facility] Rx#: [id number] Sodium Phosphate 15 mmol 250 250 In Dextrose 5% in Water 250 ml @ 127.5 mls/hr IVPB ONCE [facility] Rx#: [id number] metroNIDAZOLE-NS PMX 500 100 100 mg In Saline 1 100ml.bag @ 100 mls/hr IVPB Q8HR [facility] Rx#:[id number] pressure bag 39 33 9 Intake, IV Titration 202.960 4365.748 100 Amount Mvi, Adult No.4 with Vit 1516 K 10 ml Trace (Conc-1Ml/ Dose) 1 ml Potassium Chloride 20 meq In Amino Acid 5%-D15w+Lytes*E* 1, 000 ml @ 55 mls/hr IV . [id number] [facility] Rx#:[id number] Norepinephrine 32 mg In 20.504 Sodium Chloride 0.9% 218 ml @ 0.03 MCG/KG/MIN 1. 371 mls/hr IV .Q24H [facility] Rx#:[id number] Vasopressin 20 unit In 76.347 49.878 Sodium Chloride 0.9% 50 ml @ 0.04 UNITS/MIN 6.12 mls/hr IV .Q8H20M [facility] Rx# :[id number] propofoL 1,000 mg In 180.31 183.87 100 Empty Bag 1 bag @ 15 MCG/ KG/MIN 8.777 mls/hr IV . [id number] [facility] Rx#:[id number] Output: Gastric Drainage 350 Urine 2995 600 955 Other: Voiding Method Indwelling Catheter Indwelling Catheter ABP, PAP, CO, CI - Last Documented Arterial Blood Pressure 151/77 - Labs CBC & Chem 7: 01/04/24 08:55 01/04/24 05:00 Labs: Abnormal Lab Results - Last 24 Hours (Table) 01/03/24 01/03/24 01/03/24 Range/Units 12:11 18:14 23:46 WBC (3.8-10.6) k/uL RBC (4.30-5.90) m/uL Hgb (13.0-17.5) gm/dL Hct (39.0-53.0) % ABG pH (7.35-7.45) ABG HCO3 (21-25) mmol/L ABG Total CO2 (19-24) mmol/L ABG O2 Saturation (94-97) % Sodium (137-145) mmol/L BUN (9-20) mg/dL Glucose (74-99) mg/dL POC Glucose (mg/dL) 171 H 169 H 163 H (70-110) mg/dL Calcium (8.4-10.2) mg/dL Phosphorus (2.5-4.5) mg/dL Total Protein (6.3-8.2) g/dL Albumin (3.5-5.0) g/dL 01/04/24 01/04/24 01/04/24 Range/Units 05:00 06:49 08:55 WBC 36.0 H (3.8-10.6) k/uL RBC 2.62 L (4.30-5.90) m/uL Hgb 7.7 L (13.0-17.5) gm/dL Hct 24.7 L (39.0-53.0) % ABG pH 7.51 H (7.35-7.45) ABG HCO3 28 H (21-25) mmol/L ABG Total CO2 29 H (19-24) mmol/L ABG O2 Saturation 98.5 H (94-97) % Sodium 131 L (137-145) mmol/L BUN 37 H (9-20) mg/dL Glucose 135 H (74-99) mg/dL POC Glucose (mg/dL) (70-110) mg/dL Calcium 7.1 L (8.4-10.2) mg/dL Phosphorus 2.3 L (2.5-4.5) mg/dL Total Protein 4.3 L (6.3-8.2) g/dL Albumin 2.0 L (3.5-5.0) g/dL Microbiology - Last 24 Hours (Table) 12/31/23 15:53 Gram Stain - Final Sputum Sputum Culture - Final Zeina lusitaniae Assessment and Plan Plan: Assessment: 1. Acute kidney injury secondary to ATN secondary to septic shock. Also received IV contrast on December 24 and December 30, 2023. Renal function better. Creatinine 0.82 today. No hydronephrosis noted on CAT scan. 2. 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 3. Volume overload. 4. Acute blood loss anemia status post blood transfusion December 25, 2023. Hemoglobin improved. 5. Hyponatremia secondary to acute kidney injury. Hypervolemic. Plan: Maintain TPN per surgery. Add IV Lasix 40 mg once daily. Continue to monitor renal function and urine output. Wean FiO2. Avoid nephrotoxins.
--- NOTE | 2024-01-04 10:23 | P.PN ---
Subjective Progress Note Date: 01/04/24 33 year old M with PMH of hypertension and ADHD who presents to the emergency room with complaints of abdominal pain, diarrhea, and weight loss. Patient notes that over the past 2 months since his most recent admission of pancreatitis, he has lost roughly 40 pounds and has had intermittent diffuse abdominal discomfort with associated diarrhea. He has noticed blood in his stools on numerous occasions, bright red, without mucus. Notes that the pain has no clear inciting triggers but often occurs after food consumption. Reports that the pain is usually associated with diarrhea, and lasts for several days at a time. Denies nausea, vomiting, fever, chills, cough. Of note, the patient was admitted on 11/04 for mild acute pancreatitis. He does report having seen a technical sme as an outpatient and is currently awaiting the results of his workup and is also scheduled for an EGD. Reports however that his pain had become unbearable which prompted him to come to the emergency room. CT abdomen and pelvis in the emergency room revealed findings of colitis involving the transverse, descending, and sigmoid colon's with hepatic steatosis. Chest x-ray was unremarkable with EKG showing sinus tachycardia at 103 bpm with diffuse T wave flattening. Laboratory evaluation was remarkable for leukocytosis of 20.7, and hemoglobin 11.7, sodium 133, potassium 2.8, CO2 36, BUN 10, creatinine 0.82, calcium 7.7, with an unremarkable UA. Patient was started on Levaquin and Flagyl and admitted for treatment of colitis. GI consulted recommended outpatient C-scope in 4-6 weeks. His symptoms worsened. CT AP repeated 12/28 showed worsening anasarca, moderate to severe pancolitis with dilation up to 10.2 cm. ID was consulted, C. diff was negative, C. diff PCR ordered, Levaquin replaced with Cefepime and continued of Flagyl and added PO Vancomycin. Surgery consulted, patient underwent subtotal colectomy with ileostomy with Dr. Saleh on 12/30 and transferred to ICU post op. He has required multiple pressors since his ICU transfer including Levophed, Vasopressin and Solu-Cortef. Nephrology consulted for hyponatremia and metabolic acidosis, sodium as low as 124, given intermittent Lasix IV and bicarb infusion, now improving. Started on TPN 12/31. Required 1 unit PRBC on 01/01. 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 01/03 Patient was seen and examined. Intubated. He is on Levophed drip at 0.02 mcg/kg/min and Solu-Cortef 50 mg IV Q6H. Vasopressin has been weaned off. Currently on Propofol at 50 mcg/kg/min. Antibiotics include Cefepime 1g IV TID (D7), Vancomycin 500 mg PO QID (D5) and Flagyl 500 mg IV TID (D7). ABG pH 7.51, pCO2 36, HCO3 28, O2 sat 98.5 on FiO2 30%. CMP Na 131, BUN 37, glu 135, Ca 7.1, alb 2. Mag 2. Phos 2.3. POC glucose 163-171 over the past 24H requiring 6 units Novolog over the sliding scale. CXR done today shows pulmonary vascular congestion with small pleural effusion. Nephrology recommends Lasix 40 mg IV QD. General: Intubated and sedated Derm: warm, dry, anasarca Head: atraumatic, normocephalic, symmetric Eyes: EOMI, no lid lag, anicteric sclera Mouth: no lip lesion, mucus membranes moist Cardiovascular: S1S2 tachy, no murmur Lungs: Coarse BS bilateral, no rhonchi, no rales , no accessory muscle use Abdominal: distended, ileostomy noted, sluggish BS Ext: no gross muscle atrophy, 2+ pitting edema bilateral LE, no contractures Neuro: Intubated and sedated Psych: Intubated and sedated Based on my assessment of this patient, this patient meets a high complexity level of care. Ventilator dependent respiratory failure: Post operatively. 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 Septic shock due to colitis: Status post subtotal colectomy with ileostomy with Dr. Saleh on 12/30. Cefepime 1g IV TID (D7), Vancomycin 500 mg PO QID (D5) and Flagyl 500 mg IV TID (D7). Titrate Levophed to maintain MAP > 65. Telemetry monitoring. Blood and Stool culture negative on admission. C. diff negative on admission. ID on board. Acute on chronic blood loss anemia: Status post 1 unit PRBC 01/01. Daily CBC. Transfuse if Hg < 7. Check iron studies. Hyperglycemia: POC glucose ranging from 180-205 over the past 24H. Started on ISS Q6H. Accuchecks Q6H. Check A1c. Hypophosphatemia: Replaced 01/02 and 01/03 with sodium phosphate in D5 15 mmol IV. Hyponatremia: UOsm 299, Maxx < 20. Hypervolemic. Improved with Lasix. Lasix 40 mg IV QD. Nephrology on board. Acute kidney injury: Likely prerenal from shock. IV hydration as above. Monitor electrolytes and renal function while on lasix. Anasarca due to hypoalbuminemia Hypocalcemia: Status post Ca gluconate 1g IV 12/31. Corrected Ca is 8.7 today. Severe protein calorie malnutrition: TPA managed by Dietary. Daily CMP, Mag and Phos. Resolved: Metabolic acidosis CODE STATUS: FULL CODE DVT Prophylaxis: SCD GI Prophylaxis: Pepcid 20 mg IV BID. Designated medical POA if patient is not able to make medical decisions for themselves: I have reviewed the following behavioral health consultant notes: Pulmonary, Surgery, Nephrology. I have reviewed the results of the following tests: CBC, CMP, ABG, Mag, Phos, POC glucose I have ordered the following tests: CBC, CMP. A1c, Iron studies pending. I have discussed the care of this patient with the following independent historian: KATHIA. I have independently interpreted the following test below: CXR I have discussed the management of this patient with the following physician: Objective - Vital Signs Vital signs: Vital Signs Temp 97.6 F 01/04/24 04:00 Pulse 105 H 01/04/24 07:00 Resp 5 L 01/04/24 07:00 BP 121/75 01/03/24 11:29 Pulse Ox 100 01/04/24 07:00 FiO2 30 01/04/24 04:00 Intake & Output 01/03/24 01/04/24 01/04/24 18:59 06:59 18:59 Intake Total 2430.715 5232.748 13 Output Total 2995 600 50 Balance -2095.737 7620.748 -37 Weight 124.6 kg Intake: IV 774 143 13 Cefepime 2 gm In Sodium 100 Chloride 0.9% 100 ml @ 25 mls/hr IVPB Q8HR [facility] Rx# :[id number] KVO 120 110 10 Mvi, Adult No.4 with Vit 165 K 10 ml Trace (Conc-1Ml/ Dose) 1 ml Sodium Acetate 40 meq Potassium Chloride 20 meq Calcium Gluconate 1 gm Magnesium Sulfate gm 1.5 gm In Amino Acids 5 %/Dextrose 20 % 1,000 ml @ 30 mls/hr IV .Q24H [facility] Rx#: [id number] Sodium Phosphate 15 mmol 250 In Dextrose 5% in Water 250 ml @ 127.5 mls/hr IVPB ONCE [facility] Rx#: [id number] metroNIDAZOLE-NS PMX 500 100 mg In Saline 1 100ml.bag @ 100 mls/hr IVPB Q8HR [facility] Rx#:[id number] pressure bag 39 33 3 Intake, IV Titration 080.695 2187.748 Amount Mvi, Adult No.4 with Vit 1516 K 10 ml Trace (Conc-1Ml/ Dose) 1 ml Potassium Chloride 20 meq In Amino Acid 5%-D15w+Lytes*E* 1, 000 ml @ 55 mls/hr IV . [id number] [facility] Rx#:[id number] Norepinephrine 32 mg In 20.504 Sodium Chloride 0.9% 218 ml @ 0.03 MCG/KG/MIN 1. 371 mls/hr IV .Q24H [facility] Rx#:[id number] Vasopressin 20 unit In 76.347 49.878 Sodium Chloride 0.9% 50 ml @ 0.04 UNITS/MIN 6.12 mls/hr IV .Q8H20M [facility] Rx# :[id number] propofoL 1,000 mg In 180.31 183.87 Empty Bag 1 bag @ 15 MCG/ KG/MIN 8.777 mls/hr IV . [id number] [facility] Rx#:[id number] Output: Urine 2995 600 50 Other: Voiding Method Indwelling Catheter Indwelling Catheter ABP, PAP, CO, CI - Last Documented Arterial Blood Pressure 125/80 - Labs CBC & Chem 7: 01/04/24 08:55 01/04/24 05:00 Labs: Abnormal Lab Results - Last 24 Hours (Table) 01/03/24 01/03/24 01/03/24 Range/Units 12:11 18:14 23:46 ABG pH (7.35-7.45) ABG HCO3 (21-25) mmol/L ABG Total CO2 (19-24) mmol/L ABG O2 Saturation (94-97) % Sodium (137-145) mmol/L BUN (9-20) mg/dL Glucose (74-99) mg/dL POC Glucose (mg/dL) 171 H 169 H 163 H (70-110) mg/dL Calcium (8.4-10.2) mg/dL Phosphorus (2.5-4.5) mg/dL Total Protein (6.3-8.2) g/dL Albumin (3.5-5.0) g/dL 01/04/24 01/04/24 Range/Units 05:00 06:49 ABG pH 7.51 H (7.35-7.45) ABG HCO3 28 H (21-25) mmol/L ABG Total CO2 29 H (19-24) mmol/L ABG O2 Saturation 98.5 H (94-97) % Sodium 131 L (137-145) mmol/L BUN 37 H (9-20) mg/dL Glucose 135 H (74-99) mg/dL POC Glucose (mg/dL) (70-110) mg/dL Calcium 7.1 L (8.4-10.2) mg/dL Phosphorus 2.3 L (2.5-4.5) mg/dL Total Protein 4.3 L (6.3-8.2) g/dL Albumin 2.0 L (3.5-5.0) g/dL Microbiology - Last 24 Hours (Table) 12/31/23 15:53 Gram Stain - Final Sputum Sputum Culture - Final Zeina lusitaniae
[2024-01-04 10:41] LABS: RBC Morphology Normal
[2024-01-04 10:59] LABS: % Iron Saturation 14.47 (15.00-50.00); Iron 11 UG/DL (65-175); Total Iron Binding Capacity 76 UG/DL (228-460)
[2024-01-04 11:43] LABS: Glucose,Whole Blood 174 mg/dL (70-110)
--- NOTE | 2024-01-04 13:54 | P.PN ---
Subjective Progress Note Date: 01/04/24 Principal diagnosis: Toxic megacolon Patient remains on the ventilator. Mildly tachycardic. Much improved urine output. No pressors. White blood cell count improved at 36. Hemoglobin 7.7. Objective - Vital Signs Vital signs: Vital Signs Temp 98.0 F 01/04/24 12:00 Pulse 101 H 01/04/24 13:00 Resp 21 01/04/24 13:00 BP 121/75 01/03/24 11:29 Pulse Ox 99 01/04/24 13:00 FiO2 30 01/04/24 12:02 Intake & Output 01/03/24 01/04/24 01/04/24 18:59 06:59 18:59 Intake Total 2457.433 3463.748 1026.453 Output Total 2995 600 4130 Balance -7032.557 8406.748 -3103.547 Weight 124.6 kg Intake: IV 774 143 801 Cefepime 2 gm In Sodium 100 100 Chloride 0.9% 100 ml @ 25 mls/hr IVPB Q8HR [facility] Rx# :[id number] KVO 120 110 130 Mvi, Adult No.4 with Vit 165 K 10 ml Trace (Conc-1Ml/ Dose) 1 ml Sodium Acetate 40 meq Potassium Chloride 20 meq Calcium Gluconate 1 gm Magnesium Sulfate gm 1.5 gm In Amino Acids 5 %/Dextrose 20 % 1,000 ml @ 30 mls/hr IV .Q24H [facility] Rx#: [id number] Potassium Chloride 20 meq 200 In Water For Injection 1 100ml.bag @ 50 mls/hr IVPB Q2H [facility] Rx#: [id number] Sodium Phosphate 15 mmol 250 250 In Dextrose 5% in Water 250 ml @ 127.5 mls/hr IVPB ONCE [facility] Rx#: [id number] metroNIDAZOLE-NS PMX 500 100 100 mg In Saline 1 100ml.bag @ 100 mls/hr IVPB Q8HR [facility] Rx#:[id number] pressure bag 39 33 21 Intake, IV Titration 439.129 0114.748 225.453 Amount Mvi, Adult No.4 with Vit 1516 K 10 ml Trace (Conc-1Ml/ Dose) 1 ml Potassium Chloride 20 meq In Amino Acid 5%-D15w+Lytes*E* 1, 000 ml @ 55 mls/hr IV . [id number] [facility] Rx#:[id number] Norepinephrine 32 mg In 20.504 Sodium Chloride 0.9% 218 ml @ 0.03 MCG/KG/MIN 1. 371 mls/hr IV .Q24H [facility] Rx#:[id number] Potassium Chloride 10 meq 100 In Water For Injection 1 100ml.bag @ 100 mls/hr IVPB Q1H [facility] Rx#: [id number] Vasopressin 20 unit In 76.347 49.878 Sodium Chloride 0.9% 50 ml @ 0.04 UNITS/MIN 6.12 mls/hr IV .Q8H20M [facility] Rx# :[id number] propofoL 1,000 mg In 180.31 183.87 125.453 Empty Bag 1 bag @ 15 MCG/ KG/MIN 8.777 mls/hr IV . [id number] [facility] Rx#:[id number] Output: Gastric Drainage 650 Urine 2995 600 3480 Other: Voiding Method Indwelling Catheter Indwelling Catheter Indwelling Catheter ABP, PAP, CO, CI - Last Documented Arterial Blood Pressure 136/63 - Exam Abdomen: Soft, distended, edematous, ostomy pink, no function - Labs CBC & Chem 7: 01/04/24 08:55 01/04/24 05:00 Labs: Abnormal Lab Results - Last 24 Hours (Table) 01/03/24 01/03/24 01/04/24 Range/Units 18:14 23:46 05:00 WBC (3.8-10.6) k/uL RBC (4.30-5.90) m/uL Hgb (13.0-17.5) gm/dL Hct (39.0-53.0) % Neutrophils # (1.3-7.7) k/uL Lymphocytes # (1.0-4.8) k/uL ABG pH (7.35-7.45) ABG HCO3 (21-25) mmol/L ABG Total CO2 (19-24) mmol/L ABG O2 Saturation (94-97) % Sodium 131 L (137-145) mmol/L BUN 37 H (9-20) mg/dL Glucose 135 H (74-99) mg/dL POC Glucose (mg/dL) 169 H 163 H (70-110) mg/dL Calcium 7.1 L (8.4-10.2) mg/dL Phosphorus 2.3 L (2.5-4.5) mg/dL Iron 11 L (65-175) UG/DL TIBC 76 L (228-460) UG/DL % Saturation 14.47 L (15.00-50.00) Transferrin 54.0 L (204.0-354.0) mg/dL Ferritin 1486.0 H (22.0-322.0) ng/mL Total Protein 4.3 L (6.3-8.2) g/dL Albumin 2.0 L (3.5-5.0) g/dL Procalcitonin (0.02-0.09) ng/mL 01/04/24 01/04/24 01/04/24 Range/Units 05:00 06:49 08:55 WBC 36.0 H (3.8-10.6) k/uL RBC 2.62 L (4.30-5.90) m/uL Hgb 7.7 L (13.0-17.5) gm/dL Hct 24.7 L (39.0-53.0) % Neutrophils # 33.8 H (1.3-7.7) k/uL Lymphocytes # 0.6 L (1.0-4.8) k/uL ABG pH 7.51 H (7.35-7.45) ABG HCO3 28 H (21-25) mmol/L ABG Total CO2 29 H (19-24) mmol/L ABG O2 Saturation 98.5 H (94-97) % Sodium (137-145) mmol/L BUN (9-20) mg/dL Glucose (74-99) mg/dL POC Glucose (mg/dL) (70-110) mg/dL Calcium (8.4-10.2) mg/dL Phosphorus (2.5-4.5) mg/dL Iron (65-175) UG/DL TIBC (228-460) UG/DL % Saturation (15.00-50.00) Transferrin (204.0-354.0) mg/dL Ferritin (22.0-322.0) ng/mL Total Protein (6.3-8.2) g/dL Albumin (3.5-5.0) g/dL Procalcitonin 11.80 H (0.02-0.09) ng/mL 01/04/24 Range/Units 11:42 WBC (3.8-10.6) k/uL RBC (4.30-5.90) m/uL Hgb (13.0-17.5) gm/dL Hct (39.0-53.0) % Neutrophils # (1.3-7.7) k/uL Lymphocytes # (1.0-4.8) k/uL ABG pH (7.35-7.45) ABG HCO3 (21-25) mmol/L ABG Total CO2 (19-24) mmol/L ABG O2 Saturation (94-97) % Sodium (137-145) mmol/L BUN (9-20) mg/dL Glucose (74-99) mg/dL POC Glucose (mg/dL) 174 H (70-110) mg/dL Calcium (8.4-10.2) mg/dL Phosphorus (2.5-4.5) mg/dL Iron (65-175) UG/DL TIBC (228-460) UG/DL % Saturation (15.00-50.00) Transferrin (204.0-354.0) mg/dL Ferritin (22.0-322.0) ng/mL Total Protein (6.3-8.2) g/dL Albumin (3.5-5.0) g/dL Procalcitonin (0.02-0.09) ng/mL Microbiology - Last 24 Hours (Table) 12/31/23 15:53 Gram Stain - Final Sputum Sputum Culture - Final Zeina lusitaniae Assessment and Plan (1) Colitis Narrative/Plan: 33-year-old male improving in the ICU after emergent subtotal colectomy. Continue diuresis. Continue antibiotics. Monitor incision and ostomy function. Current Visit: Yes Status: Acute Code(s): K52.9 - NONINFECTIVE GASTROENTERITIS AND COLITIS, UNSPECIFIED SNOMED Code(s): 74278043
--- NOTE | 2024-01-04 15:35 | P.PN ---
Subjective Progress Note Date: 01/04/24 Principal diagnosis: Reason for follow-up is pancolitis and leukocytosis Patient is a 33-year-old -Burm[place] male with a past medical history negative for hypertension hyperlipidemia and pancreatitis that was diagnosed about 2 months ago on 11/05/2023 however the patient mention he was not admitted for it patient presented back to [facility] ER on 12/25/2023 for дмитрий luation of abdominal pain diarrhea patient did have evidence of worsening pancolitis on the CT prompting this consultation. 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 On today's evaluation that is 01/04/2024, Patient is afebrile patient is currently on ventilator FiO2 stable at 30% no significant purulent secretions through the ET or any change reported by the nursing staff and to hemodynamically more stable. Patient medical disorder 36,000, creatinine 0.82 sputum with Zeina Objective - Vital Signs Vital signs: Vital Signs Temp 97.6 F 01/04/24 08:00 Pulse 104 H 01/04/24 12:15 Resp 22 01/04/24 11:30 BP 121/75 01/03/24 11:29 Pulse Ox 98 01/04/24 11:30 FiO2 30 01/04/24 12:02 Intake & Output 01/03/24 01/04/24 01/04/24 18:59 06:59 18:59 Intake Total 4860.878 3558.748 933.17 Output Total 2995 600 2155 Balance -3022.554 8796.748 -1221.83 Weight 124.6 kg Intake: IV 774 143 732 Cefepime 2 gm In Sodium 100 100 Chloride 0.9% 100 ml @ 25 mls/hr IVPB Q8HR [facility] Rx# :[id number] KVO 120 110 70 Mvi, Adult No.4 with Vit 165 K 10 ml Trace (Conc-1Ml/ Dose) 1 ml Sodium Acetate 40 meq Potassium Chloride 20 meq Calcium Gluconate 1 gm Magnesium Sulfate gm 1.5 gm In Amino Acids 5 %/Dextrose 20 % 1,000 ml @ 30 mls/hr IV .Q24H [facility] Rx#: [id number] Potassium Chloride 20 meq 200 In Water For Injection 1 100ml.bag @ 50 mls/hr IVPB Q2H [facility] Rx#: [id number] Sodium Phosphate 15 mmol 250 250 In Dextrose 5% in Water 250 ml @ 127.5 mls/hr IVPB ONCE [facility] Rx#: [id number] metroNIDAZOLE-NS PMX 500 100 100 mg In Saline 1 100ml.bag @ 100 mls/hr IVPB Q8HR [facility] Rx#:[id number] pressure bag 39 33 12 Intake, IV Titration 058.076 3161.748 201.17 Amount Mvi, Adult No.4 with Vit 1516 K 10 ml Trace (Conc-1Ml/ Dose) 1 ml Potassium Chloride 20 meq In Amino Acid 5%-D15w+Lytes*E* 1, 000 ml @ 55 mls/hr IV . [id number] [facility] Rx#:[id number] Norepinephrine 32 mg In 20.504 Sodium Chloride 0.9% 218 ml @ 0.03 MCG/KG/MIN 1. 371 mls/hr IV .Q24H [facility] Rx#:[id number] Potassium Chloride 10 meq 100 In Water For Injection 1 100ml.bag @ 100 mls/hr IVPB Q1H [facility] Rx#: [id number] Vasopressin 20 unit In 76.347 49.878 Sodium Chloride 0.9% 50 ml @ 0.04 UNITS/MIN 6.12 mls/hr IV .Q8H20M [facility] Rx# :[id number] propofoL 1,000 mg In 180.31 183.87 101.17 Empty Bag 1 bag @ 15 MCG/ KG/MIN 8.777 mls/hr IV . [id number] [facility] Rx#:[id number] Output: Gastric Drainage 350 Urine 2995 600 1805 Other: Voiding Method Indwelling Catheter Indwelling Catheter Indwelling Catheter ABP, PAP, CO, CI - Last Documented Arterial Blood Pressure 120/62 - Exam GENERAL DESCRIPTION: Middle-age male intubated on the vent RESPIRATORY SYSTEM: Unlabored breathing , decreased breath sounds at bases HEART: S1 S2 regular rate and rhythm , ABDOMEN: Soft , no tenderness EXTREMITIES: No edema feet - Labs CBC & Chem 7: 01/04/24 08:55 01/04/24 05:00 Labs: Abnormal Lab Results - Last 24 Hours (Table) 01/03/24 01/03/24 01/04/24 Range/Units 18:14 23:46 05:00 WBC (3.8-10.6) k/uL RBC (4.30-5.90) m/uL Hgb (13.0-17.5) gm/dL Hct (39.0-53.0) % Neutrophils # (1.3-7.7) k/uL Lymphocytes # (1.0-4.8) k/uL ABG pH (7.35-7.45) ABG HCO3 (21-25) mmol/L ABG Total CO2 (19-24) mmol/L ABG O2 Saturation (94-97) % Sodium 131 L (137-145) mmol/L BUN 37 H (9-20) mg/dL Glucose 135 H (74-99) mg/dL POC Glucose (mg/dL) 169 H 163 H (70-110) mg/dL Calcium 7.1 L (8.4-10.2) mg/dL Phosphorus 2.3 L (2.5-4.5) mg/dL Iron 11 L (65-175) UG/DL TIBC 76 L (228-460) UG/DL % Saturation 14.47 L (15.00-50.00) Transferrin 54.0 L (204.0-354.0) mg/dL Ferritin 1486.0 H (22.0-322.0) ng/mL Total Protein 4.3 L (6.3-8.2) g/dL Albumin 2.0 L (3.5-5.0) g/dL Procalcitonin (0.02-0.09) ng/mL 01/04/24 01/04/24 01/04/24 Range/Units 05:00 06:49 08:55 WBC 36.0 H (3.8-10.6) k/uL RBC 2.62 L (4.30-5.90) m/uL Hgb 7.7 L (13.0-17.5) gm/dL Hct 24.7 L (39.0-53.0) % Neutrophils # 33.8 H (1.3-7.7) k/uL Lymphocytes # 0.6 L (1.0-4.8) k/uL ABG pH 7.51 H (7.35-7.45) ABG HCO3 28 H (21-25) mmol/L ABG Total CO2 29 H (19-24) mmol/L ABG O2 Saturation 98.5 H (94-97) % Sodium (137-145) mmol/L BUN (9-20) mg/dL Glucose (74-99) mg/dL POC Glucose (mg/dL) (70-110) mg/dL Calcium (8.4-10.2) mg/dL Phosphorus (2.5-4.5) mg/dL Iron (65-175) UG/DL TIBC (228-460) UG/DL % Saturation (15.00-50.00) Transferrin (204.0-354.0) mg/dL Ferritin (22.0-322.0) ng/mL Total Protein (6.3-8.2) g/dL Albumin (3.5-5.0) g/dL Procalcitonin 11.80 H (0.02-0.09) ng/mL 01/04/24 Range/Units 11:42 WBC (3.8-10.6) k/uL RBC (4.30-5.90) m/uL Hgb (13.0-17.5) gm/dL Hct (39.0-53.0) % Neutrophils # (1.3-7.7) k/uL Lymphocytes # (1.0-4.8) k/uL ABG pH (7.35-7.45) ABG HCO3 (21-25) mmol/L ABG Total CO2 (19-24) mmol/L ABG O2 Saturation (94-97) % Sodium (137-145) mmol/L BUN (9-20) mg/dL Glucose (74-99) mg/dL POC Glucose (mg/dL) 174 H (70-110) mg/dL Calcium (8.4-10.2) mg/dL Phosphorus (2.5-4.5) mg/dL Iron (65-175) UG/DL TIBC (228-460) UG/DL % Saturation (15.00-50.00) Transferrin (204.0-354.0) mg/dL Ferritin (22.0-322.0) ng/mL Total Protein (6.3-8.2) g/dL Albumin (3.5-5.0) g/dL Procalcitonin (0.02-0.09) ng/mL Microbiology - Last 24 Hours (Table) 12/31/23 15:53 Gram Stain - Final Sputum Sputum Culture - Final Zeina lusitaniae Assessment and Plan (1) Leukocytosis Current Visit: Yes Status: Acute Code(s): D72.829 - ELEVATED WHITE BLOOD CELL COUNT, UNSPECIFIED SNOMED Code(s): 760613429 (2) Pancolitis Current Visit: Yes Status: Acute Code(s): K51.00 - ULCERATIVE (CHRONIC) PANCOLITIS WITHOUT COMPLICATIONS SNOMED Code(s): 469285065 Plan: 1patient with a complicated history as for as evidence of severe pancolitis on the CT that was completed 12/29/2023 and also have worsening of the white count patient apparently was diagnosed with pancreatitis on 11/05/2023 however the patient was not admitted and mention has not received an antibiotic therapy features are highly suspicious for pseudomembranous colitis though initial testing was negative other infectious etiology need to be ruled out as well 2-stool for C. difficile PCR has been requested unfortunately not collected and the patient is status post subtotal colectomy completed morning of 12/31/2023 biopsy results currently pending 3-patient white count is trending down and the patient wanted expressive support remains to be afebrile we will give the patient cefepime Flagyl and vancomycin while waiting for the workup to be completed Dictation was produced using [employer] dictation software. please excuse any grammatical, word or spelling errors. Time with Patient: Less than 30
[2024-01-04 17:29] LABS: Glucose,Whole Blood 152 mg/dL (70-110)
--- NOTE | 2024-01-04 18:53 | XR ---
EXAMINATION TYPE: XR chest 1V portable DATE OF EXAM: 01/04/2024 7:07 AM CLINICAL INDICATION:Male, 33 years old with history of intubation follow up; [facility] COMPARISON: Chest radiographs from 01/03/2024 TECHNIQUE: XR chest 1V portable Frontal view of the chest. FINDINGS: Lungs/Pleura: Small blunting of left costophrenic angle versus prominent epicardial fat pad. There is no evidence of right pleural effusion, focal consolidation, or pneumothorax. Pulmonary vascularity: Unremarkable. Heart/mediastinum: Cardiomediastinal silhouette is unremarkable. Musculoskeletal: No acute osseous pathology. Other findings: None Lines/Tubes: Endotracheal tube with distal tip 4.9 cm above the dhiraj. Nasogastric tube with its distal tip and side-port projecting under the diaphragm. Left internal jugular central venous catheter with distal tip at the cavoatrial junction. IMPRESSION: 1. Support lines and tubes in appropriate position. 2. Low lung volumes possible left pleural effusion.
[2024-01-04 23:38] LABS: Glucose,Whole Blood 146 mg/dL (70-110)
[2024-01-05 05:24] LABS: ABG Base Excess 6.4 mmol/L; ABG HCO3 30 mmol/L (21-25); ABG Oxygen Saturation 99.5 % (94-97); ABG PCO2 40 mmHg (35-45); ABG PH 7.49 (7.35-7.45); ABG PO2 124 mmHg (83-108); ABG TCO2 32 mmol/L (19-24); Allen Test Performed? Yes
[2024-01-05 05:26] LABS: ALT 18 U/L (4-49); AST 31 U/L (17-59); African American GFR (CKD) >90 (>60 ml/min/1.73 sqM); Alkaline Phosphatase 111 U/L (38-126); Anion Gap 2 mmol/L; Blood Urea Nitrogen 33 mg/dL (9-20); Calcium 7.2 mg/dL (8.4-10.2); Carbon Dioxide 30 mmol/L (22-30); Chloride 107 mmol/L (98-107); Glucose 141 mg/dL (74-99); Magnesium 2.1 mg/dL (1.6-2.3); Non-African American GFR(CKD) >90 (>60 ml/min/1.73 sqM); Phosphorus 2.4 mg/dL (2.5-4.5); Potassium 3.9 mmol/L (3.5-5.1); Sodium 139 mmol/L (137-145); Total Bilirubin 0.7 mg/dL (0.2-1.3); Total Protein 4.3 g/dL (6.3-8.2)
[2024-01-05 05:29] LABS: HCT 23.3 % (39.0-53.0); HGB 7.2 gm/dL (13.0-17.5); Hypochromasia Slight; MCH 29.3 pg (25.0-35.0); MCHC 30.7 g/dL (31.0-37.0); MCV 95.5 fL (80.0-100.0); Mean Platelet Volume 7.7; Platelet Count 369 k/uL (150-450); RBC 2.44 m/uL (4.30-5.90); RDW 14.8 % (11.5-15.5); WBC 40.8 k/uL (3.8-10.6)
[2024-01-05 06:25] LABS: Lymphocytes # (M) 1.22 k/uL (1.0-4.8); Monocytes # (M) 0.41 k/uL (0-1.0); Neutrophils # (M) 39.17 k/uL (1.3-7.7); Neutrophils % (M) 96 %; Nucleated Red Blood Cells 0 /100 WBC (0-0); Total Cells Counted 100
--- NOTE | 2024-01-05 07:40 | XR ---
EXAMINATION TYPE: XR chest 1V portable DATE OF EXAM: 01/05/2024 Comparison: 01/04/2024 Clinical History: 33-year-old male tube placement, Findings: ET tube tip remains at the medial clavicular heads. NG tube courses below the diaphragm. Left subclav elena CVC tip cavoatrial junction. Heart upper limits of normal in size. Mild interstitial density gaby ins. Ongoing small left pleural effusion with left basilar opacity. Impression: Consider CHF with mild pulmonary vascular congestion. Ongoing small left pleural effusion with adjace nt atelectasis and/or consolidation.
[2024-01-05] MEDS: POTASSIUM BICARBONATE/CIT AC 20 MEQ TABLET.EFF NG-TUBE SCH (08:16)
[2024-01-05] MEDS: SODIUM PHOSPHATE 15 MMOL in DEXTROSE 5% IN WATER 250 ML IVPB ONE (08:21)
--- NOTE | 2024-01-05 09:38 | P.PN ---
Subjective Progress Note Date: 01/05/24 33 year old M with PMH of hypertension and ADHD who presents to the emergency room with complaints of abdominal pain, diarrhea, and weight loss. Patient notes that over the past 2 months since his most recent admission of pancreatitis, he has lost roughly 40 pounds and has had intermittent diffuse abdominal discomfort with associated diarrhea. He has noticed blood in his stools on numerous occasions, bright red, without mucus. Notes that the pain has no clear inciting triggers but often occurs after food consumption. Reports that the pain is usually associated with diarrhea, and lasts for several days at a time. Denies nausea, vomiting, fever, chills, cough. Of note, the patient was admitted on 11/04 for mild acute pancreatitis. He does report having seen a machine turner as an outpatient and is currently awaiting the results of his workup and is also scheduled for an EGD. Reports however that his pain had become unbearable which prompted him to come to the emergency room. CT abdomen and pelvis in the emergency room revealed findings of colitis involving the transverse, descending, and sigmoid colon's with hepatic steatosis. Chest x-ray was unremarkable with EKG showing sinus tachycardia at 103 bpm with diffuse T wave flattening. Laboratory evaluation was remarkable for leukocytosis of 20.7, and hemoglobin 11.7, sodium 133, potassium 2.8, CO2 36, BUN 10, creatinine 0.82, calcium 7.7, with an unremarkable UA. Patient was started on Levaquin and Flagyl and admitted for treatment of colitis. GI consulted recommended outpatient C-scope in 4-6 weeks. His symptoms worsened. CT AP repeated 12/28 showed worsening anasarca, moderate to severe pancolitis with dilation up to 10.2 cm. ID was consulted, C. diff was negative, C. diff PCR ordered, Levaquin replaced with Cefepime and continued of Flagyl and added PO Vancomycin. Surgery consulted, patient underwent subtotal colectomy with ileostomy with Dr. Saleh on 12/30 and transferred to ICU post op. He has required multiple pressors since his ICU transfer including Levophed, Vasopressin and Solu-Cortef. Nephrology consulted for hyponatremia and metabolic acidosis, sodium as low as 124, given intermittent Lasix IV and bicarb infusion, now improving. Started on TPN 12/31. Required 1 unit PRBC on 01/01. 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 Vasopressin weaned off 01/03. Levophed weaned off 01/04. 01/04 Patient was seen and examined. Intubated. Levophed drip weaned off this morning. Continued on Solu-Cortef 50 mg IV Q6H. Currently on Propofol at 20 mcg/kg/min. Antibiotics include Cefepime 2g IV TID (D8), Vancomycin 500 mg PO QID (D6) and Flagyl 500 mg IV TID (D8). Started on Lasix 40 mg IV QD yesterday by Nephrology, negative 4623 cc fluid balance over the past 24H. ABG pH 7.49, pCO2 40, HCO3 30, O2 sat 99.5 on FiO2 30%. CBC WBC 40.8, RBC 2.44, Hg 7.2, Hct 23.3. CMP BUN 33, glu 141, Ca 7.2, alb 2. Mag 2.1. Phos 2.4. Iron studies show F e 11, % sat 14.47 and Ferritin 1486. POC glucose 146-174 over the past 24H requiring 4 units Novolog over the sliding scale. CXR done today shows pulmonary vascular congestion with small pleural effusion. General: Intubated and sedated Derm: warm, dry, anasarca Head: atraumatic, normocephalic, symmetric Eyes: EOMI, no lid lag, anicteric sclera Mouth: no lip lesion, mucus membranes moist Cardiovascular: S1S2 tachy, no murmur Lungs: Coarse BS bilateral, no rhonchi, no rales , no accessory muscle use Abdominal: distended, ileostomy noted, no BS Ext: no gross muscle atrophy, 2+ pitting edema bilateral LE, no contractures, bilateral upper restraints Neuro: Intubated and sedated Psych: Intubated and sedated Based on my assessment of this patient, this patient meets a high complexity level of care. Ventilator dependent respiratory failure: Post operatively. Vent management per Pulmonary/Coal Pulverizer Operator. Septic shock due to colitis: Status post subtotal colectomy with ileostomy with Dr. Saleh on 12/30. Cefepime 1g IV TID (D8), Vancomycin 500 mg PO QID (D6) and Flagyl 500 mg IV TID (D8). Titrate Levophed to maintain MAP > 65. Telemetry monitoring. Blood and Stool culture negative on admission. C. diff negative on admission. ID on board. Acute on chronic blood loss anemia: Status post 1 unit PRBC 01/01. Iron studies showing anemia of chronic disease. Daily CBC. Transfuse if Hg < 7. Hyperglycemia: A1c 5.6. POC glucose ranging from 146-174 over the past 24H. Continue ISS Q6H. Accuchecks Q6H. Hypophosphatemia: Replaced 01/02 and 01/03 with sodium phosphate in D5 15 mmol IV. Acute kidney injury: Likely prerenal from shock. Improving. Monitor electrolytes and renal function while on Lasix IV. Nephrology on board. Anasarca due to hypoalbuminemia: Lasix 40 mg IV QD. Hypocalcemia: Status post Ca gluconate 1g IV 12/31. Corrected Ca is 8.7. Severe protein calorie malnutrition: TPA managed by Dietary. Daily CMP, Mag and Phos. Resolved: Metabolic acidosis, Hyponatremia CODE STATUS: FULL CODE DVT Prophylaxis: SCD GI Prophylaxis: Pepcid 20 mg IV BID. Designated medical POA if patient is not able to make medical decisions for themselves: I have reviewed the following siebel consultant notes: Pulmonary, Surgery, Nephrology. I have reviewed the results of the following tests: CBC, CMP, ABG, Mag, Phos, POC glucose, A1c, Iron studies I have ordered the following tests: CBC, CMP, CXR. I have discussed the care of this patient with the following independent historian: KATHIA. I have independently interpreted the following test below: CXR I have discussed the management of this patient with the following physician: Objective - Vital Signs Vital signs: Vital Signs Temp 97.7 F 01/05/24 08:00 Pulse 98 01/05/24 08:46 Resp 21 01/05/24 08:30 BP 121/75 01/03/24 11:29 Pulse Ox 98 01/05/24 08:30 FiO2 30 01/05/24 08:33 Intake & Output 01/04/24 01/05/24 01/05/24 18:59 06:59 18:59 Intake Total 0883.425 2625.317 246 Output Total 5765 1520 520 Balance -4553.089 -70.683 -274 Weight 120 kg Intake: IV 916 276 246 Cefepime 2 gm In Sodium 100 100 Chloride 0.9% 100 ml @ 25 mls/hr IVPB Q8HR [facility] Rx# :[id number] KVO 230 240 40 Potassium Chloride 20 meq 200 In Water For Injection 1 100ml.bag @ 50 mls/hr IVPB Q2H [facility] Rx#: [id number] Sodium Phosphate 15 mmol 250 In Dextrose 5% in Water 250 ml @ 127.5 mls/hr IVPB ONCE ONE Rx#: [id number] metroNIDAZOLE-NS PMX 500 100 100 mg In Saline 1 100ml.bag @ 100 mls/hr IVPB Q8HR [facility] Rx#:[id number] pressure bag 36 36 6 Intake, IV Titration 732.853 5187.317 Amount Mvi, Adult No.4 with Vit 945.083 K 10 ml Trace (Conc-1Ml/ Dose) 1 ml Potassium Chloride 20 meq In Amino Acid 5%-D15w+Lytes*E* 1, 000 ml @ 55 mls/hr IV . [id number] [facility] Rx#:[id number] Norepinephrine 32 mg In 29.781 Sodium Chloride 0.9% 218 ml @ 0.03 MCG/KG/MIN 1. 371 mls/hr IV .Q24H [facility] Rx#:[id number] Potassium Chloride 10 meq 100 In Water For Injection 1 100ml.bag @ 100 mls/hr IVPB Q1H [facility] Rx#: [id number] propofoL 1,000 mg In 195.911 198.453 Empty Bag 1 bag @ 15 MCG/ KG/MIN 8.777 mls/hr IV . [id number] [facility] Rx#:[id number] Output: Gastric Drainage 950 400 Urine 4815 1520 120 Other: Voiding Method Indwelling Catheter Indwelling Catheter ABP, PAP, CO, CI - Last Documented Arterial Blood Pressure 127/65 - Labs CBC & Chem 7: 01/05/24 04:57 01/05/24 04:57 Labs: Abnormal Lab Results - Last 24 Hours (Table) 01/04/24 01/04/24 01/04/24 Range/Units 05:00 05:00 08:55 WBC (3.8-10.6) k/uL RBC (4.30-5.90) m/uL Hgb (13.0-17.5) gm/dL Hct (39.0-53.0) % MCHC (31.0-37.0) g/dL Neutrophils # 33.8 H (1.3-7.7) k/uL Neutrophils # (Manual) (1.3-7.7) k/uL Lymphocytes # 0.6 L (1.0-4.8) k/uL ABG pH (7.35-7.45) ABG pO2 (83-108) mmHg ABG HCO3 (21-25) mmol/L ABG Total CO2 (19-24) mmol/L ABG O2 Saturation (94-97) % BUN (9-20) mg/dL Glucose (74-99) mg/dL POC Glucose (mg/dL) (70-110) mg/dL Calcium (8.4-10.2) mg/dL Phosphorus (2.5-4.5) mg/dL Iron 11 L (65-175) UG/DL TIBC 76 L (228-460) UG/DL % Saturation 14.47 L (15.00-50.00) Transferrin 54.0 L (204.0-354.0) mg/dL Ferritin 1486.0 H (22.0-322.0) ng/mL Total Protein (6.3-8.2) g/dL Albumin (3.5-5.0) g/dL Procalcitonin 11.80 H (0.02-0.09) ng/mL 01/04/24 01/04/24 01/04/24 Range/Units 11:42 17:28 23:37 WBC (3.8-10.6) k/uL RBC (4.30-5.90) m/uL Hgb (13.0-17.5) gm/dL Hct (39.0-53.0) % MCHC (31.0-37.0) g/dL Neutrophils # (1.3-7.7) k/uL Neutrophils # (Manual) (1.3-7.7) k/uL Lymphocytes # (1.0-4.8) k/uL ABG pH (7.35-7.45) ABG pO2 (83-108) mmHg ABG HCO3 (21-25) mmol/L ABG Total CO2 (19-24) mmol/L ABG O2 Saturation (94-97) % BUN (9-20) mg/dL Glucose (74-99) mg/dL POC Glucose (mg/dL) 174 H 152 H 146 H (70-110) mg/dL Calcium (8.4-10.2) mg/dL Phosphorus (2.5-4.5) mg/dL Iron (65-175) UG/DL TIBC (228-460) UG/DL % Saturation (15.00-50.00) Transferrin (204.0-354.0) mg/dL Ferritin (22.0-322.0) ng/mL Total Protein (6.3-8.2) g/dL Albumin (3.5-5.0) g/dL Procalcitonin (0.02-0.09) ng/mL 01/05/24 01/05/24 01/05/24 Range/Units 04:57 04:57 05:27 WBC 40.8 H (3.8-10.6) k/uL RBC 2.44 L (4.30-5.90) m/uL Hgb 7.2 L (13.0-17.5) gm/dL Hct 23.3 L (39.0-53.0) % MCHC 30.7 L (31.0-37.0) g/dL Neutrophils # (1.3-7.7) k/uL Neutrophils # (Manual) 39.17 H (1.3-7.7) k/uL Lymphocytes # (1.0-4.8) k/uL ABG pH 7.49 H (7.35-7.45) ABG pO2 124 H (83-108) mmHg ABG HCO3 30 H (21-25) mmol/L ABG Total CO2 32 H (19-24) mmol/L ABG O2 Saturation 99.5 H (94-97) % BUN 33 H (9-20) mg/dL Glucose 141 H (74-99) mg/dL POC Glucose (mg/dL) (70-110) mg/dL Calcium 7.2 L (8.4-10.2) mg/dL Phosphorus 2.4 L (2.5-4.5) mg/dL Iron (65-175) UG/DL TIBC (228-460) UG/DL % Saturation (15.00-50.00) Transferrin (204.0-354.0) mg/dL Ferritin (22.0-322.0) ng/mL Total Protein 4.3 L (6.3-8.2) g/dL Albumin 2.0 L (3.5-5.0) g/dL Procalcitonin (0.02-0.09) ng/mL
--- NOTE | 2024-01-05 10:25 | P.PN ---
Subjective Patient is seen in follow-up for acute kidney injury. Renal function at baseline. Intubated. Off vasopressors. Receiving TPN. On IV Lasix. Vital signs are stable. General: Resting in bed. HEENT: Head exam is unremarkable. Intubated. LUNGS: Scattered rhonchi. HEART: Rate and Rhythm are regular. ABDOMEN: No distention. EXTREMITITES: 2+ edema. Objective - Vital Signs Vital signs: Vital Signs Temp 97.7 F 01/05/24 08:00 Pulse 105 H 01/05/24 10:00 Resp 23 01/05/24 10:00 BP 121/75 01/03/24 11:29 Pulse Ox 98 01/05/24 10:00 FiO2 30 01/05/24 08:33 Intake & Output 01/04/24 01/05/24 01/05/24 18:59 06:59 18:59 Intake Total 0118.134 8611.317 330.425 Output Total 5765 1520 2370 Balance -4553.089 -70.683 -2039.575 Weight 120 kg Intake: IV 916 276 292 Cefepime 2 gm In Sodium 100 100 Chloride 0.9% 100 ml @ 25 mls/hr IVPB Q8HR [facility] Rx# :[id number] KVO 230 240 80 Potassium Chloride 20 meq 200 In Water For Injection 1 100ml.bag @ 50 mls/hr IVPB Q2H [facility] Rx#: [id number] Sodium Phosphate 15 mmol 250 In Dextrose 5% in Water 250 ml @ 127.5 mls/hr IVPB ONCE ONE Rx#: [id number] metroNIDAZOLE-NS PMX 500 100 100 mg In Saline 1 100ml.bag @ 100 mls/hr IVPB Q8HR [facility] Rx#:[id number] pressure bag 36 36 12 Intake, IV Titration 934.414 9972.317 38.425 Amount Mvi, Adult No.4 with Vit 945.083 K 10 ml Trace (Conc-1Ml/ Dose) 1 ml Potassium Chloride 20 meq In Amino Acid 5%-D15w+Lytes*E* 1, 000 ml @ 55 mls/hr IV . [id number] [facility] Rx#:[id number] Norepinephrine 32 mg In 29.781 Sodium Chloride 0.9% 218 ml @ 0.03 MCG/KG/MIN 1. 371 mls/hr IV .Q24H [facility] Rx#:[id number] Potassium Chloride 10 meq 100 In Water For Injection 1 100ml.bag @ 100 mls/hr IVPB Q1H [facility] Rx#: [id number] propofoL 1,000 mg In 195.911 198.453 38.425 Empty Bag 1 bag @ 15 MCG/ KG/MIN 8.777 mls/hr IV . [id number] [facility] Rx#:[id number] Output: Gastric Drainage 950 400 Urine 4815 1520 1970 Other: Voiding Method Indwelling Catheter Indwelling Catheter Indwelling Catheter ABP, PAP, CO, CI - Last Documented Arterial Blood Pressure 133/68 - Labs CBC & Chem 7: 01/05/24 04:57 01/05/24 04:57 Labs: Abnormal Lab Results - Last 24 Hours (Table) 01/04/24 01/04/24 01/04/24 Range/Units 05:00 05:00 08:55 WBC (3.8-10.6) k/uL RBC (4.30-5.90) m/uL Hgb (13.0-17.5) gm/dL Hct (39.0-53.0) % MCHC (31.0-37.0) g/dL Neutrophils # 33.8 H (1.3-7.7) k/uL Neutrophils # (Manual) (1.3-7.7) k/uL Lymphocytes # 0.6 L (1.0-4.8) k/uL ABG pH (7.35-7.45) ABG pO2 (83-108) mmHg ABG HCO3 (21-25) mmol/L ABG Total CO2 (19-24) mmol/L ABG O2 Saturation (94-97) % BUN (9-20) mg/dL Glucose (74-99) mg/dL POC Glucose (mg/dL) (70-110) mg/dL Calcium (8.4-10.2) mg/dL Phosphorus (2.5-4.5) mg/dL Iron 11 L (65-175) UG/DL TIBC 76 L (228-460) UG/DL % Saturation 14.47 L (15.00-50.00) Transferrin 54.0 L (204.0-354.0) mg/dL Ferritin 1486.0 H (22.0-322.0) ng/mL Total Protein (6.3-8.2) g/dL Albumin (3.5-5.0) g/dL Procalcitonin 11.80 H (0.02-0.09) ng/mL 01/04/24 01/04/24 01/04/24 Range/Units 11:42 17:28 23:37 WBC (3.8-10.6) k/uL RBC (4.30-5.90) m/uL Hgb (13.0-17.5) gm/dL Hct (39.0-53.0) % MCHC (31.0-37.0) g/dL Neutrophils # (1.3-7.7) k/uL Neutrophils # (Manual) (1.3-7.7) k/uL Lymphocytes # (1.0-4.8) k/uL ABG pH (7.35-7.45) ABG pO2 (83-108) mmHg ABG HCO3 (21-25) mmol/L ABG Total CO2 (19-24) mmol/L ABG O2 Saturation (94-97) % BUN (9-20) mg/dL Glucose (74-99) mg/dL POC Glucose (mg/dL) 174 H 152 H 146 H (70-110) mg/dL Calcium (8.4-10.2) mg/dL Phosphorus (2.5-4.5) mg/dL Iron (65-175) UG/DL TIBC (228-460) UG/DL % Saturation (15.00-50.00) Transferrin (204.0-354.0) mg/dL Ferritin (22.0-322.0) ng/mL Total Protein (6.3-8.2) g/dL Albumin (3.5-5.0) g/dL Procalcitonin (0.02-0.09) ng/mL 01/05/24 01/05/24 01/05/24 Range/Units 04:57 04:57 05:27 WBC 40.8 H (3.8-10.6) k/uL RBC 2.44 L (4.30-5.90) m/uL Hgb 7.2 L (13.0-17.5) gm/dL Hct 23.3 L (39.0-53.0) % MCHC 30.7 L (31.0-37.0) g/dL Neutrophils # (1.3-7.7) k/uL Neutrophils # (Manual) 39.17 H (1.3-7.7) k/uL Lymphocytes # (1.0-4.8) k/uL ABG pH 7.49 H (7.35-7.45) ABG pO2 124 H (83-108) mmHg ABG HCO3 30 H (21-25) mmol/L ABG Total CO2 32 H (19-24) mmol/L ABG O2 Saturation 99.5 H (94-97) % BUN 33 H (9-20) mg/dL Glucose 141 H (74-99) mg/dL POC Glucose (mg/dL) (70-110) mg/dL Calcium 7.2 L (8.4-10.2) mg/dL Phosphorus 2.4 L (2.5-4.5) mg/dL Iron (65-175) UG/DL TIBC (228-460) UG/DL % Saturation (15.00-50.00) Transferrin (204.0-354.0) mg/dL Ferritin (22.0-322.0) ng/mL Total Protein 4.3 L (6.3-8.2) g/dL Albumin 2.0 L (3.5-5.0) g/dL Procalcitonin (0.02-0.09) ng/mL Assessment and Plan Plan: Assessment: 1. Acute kidney injury secondary to ATN secondary to septic shock. Also received IV contrast on December 24 and December 30, 2023. PRESTON resolved. No hydronephrosis noted on CAT scan. 2. 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 3. Volume overload. Improving with diuresis. 4. Acute blood loss anemia status post blood transfusion December 25, 2023. Hemoglobin improved. 5. Hyponatremia secondary to acute kidney injury. Hypervolemic. Improved. Plan: Maintain TPN per surgery. Maintain IV Lasix. Continue to monitor renal function and urine output. Wean FiO2. Avoid nephrotoxins.
[2024-01-05 11:52] LABS: ABG HCO3 32 mmol/L (21-25); ABG PCO2 43 mmHg (35-45); ABG PH 7.47 (7.35-7.45); ABG PO2 140 mmHg (83-108); Allen Test Performed? no
[2024-01-05 12:03] LABS: Glucose,Whole Blood 172 mg/dL (70-110)
--- NOTE | 2024-01-05 12:48 | P.PN ---
Subjective Progress Note Date: 01/05/24 Pulmonary/critical care consult dated December 31, 2023. 33-year-old male who presented to the emergency department, on December 24 with severe abdominal pain. The patient apparently has a history of pancreatitis, and apparently told the ER physician that the pain seemed similar. He had sharp left-sided abdominal pain, from the night before. He had poor appetite, and has been unable to keep any food or liquids down. The patient was admitted to the hospital, for the abdominal pain. He denies any fever, chills, nausea, constipation, or diarrhea. There is no urinary complaints. The patient apparently has a history of hyperlipidemia, hypertension, and pancreatitis. He is a lifelong non-smoker. He only drinks occasionally. It was told to me this morning, both from the charge nurse in the ICU, and the surgeon, but the patient was in the operating room, for fulminant pancolitis, and was having a colectomy. The patient had a subtotal colectomy with ileostomy performed by one of the surgeons, and the patient was extubated initially in the operating room, but was reintubated minutes later. The patient came to the ICU, on the ventilator. I gave Vent settings of volume assist-control, rate 20, tidal volume 450, FiO2 100%, PEEP of 5. Blood gases will be done in about an hour. We also placed a left subclavian triple-lumen catheter. An arterial line was placed by anesthesia. The most recent labs include a white count of 28.9, hemoglobin 10, hematocrit 31, and platelet count which was 744,000. Most recent blood gas showed a pO2 of 331, pCO2 of 37, pH is 7.34. That was on 100%. Repeat blood gas will be done in about 60 minutes. Sodium 133, potassium 3.9, chlorides 100, CO2 17, anion gap 16, BUN 27, creatinine 1.1. Glucose was 96. C-reactive protein was 9.90. Calcium 7.4. Stool and blood cultures have been negative. The postintubation x-ray shows the endotracheal tube to be in good position. In addition, there is a left subclavian triple-lumen catheter in good position. A repeat CT scan of the abdomen and pelvis, yesterday, showed hyperemia and wall thickening of the sigmoid colon and rectum as well as areas of transverse colon. The radiologist thought it was consistent with colitis/proctitis. There was upstream dilatation of the large bowel. Small bowel loops are dilated with relative nondistention. No transition point is noted. Other findings are noted on the CT scan. Progress note dated January 01, 2024. This is a 33-year-old male seen yesterday in consultation. Please see my extensive note above. The patient remains in the intensive care unit, on the ventilator. He is on volume assist-control, rate 20, tidal volume 450, FiO2 40%, PEEP of 5. Blood gases are excellent with a pO2 116, pCO2 31, and pH of 7.40. Blood gases are consistent with a mixed acid-base disturbance, including a respiratory alkalosis, and mild metabolic acidosis. The patient remains on propofol at 40 mcg/kg/min, norepinephrine at 23 mcg/min, vasopressin at 0.03 units/min, and lactated Ringer's at 150 cc an hour. The patient continues on cefepime, and Flagyl. The patient is also on oral vancomycin. I have asked the nurse, to talk to dietary about a possible TPN preparation. Current labs include a white count 45.4, hemoglobin 9.9, hematocrit 32.1, and a platelet count of 741,000. Sodium 130, potassium 4.3, chlorides 104, CO2 16, anion gap 10, BUN and creatinine were 26 and 1.71. Glucose is 117. Ionized calcium was low at 4.2. Cortisol was 83. Blood cultures, and stool sampling, has thus far been negative. Chest x-ray shows no major changes. There may be some left basilar atelectasis, or infiltrate. Progress note dated January 02, 2024. 33-year-old male who is seen today in the intensive care unit, room 264. The patient remains on mechanical ventilator. He is on volume assist-control, rate 20, tidal volume 450, FiO2 40%, to be reduced down to 30%, with a PEEP of 5. Blood gases show pO2 126, pCO2 39, and pH is 7.43. The patient is on half- normal saline with 2 ampoules of sodium bicarb and at 100 cc an hour. The patient is also on norepinephrine at 13 mcg/min, and vasopressin at 0.03 units/min. Additionally, the patient is on propofol at 50 mcg/kg/min, and TPN at 30 cc an hour. The patient continues on cefepime, vancomycin, and Flagyl. Current labs include a white count of 49.4, hemoglobin 7.2, hematocrit 22.3, and a platelet count of 422,000. Sodium 131, potassium 3.6, chlorides 102, CO2 23, BUN 34, and creatinine 1.74. Albumin is 1.7. All culture material is negative. Chest x-ray shows the endotracheal tube, high in the trachea. There is also a left-sided pleural effusion, with atelectasis. Progress note dated January 03, 2024. 33-year-old male seen in the intensive care unit, room 264. The patient remains on mechanical ventilator. He is on volume assist-control, rate 20, tidal volume 450, FiO2 30%, PEEP of 5. Blood gases show pO2 100, pCO2 39, pH is 7.44. The patient remains on propofol at 50 mics per kilogram per minute, norepinephrine at 4 mcg/min, vasopressin at 0.03 units/min, and the patient is getting TPN at 55 cc an hour. The patient continues on cefepime and Flagyl. We will check a procalcitonin level. The patient had an uneventful night according to the nurses. Vasopressor requirements have been coming down. White count is 43.7, hemoglobin 7.5, hematocrit 22.9, with a normal platelet count. Sodium 132, potassium 3.7, chloride 103, CO2 23, BUN 36, and creatinine 1.11. Glucose is 164. Calcium 7.1, magnesium 2.2, and phosphorus 2.1. Albumin is 1.9. Cultures thus far are negative. Chest x-ray shows low lung volumes, cardiomegaly, and the left-sided effusion, which is small. Progress note dated January 04, 2024. 33-year-old male seen today in room 264. The patient remains on the mechanical ventilator. He is on volume assist-control, rate 20, tidal volume 450, FiO2 30%, PEEP of 5. Blood gases show pO2 105, CO2 36, and pH 7.51. This blood gases consistent with a mild metabolic alkalosis. In addition, the patient remains on propofol at 50 mcg/kg/min, TPN at 55 cc an hour, and saline at KVO. The patient is currently weaned off of norepinephrine, and vasopressin. He continues on cefepime, Flagyl, and oral vancomycin. Today, since he is off pressors, we will attempt a daily interruption of sedation, and spontaneous breathing trial. Currently, white count is 36,000, hemoglobin 7.7, hematocrit 24.7, and platelet count 383,000. Sodium 131, potassium 3.8, chlorides 101, CO2 25, BUN 37, creatinine 0.82. Glucose is 135. Calcium 7.1, phosphorus 2.3. Albumin is 2.0. Blood cultures are currently all negative still. Chest x-ray shows cardiomegaly, and small lung volumes. There may be infiltrate or atelectasis at the left lung base. 01/05/2024, I am seeing the patient for a follow-up in the intensive care unit. This patient has undergone a subtotal colectomy and robotic ileostomy for fulfillment pancolitis. The patient was septic, and had severe leukocytosis and the patient is currently postop day #6. Remains intubated on mechanical ventilator. On today's evaluation, the patient is off Precedex and the patient is being assessed for further weaning and I will assess the patient's potential for further weaning and extubation today. The surgical wound is dry clean and intact. The white cell count down to 40 with a hemoglobin 7.2 and a platelet count of 369. While being on mechanical ventilator, the patient has a blood gas showing a pH of 7.47 with a pCO2 of 43 and pO2 140. The ventilator setting is currently on assist-control mode with rate of 20, tidal volume of 450, FiO2 30% with a PEEP of 5. The patient's fluid balance is negative and the patient is being diuresed with IV Lasix. Overall fluid balance is -4.6 L over the past 24 hours the patient remains on TPN for nutritional support. The patient is afebrile. The patient is hemodynamically stable. No other significant events overnight. Remains on TPN. Objective - Vital Signs Vital signs: Vital Signs Temp 97.7 F 01/05/24 08:00 Pulse 105 H 01/05/24 10:00 Resp 23 01/05/24 10:00 BP 121/75 01/03/24 11:29 Pulse Ox 98 01/05/24 10:00 FiO2 30 01/05/24 08:33 Intake & Output 01/04/24 01/05/24 01/05/24 18:59 06:59 18:59 Intake Total 0258.799 1031.317 330.425 Output Total 5765 1520 2370 Balance -4553.089 -70.683 -2039.575 Weight 120 kg Intake: IV 916 276 292 Cefepime 2 gm In Sodium 100 100 Chloride 0.9% 100 ml @ 25 mls/hr IVPB Q8HR [facility] Rx# :[id number] KVO 230 240 80 Potassium Chloride 20 meq 200 In Water For Injection 1 100ml.bag @ 50 mls/hr IVPB Q2H [facility] Rx#: [id number] Sodium Phosphate 15 mmol 250 In Dextrose 5% in Water 250 ml @ 127.5 mls/hr IVPB ONCE ONE Rx#: [id number] metroNIDAZOLE-NS PMX 500 100 100 mg In Saline 1 100ml.bag @ 100 mls/hr IVPB Q8HR [facility] Rx#:[id number] pressure bag 36 36 12 Intake, IV Titration 999.878 6479.317 38.425 Amount Mvi, Adult No.4 with Vit 945.083 K 10 ml Trace (Conc-1Ml/ Dose) 1 ml Potassium Chloride 20 meq In Amino Acid 5%-D15w+Lytes*E* 1, 000 ml @ 55 mls/hr IV . [id number] [facility] Rx#:[id number] Norepinephrine 32 mg In 29.781 Sodium Chloride 0.9% 218 ml @ 0.03 MCG/KG/MIN 1. 371 mls/hr IV .Q24H [facility] Rx#:[id number] Potassium Chloride 10 meq 100 In Water For Injection 1 100ml.bag @ 100 mls/hr IVPB Q1H [facility] Rx#: [id number] propofoL 1,000 mg In 195.911 198.453 38.425 Empty Bag 1 bag @ 15 MCG/ KG/MIN 8.777 mls/hr IV . [id number] [facility] Rx#:[id number] Output: Gastric Drainage 950 400 Urine 4815 1520 1970 Other: Voiding Method Indwelling Catheter Indwelling Catheter Indwelling Catheter ABP, PAP, CO, CI - Last Documented Arterial Blood Pressure 133/68 - Exam No acute distress, calm and comfortable, off sedatives, following simple commands HEENT examination is grossly unremarkable. Neck supple. Full range of motion. No adenopathy thyromegaly or neck vein distention. Cardiovascular examination reveals regular rhythm rate. S1-S2 normal. No S3 or S4. No discernible murmur noted. Lungs reveal clear breath sounds. Breath sounds are equal bilaterally. No adventitious lung sounds including wheezes rhonchi or crackles. Abdomen soft without bowel sounds. Ileostomy is noted. The ileostomy site is functional and the patient has no significant abdominal distention. No direct tenderness. No rebound tenderness. No guarding. Bowel sounds are present. Extremities are intact. No cyanosis clubbing extensive edema in all 4 extremities. Skin is without rash or lesion. Neurologic examination reveals that the patient has no focal neurological deficits while being off the sedatives. - Labs CBC & Chem 7: 01/05/24 04:57 01/05/24 04:57 Labs: Abnormal Lab Results - Last 24 Hours (Table) 01/04/24 01/04/24 01/04/24 Range/Units 11:42 17:28 23:37 WBC (3.8-10.6) k/uL RBC (4.30-5.90) m/uL Hgb (13.0-17.5) gm/dL Hct (39.0-53.0) % MCHC (31.0-37.0) g/dL Neutrophils # (Manual) (1.3-7.7) k/uL ABG pH (7.35-7.45) ABG pO2 (83-108) mmHg ABG HCO3 (21-25) mmol/L ABG Total CO2 (19-24) mmol/L ABG O2 Saturation (94-97) % BUN (9-20) mg/dL Glucose (74-99) mg/dL POC Glucose (mg/dL) 174 H 152 H 146 H (70-110) mg/dL Calcium (8.4-10.2) mg/dL Phosphorus (2.5-4.5) mg/dL Total Protein (6.3-8.2) g/dL Albumin (3.5-5.0) g/dL 01/05/24 01/05/24 01/05/24 Range/Units 04:57 04:57 05:27 WBC 40.8 H (3.8-10.6) k/uL RBC 2.44 L (4.30-5.90) m/uL Hgb 7.2 L (13.0-17.5) gm/dL Hct 23.3 L (39.0-53.0) % MCHC 30.7 L (31.0-37.0) g/dL Neutrophils # (Manual) 39.17 H (1.3-7.7) k/uL ABG pH 7.49 H (7.35-7.45) ABG pO2 124 H (83-108) mmHg ABG HCO3 30 H (21-25) mmol/L ABG Total CO2 32 H (19-24) mmol/L ABG O2 Saturation 99.5 H (94-97) % BUN 33 H (9-20) mg/dL Glucose 141 H (74-99) mg/dL POC Glucose (mg/dL) (70-110) mg/dL Calcium 7.2 L (8.4-10.2) mg/dL Phosphorus 2.4 L (2.5-4.5) mg/dL Total Protein 4.3 L (6.3-8.2) g/dL Albumin 2.0 L (3.5-5.0) g/dL Assessment and Plan Plan: Acute abdominal sepsis secondary to pancolitis the patient remains NPO. Acute leukocytosis secondary to above Acute abdomen and the patient is supposed subtotal colectomy. The patient is postoperative day # 6, S/P subtotal colectomy with ileostomy, for fulminant pancolitis. Ileostomy site is functional. Surgical wound is dry clean and intact. The patient is currently on IV cefepime and Flagyl. The patient remains on TPN for nutritional support. Acute hypoxic respiratory failure secondary to above, remains intubated on mechanical ventilator Possible relative adrenal insufficiency. The patient is currently on IV hydrocortisone Non-anion gap metabolic acidosis, recovered Previous history of pancreatitis. History of hypertension. History of hyperlipidemia. Extensive edema in all 4 extremities, currently negative fluid balance while being on IV Lasix Plan: Continue ventilator support Keep the patient off sedatives and check weaning parameters and give the patient a spontaneous breathing trial accordingly Possible extubation today Continue TPN for nutritional support Continue IV cefepime and Flagyl Monitor the white cell count Monitor procalcitonin level Continue IV Lasix Will continue to follow make further recommendations based on the progress. Condition is still critical. Possible extubation today based on his progress. Critical care evaluation was done more than 40 minutes. Time with Patient: Greater than 30
--- NOTE | 2024-01-05 14:14 | P.PN ---
Subjective Progress Note Date: 01/05/24 CHIEF COMPLAINT: Colitis HISTORY OF PRESENT ILLNESS: Patient is postop day #5 status post subtotal colect tacos with ileostomy fulminant pancolitis. Pathology reporting ulcerative colitis and appendicitis. Patient was undergoing CPAP trial this morning. He has had successful extubation this afternoon. He is being diuresed. Patient did have abdominal distention yesterday and had over 600 mL output through NG tube. Patient is on TPN for nutrition support. Afebrile. Mildly tachycardic. Off of pressors. WBC is up from 36-40.8 Hgb 7.2 creatinine 0.79 PHYSICAL EXAM: VITAL SIGNS: Reviewed. GENERAL: Well-developed in no acute distress. ABDOMEN: Soft. Distended. Palpation incisional dressing mild saturation distally. Ostomy with air noted in the bag and small amount of stool. Stoma pink NEUROLOGIC: Awake ASSESSMENT: 1. Fulminant pancolitis PLAN: -Patient extubated today -Keep patient n.p.o. for now -Continue TPN for nutrition support -Continue pain management -Continue antibiotics -DVT prophylaxis subcu heparin GI prophylaxis [employer] note has been reviewed by physician. Signing provider agrees with the documented findings, assessment, and plan of care. Objective - Vital Signs Vital signs: Vital Signs Temp 98.8 F 01/05/24 12:00 Pulse 104 H 01/05/24 13:00 Resp 15 01/05/24 13:00 BP 121/75 01/03/24 11:29 Pulse Ox 98 01/05/24 13:00 FiO2 30 01/05/24 08:33 Intake & Output 01/04/24 01/05/24 01/05/24 18:59 06:59 18:59 Intake Total 9220.456 6522.317 408.202 Output Total 5765 1520 2695 Balance -4553.089 -70.683 -2286.798 Weight 120 kg 120 kg Intake: IV 916 276 361 Cefepime 2 gm In Sodium 100 100 Chloride 0.9% 100 ml @ 25 mls/hr IVPB Q8HR [facility] Rx# :[id number] KVO 230 240 140 Potassium Chloride 20 meq 200 In Water For Injection 1 100ml.bag @ 50 mls/hr IVPB Q2H [facility] Rx#: [id number] Sodium Phosphate 15 mmol 250 In Dextrose 5% in Water 250 ml @ 127.5 mls/hr IVPB ONCE ONE Rx#: [id number] metroNIDAZOLE-NS PMX 500 100 100 mg In Saline 1 100ml.bag @ 100 mls/hr IVPB Q8HR [facility] Rx#:[id number] pressure bag 36 36 21 Intake, IV Titration 141.325 0574.317 47.202 Amount Mvi, Adult No.4 with Vit 945.083 K 10 ml Trace (Conc-1Ml/ Dose) 1 ml Potassium Chloride 20 meq In Amino Acid 5%-D15w+Lytes*E* 1, 000 ml @ 55 mls/hr IV . [id number] [facility] Rx#:[id number] Norepinephrine 32 mg In 29.781 Sodium Chloride 0.9% 218 ml @ 0.03 MCG/KG/MIN 1. 371 mls/hr IV .Q24H [facility] Rx#:[id number] Potassium Chloride 10 meq 100 In Water For Injection 1 100ml.bag @ 100 mls/hr IVPB Q1H [facility] Rx#: [id number] propofoL 1,000 mg In 195.911 198.453 47.202 Empty Bag 1 bag @ 15 MCG/ KG/MIN 8.777 mls/hr IV . [id number] [facility] Rx#:[id number] Output: Gastric Drainage 950 400 Urine 4815 1520 2295 Other: Voiding Method Indwelling Catheter Indwelling Catheter Indwelling Catheter ABP, PAP, CO, CI - Last Documented Arterial Blood Pressure 134/69 - Labs CBC & Chem 7: 01/05/24 04:57 01/05/24 04:57 Labs: Abnormal Lab Results - Last 24 Hours (Table) 01/04/24 01/04/24 01/05/24 Range/Units 17:28 23:37 04:57 WBC (3.8-10.6) k/uL RBC (4.30-5.90) m/uL Hgb (13.0-17.5) gm/dL Hct (39.0-53.0) % MCHC (31.0-37.0) g/dL Neutrophils # (Manual) (1.3-7.7) k/uL ABG pH (7.35-7.45) ABG pO2 (83-108) mmHg ABG HCO3 (21-25) mmol/L ABG Total CO2 (19-24) mmol/L ABG O2 Saturation (94-97) % BUN 33 H (9-20) mg/dL Glucose 141 H (74-99) mg/dL POC Glucose (mg/dL) 152 H 146 H (70-110) mg/dL Calcium 7.2 L (8.4-10.2) mg/dL Phosphorus 2.4 L (2.5-4.5) mg/dL Total Protein 4.3 L (6.3-8.2) g/dL Albumin 2.0 L (3.5-5.0) g/dL 01/05/24 01/05/24 01/05/24 Range/Units 04:57 05:27 11:20 WBC 40.8 H (3.8-10.6) k/uL RBC 2.44 L (4.30-5.90) m/uL Hgb 7.2 L (13.0-17.5) gm/dL Hct 23.3 L (39.0-53.0) % MCHC 30.7 L (31.0-37.0) g/dL Neutrophils # (Manual) 39.17 H (1.3-7.7) k/uL ABG pH 7.49 H 7.47 H (7.35-7.45) ABG pO2 124 H 140 H (83-108) mmHg ABG HCO3 30 H 32 H (21-25) mmol/L ABG Total CO2 32 H (19-24) mmol/L ABG O2 Saturation 99.5 H 99.0 H (94-97) % BUN (9-20) mg/dL Glucose (74-99) mg/dL POC Glucose (mg/dL) (70-110) mg/dL Calcium (8.4-10.2) mg/dL Phosphorus (2.5-4.5) mg/dL Total Protein (6.3-8.2) g/dL Albumin (3.5-5.0) g/dL 01/05/24 Range/Units 12:02 WBC (3.8-10.6) k/uL RBC (4.30-5.90) m/uL Hgb (13.0-17.5) gm/dL Hct (39.0-53.0) % MCHC (31.0-37.0) g/dL Neutrophils # (Manual) (1.3-7.7) k/uL ABG pH (7.35-7.45) ABG pO2 (83-108) mmHg ABG HCO3 (21-25) mmol/L ABG Total CO2 (19-24) mmol/L ABG O2 Saturation (94-97) % BUN (9-20) mg/dL Glucose (74-99) mg/dL POC Glucose (mg/dL) 172 H (70-110) mg/dL Calcium (8.4-10.2) mg/dL Phosphorus (2.5-4.5) mg/dL Total Protein (6.3-8.2) g/dL Albumin (3.5-5.0) g/dL
[2024-01-05 18:06] LABS: Glucose,Whole Blood 145 mg/dL (70-110)
[2024-01-05] MEDS: MVI, ADULT NO.4 WITH VIT K 10 ML, TRACE (CONC-1ML/DOSE) 1 ML, POTASSIUM CHLORIDE 20 MEQ... IV SCH (18:14)
[2024-01-06 00:02] LABS: Glucose,Whole Blood 146 mg/dL (70-110)
[2024-01-06] MEDS ORDERED: IPRATROPIUM-ALBUTEROL 3 ML NEB INHALATION PRN (00:02)
[2024-01-06 04:28] LABS: ALT 21 U/L (4-49); AST 27 U/L (17-59); African American GFR (CKD) >90 (>60 ml/min/1.73 sqM); Alkaline Phosphatase 129 U/L (38-126); Anion Gap 2 mmol/L; Blood Urea Nitrogen 33 mg/dL (9-20); Calcium 7.3 mg/dL (8.4-10.2); Carbon Dioxide 30 mmol/L (22-30); Chloride 107 mmol/L (98-107); Glucose 125 mg/dL (74-99); Non-African American GFR(CKD) >90 (>60 ml/min/1.73 sqM); Phosphorus 2.6 mg/dL (2.5-4.5); Sodium 139 mmol/L (137-145); Total Bilirubin 0.6 mg/dL (0.2-1.3); Total Protein 4.5 g/dL (6.3-8.2)
[2024-01-06 04:37] LABS: HCT 24.7 % (39.0-53.0); HGB 7.6 gm/dL (13.0-17.5); Hypochromasia Moderate; MCH 29.4 pg (25.0-35.0); MCHC 30.6 g/dL (31.0-37.0); MCV 96.1 fL (80.0-100.0); Mean Platelet Volume 8.2; Platelet Count 419 k/uL (150-450); RBC 2.57 m/uL (4.30-5.90); RDW 14.8 % (11.5-15.5); WBC 49.8 k/uL (3.8-10.6)
[2024-01-06 06:26] LABS: Glucose,Whole Blood 125 mg/dL (70-110)
--- NOTE | 2024-01-06 09:56 | P.PN ---
Subjective Patient is seen in follow-up for acute kidney injury. Renal function at baseline. Extubated January 05, 2024. Sitting up in chair. On room air. Non oliguric. Vital signs are stable. General: Resting in bed. HEENT: Head exam is unremarkable. LUNGS: Scattered rhonchi. HEART: Rate and Rhythm are regular. ABDOMEN: No distention. EXTREMITITES: 2+ edema. Objective - Vital Signs Vital signs: Vital Signs Temp 97.6 F 01/06/24 08:00 Pulse 97 01/06/24 09:00 Resp 26 H 01/06/24 09:00 BP 121/75 01/03/24 11:29 Pulse Ox 95 01/06/24 09:00 FiO2 30 01/05/24 08:33 Intake & Output 01/05/24 01/06/24 01/06/24 18:59 06:59 18:59 Intake Total 843.202 959 23 Output Total 2990 890 50 Balance -2146.798 69 -27 Weight 120 kg 123 kg Intake: IV 676 959 23 Cefepime 2 gm In Sodium 200 Chloride 0.9% 100 ml @ 25 mls/hr IVPB Q8HR [facility] Rx# :[id number] KVO 240 260 20 Mvi, Adult No.4 with Vit 660 K 10 ml Trace (Conc-1Ml/ Dose) 1 ml Sodium Acetate 40 meq Potassium Chloride 20 meq Calcium Gluconate 1 gm Magnesium Sulfate gm 1.5 gm In Amino Acids 5 %/Dextrose 20 % 1,000 ml @ 30 mls/hr IV .Q24H [facility] Rx#: [id number] metroNIDAZOLE-NS PMX 500 200 mg In Saline 1 100ml.bag @ 100 mls/hr IVPB Q8HR [facility] Rx#:[id number] pressure bag 36 39 3 Intake, IV Titration 47.202 Amount propofoL 1,000 mg In 47.202 Empty Bag 1 bag @ 15 MCG/ KG/MIN 8.777 mls/hr IV . [id number] [facility] Rx#:[id number] Oral 120 Output: Gastric Drainage 400 Urine 2590 825 50 Stool 65 Other: Voiding Method Indwelling Catheter Indwelling Catheter Indwelling Catheter ABP, PAP, CO, CI - Last Documented Arterial Blood Pressure 130/74 - Labs CBC & Chem 7: 01/06/24 04:05 01/06/24 04:05 Labs: Abnormal Lab Results - Last 24 Hours (Table) 01/05/24 01/05/24 01/05/24 Range/Units 11:20 12:02 18:04 WBC (3.8-10.6) k/uL RBC (4.30-5.90) m/uL Hgb (13.0-17.5) gm/dL Hct (39.0-53.0) % MCHC (31.0-37.0) g/dL ABG pH 7.47 H (7.35-7.45) ABG pO2 140 H (83-108) mmHg ABG HCO3 32 H (21-25) mmol/L ABG O2 Saturation 99.0 H (94-97) % BUN (9-20) mg/dL Creatinine (0.66-1.25) mg/dL Glucose (74-99) mg/dL POC Glucose (mg/dL) 172 H 145 H (70-110) mg/dL Calcium (8.4-10.2) mg/dL Alkaline Phosphatase (38-126) U/L Total Protein (6.3-8.2) g/dL Albumin (3.5-5.0) g/dL 01/06/24 01/06/24 01/06/24 Range/Units 00:01 04:05 04:05 WBC 49.8 H (3.8-10.6) k/uL RBC 2.57 L (4.30-5.90) m/uL Hgb 7.6 L (13.0-17.5) gm/dL Hct 24.7 L (39.0-53.0) % MCHC 30.6 L (31.0-37.0) g/dL ABG pH (7.35-7.45) ABG pO2 (83-108) mmHg ABG HCO3 (21-25) mmol/L ABG O2 Saturation (94-97) % BUN 33 H (9-20) mg/dL Creatinine 0.64 L (0.66-1.25) mg/dL Glucose 125 H (74-99) mg/dL POC Glucose (mg/dL) 146 H (70-110) mg/dL Calcium 7.3 L (8.4-10.2) mg/dL Alkaline Phosphatase 129 H (38-126) U/L Total Protein 4.5 L (6.3-8.2) g/dL Albumin 2.0 L (3.5-5.0) g/dL 01/06/24 Range/Units 06:24 WBC (3.8-10.6) k/uL RBC (4.30-5.90) m/uL Hgb (13.0-17.5) gm/dL Hct (39.0-53.0) % MCHC (31.0-37.0) g/dL ABG pH (7.35-7.45) ABG pO2 (83-108) mmHg ABG HCO3 (21-25) mmol/L ABG O2 Saturation (94-97) % BUN (9-20) mg/dL Creatinine (0.66-1.25) mg/dL Glucose (74-99) mg/dL POC Glucose (mg/dL) 125 H (70-110) mg/dL Calcium (8.4-10.2) mg/dL Alkaline Phosphatase (38-126) U/L Total Protein (6.3-8.2) g/dL Albumin (3.5-5.0) g/dL Assessment and Plan Plan: Assessment: 1. Acute kidney injury secondary to ATN secondary to septic shock. Also received IV contrast on December 24 and December 30, 2023. PRESTON resolved. No hydronephrosis noted on CAT scan. 2. 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 3. Volume overload. Improving with diuresis. 4. Acute blood loss anemia status post blood transfusion December 25, 2023. Hemoglobin improved. 5. Hyponatremia secondary to acute kidney injury. Hypervolemic. Improved. Plan: Maintain TPN per surgery. Maintain IV Lasix. Continue to monitor renal function and urine output. Avoid nephrotoxins.
[2024-01-06] MEDS: HYDROcodone/APAP 5-325MG 1 EACH TAB PO PRN (10:17)
--- NOTE | 2024-01-06 10:28 | P.PN ---
Subjective Progress Note Date: 01/06/24 Principal diagnosis: 33 year old M with PMH of hypertension and ADHD who presents to the emergency room with complaints of abdominal pain, diarrhea, and weight loss. Patient notes that over the past 2 months since his most recent admission of pancreatitis, he has lost roughly 40 pounds and has had intermittent diffuse abdominal discomfort with associated diarrhea. He has noticed blood in his stools on numerous occasions, bright red, without mucus. Notes that the pain has no clear inciting triggers but often occurs after food consumption. Reports that the pain is usually associated with diarrhea, and lasts for several days at a time. Denies nausea, vomiting, fever, chills, cough. Of note, the patient was admitted on 11/04 for mild acute pancreatitis. He does report having seen a food sanitarian as an outpatient and is currently awaiting the results of his workup and is also scheduled for an EGD. Reports however that his pain had become unbearable which prompted him to come to the emergency room. CT abdomen and pelvis in the emergency room revealed findings of colitis involving the transverse, descending, and sigmoid colon's with hepatic steatosis. Chest x-ray was unremarkable with EKG showing sinus tachycardia at 103 bpm with diffuse T wave flattening. Laboratory evaluation was remarkable for leukocytosis of 20.7, and hemoglobin 11.7, sodium 133, potassium 2.8, CO2 36, BUN 10, creatinine 0.82, calcium 7.7, with an unremarkable UA. Patient was started on Levaquin and Flagyl and admitted for treatment of colitis. GI consulted recommended outpatient C-scope in 4-6 weeks. His symptoms worsened. CT AP repeated 12/28 showed worsening anasarca, moderate to severe pancolitis with dilation up to 10.2 cm. ID was consulted, C. diff was negative, C. diff PCR ordered, Levaquin replaced with Cefepime and continued of Flagyl and added PO Vancomycin. Surgery consulted, patient underwent subtotal colectomy with ileostomy with Dr. Saleh on 12/30 and transferred to ICU post op. He has required multiple pressors since his ICU transfer including Levophed, Vasopressin and Solu-Cortef. Nephrology consulted for hyponatremia and metabolic acidosis, sodium as low as 124, given intermittent Lasix IV and bicarb infusion, now improving. Started on TPN 12/31. Required 1 unit PRBC on 01/01. 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 Vasopressin weaned off 01/03. Levophed weaned off 01/04. Patient was extubated yesterday January 04 neck sent currently up in chair, still lethargic but does not appear to be in distress. Objective - Vital Signs Vital signs: Vital Signs Temp 97.6 F 01/06/24 08:00 Pulse 101 H 01/06/24 10:00 Resp 26 H 01/06/24 10:00 BP 121/75 01/03/24 11:29 Pulse Ox 95 01/06/24 10:00 FiO2 30 01/05/24 08:33 Intake & Output 01/05/24 01/06/24 01/06/24 18:59 06:59 18:59 Intake Total 843.202 959 69 Output Total 2990 890 1250 Balance -2146.798 69 -1181 Weight 120 kg 123 kg Intake: IV 676 959 69 Cefepime 2 gm In Sodium 200 Chloride 0.9% 100 ml @ 25 mls/hr IVPB Q8HR [facility] Rx# :[id number] KVO 240 260 60 Mvi, Adult No.4 with Vit 660 K 10 ml Trace (Conc-1Ml/ Dose) 1 ml Sodium Acetate 40 meq Potassium Chloride 20 meq Calcium Gluconate 1 gm Magnesium Sulfate gm 1.5 gm In Amino Acids 5 %/Dextrose 20 % 1,000 ml @ 30 mls/hr IV .Q24H ONE Rx#: [id number] metroNIDAZOLE-NS PMX 500 200 mg In Saline 1 100ml.bag @ 100 mls/hr IVPB Q8HR [facility] Rx#:[id number] pressure bag 36 39 9 Intake, IV Titration 47.202 Amount propofoL 1,000 mg In 47.202 Empty Bag 1 bag @ 15 MCG/ KG/MIN 8.777 mls/hr IV . [id number] [facility] Rx#:[id number] Oral 120 Output: Gastric Drainage 400 Urine 2590 825 1250 Stool 65 Other: Voiding Method Indwelling Catheter Indwelling Catheter Indwelling Catheter ABP, PAP, CO, CI - Last Documented Arterial Blood Pressure 142/88 - Exam General:Extubated, lethargic. Derm: warm, dry, anasarca Head: atraumatic, normocephalic, symmetric Eyes: EOMI, no lid lag, anicteric sclera Mouth: no lip lesion, mucus membranes moist Cardiovascular: S1S2 n, no murmur Lungs: Coarse BS bilateral, no rhonchi, no rales , no accessory muscle use Abdominal: mildly distended, ileostomy noted, no BS Ext: no gross muscle atrophy, 2+ pitting edema bilateral LE, no contractures, bilateral upper restraints Neuro: Lethargic - Labs CBC & Chem 7: 01/06/24 04:05 01/06/24 04:05 Labs: Abnormal Lab Results - Last 24 Hours (Table) 01/05/24 01/05/24 01/05/24 Range/Units 11:20 12:02 18:04 WBC (3.8-10.6) k/uL RBC (4.30-5.90) m/uL Hgb (13.0-17.5) gm/dL Hct (39.0-53.0) % MCHC (31.0-37.0) g/dL ABG pH 7.47 H (7.35-7.45) ABG pO2 140 H (83-108) mmHg ABG HCO3 32 H (21-25) mmol/L ABG O2 Saturation 99.0 H (94-97) % BUN (9-20) mg/dL Creatinine (0.66-1.25) mg/dL Glucose (74-99) mg/dL POC Glucose (mg/dL) 172 H 145 H (70-110) mg/dL Calcium (8.4-10.2) mg/dL Alkaline Phosphatase (38-126) U/L Total Protein (6.3-8.2) g/dL Albumin (3.5-5.0) g/dL 01/06/24 01/06/24 01/06/24 Range/Units 00:01 04:05 04:05 WBC 49.8 H (3.8-10.6) k/uL RBC 2.57 L (4.30-5.90) m/uL Hgb 7.6 L (13.0-17.5) gm/dL Hct 24.7 L (39.0-53.0) % MCHC 30.6 L (31.0-37.0) g/dL ABG pH (7.35-7.45) ABG pO2 (83-108) mmHg ABG HCO3 (21-25) mmol/L ABG O2 Saturation (94-97) % BUN 33 H (9-20) mg/dL Creatinine 0.64 L (0.66-1.25) mg/dL Glucose 125 H (74-99) mg/dL POC Glucose (mg/dL) 146 H (70-110) mg/dL Calcium 7.3 L (8.4-10.2) mg/dL Alkaline Phosphatase 129 H (38-126) U/L Total Protein 4.5 L (6.3-8.2) g/dL Albumin 2.0 L (3.5-5.0) g/dL 01/06/24 Range/Units 06:24 WBC (3.8-10.6) k/uL RBC (4.30-5.90) m/uL Hgb (13.0-17.5) gm/dL Hct (39.0-53.0) % MCHC (31.0-37.0) g/dL ABG pH (7.35-7.45) ABG pO2 (83-108) mmHg ABG HCO3 (21-25) mmol/L ABG O2 Saturation (94-97) % BUN (9-20) mg/dL Creatinine (0.66-1.25) mg/dL Glucose (74-99) mg/dL POC Glucose (mg/dL) 125 H (70-110) mg/dL Calcium (8.4-10.2) mg/dL Alkaline Phosphatase (38-126) U/L Total Protein (6.3-8.2) g/dL Albumin (3.5-5.0) g/dL Assessment and Plan Plan: Ventilator dependent respiratory failure: Post operatively. Vent management per Pulmonary/Management Trainer.Extubated, pulmonology following, continue supportive care Septic shock due to colitis: Status post subtotal colectomy with ileostomy with Dr. Saleh on 12/30. Cefepime 1g IV TID (D8), Vancomycin 500 mg PO QID (D6) and Flagyl 500 mg IV TID (D8). Titrate Levophed to maintain MAP > 65. Telemetry monitoring. Blood and Stool culture negative on admission. C. diff negative on admission. ID on board.Infectious disease following, currently on vancomycin Acute on chronic blood loss anemia: Status post 1 unit PRBC 01/01. Iron studies showing anemia of chronic disease. Daily CBC. Transfuse if Hg < 7. Hemoglobin 7.6 today 01/06/2024 Hyperglycemia: A1c 5.6. POC glucose ranging from 146-174 over the past 24H. Continue ISS Q6H. Accuchecks Q6H. Hypophosphatemia: Replaced 01/02 and 01/03 with sodium phosphate in D5 15 mmol IV. Acute kidney injury: Likely prerenal from shock. Improving. Monitor electrolytes and renal function while on Lasix IV. Nephrology on board. Anasarca due to hypoalbuminemia: Lasix 40 mg IV QD. Hypocalcemia: Status post Ca gluconate 1g IV 12/31. Corrected Ca is 8.7. Severe protein calorie malnutrition: TPA managed by Dietary. Daily CMP, Mag and Phos. Resolved: Metabolic acidosis, HyponatremiaTreatment and disposition: In ICU.
[2024-01-06] MEDS: metroNIDAZOLE-NS PMX 500 MG in SALINE 1 100ML.BAG IVPB SCH (11:34)
[2024-01-06] MEDS: CEFEPIME 2 GM in SODIUM CHLORIDE 0.9% 100 ML IVPB SCH (11:34)
[2024-01-06 11:46] LABS: Glucose,Whole Blood 121 mg/dL (70-110)
--- NOTE | 2024-01-06 12:21 | P.PN ---
Subjective Progress Note Date: 01/06/24 CHIEF COMPLAINT: Colitis HISTORY OF PRESENT ILLNESS: Patient is postop day #6 status post subtotal colect tacos with ileostomy fulminant pancolitis. Pathology reporting ulcerative colitis and appendicitis. Patient was extubated yesterday. He is sitting at bedside chair. His ostomy is functioning. Denies any nausea or vomiting. He is on TPN for nutrition support. Afebrile. WBC is up from 40-49 Hgb 7.6 PLT 419 creatinine 0.64 PHYSICAL EXAM: VITAL SIGNS: Reviewed. GENERAL: Well-developed in no acute distress. ABDOMEN: Soft. Distended. Minimal drainage noted at distal aspect of incision site. Small area of saturation on distal incision dressing. Ostomy with stool and air present. Stoma pink. NEUROLOGIC: Awake ASSESSMENT: 1. Fulminant pancolitis 2. Severe protein calorie malnutrition PLAN: -Advance diet to full liquids -Continue TPN until oral intake increases -Continue antibiotics -Add oral Jerome for pain management -Change abdominal dressing to ABD. Clean incision daily with chlorhexidine wipe -DVT prophylaxis subcu heparin GI prophylaxis Pepcid Physician Assistant Vice President note has been reviewed by physician. Signing provider agrees with the documented findings, assessment, and plan of care. Objective - Vital Signs Vital signs: Vital Signs Temp 98.2 F 01/06/24 12:00 Pulse 99 01/06/24 12:00 Resp 24 01/06/24 12:00 BP 121/75 01/03/24 11:29 Pulse Ox 97 01/06/24 12:00 FiO2 30 01/05/24 08:33 Intake & Output 01/05/24 01/06/24 01/06/24 18:59 06:59 18:59 Intake Total 843.202 959 315 Output Total 2990 890 1600 Balance -2146.798 69 -1285 Weight 120 kg 123 kg Intake: IV 676 959 115 Cefepime 2 gm In Sodium 200 Chloride 0.9% 100 ml @ 25 mls/hr IVPB Q8HR [facility] Rx# :[id number] KVO 240 260 100 Mvi, Adult No.4 with Vit 660 K 10 ml Trace (Conc-1Ml/ Dose) 1 ml Sodium Acetate 40 meq Potassium Chloride 20 meq Calcium Gluconate 1 gm Magnesium Sulfate gm 1.5 gm In Amino Acids 5 %/Dextrose 20 % 1,000 ml @ 30 mls/hr IV .Q24H ONE Rx#: [id number] metroNIDAZOLE-NS PMX 500 200 mg In Saline 1 100ml.bag @ 100 mls/hr IVPB Q8HR [facility] Rx#:[id number] pressure bag 36 39 15 Intake, IV Titration 47.202 Amount propofoL 1,000 mg In 47.202 Empty Bag 1 bag @ 15 MCG/ KG/MIN 8.777 mls/hr IV . [id number] [facility] Rx#:[id number] Oral 120 200 Output: Gastric Drainage 400 Urine 2590 825 1500 Stool 65 100 Other: Voiding Method Indwelling Catheter Indwelling Catheter Indwelling Catheter ABP, PAP, CO, CI - Last Documented Arterial Blood Pressure 147/78 - Labs CBC & Chem 7: 01/06/24 04:05 01/06/24 04:05 Labs: Abnormal Lab Results - Last 24 Hours (Table) 01/05/24 01/06/24 01/06/24 Range/Units 18:04 00:01 04:05 WBC 49.8 H (3.8-10.6) k/uL RBC 2.57 L (4.30-5.90) m/uL Hgb 7.6 L (13.0-17.5) gm/dL Hct 24.7 L (39.0-53.0) % MCHC 30.6 L (31.0-37.0) g/dL BUN (9-20) mg/dL Creatinine (0.66-1.25) mg/dL Glucose (74-99) mg/dL POC Glucose (mg/dL) 145 H 146 H (70-110) mg/dL Calcium (8.4-10.2) mg/dL Alkaline Phosphatase (38-126) U/L Total Protein (6.3-8.2) g/dL Albumin (3.5-5.0) g/dL 01/06/24 01/06/24 01/06/24 Range/Units 04:05 06:24 11:44 WBC (3.8-10.6) k/uL RBC (4.30-5.90) m/uL Hgb (13.0-17.5) gm/dL Hct (39.0-53.0) % MCHC (31.0-37.0) g/dL BUN 33 H (9-20) mg/dL Creatinine 0.64 L (0.66-1.25) mg/dL Glucose 125 H (74-99) mg/dL POC Glucose (mg/dL) 125 H 121 H (70-110) mg/dL Calcium 7.3 L (8.4-10.2) mg/dL Alkaline Phosphatase 129 H (38-126) U/L Total Protein 4.5 L (6.3-8.2) g/dL Albumin 2.0 L (3.5-5.0) g/dL
[2024-01-06] MEDS: ANIDULAFUNGIN 200 MG in SODIUM CHLORIDE 0.9% 200 ML IVPB ONE (12:23)
--- NOTE | 2024-01-06 12:32 | P.PN ---
Subjective Progress Note Date: 01/06/24 Pulmonary/critical care consult dated December 31, 2023. 33-year-old male who presented to the emergency department, on December 24 with severe abdominal pain. The patient apparently has a history of pancreatitis, and apparently told the ER physician that the pain seemed similar. He had sharp left-sided abdominal pain, from the night before. He had poor appetite, and has been unable to keep any food or liquids down. The patient was admitted to the hospital, for the abdominal pain. He denies any fever, chills, nausea, constipation, or diarrhea. There is no urinary complaints. The patient apparently has a history of hyperlipidemia, hypertension, and pancreatitis. He is a lifelong non-smoker. He only drinks occasionally. It was told to me this morning, both from the charge nurse in the ICU, and the surgeon, but the patient was in the operating room, for fulminant pancolitis, and was having a colectomy. The patient had a subtotal colectomy with ileostomy performed by one of the surgeons, and the patient was extubated initially in the operating room, but was reintubated minutes later. The patient came to the ICU, on the ventilator. I gave Vent settings of volume assist-control, rate 20, tidal volume 450, FiO2 100%, PEEP of 5. Blood gases will be done in about an hour. We also placed a left subclavian triple-lumen catheter. An arterial line was placed by anesthesia. The most recent labs include a white count of 28.9, hemoglobin 10, hematocrit 31, and platelet count which was 744,000. Most recent blood gas showed a pO2 of 331, pCO2 of 37, pH is 7.34. That was on 100%. Repeat blood gas will be done in about 60 minutes. Sodium 133, potassium 3.9, chlorides 100, CO2 17, anion gap 16, BUN 27, creatinine 1.1. Glucose was 96. C-reactive protein was 9.90. Calcium 7.4. Stool and blood cultures have been negative. The postintubation x-ray shows the endotracheal tube to be in good position. In addition, there is a left subclavian triple-lumen catheter in good position. A repeat CT scan of the abdomen and pelvis, yesterday, showed hyperemia and wall thickening of the sigmoid colon and rectum as well as areas of transverse colon. The radiologist thought it was consistent with colitis/proctitis. There was upstream dilatation of the large bowel. Small bowel loops are dilated with relative nondistention. No transition point is noted. Other findings are noted on the CT scan. Progress note dated January 01, 2024. This is a 33-year-old male seen yesterday in consultation. Please see my extensive note above. The patient remains in the intensive care unit, on the ventilator. He is on volume assist-control, rate 20, tidal volume 450, FiO2 40%, PEEP of 5. Blood gases are excellent with a pO2 116, pCO2 31, and pH of 7.40. Blood gases are consistent with a mixed acid-base disturbance, including a respiratory alkalosis, and mild metabolic acidosis. The patient remains on propofol at 40 mcg/kg/min, norepinephrine at 23 mcg/min, vasopressin at 0.03 units/min, and lactated Ringer's at 150 cc an hour. The patient continues on cefepime, and Flagyl. The patient is also on oral vancomycin. I have asked the nurse, to talk to dietary about a possible TPN preparation. Current labs include a white count 45.4, hemoglobin 9.9, hematocrit 32.1, and a platelet count of 741,000. Sodium 130, potassium 4.3, chlorides 104, CO2 16, anion gap 10, BUN and creatinine were 26 and 1.71. Glucose is 117. Ionized calcium was low at 4.2. Cortisol was 83. Blood cultures, and stool sampling, has thus far been negative. Chest x-ray shows no major changes. There may be some left basilar atelectasis, or infiltrate. Progress note dated January 02, 2024. 33-year-old male who is seen today in the intensive care unit, room 264. The patient remains on mechanical ventilator. He is on volume assist-control, rate 20, tidal volume 450, FiO2 40%, to be reduced down to 30%, with a PEEP of 5. Blood gases show pO2 126, pCO2 39, and pH is 7.43. The patient is on half- normal saline with 2 ampoules of sodium bicarb and at 100 cc an hour. The patient is also on norepinephrine at 13 mcg/min, and vasopressin at 0.03 units/min. Additionally, the patient is on propofol at 50 mcg/kg/min, and TPN at 30 cc an hour. The patient continues on cefepime, vancomycin, and Flagyl. Current labs include a white count of 49.4, hemoglobin 7.2, hematocrit 22.3, and a platelet count of 422,000. Sodium 131, potassium 3.6, chlorides 102, CO2 23, BUN 34, and creatinine 1.74. Albumin is 1.7. All culture material is negative. Chest x-ray shows the endotracheal tube, high in the trachea. There is also a left-sided pleural effusion, with atelectasis. Progress note dated January 03, 2024. 33-year-old male seen in the intensive care unit, room 264. The patient remains on mechanical ventilator. He is on volume assist-control, rate 20, tidal volume 450, FiO2 30%, PEEP of 5. Blood gases show pO2 100, pCO2 39, pH is 7.44. The patient remains on propofol at 50 mics per kilogram per minute, norepinephrine at 4 mcg/min, vasopressin at 0.03 units/min, and the patient is getting TPN at 55 cc an hour. The patient continues on cefepime and Flagyl. We will check a procalcitonin level. The patient had an uneventful night according to the nurses. Vasopressor requirements have been coming down. White count is 43.7, hemoglobin 7.5, hematocrit 22.9, with a normal platelet count. Sodium 132, potassium 3.7, chloride 103, CO2 23, BUN 36, and creatinine 1.11. Glucose is 164. Calcium 7.1, magnesium 2.2, and phosphorus 2.1. Albumin is 1.9. Cultures thus far are negative. Chest x-ray shows low lung volumes, cardiomegaly, and the left-sided effusion, which is small. Progress note dated January 04, 2024. 33-year-old male seen today in room 264. The patient remains on the mechanical ventilator. He is on volume assist-control, rate 20, tidal volume 450, FiO2 30%, PEEP of 5. Blood gases show pO2 105, CO2 36, and pH 7.51. This blood gases consistent with a mild metabolic alkalosis. In addition, the patient remains on propofol at 50 mcg/kg/min, TPN at 55 cc an hour, and saline at KVO. The patient is currently weaned off of norepinephrine, and vasopressin. He continues on cefepime, Flagyl, and oral vancomycin. Today, since he is off pressors, we will attempt a daily interruption of sedation, and spontaneous breathing trial. Currently, white count is 36,000, hemoglobin 7.7, hematocrit 24.7, and platelet count 383,000. Sodium 131, potassium 3.8, chlorides 101, CO2 25, BUN 37, creatinine 0.82. Glucose is 135. Calcium 7.1, phosphorus 2.3. Albumin is 2.0. Blood cultures are currently all negative still. Chest x-ray shows cardiomegaly, and small lung volumes. There may be infiltrate or atelectasis at the left lung base. 01/05/2024, I am seeing the patient for a follow-up in the intensive care unit. This patient has undergone a subtotal colectomy and robotic ileostomy for fulfillment pancolitis. The patient was septic, and had severe leukocytosis and the patient is currently postop day #6. Remains intubated on mechanical ventilator. On today's evaluation, the patient is off Precedex and the patient is being assessed for further weaning and I will assess the patient's potential for further weaning and extubation today. The surgical wound is dry clean and intact. The white cell count down to 40 with a hemoglobin 7.2 and a platelet count of 369. While being on mechanical ventilator, the patient has a blood gas showing a pH of 7.47 with a pCO2 of 43 and pO2 140. The ventilator setting is currently on assist-control mode with rate of 20, tidal volume of 450, FiO2 30% with a PEEP of 5. The patient's fluid balance is negative and the patient is being diuresed with IV Lasix. Overall fluid balance is -4.6 L over the past 24 hours the patient remains on TPN for nutritional support. The patient is afebrile. The patient is hemodynamically stable. No other significant events overnight. Remains on TPN. 01/06/2024, patient is being seen for a follow-up. The patient is currently postop day #7. The patient is post subtotal colectomy. The patient's white cell count remains elevated. Noted the patient was weaned off the mechanical ventilator and the patient was extubated yesterday without any major difficulties and the patient is currently on room air oxygen. The patient is hemodynamically stable. The patient is afebrile. The ostomy site is functional. The patient remains on TPN for nutritional support. The patient is a negative fluid balance and the patient is being diuresed with IV Lasix 40 mg on a daily basis. Fluid balance is negative. The patient remains on Eraxis and cefepime. He is profoundly weak in all 4 extremities. He continues to have edema which is essentially improving. Will continue to follow. Objective - Vital Signs Vital signs: Vital Signs Temp 97.6 F 01/06/24 08:00 Pulse 97 01/06/24 09:00 Resp 26 H 01/06/24 09:00 BP 121/75 01/03/24 11:29 Pulse Ox 95 01/06/24 09:00 FiO2 30 01/05/24 08:33 Intake & Output 01/05/24 01/06/24 01/06/24 18:59 06:59 18:59 Intake Total 843.202 959 23 Output Total 2990 890 50 Balance -2146.798 69 -27 Weight 120 kg 123 kg Intake: IV 676 959 23 Cefepime 2 gm In Sodium 200 Chloride 0.9% 100 ml @ 25 mls/hr IVPB Q8HR [facility] Rx# :[id number] KVO 240 260 20 Mvi, Adult No.4 with Vit 660 K 10 ml Trace (Conc-1Ml/ Dose) 1 ml Sodium Acetate 40 meq Potassium Chloride 20 meq Calcium Gluconate 1 gm Magnesium Sulfate gm 1.5 gm In Amino Acids 5 %/Dextrose 20 % 1,000 ml @ 30 mls/hr IV .Q24H [facility] Rx#: [id number] metroNIDAZOLE-NS PMX 500 200 mg In Saline 1 100ml.bag @ 100 mls/hr IVPB Q8HR [facility] Rx#:[id number] pressure bag 36 39 3 Intake, IV Titration 47.202 Amount propofoL 1,000 mg In 47.202 Empty Bag 1 bag @ 15 MCG/ KG/MIN 8.777 mls/hr IV . [id number] [facility] Rx#:[id number] Oral 120 Output: Gastric Drainage 400 Urine 2590 825 50 Stool 65 Other: Voiding Method Indwelling Catheter Indwelling Catheter Indwelling Catheter ABP, PAP, CO, CI - Last Documented Arterial Blood Pressure 130/74 - Exam No acute distress, calm and comfortable, extubated and the patient is currently on room air oxygen. Sitting up on the chair. HEENT examination is grossly unremarkable. Neck supple. Full range of motion. No adenopathy thyromegaly or neck vein distention. Cardiovascular examination reveals regular rhythm rate. S1-S2 normal. No S3 or S4. No discernible murmur noted. Lungs reveal clear breath sounds. Breath sounds are equal bilaterally. No adventitious lung sounds including wheezes rhonchi or crackles. Abdomen soft without bowel sounds. Ileostomy is noted. The ileostomy site is functional and the patient has no significant abdominal distention. No direct tenderness. No rebound tenderness. No guarding. Bowel sounds are present. Extremities are intact. No cyanosis clubbing extensive edema in all 4 extremities. Skin is without rash or lesion. Neurologic examination reveals that the patient has no focal neurological deficits while being off the sedatives. - Labs CBC & Chem 7: 01/06/24 04:05 01/06/24 04:05 Labs: Abnormal Lab Results - Last 24 Hours (Table) 01/05/24 01/05/24 01/05/24 Range/Units 11:20 12:02 18:04 WBC (3.8-10.6) k/uL RBC (4.30-5.90) m/uL Hgb (13.0-17.5) gm/dL Hct (39.0-53.0) % MCHC (31.0-37.0) g/dL ABG pH 7.47 H (7.35-7.45) ABG pO2 140 H (83-108) mmHg ABG HCO3 32 H (21-25) mmol/L ABG O2 Saturation 99.0 H (94-97) % BUN (9-20) mg/dL Creatinine (0.66-1.25) mg/dL Glucose (74-99) mg/dL POC Glucose (mg/dL) 172 H 145 H (70-110) mg/dL Calcium (8.4-10.2) mg/dL Alkaline Phosphatase (38-126) U/L Total Protein (6.3-8.2) g/dL Albumin (3.5-5.0) g/dL 01/06/24 01/06/24 01/06/24 Range/Units 00:01 04:05 04:05 WBC 49.8 H (3.8-10.6) k/uL RBC 2.57 L (4.30-5.90) m/uL Hgb 7.6 L (13.0-17.5) gm/dL Hct 24.7 L (39.0-53.0) % MCHC 30.6 L (31.0-37.0) g/dL ABG pH (7.35-7.45) ABG pO2 (83-108) mmHg ABG HCO3 (21-25) mmol/L ABG O2 Saturation (94-97) % BUN 33 H (9-20) mg/dL Creatinine 0.64 L (0.66-1.25) mg/dL Glucose 125 H (74-99) mg/dL POC Glucose (mg/dL) 146 H (70-110) mg/dL Calcium 7.3 L (8.4-10.2) mg/dL Alkaline Phosphatase 129 H (38-126) U/L Total Protein 4.5 L (6.3-8.2) g/dL Albumin 2.0 L (3.5-5.0) g/dL 01/06/24 Range/Units 06:24 WBC (3.8-10.6) k/uL RBC (4.30-5.90) m/uL Hgb (13.0-17.5) gm/dL Hct (39.0-53.0) % MCHC (31.0-37.0) g/dL ABG pH (7.35-7.45) ABG pO2 (83-108) mmHg ABG HCO3 (21-25) mmol/L ABG O2 Saturation (94-97) % BUN (9-20) mg/dL Creatinine (0.66-1.25) mg/dL Glucose (74-99) mg/dL POC Glucose (mg/dL) 125 H (70-110) mg/dL Calcium (8.4-10.2) mg/dL Alkaline Phosphatase (38-126) U/L Total Protein (6.3-8.2) g/dL Albumin (3.5-5.0) g/dL Assessment and Plan Plan: Acute abdominal sepsis secondary to pancolitis the patient remains on TPN. Will consider clear liquid diet today. Acute leukocytosis secondary to above, white cell count is slightly improved yet still elevated. Acute abdomen and the patient is supposed subtotal colectomy. The patient is postoperative day # 7, S/P subtotal colectomy with ileostomy, for fulminant p ancolitis. Ileostomy site is functional. Surgical wound is dry clean and intact. The patient is currently on IV cefepime and Eraxis and Flagyl. The patient remains on TPN for nutritional support. Acute hypoxic respiratory failure secondary to above, extubated on 01/05/2024 Possible relative adrenal insufficiency. The patient is currently on IV hydrocortisone Non-anion gap metabolic acidosis, recovered Previous history of pancreatitis. History of hypertension. History of hyperlipidemia. Extensive edema in all 4 extremities, currently negative fluid balance while being on IV Lasix Plan: Patient was extubated without any major difficulties Patient is currently on room air oxygen Continue TPN for nutritional support Continue IV cefepime and Flagyl and Eraxis Monitor the white cell count Monitor procalcitonin level levels are still pending Continue IV Lasix, negative fluid balance Will continue to follow make further recommendations based on the progress. Condition is still critical. . Critical care evaluation was done more than 30 minutes. Time with Patient: Greater than 30
[2024-01-06 12:37] LABS: ABG Base Excess 7.2 mmol/L; ABG TCO2 33 mmol/L (19-24)
[2024-01-06 15:01] VITALS: BMI 38.9
--- NOTE | 2024-01-06 15:02 | P.PN ---
Subjective Progress Note Date: 01/05/24 Principal diagnosis: Reason for follow-up is pancolitis and leukocytosis Patient is a 33-year-old -[place] male with a past medical history negative for hypertension hyperlipidemia and pancreatitis that was diagnosed about 2 months ago on 11/05/2023 however the patient mention he was not admitted for it patient presented back to [facility] ER on 12/25/2023 for дмитрий luation of abdominal pain diarrhea patient did have evidence of worsening pancolitis on the CT prompting this consultation. 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 On today's evaluation that is 01/05/2024, patient has been afebrile, patient has been extubated and is breathing comfortably on 3 L current oxygen patient is slightly lethargic but denies any chest pain or any worsening of worsening abdominal pain minimal output in the ileostomy. Patient white count slightly up to 40.8 creatinine 0.79 Objective - Vital Signs Vital signs: Vital Signs Temp 97.8 F 01/05/24 16:00 Pulse 99 01/05/24 17:00 Resp 20 01/05/24 17:00 BP 121/75 01/03/24 11:29 Pulse Ox 98 01/05/24 17:00 FiO2 30 01/05/24 08:33 Intake & Output 01/04/24 01/05/24 01/05/24 18:59 06:59 18:59 Intake Total 8910.697 8520.317 700.202 Output Total 5765 1520 2910 Balance -4553.089 -70.683 -2209.798 Weight 120 kg 120 kg Intake: IV 916 639 653 Cefepime 2 gm In Sodium 100 200 Chloride 0.9% 100 ml @ 25 mls/hr IVPB Q8HR [facility] Rx# :[id number] KVO 230 240 220 Potassium Chloride 20 meq 200 In Water For Injection 1 100ml.bag @ 50 mls/hr IVPB Q2H [facility] Rx#: [id number] Sodium Phosphate 15 mmol 250 In Dextrose 5% in Water 250 ml @ 127.5 mls/hr IVPB ONCE [facility] Rx#: [id number] metroNIDAZOLE-NS PMX 500 100 200 mg In Saline 1 100ml.bag @ 100 mls/hr IVPB Q8HR [facility] Rx#:[id number] pressure bag 36 36 33 Intake, IV Titration 050.301 5864.317 47.202 Amount Mvi, Adult No.4 with Vit 945.083 K 10 ml Trace (Conc-1Ml/ Dose) 1 ml Potassium Chloride 20 meq In Amino Acid 5%-D15w+Lytes*E* 1, 000 ml @ 55 mls/hr IV . [id number] [facility] Rx#:[id number] Norepinephrine 32 mg In 29.781 Sodium Chloride 0.9% 218 ml @ 0.03 MCG/KG/MIN 1. 371 mls/hr IV .Q24H [facility] Rx#:[id number] Potassium Chloride 10 meq 100 In Water For Injection 1 100ml.bag @ 100 mls/hr IVPB Q1H [facility] Rx#: [id number] propofoL 1,000 mg In 195.911 198.453 47.202 Empty Bag 1 bag @ 15 MCG/ KG/MIN 8.777 mls/hr IV . [id number] [facility] Rx#:[id number] Output: Gastric Drainage 950 400 Urine 4815 1520 2510 Other: Voiding Method Indwelling Catheter Indwelling Catheter Indwelling Catheter ABP, PAP, CO, CI - Last Documented Arterial Blood Pressure 150/82 - Exam GENERAL DESCRIPTION: Middle-age male lying in bed in no distress RESPIRATORY SYSTEM: Unlabored breathing , decreased breath sounds at bases HEART: S1 S2 regular rate and rhythm , ABDOMEN: Soft , no tenderness EXTREMITIES: No edema feet - Labs CBC & Chem 7: 01/06/24 04:05 01/06/24 04:05 Labs: Abnormal Lab Results - Last 24 Hours (Table) 01/04/24 01/05/24 01/05/24 Range/Units 23:37 04:57 04:57 WBC 40.8 H (3.8-10.6) k/uL RBC 2.44 L (4.30-5.90) m/uL Hgb 7.2 L (13.0-17.5) gm/dL Hct 23.3 L (39.0-53.0) % MCHC 30.7 L (31.0-37.0) g/dL Neutrophils # (Manual) 39.17 H (1.3-7.7) k/uL ABG pH (7.35-7.45) ABG pO2 (83-108) mmHg ABG HCO3 (21-25) mmol/L ABG Total CO2 (19-24) mmol/L ABG O2 Saturation (94-97) % BUN 33 H (9-20) mg/dL Glucose 141 H (74-99) mg/dL POC Glucose (mg/dL) 146 H (70-110) mg/dL Calcium 7.2 L (8.4-10.2) mg/dL Phosphorus 2.4 L (2.5-4.5) mg/dL Total Protein 4.3 L (6.3-8.2) g/dL Albumin 2.0 L (3.5-5.0) g/dL 01/05/24 01/05/24 01/05/24 Range/Units 05:27 11:20 12:02 WBC (3.8-10.6) k/uL RBC (4.30-5.90) m/uL Hgb (13.0-17.5) gm/dL Hct (39.0-53.0) % MCHC (31.0-37.0) g/dL Neutrophils # (Manual) (1.3-7.7) k/uL ABG pH 7.49 H 7.47 H (7.35-7.45) ABG pO2 124 H 140 H (83-108) mmHg ABG HCO3 30 H 32 H (21-25) mmol/L ABG Total CO2 32 H (19-24) mmol/L ABG O2 Saturation 99.5 H 99.0 H (94-97) % BUN (9-20) mg/dL Glucose (74-99) mg/dL POC Glucose (mg/dL) 172 H (70-110) mg/dL Calcium (8.4-10.2) mg/dL Phosphorus (2.5-4.5) mg/dL Total Protein (6.3-8.2) g/dL Albumin (3.5-5.0) g/dL 01/05/24 Range/Units 18:04 WBC (3.8-10.6) k/uL RBC (4.30-5.90) m/uL Hgb (13.0-17.5) gm/dL Hct (39.0-53.0) % MCHC (31.0-37.0) g/dL Neutrophils # (Manual) (1.3-7.7) k/uL ABG pH (7.35-7.45) ABG pO2 (83-108) mmHg ABG HCO3 (21-25) mmol/L ABG Total CO2 (19-24) mmol/L ABG O2 Saturation (94-97) % BUN (9-20) mg/dL Glucose (74-99) mg/dL POC Glucose (mg/dL) 145 H (70-110) mg/dL Calcium (8.4-10.2) mg/dL Phosphorus (2.5-4.5) mg/dL Total Protein (6.3-8.2) g/dL Albumin (3.5-5.0) g/dL Assessment and Plan (1) Leukocytosis Current Visit: Yes Status: Acute Code(s): D72.829 - ELEVATED WHITE BLOOD CELL COUNT, UNSPECIFIED SNOMED Code(s): 775907558 (2) Pancolitis Current Visit: Yes Status: Acute Code(s): K51.00 - ULCERATIVE (CHRONIC) PANCOLITIS WITHOUT COMPLICATIONS SNOMED Code(s): 569899205 Plan: 1patient with a complicated history as for as evidence of severe pancolitis on the CT that was completed 12/29/2023 and also have worsening of the white count patient apparently was diagnosed with pancreatitis on 11/05/2023 however the patient was not admitted and mention has not received an antibiotic therapy features are highly suspicious for pseudomembranous colitis though initial testing was negative other infectious etiology need to be ruled out as well 2- patient is status post subtotal colectomy completed morning of 12/31/2023 biopsy results currently pending 3-patient white count is slightly up today questionable steroid related as no evidence of any worsening clinical condition, patient to cefepime Flagyl and vancomycin while waiting for the biopsy to be resulted Dictation was produced using [employer] dictation software. please excuse any grammatical, word or spelling errors. Time with Patient: Less than 30
--- NOTE | 2024-01-06 15:03 | P.PN ---
Subjective Progress Note Date: 01/06/24 Principal diagnosis: Reason for follow-up is pancolitis and leukocytosis Patient is a 33-year-old -Russian male with a past medical history negative for hypertension hyperlipidemia and pancreatitis that was diagnosed about 2 months ago on 11/05/2023 however the patient mention he was not admitted for it patient presented back to [facility] on 12/25/2023 for дмитрий luation of abdominal pain diarrhea patient did have evidence of worsening pancolitis on the CT prompting this consultation. 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 On today's evaluation that is 01/06/2024, Patient is afebrile this morning and denies any chills, patient mention breathing comfortably and is currently on room air, patient denies any chest pain occasional cough patient abdominal pain has decreased in intensity no nausea no vomiting tolerating his diet he did have an appointment his ileostomy as reported by the nursing staff. Patient white count is 49.8 creatinine 0.64 Objective - Vital Signs Vital signs: Vital Signs Temp 97.6 F 01/06/24 08:00 Pulse 97 01/06/24 11:00 Resp 25 H 01/06/24 11:00 BP 121/75 01/03/24 11:29 Pulse Ox 96 01/06/24 11:00 FiO2 30 01/05/24 08:33 Intake & Output 01/05/24 01/06/24 01/06/24 18:59 06:59 18:59 Intake Total 843.202 959 292 Output Total 2990 890 1550 Balance -2146.798 69 -1258 Weight 120 kg 123 kg Intake: IV 676 959 92 Cefepime 2 gm In Sodium 200 Chloride 0.9% 100 ml @ 25 mls/hr IVPB Q8HR [facility] Rx# :[id number] KVO 240 260 80 Mvi, Adult No.4 with Vit 660 K 10 ml Trace (Conc-1Ml/ Dose) 1 ml Sodium Acetate 40 meq Potassium Chloride 20 meq Calcium Gluconate 1 gm Magnesium Sulfate gm 1.5 gm In Amino Acids 5 %/Dextrose 20 % 1,000 ml @ 30 mls/hr IV .Q24H ONE Rx#: [id number] metroNIDAZOLE-NS PMX 500 200 mg In Saline 1 100ml.bag @ 100 mls/hr IVPB Q8HR [facility] Rx#:[id number] pressure bag 36 39 12 Intake, IV Titration 47.202 Amount propofoL 1,000 mg In 47.202 Empty Bag 1 bag @ 15 MCG/ KG/MIN 8.777 mls/hr IV . [id number] [facility] Rx#:[id number] Oral 120 200 Output: Gastric Drainage 400 Urine 2590 825 1450 Stool 65 100 Other: Voiding Method Indwelling Catheter Indwelling Catheter Indwelling Catheter ABP, PAP, CO, CI - Last Documented Arterial Blood Pressure 136/78 - Exam GENERAL DESCRIPTION: Middle-age male lying in bed in no distress RESPIRATORY SYSTEM: Unlabored breathing , decreased breath sounds at bases HEART: S1 S2 regular rate and rhythm , ABDOMEN: Soft , no tenderness EXTREMITIES: No edema feet - Labs CBC & Chem 7: 01/06/24 04:05 01/06/24 04:05 Labs: Abnormal Lab Results - Last 24 Hours (Table) 01/05/24 01/05/24 01/05/24 Range/Units 11:20 12:02 18:04 WBC (3.8-10.6) k/uL RBC (4.30-5.90) m/uL Hgb (13.0-17.5) gm/dL Hct (39.0-53.0) % MCHC (31.0-37.0) g/dL ABG pH 7.47 H (7.35-7.45) ABG pO2 140 H (83-108) mmHg ABG HCO3 32 H (21-25) mmol/L ABG O2 Saturation 99.0 H (94-97) % BUN (9-20) mg/dL Creatinine (0.66-1.25) mg/dL Glucose (74-99) mg/dL POC Glucose (mg/dL) 172 H 145 H (70-110) mg/dL Calcium (8.4-10.2) mg/dL Alkaline Phosphatase (38-126) U/L Total Protein (6.3-8.2) g/dL Albumin (3.5-5.0) g/dL 01/06/24 01/06/24 01/06/24 Range/Units 00:01 04:05 04:05 WBC 49.8 H (3.8-10.6) k/uL RBC 2.57 L (4.30-5.90) m/uL Hgb 7.6 L (13.0-17.5) gm/dL Hct 24.7 L (39.0-53.0) % MCHC 30.6 L (31.0-37.0) g/dL ABG pH (7.35-7.45) ABG pO2 (83-108) mmHg ABG HCO3 (21-25) mmol/L ABG O2 Saturation (94-97) % BUN 33 H (9-20) mg/dL Creatinine 0.64 L (0.66-1.25) mg/dL Glucose 125 H (74-99) mg/dL POC Glucose (mg/dL) 146 H (70-110) mg/dL Calcium 7.3 L (8.4-10.2) mg/dL Alkaline Phosphatase 129 H (38-126) U/L Total Protein 4.5 L (6.3-8.2) g/dL Albumin 2.0 L (3.5-5.0) g/dL 01/06/24 Range/Units 06:24 WBC (3.8-10.6) k/uL RBC (4.30-5.90) m/uL Hgb (13.0-17.5) gm/dL Hct (39.0-53.0) % MCHC (31.0-37.0) g/dL ABG pH (7.35-7.45) ABG pO2 (83-108) mmHg ABG HCO3 (21-25) mmol/L ABG O2 Saturation (94-97) % BUN (9-20) mg/dL Creatinine (0.66-1.25) mg/dL Glucose (74-99) mg/dL POC Glucose (mg/dL) 125 H (70-110) mg/dL Calcium (8.4-10.2) mg/dL Alkaline Phosphatase (38-126) U/L Total Protein (6.3-8.2) g/dL Albumin (3.5-5.0) g/dL Assessment and Plan (1) Leukocytosis Current Visit: Yes Status: Acute Code(s): D72.829 - ELEVATED WHITE BLOOD CELL COUNT, UNSPECIFIED SNOMED Code(s): 057470594 (2) Pancolitis Current Visit: Yes Status: Acute Code(s): K51.00 - ULCERATIVE (CHRONIC) PANCOLITIS WITHOUT COMPLICATIONS SNOMED Code(s): 320945709 Plan: 1patient with a complicated history as for as evidence of severe pancolitis on the CT that was completed 12/29/2023 and also have worsening of the white count patient apparently was diagnosed with pancreatitis on 11/05/2023 however the patient was not admitted and mention has not received an antibiotic therapy features are highly suspicious for pseudomembranous colitis though initial testing was negative other infectious etiology need to be ruled out as well 2- patient is status post subtotal colectomy completed morning of 12/31/2023 biopsy has been suggestive of ulcerative colitis 3-patient did have progressive worsening of the white count with mild thrush in the sputum positive for Zeina we will add Eraxis continue with the cefepime and Flagyl discontinue oral vancomycin Family at the bedside multiple questions answered Dictation was produced using [employer] dictation software. please excuse any grammatical, word or spelling errors. Time with Patient: Greater than 30
[2024-01-06 16:39] LABS: Glucose,Whole Blood 138 mg/dL (70-110)
[2024-01-06] MEDS: INSULIN ASPART (NovoLOG) 100 UNIT/ML VIAL SQ SCH (17:37)
--- NOTE | 2024-01-06 19:09 | P.PN ---
Subjective 33-year-old male patient with past medical history significant for hypertension and ADHD presented to the ED on December 24 with abdominal pain and was admitted. Patient had subtotal colectomy with ileostomy and was extubated in the operating room but was reintubated minutes later and then admitted to the ICU on the ventilator. Today patient is postop day #7. Yesterday he was extubated without any major problems and he is on room air oxygen. He was tolerating ice chips and TPN well so diet was advanced to clear liquids. Patient continues to lars ntain a negative fluid balance and being diuresed with IV Lasix 40 mg daily. Objective - Vital Signs Vital signs: Vital Signs Temp 97.6 F 01/06/24 08:00 Pulse 97 01/06/24 11:00 Resp 25 H 01/06/24 11:00 BP 121/75 01/03/24 11:29 Pulse Ox 96 01/06/24 11:00 FiO2 30 01/05/24 08:33 Intake & Output 01/05/24 01/06/24 01/06/24 18:59 06:59 18:59 Intake Total 843.202 959 292 Output Total 2990 890 1550 Balance -2146.798 69 -1258 Weight 120 kg 123 kg Intake: IV 676 959 92 Cefepime 2 gm In Sodium 200 Chloride 0.9% 100 ml @ 25 mls/hr IVPB Q8HR [facility] Rx# :[id number] KVO 240 260 80 Mvi, Adult No.4 with Vit 660 K 10 ml Trace (Conc-1Ml/ Dose) 1 ml Sodium Acetate 40 meq Potassium Chloride 20 meq Calcium Gluconate 1 gm Magnesium Sulfate gm 1.5 gm In Amino Acids 5 %/Dextrose 20 % 1,000 ml @ 30 mls/hr IV .Q24H ONE Rx#: [id number] metroNIDAZOLE-NS PMX 500 200 mg In Saline 1 100ml.bag @ 100 mls/hr IVPB Q8HR [facility] Rx#:[id number] pressure bag 36 39 12 Intake, IV Titration 47.202 Amount propofoL 1,000 mg In 47.202 Empty Bag 1 bag @ 15 MCG/ KG/MIN 8.777 mls/hr IV . [id number] [facility] Rx#:[id number] Oral 120 200 Output: Gastric Drainage 400 Urine 2590 825 1450 Stool 65 100 Other: Voiding Method Indwelling Catheter Indwelling Catheter Indwelling Catheter ABP, PAP, CO, CI - Last Documented Arterial Blood Pressure 136/78 - Exam Head: Normocephalic Eyes: pupils sluggish Nose: clear Throat: oral endotracheal khris and gastric tub in place Neuro: Patient is awake alert and following some basic commands Cardio: Regular rate S1-S2 present no murmurs noted. Abdominal: soft, non-tender, ostomy shows pink stoma with minimal amount Skin: No rashes or lesions Peripheral: Generalized edema in all 4 extremities but improved Lines: right femoral triple lumen catheter, [place] in place - Labs CBC & Chem 7: 01/06/24 04:05 01/06/24 04:05 Labs: Abnormal Lab Results - Last 24 Hours (Table) 01/05/24 01/05/24 01/05/24 Range/Units 11:20 12:02 18:04 WBC (3.8-10.6) k/uL RBC (4.30-5.90) m/uL Hgb (13.0-17.5) gm/dL Hct (39.0-53.0) % MCHC (31.0-37.0) g/dL ABG pH 7.47 H (7.35-7.45) ABG pO2 140 H (83-108) mmHg ABG HCO3 32 H (21-25) mmol/L ABG O2 Saturation 99.0 H (94-97) % BUN (9-20) mg/dL Creatinine (0.66-1.25) mg/dL Glucose (74-99) mg/dL POC Glucose (mg/dL) 172 H 145 H (70-110) mg/dL Calcium (8.4-10.2) mg/dL Alkaline Phosphatase (38-126) U/L Total Protein (6.3-8.2) g/dL Albumin (3.5-5.0) g/dL 01/06/24 01/06/24 01/06/24 Range/Units 00:01 04:05 04:05 WBC 49.8 H (3.8-10.6) k/uL RBC 2.57 L (4.30-5.90) m/uL Hgb 7.6 L (13.0-17.5) gm/dL Hct 24.7 L (39.0-53.0) % MCHC 30.6 L (31.0-37.0) g/dL ABG pH (7.35-7.45) ABG pO2 (83-108) mmHg ABG HCO3 (21-25) mmol/L ABG O2 Saturation (94-97) % BUN 33 H (9-20) mg/dL Creatinine 0.64 L (0.66-1.25) mg/dL Glucose 125 H (74-99) mg/dL POC Glucose (mg/dL) 146 H (70-110) mg/dL Calcium 7.3 L (8.4-10.2) mg/dL Alkaline Phosphatase 129 H (38-126) U/L Total Protein 4.5 L (6.3-8.2) g/dL Albumin 2.0 L (3.5-5.0) g/dL 01/06/24 01/06/24 Range/Units 06:24 11:44 WBC (3.8-10.6) k/uL RBC (4.30-5.90) m/uL Hgb (13.0-17.5) gm/dL Hct (39.0-53.0) % MCHC (31.0-37.0) g/dL ABG pH (7.35-7.45) ABG pO2 (83-108) mmHg ABG HCO3 (21-25) mmol/L ABG O2 Saturation (94-97) % BUN (9-20) mg/dL Creatinine (0.66-1.25) mg/dL Glucose (74-99) mg/dL POC Glucose (mg/dL) 125 H 121 H (70-110) mg/dL Calcium (8.4-10.2) mg/dL Alkaline Phosphatase (38-126) U/L Total Protein (6.3-8.2) g/dL Albumin (3.5-5.0) g/dL - Imaging and Cardiology Chest x-ray: image reviewed Assessment and Plan Assessment: Assessment/Plan 1. Colitis Patient advanced to clear liquid diet and maintained with TPN. Diet will be adjusted as tolerated. 2. Edema in all 4 extremities Continue Lasix while maintaining strict I's and O's and negative fluid balance 3. Leukocytosis Continue to monitor white count and continue IV antibiotics Flagyl and cefepime, discontinue oral Vancomycin Eraxis added for thrush Continue glucose checks Q6 and maintain insulin sliding scale as per protocol DVT prophylaxis Time with Patient: Greater than 30
[2024-01-06 20:25] LABS: Glucose,Whole Blood 141 mg/dL (70-110)
[2024-01-07 06:26] LABS: Glucose,Whole Blood 120 mg/dL (70-110)
[2024-01-07 06:52] LABS: Glucose,Whole Blood 122 mg/dL (70-110)
[2024-01-07 07:30] LABS: Basophils % (A) 0 %; Eosinophils % (A) 0 %; HGB 8.5 gm/dL (13.0-17.5); Hypochromasia Moderate; Lymphocytes % (A) 2 %; MCHC 30.4 g/dL (31.0-37.0); MCV 95.4 fL (80.0-100.0); Mean Platelet Volume 9.9; Monocytes % (A) 5 %; Neutrophils % (A) 92 %; Platelet Count 504 k/uL (150-450); RBC 2.94 m/uL (4.30-5.90); RDW 15.3 % (11.5-15.5)
[2024-01-07 07:31] LABS: Basophils # (A) 0.1 k/uL (0-0.2); Eosinophils # (A) 0.1 k/uL (0-0.7); Lymphocytes # (A) 0.9 k/uL (1.0-4.8); Monocytes # (A) 2.8 k/uL (0-1.0); Neutrophils # (A) 51.1 k/uL (1.3-7.7)
[2024-01-07 07:37] LABS: WBC 55.6 k/uL (3.8-10.6)
[2024-01-07 07:39] LABS: ALT 20 U/L (4-49); AST 30 U/L (17-59); African American GFR (CKD) >90 (>60 ml/min/1.73 sqM); Albumin 2.1 g/dL (3.5-5.0); Alkaline Phosphatase 121 U/L (38-126); Anion Gap 5 mmol/L; Blood Urea Nitrogen 32 mg/dL (9-20); Calcium 7.6 mg/dL (8.4-10.2); Carbon Dioxide 28 mmol/L (22-30); Chloride 106 mmol/L (98-107); Glucose 103 mg/dL (74-99); Non-African American GFR(CKD) >90 (>60 ml/min/1.73 sqM); Phosphorus 2.7 mg/dL (2.5-4.5); Potassium 4.3 mmol/L (3.5-5.1); Sodium 139 mmol/L (137-145); Total Bilirubin 0.7 mg/dL (0.2-1.3); Total Protein 4.8 g/dL (6.3-8.2)
[2024-01-07] MEDS: ANIDULAFUNGIN 100 MG in SODIUM CHLORIDE 0.9% 100 ML IVPB SCH (08:50)
--- NOTE | 2024-01-07 10:26 | P.PN ---
Subjective Progress Note Date: 01/07/24 Principal diagnosis: 33 year old M with PMH of hypertension and ADHD who presents to the emergency room with complaints of abdominal pain, diarrhea, and weight loss. Patient notes that over the past 2 months since his most recent admission of pancreatitis, he has lost roughly 40 pounds and has had intermittent diffuse abdominal discomfort with associated diarrhea. He has noticed blood in his stools on numerous occasions, bright red, without mucus. Notes that the pain has no clear inciting triggers but often occurs after food consumption. Reports that the pain is usually associated with diarrhea, and lasts for several days at a time. Denies nausea, vomiting, fever, chills, cough. Of note, the patient was admitted on 11/04 for mild acute pancreatitis. He does report having seen a peanut grader as an outpatient and is currently awaiting the results of his workup and is also scheduled for an EGD. Reports however that his pain had become unbearable which prompted him to come to the emergency room. CT abdomen and pelvis in the emergency room revealed findings of colitis involving the transverse, descending, and sigmoid colon's with hepatic steatosis. Chest x-ray was unremarkable with EKG showing sinus tachycardia at 103 bpm with diffuse T wave flattening. Laboratory evaluation was remarkable for leukocytosis of 20.7, and hemoglobin 11.7, sodium 133, potassium 2.8, CO2 36, BUN 10, creatinine 0.82, calcium 7.7, with an unremarkable UA. Patient was started on Levaquin and Flagyl and admitted for treatment of colitis. GI consulted recommended outpatient C-scope in 4-6 weeks. His symptoms worsened. CT AP repeated 12/28 showed worsening anasarca, moderate to severe pancolitis with dilation up to 10.2 cm. ID was consulted, C. diff was negative, C. diff PCR ordered, Levaquin replaced with Cefepime and continued of Flagyl and added PO Vancomycin. Surgery consulted, patient underwent subtotal colectomy with ileostomy with Dr. Saleh on 12/30 and transferred to ICU post op. He has required multiple pressors since his ICU transfer including Levophed, Vasopressin and Solu-Cortef. Nephrology consulted for hyponatremia and metabolic acidosis, sodium as low as 124, given intermittent Lasix IV and bicarb infusion, now improving. Started on TPN 12/31. Required 1 unit PRBC on 01/01. 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 Vasopressin weaned off 01/03. Levophed weaned off 01/04. Feels okay, no chest pain no abdominal pain no nausea no vomiting no dizziness no shortness of breath. Objective - Vital Signs Vital signs: Vital Signs Temp 98.7 F 01/07/24 08:00 Pulse 111 H 01/07/24 09:00 Resp 30 H 01/07/24 09:00 BP 129/100 01/07/24 09:00 Pulse Ox 93 L 01/07/24 09:00 FiO2 30 01/05/24 08:33 Intake & Output 01/06/24 01/07/24 01/07/24 18:59 06:59 18:59 Intake Total 3665.25 2418.917 525 Output Total 2755 975 480 Balance 910.25 1443.917 45 Weight 123 kg 122.7 kg Intake: IV 867 1025 325 Anidulafungin 200 mg In 200 Sodium Chloride 0.9% 200 ml @ 84 mls/hr IVPB ONCE [facility] Rx#:[id number] Cefepime 2 gm In Sodium 200 100 Chloride 0.9% 100 ml @ 25 mls/hr IVPB Q8HR [facility] Rx# :[id number] KVO 240 220 60 Mvi, Adult No.4 with Vit 605 165 K 10 ml Trace (Conc-1Ml/ Dose) 1 ml Potassium Chloride 20 meq In Amino Acid 5%-D15w+Lytes*E* 1, 000 ml @ 55 mls/hr IV . [id number] [facility] Rx#:[id number] metroNIDAZOLE-NS PMX 500 200 100 100 mg In Saline 1 100ml.bag @ 100 mls/hr IVPB Q8HR [facility] Rx#:[id number] pressure bag 27 Intake, IV Titration 998.25 913.917 Amount Mvi, Adult No.4 with Vit 998.25 913.917 K 10 ml Trace (Conc-1Ml/ Dose) 1 ml Potassium Chloride 20 meq In Amino Acid 5%-D15w+Lytes*E* 1, 000 ml @ 55 mls/hr IV . [id number] [facility] Rx#:[id number] Oral 1800 480 200 Output: Drainage 220 Right Abdomen 220 Urine 1825 675 260 Stool 930 300 Other: Voiding Method Indwelling Catheter Indwelling Catheter Indwelling Catheter ABP, PAP, CO, CI - Last Documented Arterial Blood Pressure 139/84 - Exam General:Extubated, lethargic. Derm: warm, dry, anasarca Head: atraumatic, normocephalic, symmetric Eyes: EOMI, no lid lag, anicteric sclera Mouth: no lip lesion, mucus membranes moist Cardiovascular: S1S2 n, no murmur Lungs: Coarse BS bilateral, no rhonchi, no rales , no accessory muscle use Abdominal: mildly distended, ileostomy noted, no BS Ext: no gross muscle atrophy, 2+ pitting edema bilateral LE, no contractures, bilateral upper restraints Neuro: Lethargic - Labs CBC & Chem 7: 01/07/24 06:36 01/07/24 06:36 Labs: Abnormal Lab Results - Last 24 Hours (Table) 01/05/24 01/06/24 01/06/24 Range/Units 11:20 04:05 11:44 WBC (3.8-10.6) k/uL RBC (4.30-5.90) m/uL Hgb (13.0-17.5) gm/dL Hct (39.0-53.0) % MCHC (31.0-37.0) g/dL Plt Count (150-450) k/uL Neutrophils # (1.3-7.7) k/uL Lymphocytes # (1.0-4.8) k/uL Monocytes # (0-1.0) k/uL ABG Total CO2 33 H (19-24) mmol/L BUN (9-20) mg/dL Creatinine (0.66-1.25) mg/dL Glucose (74-99) mg/dL POC Glucose (mg/dL) 121 H (70-110) mg/dL Calcium (8.4-10.2) mg/dL Total Protein (6.3-8.2) g/dL Albumin (3.5-5.0) g/dL Procalcitonin 3.19 H (0.02-0.09) ng/mL 01/06/24 01/06/24 01/07/24 Range/Units 16:38 20:24 06:24 WBC (3.8-10.6) k/uL RBC (4.30-5.90) m/uL Hgb (13.0-17.5) gm/dL Hct (39.0-53.0) % MCHC (31.0-37.0) g/dL Plt Count (150-450) k/uL Neutrophils # (1.3-7.7) k/uL Lymphocytes # (1.0-4.8) k/uL Monocytes # (0-1.0) k/uL ABG Total CO2 (19-24) mmol/L BUN (9-20) mg/dL Creatinine (0.66-1.25) mg/dL Glucose (74-99) mg/dL POC Glucose (mg/dL) 138 H 141 H 120 H (70-110) mg/dL Calcium (8.4-10.2) mg/dL Total Protein (6.3-8.2) g/dL Albumin (3.5-5.0) g/dL Procalcitonin (0.02-0.09) ng/mL 01/07/24 01/07/24 01/07/24 Range/Units 06:36 06:36 06:51 WBC 55.6 H* (3.8-10.6) k/uL RBC 2.94 L (4.30-5.90) m/uL Hgb 8.5 L (13.0-17.5) gm/dL Hct 28.0 L (39.0-53.0) % MCHC 30.4 L (31.0-37.0) g/dL Plt Count 504 H (150-450) k/uL Neutrophils # 51.1 H (1.3-7.7) k/uL Lymphocytes # 0.9 L (1.0-4.8) k/uL Monocytes # 2.8 H (0-1.0) k/uL ABG Total CO2 (19-24) mmol/L BUN 32 H (9-20) mg/dL Creatinine 0.59 L (0.66-1.25) mg/dL Glucose 103 H (74-99) mg/dL POC Glucose (mg/dL) 122 H (70-110) mg/dL Calcium 7.6 L (8.4-10.2) mg/dL Total Protein 4.8 L (6.3-8.2) g/dL Albumin 2.1 L (3.5-5.0) g/dL Procalcitonin (0.02-0.09) ng/mL Assessment and Plan Plan: Ventilator dependent respiratory failure: Post operatively. Vent management per Pulmonary/Surgery Tech.Extubated, pulmonology following, continue supportive care, Appears to be stable. Septic shock due to colitis: Status post subtotal colectomy with ileostomy with Dr. Saleh on 12/30. Cefepime 1g IV TID (D8), Vancomycin 500 mg PO QID (D6) and Flagyl 500 mg IV TID (D8). Telemetry monitoring. Blood and Stool culture negat tracy on admission. C. diff negative on admission. ID on board.Infectious disease following, currently on vancomycin Acute on chronic blood loss anemia: Status post 1 unit PRBC 01/01. Iron studies showing anemia of chronic disease. Daily CBC. Transfuse if Hg < 7. Hemoglobin 8.5 Hyperglycemia: A1c 5.6. POC glucose ranging from 146-174 over the past 24H. Continue ISS Q6H. Accuchecks Q6H. Hypophosphatemia: Replace As indicated. Acute kidney injury: Likely prerenal from shock. Improving. Monitor electrolytes and renal function while on Lasix IV. Nephrology on board. Anasarca due to hypoalbuminemia: Lasix 40 mg IV QD. Hypocalcemia: Status post Ca gluconate 1g IV 12/31.Replace as indicated Severe protein calorie malnutrition: TPA managed by Dietary. Daily CMP, Mag and Phos. Severe leukocytosis: WBC 55, And Flagyl,Infectious disease on board. Disposition: Remains in ICU
[2024-01-07 11:30] LABS: Glucose,Whole Blood 152 mg/dL (70-110)
--- NOTE | 2024-01-07 11:43 | P.PN ---
Subjective Patient is seen in follow-up for acute kidney injury. Renal function at baseline. Extubated January 05, 2024. Sitting up in chair. On room air. Non oliguric. Working with physical therapy. Vital signs are stable. General: Resting in bed. HEENT: Head exam is unremarkable. LUNGS: Scattered rhonchi. HEART: Rate and Rhythm are regular. ABDOMEN: No distention. EXTREMITITES: 2+ edema. Objective - Vital Signs Vital signs: Vital Signs Temp 98.7 F 01/07/24 08:00 Pulse 116 H 01/07/24 11:00 Resp 38 H 01/07/24 11:00 BP 126/86 01/07/24 11:00 Pulse Ox 94 L 01/07/24 11:00 FiO2 30 01/05/24 08:33 Intake & Output 01/06/24 01/07/24 01/07/24 18:59 06:59 18:59 Intake Total 3665.25 2418.917 620 Output Total 2755 975 1030 Balance 910.25 1443.917 -410 Weight 123 kg 122.7 kg Intake: IV 867 1025 420 Anidulafungin 200 mg In 200 Sodium Chloride 0.9% 200 ml @ 84 mls/hr IVPB ONCE [facility] Rx#:[id number] Cefepime 2 gm In Sodium 200 100 Chloride 0.9% 100 ml @ 25 mls/hr IVPB Q8HR [facility] Rx# :[id number] KVO 240 220 100 Mvi, Adult No.4 with Vit 605 220 K 10 ml Trace (Conc-1Ml/ Dose) 1 ml Potassium Chloride 20 meq In Amino Acid 5%-D15w+Lytes*E* 1, 000 ml @ 55 mls/hr IV . [id number] [facility] Rx#:[id number] metroNIDAZOLE-NS PMX 500 200 100 100 mg In Saline 1 100ml.bag @ 100 mls/hr IVPB Q8HR [facility] Rx#:[id number] pressure bag 27 Intake, IV Titration 998.25 913.917 Amount Mvi, Adult No.4 with Vit 998.25 913.917 K 10 ml Trace (Conc-1Ml/ Dose) 1 ml Potassium Chloride 20 meq In Amino Acid 5%-D15w+Lytes*E* 1, 000 ml @ 55 mls/hr IV . [id number] [facility] Rx#:[id number] Oral 1800 480 200 Output: Drainage 220 Right Abdomen 220 Urine 1825 675 810 Stool 930 300 Other: Voiding Method Indwelling Catheter Indwelling Catheter Indwelling Catheter ABP, PAP, CO, CI - Last Documented Arterial Blood Pressure 139/84 - Labs CBC & Chem 7: 01/07/24 06:36 01/07/24 06:36 Labs: Abnormal Lab Results - Last 24 Hours (Table) 01/05/24 01/06/24 01/06/24 Range/Units 11:20 04:05 11:44 WBC (3.8-10.6) k/uL RBC (4.30-5.90) m/uL Hgb (13.0-17.5) gm/dL Hct (39.0-53.0) % MCHC (31.0-37.0) g/dL Plt Count (150-450) k/uL Neutrophils # (1.3-7.7) k/uL Lymphocytes # (1.0-4.8) k/uL Monocytes # (0-1.0) k/uL ABG Total CO2 33 H (19-24) mmol/L BUN (9-20) mg/dL Creatinine (0.66-1.25) mg/dL Glucose (74-99) mg/dL POC Glucose (mg/dL) 121 H (70-110) mg/dL Calcium (8.4-10.2) mg/dL Total Protein (6.3-8.2) g/dL Albumin (3.5-5.0) g/dL Procalcitonin 3.19 H (0.02-0.09) ng/mL 01/06/24 01/06/24 01/07/24 Range/Units 16:38 20:24 06:24 WBC (3.8-10.6) k/uL RBC (4.30-5.90) m/uL Hgb (13.0-17.5) gm/dL Hct (39.0-53.0) % MCHC (31.0-37.0) g/dL Plt Count (150-450) k/uL Neutrophils # (1.3-7.7) k/uL Lymphocytes # (1.0-4.8) k/uL Monocytes # (0-1.0) k/uL ABG Total CO2 (19-24) mmol/L BUN (9-20) mg/dL Creatinine (0.66-1.25) mg/dL Glucose (74-99) mg/dL POC Glucose (mg/dL) 138 H 141 H 120 H (70-110) mg/dL Calcium (8.4-10.2) mg/dL Total Protein (6.3-8.2) g/dL Albumin (3.5-5.0) g/dL Procalcitonin (0.02-0.09) ng/mL 01/07/24 01/07/24 01/07/24 Range/Units 06:36 06:36 06:51 WBC 55.6 H* (3.8-10.6) k/uL RBC 2.94 L (4.30-5.90) m/uL Hgb 8.5 L (13.0-17.5) gm/dL Hct 28.0 L (39.0-53.0) % MCHC 30.4 L (31.0-37.0) g/dL Plt Count 504 H (150-450) k/uL Neutrophils # 51.1 H (1.3-7.7) k/uL Lymphocytes # 0.9 L (1.0-4.8) k/uL Monocytes # 2.8 H (0-1.0) k/uL ABG Total CO2 (19-24) mmol/L BUN 32 H (9-20) mg/dL Creatinine 0.59 L (0.66-1.25) mg/dL Glucose 103 H (74-99) mg/dL POC Glucose (mg/dL) 122 H (70-110) mg/dL Calcium 7.6 L (8.4-10.2) mg/dL Total Protein 4.8 L (6.3-8.2) g/dL Albumin 2.1 L (3.5-5.0) g/dL Procalcitonin (0.02-0.09) ng/mL 01/07/24 Range/Units 11:28 WBC (3.8-10.6) k/uL RBC (4.30-5.90) m/uL Hgb (13.0-17.5) gm/dL Hct (39.0-53.0) % MCHC (31.0-37.0) g/dL Plt Count (150-450) k/uL Neutrophils # (1.3-7.7) k/uL Lymphocytes # (1.0-4.8) k/uL Monocytes # (0-1.0) k/uL ABG Total CO2 (19-24) mmol/L BUN (9-20) mg/dL Creatinine (0.66-1.25) mg/dL Glucose (74-99) mg/dL POC Glucose (mg/dL) 152 H (70-110) mg/dL Calcium (8.4-10.2) mg/dL Total Protein (6.3-8.2) g/dL Albumin (3.5-5.0) g/dL Procalcitonin (0.02-0.09) ng/mL Assessment and Plan Plan: Assessment: 1. Acute kidney injury secondary to ATN secondary to septic shock. Also received IV contrast on December 24 and December 30, 2023. PRESTON resolved. No hydronephrosis noted on CAT scan. 2. 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 3. Volume overload. Improving with diuresis. 4. Acute blood loss anemia status post blood transfusion December 25, 2023. Hemoglobin improved. 5. Hyponatremia secondary to acute kidney injury. Hypervolemic. Improved. Plan: Maintain TPN per surgery. Maintain IV Lasix. Continue to monitor renal function and urine output. Avoid nephrotoxins. Replace electrolytes as needed.
[2024-01-07] MEDS ORDERED: hydrALAZINE HCL 20 MG/ML 1 ML VIAL IVP PRN (11:48)
--- NOTE | 2024-01-07 13:12 | P.PN ---
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 Pathology reporting ulcerative colitis and appendicitis. Patient is lethargic this morning. He did receive pain medication. Ostomy is functioning. He does have drainage from his incision. He is afebrile. He has been tachycardic. White count is up at 55. On afternoon rounds patient seen and examined with Dr. Saleh. Patient sitting up at bedside chair. He is a little more awake. PHYSICAL EXAM: VITAL SIGNS: Reviewed. GENERAL: Well-developed in no acute distress. ABDOMEN: Soft. Distended. drainage noted from middle of incision below the umbilicus. Ostomy with stool and air present. Stoma pink. ASSESSMENT: 1. Fulminant pancolitis 2. Severe protein calorie malnutrition PLAN: -Continue full liquids -Continue TPN until oral intake increases -Continue antibiotics -Continue pain management -will have nursing staff remove 2 sander from incision and culture drainage -DVT prophylaxis subcu heparin GI prophylaxis Pepcid Physician Drapery Estimator note has been reviewed by physician. Signing provider agrees with the documented findings, assessment, and plan of care. Objective - Vital Signs Vital signs: Vital Signs Temp 98.7 F 01/07/24 08:00 Pulse 116 H 01/07/24 11:00 Resp 38 H 01/07/24 11:00 BP 126/86 01/07/24 11:00 Pulse Ox 94 L 01/07/24 11:00 FiO2 30 01/05/24 08:33 Intake & Output 01/06/24 01/07/24 01/07/24 18:59 06:59 18:59 Intake Total 3665.25 2418.917 620 Output Total 2755 975 1030 Balance 910.25 1443.917 -410 Weight 123 kg 122.7 kg Intake: IV 867 1025 420 Anidulafungin 200 mg In 200 Sodium Chloride 0.9% 200 ml @ 84 mls/hr IVPB ONCE ONE Rx#:[id number] Cefepime 2 gm In Sodium 200 100 Chloride 0.9% 100 ml @ 25 mls/hr IVPB Q8HR [facility] Rx# :[id number] KVO 240 220 100 Mvi, Adult No.4 with Vit 605 220 K 10 ml Trace (Conc-1Ml/ Dose) 1 ml Potassium Chloride 20 meq In Amino Acid 5%-D15w+Lytes*E* 1, 000 ml @ 55 mls/hr IV . [id number] [facility] Rx#:[id number] metroNIDAZOLE-NS PMX 500 200 100 100 mg In Saline 1 100ml.bag @ 100 mls/hr IVPB Q8HR [facility] Rx#:[id number] pressure bag 27 Intake, IV Titration 998.25 913.917 Amount Mvi, Adult No.4 with Vit 998.25 913.917 K 10 ml Trace (Conc-1Ml/ Dose) 1 ml Potassium Chloride 20 meq In Amino Acid 5%-D15w+Lytes*E* 1, 000 ml @ 55 mls/hr IV . [id number] [facility] Rx#:[id number] Oral 1800 480 200 Output: Drainage 220 Right Abdomen 220 Urine 1825 675 810 Stool 930 300 Other: Voiding Method Indwelling Catheter Indwelling Catheter Indwelling Catheter ABP, PAP, CO, CI - Last Documented Arterial Blood Pressure 139/84 - Labs CBC & Chem 7: 01/07/24 06:36 01/07/24 06:36 Labs: Abnormal Lab Results - Last 24 Hours (Table) 01/05/24 01/06/24 01/06/24 Range/Units 11:20 04:05 11:44 WBC (3.8-10.6) k/uL RBC (4.30-5.90) m/uL Hgb (13.0-17.5) gm/dL Hct (39.0-53.0) % MCHC (31.0-37.0) g/dL Plt Count (150-450) k/uL Neutrophils # (1.3-7.7) k/uL Lymphocytes # (1.0-4.8) k/uL Monocytes # (0-1.0) k/uL ABG Total CO2 33 H (19-24) mmol/L BUN (9-20) mg/dL Creatinine (0.66-1.25) mg/dL Glucose (74-99) mg/dL POC Glucose (mg/dL) 121 H (70-110) mg/dL Calcium (8.4-10.2) mg/dL Total Protein (6.3-8.2) g/dL Albumin (3.5-5.0) g/dL Procalcitonin 3.19 H (0.02-0.09) ng/mL 01/06/24 01/06/24 01/07/24 Range/Units 16:38 20:24 06:24 WBC (3.8-10.6) k/uL RBC (4.30-5.90) m/uL Hgb (13.0-17.5) gm/dL Hct (39.0-53.0) % MCHC (31.0-37.0) g/dL Plt Count (150-450) k/uL Neutrophils # (1.3-7.7) k/uL Lymphocytes # (1.0-4.8) k/uL Monocytes # (0-1.0) k/uL ABG Total CO2 (19-24) mmol/L BUN (9-20) mg/dL Creatinine (0.66-1.25) mg/dL Glucose (74-99) mg/dL POC Glucose (mg/dL) 138 H 141 H 120 H (70-110) mg/dL Calcium (8.4-10.2) mg/dL Total Protein (6.3-8.2) g/dL Albumin (3.5-5.0) g/dL Procalcitonin (0.02-0.09) ng/mL 01/07/24 01/07/24 01/07/24 Range/Units 06:36 06:36 06:51 WBC 55.6 H* (3.8-10.6) k/uL RBC 2.94 L (4.30-5.90) m/uL Hgb 8.5 L (13.0-17.5) gm/dL Hct 28.0 L (39.0-53.0) % MCHC 30.4 L (31.0-37.0) g/dL Plt Count 504 H (150-450) k/uL Neutrophils # 51.1 H (1.3-7.7) k/uL Lymphocytes # 0.9 L (1.0-4.8) k/uL Monocytes # 2.8 H (0-1.0) k/uL ABG Total CO2 (19-24) mmol/L BUN 32 H (9-20) mg/dL Creatinine 0.59 L (0.66-1.25) mg/dL Glucose 103 H (74-99) mg/dL POC Glucose (mg/dL) 122 H (70-110) mg/dL Calcium 7.6 L (8.4-10.2) mg/dL Total Protein 4.8 L (6.3-8.2) g/dL Albumin 2.1 L (3.5-5.0) g/dL Procalcitonin (0.02-0.09) ng/mL
--- NOTE | 2024-01-07 13:44 | P.PN ---
Subjective Progress Note Date: 01/07/24 Pulmonary/critical care consult dated December 31, 2023. 33-year-old male who presented to the emergency department, on December 24 with severe abdominal pain. The patient apparently has a history of pancreatitis, and apparently told the ER physician that the pain seemed similar. He had sharp left-sided abdominal pain, from the night before. He had poor appetite, and has been unable to keep any food or liquids down. The patient was admitted to the hospital, for the abdominal pain. He denies any fever, chills, nausea, constipation, or diarrhea. There is no urinary complaints. The patient apparently has a history of hyperlipidemia, hypertension, and pancreatitis. He is a lifelong non-smoker. He only drinks occasionally. It was told to me this morning, both from the charge nurse in the ICU, and the surgeon, but the patient was in the operating room, for fulminant pancolitis, and was having a colectomy. The patient had a subtotal colectomy with ileostomy performed by one of the surgeons, and the patient was extubated initially in the operating room, but was reintubated minutes later. The patient came to the ICU, on the ventilator. I gave Vent settings of volume assist-control, rate 20, tidal volume 450, FiO2 100%, PEEP of 5. Blood gases will be done in about an hour. We also placed a left subclavian triple-lumen catheter. An arterial line was placed by anesthesia. The most recent labs include a white count of 28.9, hemoglobin 10, hematocrit 31, and platelet count which was 744,000. Most recent blood gas showed a pO2 of 331, pCO2 of 37, pH is 7.34. That was on 100%. Repeat blood gas will be done in about 60 minutes. Sodium 133, potassium 3.9, chlorides 100, CO2 17, anion gap 16, BUN 27, creatinine 1.1. Glucose was 96. C-reactive protein was 9.90. Calcium 7.4. Stool and blood cultures have been negative. The postintubation x-ray shows the endotracheal tube to be in good position. In addition, there is a left subclavian triple-lumen catheter in good position. A repeat CT scan of the abdomen and pelvis, yesterday, showed hyperemia and wall thickening of the sigmoid colon and rectum as well as areas of transverse colon. The radiologist thought it was consistent with colitis/proctitis. There was upstream dilatation of the large bowel. Small bowel loops are dilated with relative nondistention. No transition point is noted. Other findings are noted on the CT scan. Progress note dated January 01, 2024. This is a 33-year-old male seen yesterday in consultation. Please see my extensive note above. The patient remains in the intensive care unit, on the ventilator. He is on volume assist-control, rate 20, tidal volume 450, FiO2 40%, PEEP of 5. Blood gases are excellent with a pO2 116, pCO2 31, and pH of 7.40. Blood gases are consistent with a mixed acid-base disturbance, including a respiratory alkalosis, and mild metabolic acidosis. The patient remains on propofol at 40 mcg/kg/min, norepinephrine at 23 mcg/min, vasopressin at 0.03 units/min, and lactated Ringer's at 150 cc an hour. The patient continues on cefepime, and Flagyl. The patient is also on oral vancomycin. I have asked the nurse, to talk to dietary about a possible TPN preparation. Current labs include a white count 45.4, hemoglobin 9.9, hematocrit 32.1, and a platelet count of 741,000. Sodium 130, potassium 4.3, chlorides 104, CO2 16, anion gap 10, BUN and creatinine were 26 and 1.71. Glucose is 117. Ionized calcium was low at 4.2. Cortisol was 83. Blood cultures, and stool sampling, has thus far been negative. Chest x-ray shows no major changes. There may be some left basilar atelectasis, or infiltrate. Progress note dated January 02, 2024. 33-year-old male who is seen today in the intensive care unit, room 264. The patient remains on mechanical ventilator. He is on volume assist-control, rate 20, tidal volume 450, FiO2 40%, to be reduced down to 30%, with a PEEP of 5. Blood gases show pO2 126, pCO2 39, and pH is 7.43. The patient is on half- normal saline with 2 ampoules of sodium bicarb and at 100 cc an hour. The patient is also on norepinephrine at 13 mcg/min, and vasopressin at 0.03 units/min. Additionally, the patient is on propofol at 50 mcg/kg/min, and TPN at 30 cc an hour. The patient continues on cefepime, vancomycin, and Flagyl. Current labs include a white count of 49.4, hemoglobin 7.2, hematocrit 22.3, and a platelet count of 422,000. Sodium 131, potassium 3.6, chlorides 102, CO2 23, BUN 34, and creatinine 1.74. Albumin is 1.7. All culture material is negative. Chest x-ray shows the endotracheal tube, high in the trachea. There is also a left-sided pleural effusion, with atelectasis. Progress note dated January 03, 2024. 33-year-old male seen in the intensive care unit, room 264. The patient remains on mechanical ventilator. He is on volume assist-control, rate 20, tidal volume 450, FiO2 30%, PEEP of 5. Blood gases show pO2 100, pCO2 39, pH is 7.44. The patient remains on propofol at 50 mics per kilogram per minute, norepinephrine at 4 mcg/min, vasopressin at 0.03 units/min, and the patient is getting TPN at 55 cc an hour. The patient continues on cefepime and Flagyl. We will check a procalcitonin level. The patient had an uneventful night according to the nurses. Vasopressor requirements have been coming down. White count is 43.7, hemoglobin 7.5, hematocrit 22.9, with a normal platelet count. Sodium 132, potassium 3.7, chloride 103, CO2 23, BUN 36, and creatinine 1.11. Glucose is 164. Calcium 7.1, magnesium 2.2, and phosphorus 2.1. Albumin is 1.9. Cultures thus far are negative. Chest x-ray shows low lung volumes, cardiomegaly, and the left-sided effusion, which is small. Progress note dated January 04, 2024. 33-year-old male seen today in room 264. The patient remains on the mechanical ventilator. He is on volume assist-control, rate 20, tidal volume 450, FiO2 30%, PEEP of 5. Blood gases show pO2 105, CO2 36, and pH 7.51. This blood gases consistent with a mild metabolic alkalosis. In addition, the patient remains on propofol at 50 mcg/kg/min, TPN at 55 cc an hour, and saline at KVO. The patient is currently weaned off of norepinephrine, and vasopressin. He continues on cefepime, Flagyl, and oral vancomycin. Today, since he is off pressors, we will attempt a daily interruption of sedation, and spontaneous breathing trial. Currently, white count is 36,000, hemoglobin 7.7, hematocrit 24.7, and platelet count 383,000. Sodium 131, potassium 3.8, chlorides 101, CO2 25, BUN 37, creatinine 0.82. Glucose is 135. Calcium 7.1, phosphorus 2.3. Albumin is 2.0. Blood cultures are currently all negative still. Chest x-ray shows cardiomegaly, and small lung volumes. There may be infiltrate or atelectasis at the left lung base. 01/05/2024, I am seeing the patient for a follow-up in the intensive care unit. This patient has undergone a subtotal colectomy and robotic ileostomy for fulfillment pancolitis. The patient was septic, and had severe leukocytosis and the patient is currently postop day #6. Remains intubated on mechanical ventilator. On today's evaluation, the patient is off Precedex and the patient is being assessed for further weaning and I will assess the patient's potential for further weaning and extubation today. The surgical wound is dry clean and intact. The white cell count down to 40 with a hemoglobin 7.2 and a platelet count of 369. While being on mechanical ventilator, the patient has a blood gas showing a pH of 7.47 with a pCO2 of 43 and pO2 140. The ventilator setting is currently on assist-control mode with rate of 20, tidal volume of 450, FiO2 30% with a PEEP of 5. The patient's fluid balance is negative and the patient is being diuresed with IV Lasix. Overall fluid balance is -4.6 L over the past 24 hours the patient remains on TPN for nutritional support. The patient is afebrile. The patient is hemodynamically stable. No other significant events overnight. Remains on TPN. 01/06/2024, patient is being seen for a follow-up. The patient is currently postop day #7. The patient is post subtotal colectomy. The patient's white cell count remains elevated. Noted the patient was weaned off the mechanical ventilator and the patient was extubated yesterday without any major difficulties and the patient is currently on room air oxygen. The patient is hemodynamically stable. The patient is afebrile. The ostomy site is functional. The patient remains on TPN for nutritional support. The patient is a negative fluid balance and the patient is being diuresed with IV Lasix 40 mg on a daily basis. Fluid balance is negative. The patient remains on Eraxis and cefepime. He is profoundly weak in all 4 extremities. He continues to have edema which is essentially improving. Will continue to follow. On 01/07/2024, seen the patient for a follow-up. Sitting up in the chair and the patient is calm and comfortable.. Continues to have edema and third spacing in all 4 extremities. The patient is currently on IV Lasix. Remains on TPN for nutritional support. He is on clear liquid diet and oral intake is quite diminished at this point. His white cell count remains elevated at 25.6. The patient is on a combination of antibiotics including cefepime, Flagyl and Eraxis. The hemoglobin of 8.5 with a platelet count of 503. Noted the procalcitonin level has been downtrending and the level was as high as 11.8 minutes dropped down to 3.1 from yesterday. BUN 32 with a creatinine of 0.59 and sodium is at 139. The patient is still on TPN at rate of 55 cc an hour. Afebrile. Awake and alert and communicating. Has profound weakness in all 4 extremities. No other significant events overnight the ileostomy is functional. Surgical wound site is dry clean and intact. Objective - Vital Signs Vital signs: Vital Signs Temp 98.7 F 01/07/24 08:00 Pulse 116 H 01/07/24 11:00 Resp 38 H 01/07/24 11:00 BP 126/86 01/07/24 11:00 Pulse Ox 94 L 01/07/24 11:00 FiO2 30 01/05/24 08:33 Intake & Output 01/06/24 01/07/24 01/07/24 18:59 06:59 18:59 Intake Total 3665.25 2418.917 620 Output Total 2755 975 1030 Balance 910.25 1443.917 -410 Weight 123 kg 122.7 kg Intake: IV 867 1025 420 Anidulafungin 200 mg In 200 Sodium Chloride 0.9% 200 ml @ 84 mls/hr IVPB ONCE ONE Rx#:[id number] Cefepime 2 gm In Sodium 200 100 Chloride 0.9% 100 ml @ 25 mls/hr IVPB Q8HR [facility] Rx# :[id number] KVO 240 220 100 Mvi, Adult No.4 with Vit 605 220 K 10 ml Trace (Conc-1Ml/ Dose) 1 ml Potassium Chloride 20 meq In Amino Acid 5%-D15w+Lytes*E* 1, 000 ml @ 55 mls/hr IV . [id number] [facility] Rx#:[id number] metroNIDAZOLE-NS PMX 500 200 100 100 mg In Saline 1 100ml.bag @ 100 mls/hr IVPB Q8HR [facility] Rx#:[id number] pressure bag 27 Intake, IV Titration 998.25 913.917 Amount Mvi, Adult No.4 with Vit 998.25 913.917 K 10 ml Trace (Conc-1Ml/ Dose) 1 ml Potassium Chloride 20 meq In Amino Acid 5%-D15w+Lytes*E* 1, 000 ml @ 55 mls/hr IV . [id number] [facility] Rx#:[id number] Oral 1800 480 200 Output: Drainage 220 Right Abdomen 220 Urine 1825 675 810 Stool 930 300 Other: Voiding Method Indwelling Catheter Indwelling Catheter Indwelling Catheter ABP, PAP, CO, CI - Last Documented Arterial Blood Pressure 139/84 - Exam No acute distress, calm and comfortable, extubated and the patient is currently on room air oxygen. Sitting up on the chair. HEENT examination is grossly unremarkable. Neck supple. Full range of motion. No adenopathy thyromegaly or neck vein distention. Cardiovascular examination reveals regular rhythm rate. S1-S2 normal. No S3 or S4. No discernible murmur noted. Lungs reveal clear breath sounds. Breath sounds are equal bilaterally. No adventitious lung sounds including wheezes rhonchi or crackles. Abdomen soft without bowel sounds. Ileostomy is noted. The ileostomy site is functional and the patient has no significant abdominal distention. No direct tenderness. No rebound tenderness. No guarding. Bowel sounds are present. Extremities are intact. No cyanosis clubbing extensive edema in all 4 extremities. Skin is without rash or lesion. Neurologic examination reveals that the patient has no focal neurological deficits while being off the sedatives. - Labs CBC & Chem 7: 01/07/24 06:36 01/07/24 06:36 Labs: Abnormal Lab Results - Last 24 Hours (Table) 01/05/24 01/06/24 01/06/24 Range/Units 11:20 04:05 11:44 WBC (3.8-10.6) k/uL RBC (4.30-5.90) m/uL Hgb (13.0-17.5) gm/dL Hct (39.0-53.0) % MCHC (31.0-37.0) g/dL Plt Count (150-450) k/uL Neutrophils # (1.3-7.7) k/uL Lymphocytes # (1.0-4.8) k/uL Monocytes # (0-1.0) k/uL ABG Total CO2 33 H (19-24) mmol/L BUN (9-20) mg/dL Creatinine (0.66-1.25) mg/dL Glucose (74-99) mg/dL POC Glucose (mg/dL) 121 H (70-110) mg/dL Calcium (8.4-10.2) mg/dL Total Protein (6.3-8.2) g/dL Albumin (3.5-5.0) g/dL Procalcitonin 3.19 H (0.02-0.09) ng/mL 01/06/24 01/06/24 01/07/24 Range/Units 16:38 20:24 06:24 WBC (3.8-10.6) k/uL RBC (4.30-5.90) m/uL Hgb (13.0-17.5) gm/dL Hct (39.0-53.0) % MCHC (31.0-37.0) g/dL Plt Count (150-450) k/uL Neutrophils # (1.3-7.7) k/uL Lymphocytes # (1.0-4.8) k/uL Monocytes # (0-1.0) k/uL ABG Total CO2 (19-24) mmol/L BUN (9-20) mg/dL Creatinine (0.66-1.25) mg/dL Glucose (74-99) mg/dL POC Glucose (mg/dL) 138 H 141 H 120 H (70-110) mg/dL Calcium (8.4-10.2) mg/dL Total Protein (6.3-8.2) g/dL Albumin (3.5-5.0) g/dL Procalcitonin (0.02-0.09) ng/mL 01/07/24 01/07/24 01/07/24 Range/Units 06:36 06:36 06:51 WBC 55.6 H* (3.8-10.6) k/uL RBC 2.94 L (4.30-5.90) m/uL Hgb 8.5 L (13.0-17.5) gm/dL Hct 28.0 L (39.0-53.0) % MCHC 30.4 L (31.0-37.0) g/dL Plt Count 504 H (150-450) k/uL Neutrophils # 51.1 H (1.3-7.7) k/uL Lymphocytes # 0.9 L (1.0-4.8) k/uL Monocytes # 2.8 H (0-1.0) k/uL ABG Total CO2 (19-24) mmol/L BUN 32 H (9-20) mg/dL Creatinine 0.59 L (0.66-1.25) mg/dL Glucose 103 H (74-99) mg/dL POC Glucose (mg/dL) 122 H (70-110) mg/dL Calcium 7.6 L (8.4-10.2) mg/dL Total Protein 4.8 L (6.3-8.2) g/dL Albumin 2.1 L (3.5-5.0) g/dL Procalcitonin (0.02-0.09) ng/mL Assessment and Plan Plan: Acute abdominal sepsis secondary to pancolitis the patient remains on TPN. Tono whitten is also on clear liquid diet. Ileostomy site is functional. Hemodynamically stable. Acute leukocytosis secondary to above, white cell count is slightly improved yet still elevated. This is obviously concerning issue. The procalcitonin level has been downtrending. Nevertheless, the white cell count remains elevated. If no improvement, will consider a CAT scan of the abdomen and pelvis to rule out any intra-abdominal abscess formation. Acute abdomen and the patient is supposed subtotal colectomy. The patient is postoperative day # 8, S/P subtotal colectomy with ileostomy, for fulminant pancolitis. Ileostomy site is functional. Surgical wound is dry clean and intact. The patient is currently on IV cefepime and Eraxis and Flagyl. The patient remains on TPN for nutritional support. Acute hypoxic respiratory failure secondary to above, extubated on 01/05/2024, currently on room air oxygen Possible relative adrenal insufficiency. The patient is currently on IV hydrocortisone Non-anion gap metabolic acidosis, recovered Previous history of pancreatitis. History of hypertension. History of hyperlipidemia. Extensive edema in all 4 extremities, currently negative fluid balance while being on IV Lasix Plan: Patient is currently on room air oxygen Continue TPN for nutritional support Continue IV cefepime and Flagyl and Eraxis Monitor the white cell count Consider repeating the CAT scan of the abdomen patient is a white cell count remains unchanged. Monitor procalcitonin level and the levels have been improving. Continue IV Lasix, negative fluid balance Will continue to follow make further recommendations based on the progress.
[2024-01-07] MEDS ORDERED: VANCOMYCIN IV PER PHARMACY 1 EACH MISC MISCELLANE PRN (15:09)
[2024-01-07] MEDS: VANCOMYCIN 2,000 MG in SODIUM CHLORIDE 0.9% 500 ML 500 ML IVPB SCH (15:50)
[2024-01-07 16:09] LABS: Glucose,Whole Blood 158 mg/dL (70-110)
[2024-01-07 21:00] LABS: Glucose,Whole Blood 154 mg/dL (70-110)
[2024-01-07] MEDS: FUROSEMIDE 10 MG/ML 4 ML VIAL IV SCH (21:08)
--- NOTE | 2024-01-07 23:04 | P.PN ---
Subjective Progress Note Date: 01/07/24 33-year-old male presented to the ED on December 24 with severe abdominal pain. The patient has a history of pancreatitis and describes the pain is similar to that episode. He also had a poor appetite and was unable to keep any liquids or food down. Patient was found to have pancolitis and had a subtotal colectomy with ileostomy. The patient was extubated in the operating room but was reintubated minutes later. The patient came to the ICU on a ventilator. 01/06/24 Today patient is postop day #7. Yesterday he was extubated without any major problems and he is on room air oxygen. He was tolerating ice chips and TPN well so diet was advanced to clear liquids. Patient continues to maintain a negative fluid balance and being diuresed with IV Lasix 40 mg daily. 01/07/24 Today patient is postop day #8. Patient is sitting up in chair, uncomfortable in no acute distress. Edema still present in all 4 extremities and currently on IV Lasix. He is on a clear liquid diet but oral intake is diminished so he is also on TPN at rate of 55ml/hr. White cell count is elevated at 55.6 despite b eing afebrile. Patient is on Cefepime, Flagyl, and Eraxis. Ileostomy is functional. Objective - Vital Signs Vital signs: Vital Signs Temp 98.5 F 01/07/24 20:00 Pulse 131 H 01/07/24 21:00 Resp 37 H 01/07/24 21:00 BP 149/102 01/07/24 21:00 Pulse Ox 94 L 01/07/24 21:00 FiO2 30 01/05/24 08:33 Intake & Output 01/07/24 01/07/24 01/08/24 06:59 18:59 06:59 Intake Total 2418.917 1345 670 Output Total 975 3295 565 Balance 1443.917 -1950 105 Weight 122.7 kg Intake: IV 1025 1145 170 Cefepime 2 gm In Sodium 100 100 Chloride 0.9% 100 ml @ 25 mls/hr IVPB Q8HR [facility] Rx# :[id number] KVO 220 240 60 Mvi, Adult No.4 with Vit 605 605 110 K 10 ml Trace (Conc-1Ml/ Dose) 1 ml Potassium Chloride 20 meq In Amino Acid 5%-D15w+Lytes*E* 1, 000 ml @ 55 mls/hr IV . [id number] [facility] Rx#:[id number] metroNIDAZOLE-NS PMX 500 100 200 mg In Saline 1 100ml.bag @ 100 mls/hr IVPB Q8HR [facility] Rx#:[id number] Intake, IV Titration 913.917 500 Amount Mvi, Adult No.4 with Vit 913.917 K 10 ml Trace (Conc-1Ml/ Dose) 1 ml Potassium Chloride 20 meq In Amino Acid 5%-D15w+Lytes*E* 1, 000 ml @ 55 mls/hr IV . [id number] [facility] Rx#:[id number] Vancomycin 2,000 mg In 500 Sodium Chloride 0.9% 500 ml 500 ml @ 167 mls/hr IVPB Q8H [facility] Rx#: [id number] Oral 480 200 Output: Drainage 1720 Right Abdomen 1720 Urine 675 1575 205 Stool 300 360 Other: Voiding Method Indwelling Catheter Indwelling Catheter ABP, PAP, CO, CI - Last Documented Arterial Blood Pressure 139/84 - Exam Head: Normocephalic General: Patient is awake alert, following some basic commands resting comfortably in a chair Cardio: Regular rate S1-S2 present no murmurs noted. Abdominal: Soft non-tender ostomy is functional with minimal output Skin: No rashes or lesions Peripheral: Generalized edema in all 4 extremities but improved - Additional findings Additional findings: Left hand peripheral IV, right radial A-line, left subclavian triple lumen catheter, right hand peripheral IV in place. - Labs CBC & Chem 7: 01/08/24 03:05 01/08/24 03:05 Labs: Abnormal Lab Results - Last 24 Hours (Table) 01/07/24 01/07/24 01/07/24 Range/Units 06:24 06:36 06:36 WBC 55.6 H* (3.8-10.6) k/uL RBC 2.94 L (4.30-5.90) m/uL Hgb 8.5 L (13.0-17.5) gm/dL Hct 28.0 L (39.0-53.0) % MCHC 30.4 L (31.0-37.0) g/dL Plt Count 504 H (150-450) k/uL Neutrophils # 51.1 H (1.3-7.7) k/uL Lymphocytes # 0.9 L (1.0-4.8) k/uL Monocytes # 2.8 H (0-1.0) k/uL BUN 32 H (9-20) mg/dL Creatinine 0.59 L (0.66-1.25) mg/dL Glucose 103 H (74-99) mg/dL POC Glucose (mg/dL) 120 H (70-110) mg/dL Calcium 7.6 L (8.4-10.2) mg/dL Total Protein 4.8 L (6.3-8.2) g/dL Albumin 2.1 L (3.5-5.0) g/dL 01/07/24 01/07/24 01/07/24 Range/Units 06:51 11:28 16:07 WBC (3.8-10.6) k/uL RBC (4.30-5.90) m/uL Hgb (13.0-17.5) gm/dL Hct (39.0-53.0) % MCHC (31.0-37.0) g/dL Plt Count (150-450) k/uL Neutrophils # (1.3-7.7) k/uL Lymphocytes # (1.0-4.8) k/uL Monocytes # (0-1.0) k/uL BUN (9-20) mg/dL Creatinine (0.66-1.25) mg/dL Glucose (74-99) mg/dL POC Glucose (mg/dL) 122 H 152 H 158 H (70-110) mg/dL Calcium (8.4-10.2) mg/dL Total Protein (6.3-8.2) g/dL Albumin (3.5-5.0) g/dL 01/07/24 Range/Units 20:59 WBC (3.8-10.6) k/uL RBC (4.30-5.90) m/uL Hgb (13.0-17.5) gm/dL Hct (39.0-53.0) % MCHC (31.0-37.0) g/dL Plt Count (150-450) k/uL Neutrophils # (1.3-7.7) k/uL Lymphocytes # (1.0-4.8) k/uL Monocytes # (0-1.0) k/uL BUN (9-20) mg/dL Creatinine (0.66-1.25) mg/dL Glucose (74-99) mg/dL POC Glucose (mg/dL) 154 H (70-110) mg/dL Calcium (8.4-10.2) mg/dL Total Protein (6.3-8.2) g/dL Albumin (3.5-5.0) g/dL Assessment and Plan Assessment: Assessment/Plan 1. Colitis Patient advanced to clear liquid diet and maintained with TPN. Diet will be adjusted as tolerated. 2. Edema in all 4 extremities Lasix increased to 40mg q12 to maintain negative fluid balance 3. Leukocytosis Continue to monitor white count and maintain IV antibiotics Flagyl, Cefepime, and Vancomycin. If persistent may consider CTAP to rule out intra-abdominal abscess. 4. Acute respiratory failure resolved: patient is breathing comfortably on room air. Blood culture Incision site culture Procalcitonin ordered Hydralazine 10mg q6 PRN added Continue glucose checks Q6 and maintain insulin sliding scale as per protocol DVT prophylaxis
[2024-01-08 03:43] LABS: Basophils # (A) 0.4 k/uL (0-0.2); Basophils % (A) 1 %; Eosinophils # (A) 0.1 k/uL (0-0.7); Eosinophils % (A) 0 %; HCT 27.2 % (39.0-53.0); HGB 8.1 gm/dL (13.0-17.5); Hypochromasia Slight; Lymphocytes # (A) 0.6 k/uL (1.0-4.8); Lymphocytes % (A) 1 %; MCH 28.3 pg (25.0-35.0); MCHC 29.7 g/dL (31.0-37.0); MCV 95.2 fL (80.0-100.0); Mean Platelet Volume 8.9; Monocytes # (A) 2.4 k/uL (0-1.0); Monocytes % (A) 4 %; Neutrophils # (A) 50.9 k/uL (1.3-7.7); Neutrophils % (A) 92 %; Platelet Count 555 k/uL (150-450); RBC 2.86 m/uL (4.30-5.90); RDW 15.2 % (11.5-15.5)
[2024-01-08 03:57] LABS: WBC 55.1 k/uL (3.8-10.6)
[2024-01-08 04:08] LABS: ALT 17 U/L (4-49); AST 23 U/L (17-59); African American GFR (CKD) >90 (>60 ml/min/1.73 sqM); Albumin 2.1 g/dL (3.5-5.0); Alkaline Phosphatase 116 U/L (38-126); Anion Gap 6 mmol/L; Blood Urea Nitrogen 30 mg/dL (9-20); Calcium 7.5 mg/dL (8.4-10.2); Carbon Dioxide 24 mmol/L (22-30); Chloride 108 mmol/L (98-107); Glucose 114 mg/dL (74-99); Magnesium 1.8 mg/dL (1.6-2.3); Non-African American GFR(CKD) >90 (>60 ml/min/1.73 sqM); Potassium 3.9 mmol/L (3.5-5.1); Sodium 138 mmol/L (137-145); Total Bilirubin 0.5 mg/dL (0.2-1.3); Total Protein 4.7 g/dL (6.3-8.2)
[2024-01-08] MEDS: MAGNESIUM SULFATE-D5W PMX 1 GM in DEXTROSE/WATER 1 100ML.BAG IVPB ONE (06:24)
[2024-01-08 06:44] LABS: Glucose,Whole Blood 140 mg/dL (70-110)
[2024-01-08] MEDS: POTASSIUM CHLORIDE ER 20 MEQ TAB.ER PO SCH (06:52)
[2024-01-08] MEDS: POTASSIUM CHLORIDE 20 MEQ in WATER FOR INJECTION 1 100ML.BAG IVPB STA (08:37)
--- NOTE | 2024-01-08 09:16 | P.PN ---
Subjective Progress Note Date: 01/08/24 Principal diagnosis: 33 year old M with PMH of hypertension and ADHD who presents to the emergency room with complaints of abdominal pain, diarrhea, and weight loss. Patient notes that over the past 2 months since his most recent admission of pancreatitis, he has lost roughly 40 pounds and has had intermittent diffuse abdominal discomfort with associated diarrhea. He has noticed blood in his stools on numerous occasions, bright red, without mucus. Notes that the pain has no clear inciting triggers but often occurs after food consumption. Reports that the pain is usually associated with diarrhea, and lasts for several days at a time. Denies nausea, vomiting, fever, chills, cough. Of note, the patient was admitted on 11/04 for mild acute pancreatitis. He does report having seen a photovoltaic installation technician as an outpatient and is currently awaiting the results of his workup and is also scheduled for an EGD. Reports however that his pain had become unbearable which prompted him to come to the emergency room. CT abdomen and pelvis in the emergency room revealed findings of colitis involving the transverse, descending, and sigmoid colon's with hepatic steatosis. Chest x-ray was unremarkable with EKG showing sinus tachycardia at 103 bpm with diffuse T wave flattening. Laboratory evaluation was remarkable for leukocytosis of 20.7, and hemoglobin 11.7, sodium 133, potassium 2.8, CO2 36, BUN 10, creatinine 0.82, calcium 7.7, with an unremarkable UA. Patient was started on Levaquin and Flagyl and admitted for treatment of colitis. GI consulted recommended outpatient C-scope in 4-6 weeks. His symptoms worsened. CT AP repeated 12/28 showed worsening anasarca, moderate to severe pancolitis with dilation up to 10.2 cm. ID was consulted, C. diff was negative, C. diff PCR ordered, Levaquin replaced with Cefepime and continued of Flagyl and added PO Vancomycin. Surgery consulted, patient underwent subtotal colectomy with ileostomy with Dr. Saleh on 12/30 and transferred to ICU post op. He has required multiple pressors since his ICU transfer including Levophed, Vasopressin and Solu-Cortef. Nephrology consulted for hyponatremia and metabolic acidosis, sodium as low as 124, given intermittent Lasix IV and bicarb infusion, now improving. Started on TPN 12/31. Required 1 unit PRBC on 01/01. 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 Vasopressin weaned off 01/03. Levophed weaned off 01/04. Feels better today, no chest pain no abdominal pain no nausea no vomiting.Remains afebrile, on TPN. Objective - Vital Signs Vital signs: Vital Signs Temp 98.1 F 01/08/24 08:00 Pulse 117 H 01/08/24 09:00 Resp 24 01/08/24 09:00 BP 138/97 01/08/24 09:00 Pulse Ox 96 01/08/24 09:00 FiO2 30 01/05/24 08:33 Intake & Output 01/07/24 01/08/24 01/08/24 18:59 06:59 18:59 Intake Total 1345 3531.5 1085 Output Total 3295 2370 695 Balance -1950 1161.5 390 Weight 116.8 kg Intake: IV 1145 1545 1085 Anidulafungin 100 mg In 100 Sodium Chloride 0.9% 100 ml @ 84 mls/hr IVPB DAILY [facility] Rx#:[id number] Cefepime 2 gm In Sodium 100 100 100 Chloride 0.9% 100 ml @ 25 mls/hr IVPB Q8HR [facility] Rx# :[id number] KVO 240 240 20 Magnesium Sulfate-D5w Pmx 100 1 gm In Dextrose/Water 1 100ml.bag @ 100 mls/hr IVPB ONCE [facility] Rx#: [id number] Mvi, Adult No.4 with Vit 605 605 165 K 10 ml Trace (Conc-1Ml/ Dose) 1 ml Potassium Chloride 20 meq In Amino Acid 5%-D15w+Lytes*E* 1, 000 ml @ 55 mls/hr IV . [id number] [facility] Rx#:[id number] Vancomycin 2,000 mg In 500 500 Sodium Chloride 0.9% 500 ml 500 ml @ 167 mls/hr IVPB Q8H [facility] Rx#: [id number] metroNIDAZOLE-NS PMX 500 200 100 100 mg In Saline 1 100ml.bag @ 100 mls/hr IVPB Q8HR [facility] Rx#:[id number] Intake, IV Titration 1506.5 Amount Mvi, Adult No.4 with Vit 1006.5 K 10 ml Trace (Conc-1Ml/ Dose) 1 ml Potassium Chloride 20 meq In Amino Acid 5%-D15w+Lytes*E* 1, 000 ml @ 55 mls/hr IV . [id number] [facility] Rx#:[id number] Vancomycin 2,000 mg In 500 Sodium Chloride 0.9% 500 ml 500 ml @ 167 mls/hr IVPB Q8H [facility] Rx#: [id number] Oral 200 480 Output: Drainage 1720 Right Abdomen 1720 Urine 1575 1560 465 Stool 810 230 Other: Voiding Method Indwelling Catheter Indwelling Catheter ABP, PAP, CO, CI - Last Documented Arterial Blood Pressure 139/84 - Exam General:Extubated, lethargic. Derm: warm, dry, anasarca Head: atraumatic, normocephalic, symmetric Eyes: EOMI, no lid lag, anicteric sclera Mouth: no lip lesion, mucus membranes moist Cardiovascular: S1S2 n, no murmur Lungs: Coarse BS bilateral, no rhonchi, no rales , no accessory muscle use Abdominal: mildly distended, ileostomy noted, no BS Ext: no gross muscle atrophy, 2+ pitting edema bilateral LE, no contractures, bilateral upper restraints Neuro: Lethargic - Labs CBC & Chem 7: 01/08/24 03:05 01/08/24 03:05 Labs: Abnormal Lab Results - Last 24 Hours (Table) 01/07/24 01/07/24 01/07/24 Range/Units 11:28 16:07 20:59 WBC (3.8-10.6) k/uL RBC (4.30-5.90) m/uL Hgb (13.0-17.5) gm/dL Hct (39.0-53.0) % MCHC (31.0-37.0) g/dL Plt Count (150-450) k/uL Neutrophils # (1.3-7.7) k/uL Lymphocytes # (1.0-4.8) k/uL Monocytes # (0-1.0) k/uL Basophils # (0-0.2) k/uL Chloride (98-107) mmol/L BUN (9-20) mg/dL Creatinine (0.66-1.25) mg/dL Glucose (74-99) mg/dL POC Glucose (mg/dL) 152 H 158 H 154 H (70-110) mg/dL Calcium (8.4-10.2) mg/dL Total Protein (6.3-8.2) g/dL Albumin (3.5-5.0) g/dL 01/08/24 01/08/24 01/08/24 Range/Units 03:05 03:05 06:42 WBC 55.1 H* (3.8-10.6) k/uL RBC 2.86 L (4.30-5.90) m/uL Hgb 8.1 L (13.0-17.5) gm/dL Hct 27.2 L (39.0-53.0) % MCHC 29.7 L (31.0-37.0) g/dL Plt Count 555 H (150-450) k/uL Neutrophils # 50.9 H (1.3-7.7) k/uL Lymphocytes # 0.6 L (1.0-4.8) k/uL Monocytes # 2.4 H (0-1.0) k/uL Basophils # 0.4 H (0-0.2) k/uL Chloride 108 H (98-107) mmol/L BUN 30 H (9-20) mg/dL Creatinine 0.59 L (0.66-1.25) mg/dL Glucose 114 H (74-99) mg/dL POC Glucose (mg/dL) 140 H (70-110) mg/dL Calcium 7.5 L (8.4-10.2) mg/dL Total Protein 4.7 L (6.3-8.2) g/dL Albumin 2.1 L (3.5-5.0) g/dL Assessment and Plan Plan: Ventilator dependent respiratory failure: Post operatively. Vent management per Pulmonary/Fur Plucker.Extubated, pulmonology following, continue supportive care, Appears to be stable.Continue to monitor. Septic shock due to colitis: Status post subtotal colectomy with ileostomy with Dr. Salhe on 12/30. Cefepime 1g IV TID (D8), Vancomycin 500 mg PO QID (D6) and Flagyl 500 mg IV TID (D8). Telemetry monitoring. Blood and Stool culture negative admission. C. diff negative on admission. ID on board.Infectious disease foll owing, currently on vancomycin Sputum cultures Zeina: On antifungal medications. Acute on chronic blood loss anemia: Status post 1 unit PRBC 01/01. Iron studies showing anemia of chronic disease. Daily CBC. Transfuse if Hg < 7. Hemoglobin 8.1 Hyperglycemia: A1c 5.6. POC glucose ranging from 146-174 over the past 24H. Continue ISS Q6H. Accuchecks Q6H. Hypophosphatemia: Replace As indicated. Acute kidney injury: Likely prerenal from shock. Improving. Monitor electrolytes and renal function while on Lasix IV. Nephrology on board. Anasarca due to hypoalbuminemia: Lasix 40 mg IV Twice a day Hypocalcemia: Status post Ca gluconate 1g IV 12/31.Replace as indicated Severe protein calorie malnutrition: TPA managed by Dietary. Daily CMP, Mag and Phos. Severe leukocytosis: WBC 55,On antibiotics and antifungal,Infectious disease on board. Disposition: Remains in ICU
--- NOTE | 2024-01-08 09:19 | XR ---
EXAMINATION TYPE: XR chest 1V portable DATE OF EXAM: 01/08/2024 9:02 AM CLINICAL INDICATION:Male, 33 years old with history of dyspnea; COMPARISON: Chest radiographs from 01/05/2024 TECHNIQUE: XR chest 1V portable Frontal view of the chest. FINDINGS: Lungs/Pleura: Unremarkable left costophrenic angle with associated atelectasis. There is no evidence of right pleural effusion, focal consolidation, or pneumothorax. Pulmonary vascularity: Unremarkable. Heart/mediastinum: Cardiomediastinal silhouette is unremarkable. Musculoskeletal: No acute osseous pathology. Other findings: None Lines/Tubes: Left central venous catheter with distal tip at the cavoatrial junction. IMPRESSION: Left pleural effusion with associated atelectasis more pronounced on today's exam. Left central venous catheter in appropriate position.
[2024-01-08] MEDS: IOPAMIDOL CONTRAST (ORAL USE) VIAL PO PRN (10:15)
[2024-01-08 12:40] LABS: Glucose,Whole Blood 193 mg/dL (70-110)
--- NOTE | 2024-01-08 13:08 | CT ---
EXAMINATION TYPE: CT abdomen pelvis w con CT DLP: 1866 mGycm, Automated exposure control for dose reduction was used. DATE OF EXAM: 01/08/2024 12:32 PM COMPARISON: CT abdomen pelvis most recent from 12/30/2023 CLINICAL INDICATION:Male, 33 years old with history of abdominal sepsis; abd pain TECHNIQUE: Axial CT abdomen pelvis w con;Sagittal and coronal reformats were created on a separate w orkstation. Contrast used:100 mL of Isovue 300 with IV Contrast, (none if empty) Oral contrast used: with Oral Contrast (none if empty) FINDINGS: LOWER CHEST: Unremarkable ABDOMEN The upper abdomen is under the field of view. LIVER: Unremarkable GALLBLADDER AND BILE DUCTS: Unremarkable. PANCREAS: Unremarkable. SPLEEN: Unremarkable. ADRENAL GLANDS: Unremarkable. KIDNEYS AND URETERS: No evidence of hydronephrosis or renal calculus. The ureters are unremarkable. PELVIS BLADDER: Nondistended with Palencia catheter in place. REPRODUCTIVE: Unremarkable. ABDOMEN & PELVIS STOMACH AND BOWEL: No evidence of bowel obstruction. 01/07/2024 rectum/sigmoid demonstrates circumferen tial wall thickening with hyperemia similar to prior measuring up to 10 mm in thickness. There is rig ht lower quadrant ostomy in today's exam. Oral contrast extends into the ostomy PERITONEUM/RETROPERITONEUM: No evidence of pneumoperitoneum there is at least one focus of gas in the right abdomen likely postsurgical given recent surgery. There is free fluid in the lower pelvis and also possibly loculated fluid along the left lateral paracolic gutter measuring up to 13.2 x 7.2 cm t here does not definitively communicate with the fluid collection. This may have thin area of enhancem ent around the fluid collection. Possibly suggesting peritonitis. VASCULATURE: No evidence of aortic aneurysm. MUSCULOSKELETAL: No acute osseous abnormalities LYMPH NODES: No gross evidence for lymphadenopathy. SOFT TISSUE/ABDOMINAL WALL: Diffuse anasarca throughout the soft tissues. Postsurgical changes anteri or abdominal wall with suture present. IMPRESSION: The upper abdomen is out of the [id number]. 1. Small abdominal ascites layering throughout the abdomen with possibly a loculated fluid collectio n layering along the left abdomen which does not definitively communicate with the lower abdominal fr ee fluid and may have evidence of peritonitis surrounding this fluid. 2. Interval postsurgical changes to the rectosigmoid junction with proctitis/colitis changes and rig ht lower quadrant ostomy with oral contrast within the collection bag..
--- NOTE | 2024-01-08 13:11 | P.PN ---
Subjective Progress Note Date: 01/08/24 Pulmonary/critical care consult dated December 31, 2023. 33-year-old male who presented to the emergency department, on December 24 with severe abdominal pain. The patient apparently has a history of pancreatitis, and apparently told the ER physician that the pain seemed similar. He had sharp left-sided abdominal pain, from the night before. He had poor appetite, and has been unable to keep any food or liquids down. The patient was admitted to the hospital, for the abdominal pain. He denies any fever, chills, nausea, constipation, or diarrhea. There is no urinary complaints. The patient apparently has a history of hyperlipidemia, hypertension, and pancreatitis. He is a lifelong non-smoker. He only drinks occasionally. It was told to me this morning, both from the charge nurse in the ICU, and the surgeon, but the patient was in the operating room, for fulminant pancolitis, and was having a colectomy. The patient had a subtotal colectomy with ileostomy performed by one of the surgeons, and the patient was extubated initially in the operating room, but was reintubated minutes later. The patient came to the ICU, on the ventilator. I gave Vent settings of volume assist-control, rate 20, tidal volume 450, FiO2 100%, PEEP of 5. Blood gases will be done in about an hour. We also placed a left subclavian triple-lumen catheter. An arterial line was placed by anesthesia. The most recent labs include a white count of 28.9, hemoglobin 10, hematocrit 31, and platelet count which was 744,000. Most recent blood gas showed a pO2 of 331, pCO2 of 37, pH is 7.34. That was on 100%. Repeat blood gas will be done in about 60 minutes. Sodium 133, potassium 3.9, chlorides 100, CO2 17, anion gap 16, BUN 27, creatinine 1.1. Glucose was 96. C-reactive protein was 9.90. Calcium 7.4. Stool and blood cultures have been negative. The postintubation x-ray shows the endotracheal tube to be in good position. In addition, there is a left subclavian triple-lumen catheter in good position. A repeat CT scan of the abdomen and pelvis, yesterday, showed hyperemia and wall thickening of the sigmoid colon and rectum as well as areas of transverse colon. The radiologist thought it was consistent with colitis/proctitis. There was upstream dilatation of the large bowel. Small bowel loops are dilated with relative nondistention. No transition point is noted. Other findings are noted on the CT scan. Progress note dated January 01, 2024. This is a 33-year-old male seen yesterday in consultation. Please see my extensive note above. The patient remains in the intensive care unit, on the ventilator. He is on volume assist-control, rate 20, tidal volume 450, FiO2 40%, PEEP of 5. Blood gases are excellent with a pO2 116, pCO2 31, and pH of 7.40. Blood gases are consistent with a mixed acid-base disturbance, including a respiratory alkalosis, and mild metabolic acidosis. The patient remains on propofol at 40 mcg/kg/min, norepinephrine at 23 mcg/min, vasopressin at 0.03 units/min, and lactated Ringer's at 150 cc an hour. The patient continues on cefepime, and Flagyl. The patient is also on oral vancomycin. I have asked the nurse, to talk to dietary about a possible TPN preparation. Current labs include a white count 45.4, hemoglobin 9.9, hematocrit 32.1, and a platelet count of 741,000. Sodium 130, potassium 4.3, chlorides 104, CO2 16, anion gap 10, BUN and creatinine were 26 and 1.71. Glucose is 117. Ionized calcium was low at 4.2. Cortisol was 83. Blood cultures, and stool sampling, has thus far been negative. Chest x-ray shows no major changes. There may be some left basilar atelectasis, or infiltrate. Progress note dated January 02, 2024. 33-year-old male who is seen today in the intensive care unit, room 264. The patient remains on mechanical ventilator. He is on volume assist-control, rate 20, tidal volume 450, FiO2 40%, to be reduced down to 30%, with a PEEP of 5. Blood gases show pO2 126, pCO2 39, and pH is 7.43. The patient is on half- normal saline with 2 ampoules of sodium bicarb and at 100 cc an hour. The patient is also on norepinephrine at 13 mcg/min, and vasopressin at 0.03 units/min. Additionally, the patient is on propofol at 50 mcg/kg/min, and TPN at 30 cc an hour. The patient continues on cefepime, vancomycin, and Flagyl. Current labs include a white count of 49.4, hemoglobin 7.2, hematocrit 22.3, and a platelet count of 422,000. Sodium 131, potassium 3.6, chlorides 102, CO2 23, BUN 34, and creatinine 1.74. Albumin is 1.7. All culture material is negative. Chest x-ray shows the endotracheal tube, high in the trachea. There is also a left-sided pleural effusion, with atelectasis. Progress note dated January 03, 2024. 33-year-old male seen in the intensive care unit, room 264. The patient remains on mechanical ventilator. He is on volume assist-control, rate 20, tidal volume 450, FiO2 30%, PEEP of 5. Blood gases show pO2 100, pCO2 39, pH is 7.44. The patient remains on propofol at 50 mics per kilogram per minute, norepinephrine at 4 mcg/min, vasopressin at 0.03 units/min, and the patient is getting TPN at 55 cc an hour. The patient continues on cefepime and Flagyl. We will check a procalcitonin level. The patient had an uneventful night according to the nurses. Vasopressor requirements have been coming down. White count is 43.7, hemoglobin 7.5, hematocrit 22.9, with a normal platelet count. Sodium 132, potassium 3.7, chloride 103, CO2 23, BUN 36, and creatinine 1.11. Glucose is 164. Calcium 7.1, magnesium 2.2, and phosphorus 2.1. Albumin is 1.9. Cultures thus far are negative. Chest x-ray shows low lung volumes, cardiomegaly, and the left-sided effusion, which is small. Progress note dated January 04, 2024. 33-year-old male seen today in room 264. The patient remains on the mechanical ventilator. He is on volume assist-control, rate 20, tidal volume 450, FiO2 30%, PEEP of 5. Blood gases show pO2 105, CO2 36, and pH 7.51. This blood gases consistent with a mild metabolic alkalosis. In addition, the patient remains on propofol at 50 mcg/kg/min, TPN at 55 cc an hour, and saline at KVO. The patient is currently weaned off of norepinephrine, and vasopressin. He continues on cefepime, Flagyl, and oral vancomycin. Today, since he is off pressors, we will attempt a daily interruption of sedation, and spontaneous breathing trial. Currently, white count is 36,000, hemoglobin 7.7, hematocrit 24.7, and platelet count 383,000. Sodium 131, potassium 3.8, chlorides 101, CO2 25, BUN 37, creatinine 0.82. Glucose is 135. Calcium 7.1, phosphorus 2.3. Albumin is 2.0. Blood cultures are currently all negative still. Chest x-ray shows cardiomegaly, and small lung volumes. There may be infiltrate or atelectasis at the left lung base. 01/05/2024, I am seeing the patient for a follow-up in the intensive care unit. This patient has undergone a subtotal colectomy and robotic ileostomy for fulfillment pancolitis. The patient was septic, and had severe leukocytosis and the patient is currently postop day #6. Remains intubated on mechanical ventilator. On today's evaluation, the patient is off Precedex and the patient is being assessed for further weaning and I will assess the patient's potential for further weaning and extubation today. The surgical wound is dry clean and intact. The white cell count down to 40 with a hemoglobin 7.2 and a platelet count of 369. While being on mechanical ventilator, the patient has a blood gas showing a pH of 7.47 with a pCO2 of 43 and pO2 140. The ventilator setting is currently on assist-control mode with rate of 20, tidal volume of 450, FiO2 30% with a PEEP of 5. The patient's fluid balance is negative and the patient is being diuresed with IV Lasix. Overall fluid balance is -4.6 L over the past 24 hours the patient remains on TPN for nutritional support. The patient is afebrile. The patient is hemodynamically stable. No other significant events overnight. Remains on TPN. 01/06/2024, patient is being seen for a follow-up. The patient is currently postop day #7. The patient is post subtotal colectomy. The patient's white cell count remains elevated. Noted the patient was weaned off the mechanical ventilator and the patient was extubated yesterday without any major difficulties and the patient is currently on room air oxygen. The patient is hemodynamically stable. The patient is afebrile. The ostomy site is functional. The patient remains on TPN for nutritional support. The patient is a negative fluid balance and the patient is being diuresed with IV Lasix 40 mg on a daily basis. Fluid balance is negative. The patient remains on Eraxis and cefepime. He is profoundly weak in all 4 extremities. He continues to have edema which is essentially improving. Will continue to follow. On 01/07/2024, seen the patient for a follow-up. Sitting up in the chair and the patient is calm and comfortable.. Continues to have edema and third spacing in all 4 extremities. The patient is currently on IV Lasix. Remains on TPN for nutritional support. He is on clear liquid diet and oral intake is quite diminished at this point. His white cell count remains elevated at 25.6. The patient is on a combination of antibiotics including cefepime, Flagyl and Eraxis. The hemoglobin of 8.5 with a platelet count of 503. Noted the procalcitonin level has been downtrending and the level was as high as 11.8 minutes dropped down to 3.1 from yesterday. BUN 32 with a creatinine of 0.59 and sodium is at 139. The patient is still on TPN at rate of 55 cc an hour. Afebrile. Awake and alert and communicating. Has profound weakness in all 4 extremities. No other significant events overnight the ileostomy is functional. Surgical wound site is dry clean and intact. On 01/08/2024, the patient is being seen for a follow-up. Mental status is still cloudy. The patient communicates. However, I do not feel that his mental status is completely back to baseline. His white cell count remains elevated at 55. He continues to have some sinus tachycardia. His ileostomy is functional. Surgical wound is dry clean and intact. His hemoglobin is stable at 8.1 with a platelet count of 555. BUN is 30 with a creatinine of 0.5 and a sodium level is 138. Hemodynamically stable. Extubated and currently on room air oxygen. The patient remains on the same antibiotic coverage. He remains on a combination of cefepime, vancomycin and Eraxis. Remains on TPN for nutritional support. Oral intake is quite diminished and the patient is taking Ensure. He is on metoprolol regarding his sinus tachycardia currently is on 25 mg twice a day. He remains on Lasix 40 mg IV every 12 hours and the fluid balance has been -788 cc over the past 24 hours. Remains edematous in all 4 extremities. Objective - Vital Signs Vital signs: Vital Signs Temp 98.1 F 01/08/24 08:00 Pulse 117 H 01/08/24 09:00 Resp 24 01/08/24 09:00 BP 138/97 01/08/24 09:00 Pulse Ox 96 01/08/24 09:00 FiO2 30 01/05/24 08:33 Intake & Output 01/07/24 01/08/24 01/08/24 18:59 06:59 18:59 Intake Total 1345 3531.5 1085 Output Total 3295 2370 1470 Balance -1950 1161.5 -385 Weight 116.8 kg Intake: IV 1145 1545 1085 Anidulafungin 100 mg In 100 Sodium Chloride 0.9% 100 ml @ 84 mls/hr IVPB DAILY [facility] Rx#:[id number] Cefepime 2 gm In Sodium 100 100 100 Chloride 0.9% 100 ml @ 25 mls/hr IVPB Q8HR [facility] Rx# :[id number] KVO 240 240 20 Magnesium Sulfate-D5w Pmx 100 1 gm In Dextrose/Water 1 100ml.bag @ 100 mls/hr IVPB ONCE ONE Rx#: [id number] Mvi, Adult No.4 with Vit 605 605 165 K 10 ml Trace (Conc-1Ml/ Dose) 1 ml Potassium Chloride 20 meq In Amino Acid 5%-D15w+Lytes*E* 1, 000 ml @ 55 mls/hr IV . [id number] REPLACED BY [facility] Rx#:[id number] Vancomycin 2,000 mg In 500 500 Sodium Chloride 0.9% 500 ml 500 ml @ 167 mls/hr IVPB Q8H REPLACED BY [facility] Rx#: [id number] metroNIDAZOLE-NS PMX 500 200 100 100 mg In Saline 1 100ml.bag @ 100 mls/hr IVPB Q8HR REPLACED BY [facility] Rx#:[id number] Intake, IV Titration 1506.5 Amount Mvi, Adult No.4 with Vit 1006.5 K 10 ml Trace (Conc-1Ml/ Dose) 1 ml Potassium Chloride 20 meq In Amino Acid 5%-D15w+Lytes*E* 1, 000 ml @ 55 mls/hr IV . [id number] REPLACED BY [facility] Rx#:[id number] Vancomycin 2,000 mg In 500 Sodium Chloride 0.9% 500 ml 500 ml @ 167 mls/hr IVPB Q8H REPLACED BY [facility] Rx#: [id number] Oral 200 480 Output: Drainage 1720 Right Abdomen 1720 Urine 1575 1560 990 Stool 810 480 Other: Voiding Method Indwelling Catheter Indwelling Catheter ABP, PAP, CO, CI - Last Documented Arterial Blood Pressure 139/84 - Exam No acute distress, calm and comfortable, extubated and the patient is currently on room air oxygen. Sitting up on the chair. HEENT examination is grossly unremarkable. Neck supple. Full range of motion. No adenopathy thyromegaly or neck vein distention. Cardiovascular examination reveals regular rhythm rate. S1-S2 normal. No S3 or S4. No discernible murmur noted. Lungs reveal clear breath sounds. Breath sounds are equal bilaterally. No adventitious lung sounds including wheezes rhonchi or crackles. Abdomen soft without bowel sounds. Ileostomy is noted. The ileostomy site is functional and the patient has no significant abdominal distention. No direct tenderness. No rebound tenderness. No guarding. Bowel sounds are present. Extremities are intact. No cyanosis clubbing extensive edema in all 4 extremities. Skin is without rash or lesion. Neurologic examination reveals that the patient has no focal neurological deficits while being off the sedatives. - Labs CBC & Chem 7: 01/08/24 03:05 01/08/24 03:05 Labs: Abnormal Lab Results - Last 24 Hours (Table) 01/07/24 01/07/24 01/07/24 Range/Units 11:28 16:07 20:59 WBC (3.8-10.6) k/uL RBC (4.30-5.90) m/uL Hgb (13.0-17.5) gm/dL Hct (39.0-53.0) % MCHC (31.0-37.0) g/dL Plt Count (150-450) k/uL Neutrophils # (1.3-7.7) k/uL Lymphocytes # (1.0-4.8) k/uL Monocytes # (0-1.0) k/uL Basophils # (0-0.2) k/uL Chloride (98-107) mmol/L BUN (9-20) mg/dL Creatinine (0.66-1.25) mg/dL Glucose (74-99) mg/dL POC Glucose (mg/dL) 152 H 158 H 154 H (70-110) mg/dL Calcium (8.4-10.2) mg/dL Total Protein (6.3-8.2) g/dL Albumin (3.5-5.0) g/dL 01/08/24 01/08/24 01/08/24 Range/Units 03:05 03:05 06:42 WBC 55.1 H* (3.8-10.6) k/uL RBC 2.86 L (4.30-5.90) m/uL Hgb 8.1 L (13.0-17.5) gm/dL Hct 27.2 L (39.0-53.0) % MCHC 29.7 L (31.0-37.0) g/dL Plt Count 555 H (150-450) k/uL Neutrophils # 50.9 H (1.3-7.7) k/uL Lymphocytes # 0.6 L (1.0-4.8) k/uL Monocytes # 2.4 H (0-1.0) k/uL Basophils # 0.4 H (0-0.2) k/uL Chloride 108 H (98-107) mmol/L BUN 30 H (9-20) mg/dL Creatinine 0.59 L (0.66-1.25) mg/dL Glucose 114 H (74-99) mg/dL POC Glucose (mg/dL) 140 H (70-110) mg/dL Calcium 7.5 L (8.4-10.2) mg/dL Total Protein 4.7 L (6.3-8.2) g/dL Albumin 2.1 L (3.5-5.0) g/dL Assessment and Plan Plan: Acute abdominal sepsis secondary to pancolitis the patient remains on TPN. Patient is also on clear liquid diet. Ileostomy site is functional. Hemodynamically stable. Remains tachycardic. Continues to have significant leukocytosis. Concern of an intra-abdominal infection/abscess. CAT scan of the abdomen pelvis will be obtained for today. Acute leukocytosis secondary to above, white cell count is slightly improved yet still elevated. This is obviously concerning issue. The procalcitonin level has been downtrending. Nevertheless, the white cell count remains elevated. Acute abdomen and the patient is supposed subtotal colectomy. The patient is postoperative day # 9, S/P subtotal colectomy with ileostomy, for fulminant pancolitis. Ileostomy site is functional. Surgical wound is dry clean and intact. The patient is currently on IV cefepime, Flagyl and Eraxis and vancomycin. The patient remains on TPN for nutritional support. Acute hypoxic respiratory failure secondary to above, extubated on 01/05/2024, currently on room air oxygen Non-anion gap metabolic acidosis, recovered Previous history of pancreatitis. History of hypertension. History of hyperlipidemia. Extensive edema in all 4 extremities, currently negative fluid balance while being on IV Lasix Plan: Patient is currently on room air oxygen Continue TPN for nutritional support Continue IV cefepime and Flagyl and Eraxis and vancomycin Monitor the white cell count Proceed with a CAT scan of the abdomen and pelvis Monitor procalcitonin level and the levels have been improving. Continue IV Lasix, negative fluid balance Increase the metoprolol to 25 mg 3 times daily Surgical follow-up Will keep the patient in ICU Will continue to follow make further recommendations based on the progress.
--- NOTE | 2024-01-08 13:31 | P.PN ---
Subjective Progress Note Date: 01/08/24 Patient is seen in follow-up for acute kidney injury. Renal function at baseline. Extubated January 05, 2024. Confused still. Vital signs are stable. General: Resting in bed. HEENT: Head exam is unremarkable. LUNGS: Scattered rhonchi. HEART: Rate and Rhythm are regular. ABDOMEN: No distention. EXTREMITITES: 2+ edema. Objective - Vital Signs Vital signs: Vital Signs Temp 98.1 F 01/08/24 08:00 Pulse 116 H 01/08/24 10:00 Resp 28 H 01/08/24 10:00 BP 136/96 01/08/24 10:00 Pulse Ox 96 01/08/24 10:00 FiO2 30 01/05/24 08:33 Intake & Output 01/07/24 01/08/24 01/08/24 18:59 06:59 18:59 Intake Total 1345 3531.5 1332 Output Total 3295 2370 1820 Balance -1950 1161.5 -488 Weight 116.8 kg Intake: IV 1145 1545 1095 Anidulafungin 100 mg In 100 Sodium Chloride 0.9% 100 ml @ 84 mls/hr IVPB DAILY [facility] Rx#:[id number] Cefepime 2 gm In Sodium 100 100 100 Chloride 0.9% 100 ml @ 25 mls/hr IVPB Q8HR [facility] Rx# :[id number] Invasive Line 6 10 KVO 240 240 20 Magnesium Sulfate-D5w Pmx 100 1 gm In Dextrose/Water 1 100ml.bag @ 100 mls/hr IVPB ONCE ONE Rx#: [id number] Mvi, Adult No.4 with Vit 605 605 165 K 10 ml Trace (Conc-1Ml/ Dose) 1 ml Potassium Chloride 20 meq In Amino Acid 5%-D15w+Lytes*E* 1, 000 ml @ 55 mls/hr IV . [id number] [facility] Rx#:[id number] Vancomycin 2,000 mg In 500 500 Sodium Chloride 0.9% 500 ml 500 ml @ 167 mls/hr IVPB Q8H [facility] Rx#: [id number] metroNIDAZOLE-NS PMX 500 200 100 100 mg In Saline 1 100ml.bag @ 100 mls/hr IVPB Q8HR [facility] Rx#:[id number] Intake, IV Titration 1506.5 Amount Mvi, Adult No.4 with Vit 1006.5 K 10 ml Trace (Conc-1Ml/ Dose) 1 ml Potassium Chloride 20 meq In Amino Acid 5%-D15w+Lytes*E* 1, 000 ml @ 55 mls/hr IV . [id number] [facility] Rx#:[id number] Vancomycin 2,000 mg In 500 Sodium Chloride 0.9% 500 ml 500 ml @ 167 mls/hr IVPB Q8H [facility] Rx#: [id number] Oral 200 480 237 Output: Drainage 1720 Right Abdomen 1720 Urine 1575 1560 1340 Stool 810 480 Other: Voiding Method Indwelling Catheter Indwelling Catheter Indwelling Catheter ABP, PAP, CO, CI - Last Documented Arterial Blood Pressure 139/84 - Labs CBC & Chem 7: 01/08/24 03:05 01/08/24 03:05 Labs: Abnormal Lab Results - Last 24 Hours (Table) 01/07/24 01/07/24 01/08/24 Range/Units 16:07 20:59 03:05 WBC (3.8-10.6) k/uL RBC (4.30-5.90) m/uL Hgb (13.0-17.5) gm/dL Hct (39.0-53.0) % MCHC (31.0-37.0) g/dL Plt Count (150-450) k/uL Neutrophils # (1.3-7.7) k/uL Lymphocytes # (1.0-4.8) k/uL Monocytes # (0-1.0) k/uL Basophils # (0-0.2) k/uL Chloride (98-107) mmol/L BUN (9-20) mg/dL Creatinine (0.66-1.25) mg/dL Glucose (74-99) mg/dL POC Glucose (mg/dL) 158 H 154 H (70-110) mg/dL Calcium (8.4-10.2) mg/dL Total Protein (6.3-8.2) g/dL Albumin (3.5-5.0) g/dL Procalcitonin 2.11 H (0.02-0.09) ng/mL 01/08/24 01/08/24 01/08/24 Range/Units 03:05 03:05 06:42 WBC 55.1 H* (3.8-10.6) k/uL RBC 2.86 L (4.30-5.90) m/uL Hgb 8.1 L (13.0-17.5) gm/dL Hct 27.2 L (39.0-53.0) % MCHC 29.7 L (31.0-37.0) g/dL Plt Count 555 H (150-450) k/uL Neutrophils # 50.9 H (1.3-7.7) k/uL Lymphocytes # 0.6 L (1.0-4.8) k/uL Monocytes # 2.4 H (0-1.0) k/uL Basophils # 0.4 H (0-0.2) k/uL Chloride 108 H (98-107) mmol/L BUN 30 H (9-20) mg/dL Creatinine 0.59 L (0.66-1.25) mg/dL Glucose 114 H (74-99) mg/dL POC Glucose (mg/dL) 140 H (70-110) mg/dL Calcium 7.5 L (8.4-10.2) mg/dL Total Protein 4.7 L (6.3-8.2) g/dL Albumin 2.1 L (3.5-5.0) g/dL Procalcitonin (0.02-0.09) ng/mL Assessment and Plan Assessment: 1. Acute kidney injury secondary to ATN secondary to septic shock. Also receiv ed IV contrast on December 24 and December 30, 2023. PRESTON resolved. No hydronephrosis noted on CAT scan. 2. 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 3. Volume overload. Improving with diuresis. 4. Acute blood loss anemia status post blood transfusion December 25, 2023. Hemoglobin improved. 5. Hyponatremia secondary to acute kidney injury. Hypervolemic. Improved. Plan: Maintain TPN per surgery. Maintain IV Lasix. Continue to monitor renal function and urine output. Avoid nephrotoxins. Replace electrolytes as needed.
[2024-01-08] MEDS: ANIDULAFUNGIN 200 MG in SODIUM CHLORIDE 0.9% 200 ML IVPB ONE (14:51)
--- NOTE | 2024-01-08 15:40 | P.DS ---
Providers Date of admission: 12/27/23 09:36 Expected date of discharge: 01/08/24 Attending physician: Berenice Saunders MD Consults: 12/26/23 00:39 Consult Physician Urgent Consulting Provider: Jinny Martínez Consult Reason/Comments: colitis Do you want consulting provider notified?: Yes, Notify in am 12/29/23 15:02 Consult Physician Stat Consulting Provider: Hubert Saleh Consult Reason/Comments: ABNORMAL CT/CRITICAL Do you want consulting provider notified?: Yes 12/30/23 14:39 Consult Physician Urgent Consulting Provider: [place] Consult Reason/Comments: colitis , broad spectrum abx Do you want consulting provider notified?: Yes 12/30/23 14:54 Consult Physician Routine Consulting Provider: Saida Trejo Consult Reason/Comments: Hyponatremia Do you want consulting provider notified?: Yes 12/31/23 10:24 Consult Physician Stat Consulting Provider: Myles Kearney Consult Reason/Comments: icu management Do you want consulting provider notified?: Already Contacted Primary care physician: [facility] Hospital Course: DC Diagnosis Ventilator dependent respiratory failure: Post operatively. Vent management per Pulmonary/Manager Cash.Extubated, pulmonology following, continue supportive care, Appears to be stable.Continue to monitor. Septic shock due to colitis: Status post subtotal colectomy with ileostomy with Dr. Saleh on 12/30. Cefepime 1g IV TID (D8), Vancomycin 500 mg PO QID (D6) and Flagyl 500 mg IV TID (D8). Telemetry monitoring. Blood and Stool culture negative admission. C. diff negative on admission. ID on board.Infectious disease following, currently on vancomycin Sputum cultures Zeina: On antifungal medications. Acute on chronic blood loss anemia: Status post 1 unit PRBC 01/01. Iron studies showing anemia of chronic disease. Daily CBC. Transfuse if Hg < 7. Hemoglobin 8.1 Hyperglycemia: A1c 5.6. POC glucose ranging from 146-174 over the past 24H. Continue ISS Q6H. Accuchecks Q6H. Hypophosphatemia: Replace As indicated. Acute kidney injury: Likely prerenal from shock. Improving. Monitor electrolytes and renal function while on Lasix IV. Nephrology on board. Anasarca due to hypoalbuminemia: Lasix 40 mg IV Twice a day Hypocalcemia: Status post Ca gluconate 1g IV 12/31.Replace as indicated Severe protein calorie malnutrition: TPA managed by Dietary. Daily CMP, Mag and Phos. Severe leukocytosis: WBC 55,On antibiotics and antifungal,Infectious disease on board. Hospital course and treatment: from critical care team : 33-year-old male who presented to the emergency department, on December 24 with severe abdominal pain. The patient apparently has a history of pancreatitis, and apparently told the ER physician that the pain seemed similar. He had sharp left-sided abdominal pain, from the night before. He had poor appetite, and has been unable to keep any food or liquids down. The patient was admitted to the hospital, for the abdominal pain. He denies any fever, chills, nausea, constipation, or diarrhea. There is no urinary complaints. The patient apparently has a history of hyperlipidemia, hypertension, and pancreatitis. He is a lifelong non-smoker. He only drinks occasionally. It was told to me this morning, both from the charge nurse in the ICU, and the surgeon, but the patient was in the operating room, for fulminant pancolitis, and was having a colectomy. The patient had a subtotal colectomy with ileostomy performed by one of the surgeons, and the patient was extubated initially in the operating room, but was reintubated minutes later. The patient came to the ICU, on the ventilator. I gave Vent settings of volume assist-control, rate 20, tidal volume 450, FiO2 100%, PEEP of 5. Blood gases will be done in about an hour. We also placed a left subclavian triple-lumen catheter. An arterial line was placed by anesthesia. The most recent labs include a white count of 28.9, hemoglobin 10, hematocrit 31, and platelet count which was 744,000. Most recent blood gas sh owed a pO2 of 331, pCO2 of 37, pH is 7.34. That was on 100%. Repeat blood gas will be done in about 60 minutes. Sodium 133, potassium 3.9, chlorides 100, CO2 17, anion gap 16, BUN 27, creatinine 1.1. Glucose was 96. C-reactive protein was 9.90. Calcium 7.4. Stool and blood cultures have been negative. The postintubation x-ray shows the endotracheal tube to be in good position. In addition, there is a left subclavian triple-lumen catheter in good position. A repeat CT scan of the abdomen and pelvis, yesterday, showed hyperemia and wall thickening of the sigmoid colon and rectum as well as areas of transverse colon. The radiologist thought it was consistent with colitis/proctitis. There was upstream dilatation of the large bowel. Small bowel loops are dilated with relative nondistention. No transition point is noted. Other findings are noted on the CT scan. Patient was intubated Placed on mechanical ventilation, patient dependent respiratory failure, continued to be titrated down and subsequently extubated. He was on pressors which were titrated off. Septic shock due to colitis with fluctuation in response, WBC continued to feel elevated and was 55 at the time of discharge. Evaluated by infectious disease. Patient underwent abdominal CT which was consistent with: Small abdominal ascites layering throughout the abdomen with possible loculated fluid collection layering along the left abdomen which does not definitely communicate with The lower abdomen free fluid and may have evidence of peritonitis surrounding this fluid. Interval postsurgical changes Discussed with Infectious disease and critical care: Transient to have a level of care possible GI evaluation and interventional radiology for drainage. Patient remains in ICU, he will be transferred to ICU, accepted by critical care team. Patient Condition at Discharge: Fair Plan - Discharge Summary New Discharge Prescriptions: Discontinued Metoprolol Succinate (ER) [Toprol XL] 100 mg PO DAILY Dextroamphetamine/Amphetamine [Adderall Xr 30 mg Capsule] 30 mg PO DAILY Dicyclomine [Bentyl] 10 mg PO AC-TID PRN PRN Reason: MEALS Follow up Appointment(s)/Referral(s): Maya Mendez MD [Primary Care Provider] - 1-2 days Discharge Disposition: OTHER INSTITUTION NOT DEFINED
--- NOTE | 2024-01-08 15:42 | P.PN ---
Subjective Progress Note Date: 01/07/24 Principal diagnosis: Reason for follow-up is pancolitis and leukocytosis Patient is a 33-year-old -Ind[place]ian male with a past medical history negative for hypertension hyperlipidemia and pancreatitis that was diagnosed about 2 months ago on 11/05/2023 however the patient mention he was not admitted for it patient presented back to [facility] ER on 12/25/2023 for дмитрий luation of abdominal pain diarrhea patient did have evidence of worsening pancolitis on the CT prompting this consultation. 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 On today's evaluation that is 01/07/2024,the patient denies any fever or any chills, patient is breathing comfortably on room air, the patient denies chest pain shortness of breath and no significant cough, patient abdominal discomfort has decreased in intensity no nausea vomiting did have output in his ileostomy did have some drainage from the middle part of incision sander has been removed culture has been obtained by the nursing staff. Patient white blood 55.6 creatinine 0.59 Objective - Vital Signs Vital signs: Vital Signs Temp 98.7 F 01/07/24 08:00 Pulse 116 H 01/07/24 11:00 Resp 38 H 01/07/24 11:00 BP 126/86 01/07/24 11:00 Pulse Ox 94 L 01/07/24 11:00 FiO2 30 01/05/24 08:33 Intake & Output 01/06/24 01/07/24 01/07/24 18:59 06:59 18:59 Intake Total 3665.25 2418.917 620 Output Total 2755 975 1030 Balance 910.25 1443.917 -410 Weight 123 kg 122.7 kg Intake: IV 867 1025 420 Anidulafungin 200 mg In 200 Sodium Chloride 0.9% 200 ml @ 84 mls/hr IVPB ONCE ONE Rx#:[id number] Cefepime 2 gm In Sodium 200 100 Chloride 0.9% 100 ml @ 25 mls/hr IVPB Q8HR [facility] Rx# :[id number] KVO 240 220 100 Mvi, Adult No.4 with Vit 605 220 K 10 ml Trace (Conc-1Ml/ Dose) 1 ml Potassium Chloride 20 meq In Amino Acid 5%-D15w+Lytes*E* 1, 000 ml @ 55 mls/hr IV . [id number] [facility] Rx#:[id number] metroNIDAZOLE-NS PMX 500 200 100 100 mg In Saline 1 100ml.bag @ 100 mls/hr IVPB Q8HR [facility] Rx#:[id number] pressure bag 27 Intake, IV Titration 998.25 913.917 Amount Mvi, Adult No.4 with Vit 998.25 913.917 K 10 ml Trace (Conc-1Ml/ Dose) 1 ml Potassium Chloride 20 meq In Amino Acid 5%-D15w+Lytes*E* 1, 000 ml @ 55 mls/hr IV . [id number] [facility] Rx#:[id number] Oral 1800 480 200 Output: Drainage 220 Right Abdomen 220 Urine 1825 675 810 Stool 930 300 Other: Voiding Method Indwelling Catheter Indwelling Catheter Indwelling Catheter ABP, PAP, CO, CI - Last Documented Arterial Blood Pressure 139/84 - Exam GENERAL DESCRIPTION: Middle-age male lying in bed in no distress RESPIRATORY SYSTEM: Unlabored breathing , decreased breath sounds at bases HEART: S1 S2 regular rate and rhythm , ABDOMEN: Soft , no tenderness EXTREMITIES: No edema feet - Labs CBC & Chem 7: 01/08/24 03:05 01/08/24 03:05 Labs: Abnormal Lab Results - Last 24 Hours (Table) 01/05/24 01/06/24 01/06/24 Range/Units 11:20 04:05 16:38 WBC (3.8-10.6) k/uL RBC (4.30-5.90) m/uL Hgb (13.0-17.5) gm/dL Hct (39.0-53.0) % MCHC (31.0-37.0) g/dL Plt Count (150-450) k/uL Neutrophils # (1.3-7.7) k/uL Lymphocytes # (1.0-4.8) k/uL Monocytes # (0-1.0) k/uL ABG Total CO2 33 H (19-24) mmol/L BUN (9-20) mg/dL Creatinine (0.66-1.25) mg/dL Glucose (74-99) mg/dL POC Glucose (mg/dL) 138 H (70-110) mg/dL Calcium (8.4-10.2) mg/dL Total Protein (6.3-8.2) g/dL Albumin (3.5-5.0) g/dL Procalcitonin 3.19 H (0.02-0.09) ng/mL 01/06/24 01/07/24 01/07/24 Range/Units 20:24 06:24 06:36 WBC (3.8-10.6) k/uL RBC (4.30-5.90) m/uL Hgb (13.0-17.5) gm/dL Hct (39.0-53.0) % MCHC (31.0-37.0) g/dL Plt Count (150-450) k/uL Neutrophils # (1.3-7.7) k/uL Lymphocytes # (1.0-4.8) k/uL Monocytes # (0-1.0) k/uL ABG Total CO2 (19-24) mmol/L BUN 32 H (9-20) mg/dL Creatinine 0.59 L (0.66-1.25) mg/dL Glucose 103 H (74-99) mg/dL POC Glucose (mg/dL) 141 H 120 H (70-110) mg/dL Calcium 7.6 L (8.4-10.2) mg/dL Total Protein 4.8 L (6.3-8.2) g/dL Albumin 2.1 L (3.5-5.0) g/dL Procalcitonin (0.02-0.09) ng/mL 01/07/24 01/07/24 01/07/24 Range/Units 06:36 06:51 11:28 WBC 55.6 H* (3.8-10.6) k/uL RBC 2.94 L (4.30-5.90) m/uL Hgb 8.5 L (13.0-17.5) gm/dL Hct 28.0 L (39.0-53.0) % MCHC 30.4 L (31.0-37.0) g/dL Plt Count 504 H (150-450) k/uL Neutrophils # 51.1 H (1.3-7.7) k/uL Lymphocytes # 0.9 L (1.0-4.8) k/uL Monocytes # 2.8 H (0-1.0) k/uL ABG Total CO2 (19-24) mmol/L BUN (9-20) mg/dL Creatinine (0.66-1.25) mg/dL Glucose (74-99) mg/dL POC Glucose (mg/dL) 122 H 152 H (70-110) mg/dL Calcium (8.4-10.2) mg/dL Total Protein (6.3-8.2) g/dL Albumin (3.5-5.0) g/dL Procalcitonin (0.02-0.09) ng/mL Assessment and Plan (1) Leukocytosis Current Visit: Yes Status: Acute Code(s): D72.829 - ELEVATED WHITE BLOOD CELL COUNT, UNSPECIFIED SNOMED Code(s): 563056833 (2) Pancolitis Current Visit: Yes Status: Acute Code(s): K51.00 - ULCERATIVE (CHRONIC) PANCOLITIS WITHOUT COMPLICATIONS SNOMED Code(s): 376568770 Plan: 1patient with a complicated history as for as evidence of severe pancolitis on the CT that was completed 12/29/2023 and also have worsening of the white count patient apparently was diagnosed with pancreatitis on 11/05/2023 however the p atient was not admitted and mention has not received an antibiotic therapy features are highly suspicious for pseudomembranous colitis though initial testing was negative other infectious etiology need to be ruled out as well 2- patient is status post subtotal colectomy completed morning of 12/31/2023 biopsy has been suggestive of ulcerative colitis 3-patient did have progressive worsening of the white count with mild thrush in the sputum positive for Zeina Eraxis was added yesterday to continue, also have further worsening of the white count now with evidence of some drainage from the middle part of the incision culture has been obtained I will also obtain a blood culture and empirically add vancomycin if any further worsening of the white count patient benefit from CT abdominal pelvis Brother and his at the bedside multiple questions answered Dictation was produced using [employer] software. please excuse any grammatical, word or spelling errors. Time with Patient: Greater than 30
--- NOTE | 2024-01-08 15:45 | P.PN ---
Subjective Progress Note Date: 01/08/24 Principal diagnosis: Reason for follow-up is pancolitis and leukocytosis Patient is a 33-year-old -Gabonese male with a past medical history negative for hypertension hyperlipidemia and pancreatitis that was diagnosed about 2 months ago on 11/05/2023 however the patient mention he was not admitted for it patient presented back to [facility] ER on 12/25/2023 for дмитрий luation of abdominal pain diarrhea patient did have evidence of worsening pancolitis on the CT prompting this consultation. 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 On today's evaluation that is 01/08/2024,the patient remains to be afebrile, patient is on room air not requiring supplemental oxygen and denies any shortness of breath no chest pain or cough.Patient denies having any nausea or vomiting, or any worsening abdominal pain and did have output in his ileostomy. Patient white count is slightly down to 55.1 creatinine 0.59 procalcitonin 2.11 previous reading was 3.19 patient did have abdominal pelvis CT concern for possible loculated fluid collection Objective - Vital Signs Vital signs: Vital Signs Temp 98.1 F 01/08/24 08:00 Pulse 116 H 01/08/24 10:00 Resp 28 H 01/08/24 10:00 BP 136/96 01/08/24 10:00 Pulse Ox 96 01/08/24 10:00 FiO2 30 01/05/24 08:33 Intake & Output 01/07/24 01/08/24 01/08/24 18:59 06:59 18:59 Intake Total 1345 3531.5 1332 Output Total 3295 2370 1820 Balance -1950 1161.5 -488 Weight 116.8 kg Intake: IV 1145 1545 1095 Anidulafungin 100 mg In 100 Sodium Chloride 0.9% 100 ml @ 84 mls/hr IVPB DAILY [facility] Rx#:[id number] Cefepime 2 gm In Sodium 100 100 100 Chloride 0.9% 100 ml @ 25 mls/hr IVPB Q8HR [facility] Rx# :[id number] Invasive Line 6 10 KVO 240 240 20 Magnesium Sulfate-D5w Pmx 100 1 gm In Dextrose/Water 1 100ml.bag @ 100 mls/hr IVPB ONCE ONE Rx#: [id number] Mvi, Adult No.4 with Vit 605 605 165 K 10 ml Trace (Conc-1Ml/ Dose) 1 ml Potassium Chloride 20 meq In Amino Acid 5%-D15w+Lytes*E* 1, 000 ml @ 55 mls/hr IV . [id number] [facility] Rx#:[id number] Vancomycin 2,000 mg In 500 500 Sodium Chloride 0.9% 500 ml 500 ml @ 167 mls/hr IVPB Q8H [facility] Rx#: [id number] metroNIDAZOLE-NS PMX 500 200 100 100 mg In Saline 1 100ml.bag @ 100 mls/hr IVPB Q8HR [facility] Rx#:[id number] Intake, IV Titration 1506.5 Amount Mvi, Adult No.4 with Vit 1006.5 K 10 ml Trace (Conc-1Ml/ Dose) 1 ml Potassium Chloride 20 meq In Amino Acid 5%-D15w+Lytes*E* 1, 000 ml @ 55 mls/hr IV . [id number] [facility] Rx#:[id number] Vancomycin 2,000 mg In 500 Sodium Chloride 0.9% 500 ml 500 ml @ 167 mls/hr IVPB Q8H [facility] Rx#: [id number] Oral 200 480 237 Output: Drainage 1720 Right Abdomen 1720 Urine 1575 1560 1340 Stool 810 480 Other: Voiding Method Indwelling Catheter Indwelling Catheter Indwelling Catheter ABP, PAP, CO, CI - Last Documented Arterial Blood Pressure 139/84 - Exam GENERAL DESCRIPTION: Middle-age male lying in bed in no distress RESPIRATORY SYSTEM: Unlabored breathing , decreased breath sounds at bases HEART: S1 S2 regular rate and rhythm , ABDOMEN: Soft , middle part of the incision with wound dehiscence no significant slough tissue minimal drainage on the dressing did have liquidy stools in the ileostomy EXTREMITIES: No edema feet - Labs CBC & Chem 7: 01/08/24 03:05 01/08/24 03:05 Labs: Abnormal Lab Results - Last 24 Hours (Table) 01/07/24 01/07/24 01/08/24 Range/Units 16:07 20:59 03:05 WBC (3.8-10.6) k/uL RBC (4.30-5.90) m/uL Hgb (13.0-17.5) gm/dL Hct (39.0-53.0) % MCHC (31.0-37.0) g/dL Plt Count (150-450) k/uL Neutrophils # (1.3-7.7) k/uL Lymphocytes # (1.0-4.8) k/uL Monocytes # (0-1.0) k/uL Basophils # (0-0.2) k/uL Chloride (98-107) mmol/L BUN (9-20) mg/dL Creatinine (0.66-1.25) mg/dL Glucose (74-99) mg/dL POC Glucose (mg/dL) 158 H 154 H (70-110) mg/dL Calcium (8.4-10.2) mg/dL Total Protein (6.3-8.2) g/dL Albumin (3.5-5.0) g/dL Procalcitonin 2.11 H (0.02-0.09) ng/mL 01/08/24 01/08/24 01/08/24 Range/Units 03:05 03:05 06:42 WBC 55.1 H* (3.8-10.6) k/uL RBC 2.86 L (4.30-5.90) m/uL Hgb 8.1 L (13.0-17.5) gm/dL Hct 27.2 L (39.0-53.0) % MCHC 29.7 L (31.0-37.0) g/dL Plt Count 555 H (150-450) k/uL Neutrophils # 50.9 H (1.3-7.7) k/uL Lymphocytes # 0.6 L (1.0-4.8) k/uL Monocytes # 2.4 H (0-1.0) k/uL Basophils # 0.4 H (0-0.2) k/uL Chloride 108 H (98-107) mmol/L BUN 30 H (9-20) mg/dL Creatinine 0.59 L (0.66-1.25) mg/dL Glucose 114 H (74-99) mg/dL POC Glucose (mg/dL) 140 H (70-110) mg/dL Calcium 7.5 L (8.4-10.2) mg/dL Total Protein 4.7 L (6.3-8.2) g/dL Albumin 2.1 L (3.5-5.0) g/dL Procalcitonin (0.02-0.09) ng/mL 01/08/24 Range/Units 12:39 WBC (3.8-10.6) k/uL RBC (4.30-5.90) m/uL Hgb (13.0-17.5) gm/dL Hct (39.0-53.0) % MCHC (31.0-37.0) g/dL Plt Count (150-450) k/uL Neutrophils # (1.3-7.7) k/uL Lymphocytes # (1.0-4.8) k/uL Monocytes # (0-1.0) k/uL Basophils # (0-0.2) k/uL Chloride (98-107) mmol/L BUN (9-20) mg/dL Creatinine (0.66-1.25) mg/dL Glucose (74-99) mg/dL POC Glucose (mg/dL) 193 H (70-110) mg/dL Calcium (8.4-10.2) mg/dL Total Protein (6.3-8.2) g/dL Albumin (3.5-5.0) g/dL Procalcitonin (0.02-0.09) ng/mL Assessment and Plan (1) Leukocytosis Current Visit: Yes Status: Acute Code(s): D72.829 - ELEVATED WHITE BLOOD CELL COUNT, UNSPECIFIED SNOMED Code(s): 874015159 (2) Pancolitis Current Visit: Yes Status: Acute Code(s): K51.00 - ULCERATIVE (CHRONIC) PANCOLITIS WITHOUT COMPLICATIONS SNOMED Code(s): 835287571 Plan: 1patient with a complicated history as for as evidence of severe pancolitis on the CT that was completed 12/29/2023 and also have worsening of the white count patient apparently was diagnosed with pancreatitis on 11/05/2023 however the patient was not admitted and mention has not received an antibiotic therapy features are highly suspicious for pseudomembranous colitis though initial testing was negative other infectious etiology need to be ruled out as well 2- patient is status post subtotal colectomy completed morning of 12/31/2023 biopsy has been suggestive of ulcerative colitis 3-patient did have progressive worsening of the white count with mild thrush in the sputum positive for Zeina, patient also have evidence of some drainage from the middle part of the incision culture has been obtained as well as blood cultures patient also have CT abdominal pelvis completed concerning for possible loculated fluid and more likely an abscess that need to be drained to help with the microbiological diagnosis and adjustment of antibiotic patient is currently broadly covered with vancomycin cefepime and Flagyl along with the Eraxis to c ontinue Patient brother And his has been at the bedside they have multiple questions and concerns and asking for the patient to be transferred to tertiary care I have conveyed this information to the admitting team to discuss with the surgeon the CT findings and possible transfer to tertiary care Time spent has been more than 35 minutes Dictation was produced using [employer] dictation software. please excuse any grammatical, word or spelling errors. Time with Patient: Greater than 30
[2024-01-08] MEDS: METOPROLOL TARTRATE 25 MG TAB PO SCH (16:15)
[2024-01-08 16:17] LABS: Glucose,Whole Blood 160 mg/dL (70-110)
--- NOTE | 2024-01-08 17:30 | P.PN ---
Subjective Progress Note Date: 01/08/24 CHIEF COMPLAINT: Fulminant toxic megacolon HISTORY OF PRESENT ILLNESS: The patient is a [id number]-year-old male with complicated medical history including past history of pancreatitis, acute presentation of colitis which quickly progressed to toxic megacolon requiring urgent exploratory laparotomy with total abdominal colectomy and end ileostomy. Patient has been in intensive care unit and hospitalized for 12 days. Family is at bedside with multiple concerns about his overall health care and are requesting transfer. Patient is currently awaiting transfer to [facility] pending bed availability. I was earlier contacted by patient's rounding produce specialist Dr Dash [phone] scan findings of possible peritonitis and family's concerns. Patient's records were reviewed including of admission, surgical operative report, and imaging studies leading to his surgery as well as pathology. All questions were addressed including recent CT of the abdomen pelvis report demonstrating possible peritonitis. Patient's father, brother and , sister were at bedside. Patient is tolerating fluids. He denies any diffuse abdominal pain with motion along his bed. He has no fevers in 48 hours per discussion with his nurse. His ostomy is functioning and his urine output is adequate. ROS: No reports of nausea and vomiting. No fevers or chills over 24-hour. No new chest pain. PHYSICAL EXAM: VITAL SIGNS: Reviewed CONSTITUTIONAL: Well developed and in no acute distress. EYES: Conjuctivae without sclera icterus. Extraocular movements grossly intact. HEAD, EARS, NOSE, THROAT: Moist buccal mucosa. Head is atraumatic, normocephalic. Hears conversational speech. No nasal drainage. No tracheostomy. RESPIRATORY: Present tachypnea. CARDIOVASCULAR: Palpable 2+ radial pulses. Tachycardic. ABDOMEN: Midline incision intact with sander previous removed at the inferior of the umbilicus, 2 cm. Seropurulent drainage. No diffuse cellulitis along incision. Ostomy appliance present with flatus. No gastrostomy tube. MUSCULOSKELETAL: No gross deformity of the lower extremities noted. No clubbing. No cyanosis. Has lower extremity swelling. SKIN: Good skin turgor. Well perfused. NEUROLOGIC: Cranial nerves II through XII grossly intact. No focal or lateralizing signs. PSYCH: Depressed mentation. Otherwise alert and oriented person place including family members at bedside CLINICAL LABS: Reviewed. WBC elevated over 18,000 to over 55,000. C. difficile assay negative. Hemoglobin 8.1, anemia, hemoglobin 11.7 on admission. Platelet count elevated 55,000 MICROBIOLOGY: Blood identified in sputum. Blood cultures negative to date on final from 12/25/2023 PATHOLOGY: Chronic and active ulcerative colitis REPORTS: Patient's records were reviewed including of admission, surgical operative report, and imaging studies leading to his surgery as well as pathology. STUDIES: CT of the abdomen pelvis obtained 01/08/[address] scans on admission leading to surgery reviewed in detail. Presence of diffuse colitis developed during admission prior to surgery. Current CT scan demonstrates moderate ileus with moderate ascites. Findings less likely of leak or obstruction. This is my independent interpretation. RADIOLOGY: CT of the abdomen pelvis report demonstrates moderate ascites ASSESSMENT: 1. Ulcerative colitis with fulminant toxic megacolon status post total colectomy with ileostomy 2. Sepsis with leukocytosis over 55,000 3. History of pancreatitis 4. Present on admission anemia with acute blood loss anemia 5. Thrombocytosis PLAN: 1. Overall, questions regarding need for surgery including urgency of treatment for toxic megacolon were reviewed with patient's family at bedside 2. Currently patient is in process for transfer to tertiary care center pending bed availability at [facility] 3. With patient's thrombocytosis and leukocytosis, do recommend assessment for deep venous thrombosis of the bilateral lower extremities as well. 4. Patient is on antifungal for candidiasis and possible candidemia. 5. Antibiotic management per infectious disease. 6. Will consult interventional radiology for drainage of intra-abdominal ascites. 7. Anticipated care goals were described with the patient's family including need of if interventional radiology drainage catheter for paracentesis/ascites described. Additionally, adjustment of antibiotics pending fluid culture of ascites needed. Overall, less likely need for additional surgical invention reviewed with patient's family. Patient clinically has improved whereby he has been extubated, without tracheostomy or gastrostomy tube. 8. Care plan reviewed with patient's family. Family addressed that I will be covering the patient's surgical care for short-term until his index surgeon returns in the next 5 days. Discussion including coordination of care performed over 30 minutes and follow- up discussion with medicine team Dr Dash [phone] reviewed. Objective - Vital Signs Vital signs: Vital Signs Temp 98.6 F 07/04/24 16:00 Pulse 123 H 01/08/24 16:00 Resp 42 H 01/08/24 16:00 BP 132/99 01/08/24 16:00 Pulse Ox 95 01/08/24 16:00 FiO2 30 01/05/24 08:33 Intake & Output 01/07/24 01/08/24 01/08/24 18:59 06:59 18:59 Intake Total 1345 3531.5 2299 Output Total 3295 2370 3400 Balance -1950 1161.5 -1101 Weight 116.8 kg Intake: IV 1145 1545 1825 Anidulafungin 100 mg In 100 Sodium Chloride 0.9% 100 ml @ 84 mls/hr IVPB DAILY [facility] Rx#:[id number] Cefepime 2 gm In Sodium 100 100 100 Chloride 0.9% 100 ml @ 25 mls/hr IVPB Q8HR [facility] Rx# :[id number] Invasive Line 6 20 KVO 240 240 140 Magnesium Sulfate-D5w Pmx 100 1 gm In Dextrose/Water 1 100ml.bag @ 100 mls/hr IVPB ONCE ONE Rx#: [id number] Mvi, Adult No.4 with Vit 605 605 165 K 10 ml Trace (Conc-1Ml/ Dose) 1 ml Potassium Chloride 20 meq In Amino Acid 5%-D15w+Lytes*E* 1, 000 ml @ 55 mls/hr IV . [id number] [facility] Rx#:[id number] Vancomycin 2,000 mg In 500 1000 Sodium Chloride 0.9% 500 ml 500 ml @ 167 mls/hr IVPB Q8H [facility] Rx#: [id number] metroNIDAZOLE-NS PMX 500 200 100 200 mg In Saline 1 100ml.bag @ 100 mls/hr IVPB Q8HR [facility] Rx#:[id number] Intake, IV Titration 1506.5 Amount Mvi, Adult No.4 with Vit 1006.5 K 10 ml Trace (Conc-1Ml/ Dose) 1 ml Potassium Chloride 20 meq In Amino Acid 5%-D15w+Lytes*E* 1, 000 ml @ 55 mls/hr IV . [id number] [facility] Rx#:[id number] Vancomycin 2,000 mg In 500 Sodium Chloride 0.9% 500 ml 500 ml @ 167 mls/hr IVPB Q8H [facility] Rx#: [id number] Oral 200 480 474 Output: Drainage 1720 Right Abdomen 1720 Urine 1575 1560 2670 Stool 810 730 Other: Voiding Method Indwelling Catheter Indwelling Catheter Indwelling Catheter # Bowel Movements 700 ABP, PAP, CO, CI - Last Documented Arterial Blood Pressure 139/84 - Labs CBC & Chem 7: 01/08/24 03:05 01/08/24 03:05 Labs: Abnormal Lab Results - Last 24 Hours (Table) 01/07/24 01/08/24 01/08/24 Range/Units 20:59 03:05 03:05 WBC 55.1 H* (3.8-10.6) k/uL RBC 2.86 L (4.30-5.90) m/uL Hgb 8.1 L (13.0-17.5) gm/dL Hct 27.2 L (39.0-53.0) % MCHC 29.7 L (31.0-37.0) g/dL Plt Count 555 H (150-450) k/uL Neutrophils # 50.9 H (1.3-7.7) k/uL Lymphocytes # 0.6 L (1.0-4.8) k/uL Monocytes # 2.4 H (0-1.0) k/uL Basophils # 0.4 H (0-0.2) k/uL Chloride (98-107) mmol/L BUN (9-20) mg/dL Creatinine (0.66-1.25) mg/dL Glucose (74-99) mg/dL POC Glucose (mg/dL) 154 H (70-110) mg/dL Calcium (8.4-10.2) mg/dL Total Protein (6.3-8.2) g/dL Albumin (3.5-5.0) g/dL Procalcitonin 2.11 H (0.02-0.09) ng/mL 01/08/24 01/08/24 01/08/24 Range/Units 03:05 06:42 12:39 WBC (3.8-10.6) k/uL RBC (4.30-5.90) m/uL Hgb (13.0-17.5) gm/dL Hct (39.0-53.0) % MCHC (31.0-37.0) g/dL Plt Count (150-450) k/uL Neutrophils # (1.3-7.7) k/uL Lymphocytes # (1.0-4.8) k/uL Monocytes # (0-1.0) k/uL Basophils # (0-0.2) k/uL Chloride 108 H (98-107) mmol/L BUN 30 H (9-20) mg/dL Creatinine 0.59 L (0.66-1.25) mg/dL Glucose 114 H (74-99) mg/dL POC Glucose (mg/dL) 140 H 193 H (70-110) mg/dL Calcium 7.5 L (8.4-10.2) mg/dL Total Protein 4.7 L (6.3-8.2) g/dL Albumin 2.1 L (3.5-5.0) g/dL Procalcitonin (0.02-0.09) ng/mL 01/08/24 Range/Units 16:16 WBC (3.8-10.6) k/uL RBC (4.30-5.90) m/uL Hgb (13.0-17.5) gm/dL Hct (39.0-53.0) % MCHC (31.0-37.0) g/dL Plt Count (150-450) k/uL Neutrophils # (1.3-7.7) k/uL Lymphocytes # (1.0-4.8) k/uL Monocytes # (0-1.0) k/uL Basophils # (0-0.2) k/uL Chloride (98-107) mmol/L BUN (9-20) mg/dL Creatinine (0.66-1.25) mg/dL Glucose (74-99) mg/dL POC Glucose (mg/dL) 160 H (70-110) mg/dL Calcium (8.4-10.2) mg/dL Total Protein (6.3-8.2) g/dL Albumin (3.5-5.0) g/dL Procalcitonin (0.02-0.09) ng/mL
[2024-01-08 18:17] LABS: Potassium 4.1 mmol/L (3.5-5.1)
[2024-01-08 20:07] LABS: Glucose,Whole Blood 113 mg/dL (70-110)
[2024-01-08 20:17] VITALS: TEMP 98.5
[2024-01-08] MEDS: METOPROLOL TARTRATE 50 MG TAB PO SCH (20:42)
--- NOTE | 2024-01-08 20:50 | P.PN ---
Subjective 33-year-old male presented to the ED on December 24 with severe abdominal pain. The patient has a history of pancreatitis and describes the pain is similar to that episode. He also had a poor appetite and was unable to keep any liquids or food down. Patient was found to have pancolitis and had a subtotal colectomy with ileostomy. The patient was extubated in the operating room but was reintubated minutes later. The patient came to the ICU on a ventilator. 01/06/24 Today patient is postop day #7. Yesterday he was extubated without any major problems and he is on room air oxygen. He was tolerating ice chips and TPN well so diet was advanced to clear liquids. Patient continues to maintain a negative fluid balance and being diuresed with IV Lasix 40 mg daily. 01/07/24 Today patient is postop day #8. Patient is sitting up in chair, uncomfortable in no acute distress. Edema still present in all 4 extremities and currently on IV Lasix. He is on a clear liquid diet but oral intake is diminished so he is also on TPN at rate of 55ml/hr. White cell count is elevated at 55.6 despite being afebrile. Patient is on Cefepime, Flagyl, and Eraxis. Ileostomy is functional. 01/08/24 Today patient is postop day #9. Mental status is slightly diminished as compared to baseline. Patient remains tachycardic and hypertensive currently on Lopressor 25 mg IV twice daily. He continues to saturate well on room air. White count is elevated at 55.1 despite being afebrile. Patient is on Cefepime, Flagyl, Vancomycin and Eraxis. Hemoglobin is 8.1 with platelet count of 555. Procalcitonin is 2.11 and continues to trend downwards. BUN is 30 with a creatinine of 0.59 and sodium level is 138. His oral intake is diminished and he remains on TPN at a rate of 55/h. He remains on Lasix 40 mg twice daily and has maintained a negative fluid balance of 788 mL. Objective - Vital Signs Vital signs: Vital Signs Temp 98.2 F 01/08/24 12:00 Pulse 115 H 01/08/24 14:00 Resp 26 H 01/08/24 14:00 BP 148/100 01/08/24 14:00 Pulse Ox 95 01/08/24 14:00 FiO2 30 01/05/24 08:33 Intake & Output 01/07/24 01/08/24 01/08/24 18:59 06:59 18:59 Intake Total 1345 3531.5 1659 Output Total 3295 2370 2940 Balance -1950 1161.5 -1281 Weight 116.8 kg Intake: IV 1145 1545 1185 Anidulafungin 100 mg In 100 Sodium Chloride 0.9% 100 ml @ 84 mls/hr IVPB DAILY [facility] Rx#:[id number] Cefepime 2 gm In Sodium 100 100 100 Chloride 0.9% 100 ml @ 25 mls/hr IVPB Q8HR [facility] Rx# :[id number] Invasive Line 6 20 KVO 240 240 100 Magnesium Sulfate-D5w Pmx 100 1 gm In Dextrose/Water 1 100ml.bag @ 100 mls/hr IVPB ONCE ONE Rx#: [id number] Mvi, Adult No.4 with Vit 605 605 165 K 10 ml Trace (Conc-1Ml/ Dose) 1 ml Potassium Chloride 20 meq In Amino Acid 5%-D15w+Lytes*E* 1, 000 ml @ 55 mls/hr IV . [id number] [facility] Rx#:[id number] Vancomycin 2,000 mg In 500 500 Sodium Chloride 0.9% 500 ml 500 ml @ 167 mls/hr IVPB Q8H [facility] Rx#: [id number] metroNIDAZOLE-NS PMX 500 200 100 100 mg In Saline 1 100ml.bag @ 100 mls/hr IVPB Q8HR [facility] Rx#:[id number] Intake, IV Titration 1506.5 Amount Mvi, Adult No.4 with Vit 1006.5 K 10 ml Trace (Conc-1Ml/ Dose) 1 ml Potassium Chloride 20 meq In Amino Acid 5%-D15w+Lytes*E* 1, 000 ml @ 55 mls/hr IV . [id number] [facility] Rx#:[id number] Vancomycin 2,000 mg In 500 Sodium Chloride 0.9% 500 ml 500 ml @ 167 mls/hr IVPB Q8H [facility] Rx#: [id number] Oral 200 480 474 Output: Drainage 1720 Right Abdomen 1720 Urine 1575 1560 2460 Stool 810 480 Other: Voiding Method Indwelling Catheter Indwelling Catheter Indwelling Catheter # Bowel Movements 700 ABP, PAP, CO, CI - Last Documented Arterial Blood Pressure 139/84 - Exam Head: Normocephalic General: Patient is sitting comfrotably in no acute distress but seems less alert than yesterday Cardio: Regular rate S1-S2 present no murmurs noted. Resp: Lungs clear to auscultation bilaterally Abdominal: Soft non-tender ostomy is functional with adequate output Skin: No rashes or lesions. Surgical wound is clean, dry, & intact. Peripheral: Generalized edema in all 4 extremities but improved. - Additional findings Additional findings: Left subclavian triple-lumen cath, right hand peripheral IV in place - Labs CBC & Chem 7: 01/08/24 03:05 01/08/24 17:33 Labs: Abnormal Lab Results - Last 24 Hours (Table) 01/07/24 01/07/24 01/08/24 Range/Units 16:07 20:59 03:05 WBC (3.8-10.6) k/uL RBC (4.30-5.90) m/uL Hgb (13.0-17.5) gm/dL Hct (39.0-53.0) % MCHC (31.0-37.0) g/dL Plt Count (150-450) k/uL Neutrophils # (1.3-7.7) k/uL Lymphocytes # (1.0-4.8) k/uL Monocytes # (0-1.0) k/uL Basophils # (0-0.2) k/uL Chloride (98-107) mmol/L BUN (9-20) mg/dL Creatinine (0.66-1.25) mg/dL Glucose (74-99) mg/dL POC Glucose (mg/dL) 158 H 154 H (70-110) mg/dL Calcium (8.4-10.2) mg/dL Total Protein (6.3-8.2) g/dL Albumin (3.5-5.0) g/dL Procalcitonin 2.11 H (0.02-0.09) ng/mL 01/08/24 01/08/24 01/08/24 Range/Units 03:05 03:05 06:42 WBC 55.1 H* (3.8-10.6) k/uL RBC 2.86 L (4.30-5.90) m/uL Hgb 8.1 L (13.0-17.5) gm/dL Hct 27.2 L (39.0-53.0) % MCHC 29.7 L (31.0-37.0) g/dL Plt Count 555 H (150-450) k/uL Neutrophils # 50.9 H (1.3-7.7) k/uL Lymphocytes # 0.6 L (1.0-4.8) k/uL Monocytes # 2.4 H (0-1.0) k/uL Basophils # 0.4 H (0-0.2) k/uL Chloride 108 H (98-107) mmol/L BUN 30 H (9-20) mg/dL Creatinine 0.59 L (0.66-1.25) mg/dL Glucose 114 H (74-99) mg/dL POC Glucose (mg/dL) 140 H (70-110) mg/dL Calcium 7.5 L (8.4-10.2) mg/dL Total Protein 4.7 L (6.3-8.2) g/dL Albumin 2.1 L (3.5-5.0) g/dL Procalcitonin (0.02-0.09) ng/mL 01/08/24 Range/Units 12:39 WBC (3.8-10.6) k/uL RBC (4.30-5.90) m/uL Hgb (13.0-17.5) gm/dL Hct (39.0-53.0) % MCHC (31.0-37.0) g/dL Plt Count (150-450) k/uL Neutrophils # (1.3-7.7) k/uL Lymphocytes # (1.0-4.8) k/uL Monocytes # (0-1.0) k/uL Basophils # (0-0.2) k/uL Chloride (98-107) mmol/L BUN (9-20) mg/dL Creatinine (0.66-1.25) mg/dL Glucose (74-99) mg/dL POC Glucose (mg/dL) 193 H (70-110) mg/dL Calcium (8.4-10.2) mg/dL Total Protein (6.3-8.2) g/dL Albumin (3.5-5.0) g/dL Procalcitonin (0.02-0.09) ng/mL Assessment and Plan Assessment: Abdominal Sepsis secondary to colitis Patient advanced to clear liquid diet and maintained with TPN. Diet will be adjusted as tolerated. Ileostomy is functional. CT Abdomen & Pelvis will be done today to rule out intra-abdominal abscess. Edema in all 4 extremities Lasix increased to 40mg q12 to maintain negative fluid balance Leukocytosis Continue to monitor white count and maintain IV antibiotics Flagyl, Cefepime, and Vancomycin. If persistent may consider CTAP to rule out intra-abdominal abscess. Acute respiratory failure resolved: patient is breathing comfortably on room air. Plan Follow-up Blood culture Follow-up Incision site culture Monitor Procalcitonin which is downtrending Continue IV Lasix and negative fluid balance Continue glucose checks Q6 and maintain insulin sliding scale as per protocol Lopressor adjusted to 50mg BID to maintain better BP control Monitor Blood glucose with sliding scale insulin Heparin for DVT prophylaxis Pepcid for GI prophylaxis
[2024-01-08 23:02] VITALS: BP 134/84; PULSE 118; RESP 28
[2024-01-09] MEDS: VANCOMYCIN TROUGH DUE 1 EACH MISC MISCELLANE ONE (00:10)
== END 2024-01-08 23:36 | disposition short-term general hospital (02) | DRG 853 ==
LOC: EC 19:24 → 6NMEDSUR 12-26 01:14 → OBSVTOIN 12-27 09:36 → 3SCARD 12-30 21:43 → 2SICU 12-31 09:21
PROVIDERS: ADMIT Internal Medicine; ATTEND Internal Medicine
PROC: 0D1L0Z4 Bypass Transverse Colon to Cutaneous, Open Approach (ICD-10-PCS; 2023-12-31)
PROC: 0DBL0ZZ Excision of Transverse Colon, Open Approach (ICD-10-PCS; 2023-12-31)
PROC: 02HV33Z Insertion of Infusion Device into Superior Vena Cava, Percutaneous Approach (ICD-10-PCS; 2023-12-31)
PROC: B5181ZA Fluoroscopy of Superior Vena Cava using Low Osmolar Contrast, Guidance (ICD-10-PCS; 2023-12-31)
PROC: B548ZZA Ultrasonography of Superior Vena Cava, Guidance (ICD-10-PCS; 2023-12-31)
PROC: 0DBK0ZZ Excision of Ascending Colon, Open Approach (ICD-10-PCS; principal; 2023-12-31 06:00)
PROC: 30233N1 Transfusion of Nonautologous Red Blood Cells into Peripheral Vein, Percutaneous Approach (ICD-10-PCS; 2024-01-02)
PROC: 3E033XZ Introduction of Vasopressor into Peripheral Vein, Percutaneous Approach (ICD-10-PCS; 2024-01-03)
DX: A41.9 Sepsis, unspecified organism (principal); E43 Unspecified severe protein-calorie malnutrition; N17.0 Acute kidney failure with tubular necrosis; R65.21 Severe sepsis with septic shock; A09 Infectious gastroenteritis and colitis, unspecified; E87.1 Hypo-osmolality and hyponatremia; E87.3 Alkalosis; D62 Acute posthemorrhagic anemia; K51.90 Ulcerative colitis, unspecified, without complications; E87.4 Mixed disorder of acid-base balance; K59.31 Toxic megacolon; Z99.11 Dependence on respirator [ventilator] status; R10.9 Unspecified abdominal pain; F41.9 Anxiety disorder, unspecified; E87.6 Hypokalemia; I10 Essential (primary) hypertension; E86.9 Volume depletion, unspecified; E83.51 Hypocalcemia; Z68.36 Body mass index [BMI] 36.0-36.9, adult; D63.8 Anemia in other chronic diseases classified elsewhere; D75.839 Thrombocytosis, unspecified; E78.5 Hyperlipidemia, unspecified; E83.39 Other disorders of phosphorus metabolism; E87.70 Fluid overload, unspecified; E88.09 Other disorders of plasma-protein metabolism, not elsewhere classified; Z79.899 Other long term (current) drug therapy; E87.8 Other disorders of electrolyte and fluid balance, not elsewhere classified; K76.0 Fatty (change of) liver, not elsewhere classified; F90.9 Attention-deficit hyperactivity disorder, unspecified type
CPT/HCPCS: 36415; 71045; 71046; 74176; 74177; 80048; 80053; 81003; 82150; 82330; 82533; 82728; 82803; 82805; 83036; 83540; 83550; 83605; 83690; 83735; 83935; 84100; 84132; 84145; 84295; 84300; 84478; 84540; 84703; 85025; 85027; 85652; 86140; 86850; 86900; 86901; 86920; 87040; 87045; 87046; 87070; 87075; 87077; 87186; 87205; 87324; 88307; 93005; 94002; 94003; 94640; 96361; 96365; 96366; 96367; 96375; 96376; 99285

== ENCOUNTER → 2024-02-20 | Outpatient (CLI) | payer BC | END | disposition home or self-care (01) | LOC: LABPRL 10:20 | PROVIDERS: ATTEND Family Medicine | DX: G93.41 Metabolic encephalopathy (principal); K51.918 Ulcerative colitis, unspecified with other complication | CPT/HCPCS: 80053; 80061; 85025 ==